=== PATIENT | female | born 1935 | race Caucasian/White ===

== ENCOUNTER 2020-12-16 19:40 | Inpatient (IN) | payer MEDICARE ==
--- NOTE | 2020-12-16 21:06 | ED ---
SOB HPI - General Chief Complaint: Shortness of Breath Stated Complaint: Swollen feet, chest congestion Time Seen by Provider: 12/16/20 20:49 Source: police Mode of arrival: wheelchair Limitations: no limitations - History of Present Illness Initial Comments: This patient is an 85-year-old woman who presents with complaints of increasing bilateral foot swelling and exertional dyspnea/fatigue. She states that the symptoms have been going on for quite some time. She states that she noticed worsening since Wednesday morning. She consider not going to [facility] but then went to [facility] and found she was really having exertional dyspnea. Patient states luann fisher has not seen her physician in about 2 years now so she felt she should have reevaluation here. The patient denies chest pain currently but states she does get some discomfort in the chest that is intermittent and usually if she is lying flat. MD Complaint: shortness of breath -: month(s) Severity scale (1-10): 0 Consistency: intermittent Improves With: upright position Worsens With: lying flat, exertion Associated Symptoms: chest pain Treatments Prior to Arrival: none - Related Data Home Medications Medication Instructions Recorded Confirmed Thyroid,Pork [[place] Thyroid] 90 mg PO DAILY 12/21/12/16/20 Beet Root Pills (Unknown Strength) 1 tab PO DAILY 12/16/20 12/16/20 Magnesium (Unknown Strength) 1 tab PO DAILY 12/16/20 12/16/20 Tri-Salts (Unknown Strength) 1 tsp PO Q4H PRN 12/16/20 12/16/20 Allergies Allergy/AdvReac Type Severity Reaction Status Date / Time Sulfa (Sulfonamide Allergy Severe Rash/Hives Verified 12/16/20 21:56 Antibiotics) Review of Systems ROS Statement: Those systems with pertinent positive or pertinent negative responses have been documented in the HPI. ROS Other: All systems not noted in ROS Statement are negative. Constitutional: Denies: fever, chills Respiratory: Denies: cough, dyspnea Cardiovascular: Reports: chest pain, dyspnea on exertion, orthopnea, edema. Denies: palpitations, syncope Gastrointestinal: Denies: abdominal pain, vomiting, diarrhea Genitourinary: Denies: dysuria, hematuria Musculoskeletal: Denies: back pain Skin: Denies: rash Neurological: Denies: headache, weakness, numbness Past Medical History Past Medical History: CVA/TIA, GERD/Reflux, Hypertension, Mitral Valve Prolapse (MVP), Neurologic Disorder, Rheumatoid Arthritis (RA), Thyroid Disorder Additional Past Medical History / Comment(s): Glaucoma. TIA - 2009. pinched nerve in lower back History of Any Multi-Drug Resistant Organisms: None Reported Past Surgical History: Appendectomy, Heart Catheterization Additional Past Surgical History / Comment(s): fatty tumors Past Anesthesia/Blood Transfusion Reactions: No Reported Reaction Additional Past Anesthesia/Blood Transfusion Reaction / Comment(s): no transfusion Past Psychological History: No Psychological Hx Reported Smoking Status: Never smoker Past Alcohol Use History: None Reported Past Drug Use History: None Reported General Exam Limitations: no limitations General appearance: alert, in no apparent distress Head exam: Present: atraumatic, normocephalic Eye exam: Present: normal appearance. Absent: scleral icterus, conjunctival injection Neck exam: Present: normal inspection Respiratory exam: Present: rales (Bilateral lower lung chandler). Absent: respiratory distress, wheezes, rhonchi, stridor Cardiovascular Exam: Present: regular rate, normal rhythm, normal heart sounds. Absent: systolic murmur, diastolic murmur, rubs, gallop GI/Abdominal exam: Present: soft. Absent: distended, tenderness, guarding, rebound, rigid, mass Extremities exam: Present: normal inspection, normal capillary refill, pedal edema (Ricardo edema at the ankles bilaterally). Absent: calf tenderness Back exam: Present: normal inspection. Absent: CVA tenderness (R), CVA tenderness (L) Neurological exam: Present: alert Skin exam: Present: warm, dry, intact, normal color. Absent: rash Course Vital Signs 12/16/20 12/16/20 12/16/20 19:46 22:03 22:14 Temperature 98 F Pulse Rate 65 71 Respiratory 16 18 20 Rate Blood Pressure 186/71 155/75 O2 Sat by Pulse 89 L 89 L Oximetry 12/16/20 12/17/20 12/17/20 22:28 00:00 00:52 Temperature Pulse Rate 63 56 L Respiratory 18 26 H Rate Blood Pressure 137/60 110/50 O2 Sat by Pulse 96 99 98 Oximetry Medical Decision Making - Lab Data Result diagrams: 12/16/20 21:18 12/16/20 21:18 Lab Results 12/16/20 12/16/20 12/16/20 Range/Units 21:18 21:18 21:18 WBC 10.6 (3.8-10.6) k/uL RBC 4.53 (3.80-5.40) m/uL Hgb 14.4 (11.4-16.0) gm/dL Hct 42.1 (34.0-46.0) % MCV 92.9 (80.0-100.0) fL MCH 31.7 (25.0-35.0) pg MCHC 34.1 (31.0-37.0) g/dL RDW 12.4 (11.5-15.5) % Plt Count 302 (150-450) k/uL MPV 8.1 Neutrophils % 77 % Lymphocytes % 14 % Monocytes % 5 % Eosinophils % 3 % Basophils % 0 % Neutrophils # 8.1 H (1.3-7.7) k/uL Lymphocytes # 1.5 (1.0-4.8) k/uL Monocytes # 0.5 (0-1.0) k/uL Eosinophils # 0.4 (0-0.7) k/uL Basophils # 0.0 (0-0.2) k/uL PT 10.6 (9.0-12.0) sec INR 1.0 (<1.2) APTT 26.6 (22.0-30.0) sec Sodium 133 L (137-145) mmol/L Potassium 4.5 (3.5-5.1) mmol/L Chloride 100 (98-107) mmol/L Carbon Dioxide 27 (22-30) mmol/L Anion Gap 6 mmol/L BUN 16 (7-17) mg/dL Creatinine 0.71 (0.52-1.04) mg/dL Est GFR (CKD-EPI)AfAm >90 (>60 ml/min/1.73 sqM) Est GFR (CKD-EPI)NonAf 79 (>60 ml/min/1.73 sqM) Glucose 101 H (74-99) mg/dL Plasma Lactic Acid Miguel (0.7-2.0) mmol/L Calcium 9.7 (8.4-10.2) mg/dL Magnesium 1.9 (1.6-2.3) mg/dL Total Bilirubin 1.1 (0.2-1.3) mg/dL AST 43 H (14-36) U/L ALT 46 H (4-34) U/L Alkaline Phosphatase 80 (38-126) U/L Troponin I (0.000-0.034) ng/mL NT-Pro-B Natriuret Pep pg/mL Total Protein 7.4 (6.3-8.2) g/dL Albumin 4.2 (3.5-5.0) g/dL Urine Color Urine Appearance (Clear) Urine pH (5.0-8.0) Ur Specific [place] (1.001-1.035) Urine Protein (Negative) Urine Glucose (UA) (Negative) Urine Ketones (Negative) Urine Blood (Negative) Urine Nitrite (Negative) Urine Bilirubin (Negative) Urine Urobilinogen (<2.0) mg/dL Ur Leukocyte Esterase (Negative) Coronavirus (PCR) (Not Detectd) 12/16/20 12/16/20 12/16/20 Range/Units 21:18 21:18 21:18 WBC (3.8-10.6) k/uL RBC (3.80-5.40) m/uL Hgb (11.4-16.0) gm/dL Hct (34.0-46.0) % MCV (80.0-100.0) fL MCH (25.0-35.0) pg MCHC (31.0-37.0) g/dL RDW (11.5-15.5) % Plt Count (150-450) k/uL MPV Neutrophils % % Lymphocytes % % Monocytes % % Eosinophils % % Basophils % % Neutrophils # (1.3-7.7) k/uL Lymphocytes # (1.0-4.8) k/uL Monocytes # (0-1.0) k/uL Eosinophils # (0-0.7) k/uL Basophils # (0-0.2) k/uL PT (9.0-12.0) sec INR (<1.2) APTT (22.0-30.0) sec Sodium (137-145) mmol/L Potassium (3.5-5.1) mmol/L Chloride (98-107) mmol/L Carbon Dioxide (22-30) mmol/L Anion Gap mmol/L BUN (7-17) mg/dL Creatinine (0.52-1.04) mg/dL Est GFR (CKD-EPI)AfAm (>60 ml/min/1.73 sqM) Est GFR (CKD-EPI)NonAf (>60 ml/min/1.73 sqM) Glucose (74-99) mg/dL Plasma Lactic Acid Miguel 1.3 (0.7-2.0) mmol/L Calcium (8.4-10.2) mg/dL Magnesium (1.6-2.3) mg/dL Total Bilirubin (0.2-1.3) mg/dL AST (14-36) U/L ALT (4-34) U/L Alkaline Phosphatase (38-126) U/L Troponin I <0.012 (0.000-0.034) ng/mL NT-Pro-B Natriuret Pep 6230 pg/mL Total Protein (6.3-8.2) g/dL Albumin (3.5-5.0) g/dL Urine Color Urine Appearance (Clear) Urine pH (5.0-8.0) Ur Specific [place] (1.001-1.035) Urine Protein (Negative) Urine Glucose (UA) (Negative) Urine Ketones (Negative) Urine Blood (Negative) Urine Nitrite (Negative) Urine Bilirubin (Negative) Urine Urobilinogen (<2.0) mg/dL Ur Leukocyte Esterase (Negative) Coronavirus (PCR) (Not Detectd) 12/16/20 12/16/20 Range/Units 23:00 23:56 WBC (3.8-10.6) k/uL RBC (3.80-5.40) m/uL Hgb (11.4-16.0) gm/dL Hct (34.0-46.0) % MCV (80.0-100.0) fL MCH (25.0-35.0) pg MCHC (31.0-37.0) g/dL RDW (11.5-15.5) % Plt Count (150-450) k/uL MPV Neutrophils % % Lymphocytes % % Monocytes % % Eosinophils % % Basophils % % Neutrophils # (1.3-7.7) k/uL Lymphocytes # (1.0-4.8) k/uL Monocytes # (0-1.0) k/uL Eosinophils # (0-0.7) k/uL Basophils # (0-0.2) k/uL PT (9.0-12.0) sec INR (<1.2) APTT (22.0-30.0) sec Sodium (137-145) mmol/L Potassium (3.5-5.1) mmol/L Chloride (98-107) mmol/L Carbon Dioxide (22-30) mmol/L Anion Gap mmol/L BUN (7-17) mg/dL Creatinine (0.52-1.04) mg/dL Est GFR (CKD-EPI)AfAm (>60 ml/min/1.73 sqM) Est GFR (CKD-EPI)NonAf (>60 ml/min/1.73 sqM) Glucose (74-99) mg/dL Plasma Lactic Acid Miguel (0.7-2.0) mmol/L Calcium (8.4-10.2) mg/dL Magnesium (1.6-2.3) mg/dL Total Bilirubin (0.2-1.3) mg/dL AST (14-36) U/L ALT (4-34) U/L Alkaline Phosphatase (38-126) U/L Troponin I (0.000-0.034) ng/mL NT-Pro-B Natriuret Pep pg/mL Total Protein (6.3-8.2) g/dL Albumin (3.5-5.0) g/dL Urine Color Light Yellow Urine Appearance Clear (Clear) Urine pH 6.0 (5.0-8.0) Ur Specific [place] 1.006 (1.001-1.035) Urine Protein Negative (Negative) Urine Glucose (UA) Negative (Negative) Urine Ketones Negative (Negative) Urine Blood Negative (Negative) Urine Nitrite Negative (Negative) Urine Bilirubin Negative (Negative) Urine Urobilinogen <2.0 (<2.0) mg/dL Ur Leukocyte Esterase Negative (Negative) Coronavirus (PCR) Not Detected (Not Detectd) - EKG Data -: EKG Interpreted by Wy EKG shows normal: sinus rhythm, intervals (ME interval 178 ms, QTC 473 ms, both normal. QRS duration 124 ms, prolonged consistent with the right bundle branch block.), QRS complexes (Right bundle-branch block. Possible old septal infarct.) Rate: normal (Rate 75 bpm) Disposition Clinical Impression: Dyspnea, CHF (congestive heart failure) Disposition: ADMITTED IP TO THIS HOSP Condition: Fair Is patient prescribed a controlled substance at d/c from ED?: No
[2020-12-16 21:29] LABS: Basophils % (A) 0 %; Eosinophils # (A) 0.4 k/uL (0-0.7); Eosinophils % (A) 3 %; HCT 42.1 % (34.0-46.0); HGB 14.4 gm/dL (11.4-16.0); Lymphocytes # (A) 1.5 k/uL (1.0-4.8); Lymphocytes % (A) 14 %; MCH 31.7 pg (25.0-35.0); MCHC 34.1 g/dL (31.0-37.0); MCV 92.9 fL (80.0-100.0); Mean Platelet Volume 8.1; Monocytes # (A) 0.5 k/uL (0-1.0); Monocytes % (A) 5 %; Neutrophils # (A) 8.1 k/uL (1.3-7.7); Neutrophils % (A) 77 %; Platelet Count 302 k/uL (150-450); RBC 4.53 m/uL (3.80-5.40); RDW 12.4 % (11.5-15.5); WBC 10.6 k/uL (3.8-10.6)
--- NOTE | 2020-12-16 21:37 | XR ---
EXAMINATION TYPE: XR chest 2V DATE OF EXAM: 12/16/2020 COMPARISON: NONE HISTORY: Difficulty breathing. TECHNIQUE: Frontal and lateral views of the chest are obtained. FINDINGS: There is bilateral diffuse hazy and streaky opacities with component of interstitial edema . No significant pleural effusion, or pneumothorax seen. The cardiac silhouette size is mildly enlar ged. The osseous structures are intact. IMPRESSION: Interstitial edema with superimposed infiltrates not excluded.
[2020-12-16 21:41] LABS: ALT 46 U/L (4-34); AST 43 U/L (14-36); African American GFR (CKD) >90 (>60 ml/min/1.73 sqM); Albumin 4.2 g/dL (3.5-5.0); Alkaline Phosphatase 80 U/L (38-126); Anion Gap 6 mmol/L; Blood Urea Nitrogen 16 mg/dL (7-17); Calcium 9.7 mg/dL (8.4-10.2); Carbon Dioxide 27 mmol/L (22-30); Chloride 100 mmol/L (98-107); Glucose 101 mg/dL (74-99); Magnesium 1.9 mg/dL (1.6-2.3); Non-African American GFR(CKD) 79 (>60 ml/min/1.73 sqM); Potassium 4.5 mmol/L (3.5-5.1); Sodium 133 mmol/L (137-145); Total Bilirubin 1.1 mg/dL (0.2-1.3); Total Protein 7.4 g/dL (6.3-8.2)
[2020-12-16 21:42] LABS: Partial Thromboplastin Time 26.6 sec (22.0-30.0); Prothrombin Time 10.6 sec (9.0-12.0)
[2020-12-16] MEDS ORDERED: FUROSEMIDE 10 MG/ML 4 ML VIAL IV STA (21:47)
[2020-12-16] MEDS ORDERED: NITROGLYCERIN OINT 1 INCH/GM PACKET TOPICAL STA (21:47)
[2020-12-16] MEDS ORDERED: MORPHINE SULFATE 4 MG/ML SYRINGE IV STA (21:47)
[2020-12-16] MEDS ORDERED: NITROGLYCERIN SL TABS 0.4 MG TAB SUBLINGUAL STA (21:48)
[2020-12-16 23:16] LABS: Appearance,Urine Clear (Clear); Bilirubin,Urine Negative (Negative); Blood,Urine Negative (Negative); Color,Urine Light Yellow; Glucose,Urine (UA) Negative (Negative); Ketones,Urine Negative (Negative); Leukocyte Esterase,Urine Negative (Negative); Nitrite,Urine Negative (Negative); Protein,Urine Negative (Negative); Specific Gravity,Urine 1.006 (1.001-1.035); Urobilinogen,Urine <2.0 mg/dL (<2.0)
[2020-12-17] MEDS: NITROGLYCERIN OINT 1 INCH/GM PACKET TOPICAL SCH ×2 (00:49→08:30)
[2020-12-17] MEDS: THYROID, PORK 30 MG TAB PO SCH (06:14)
[2020-12-17] MEDS: FUROSEMIDE 10 MG/ML 4 ML VIAL IV SCH ×2 (08:29→19:33)
[2020-12-17 08:42] LABS: Calcium 9.4 mg/dL (8.4-10.2); Potassium 4.5 mmol/L (3.5-5.1)
--- NOTE | 2020-12-17 10:51 | ECHOF ---
Referral Reason:Heart Failure MEASUREMENTS -------- HEIGHT: 152.4 cm WEIGHT: 69.9 kg BP: IVSd: 1.4 cm (0.6 - 1.1) LVIDd: 4.5 cm (3.9 - 5.3) LVPWd: 1.4 cm (0.6 - 1.1) IVSs: 1.4 cm LVIDs: 3.2 cm LVPWs: 1.6 cm LAESV Index (A-L): 42.62 ml/m MV EXCURSION: 10.759 mm (> 18.000) MV EF SLOPE: 27 mm/s (70 - 150) EPSS: 0.3 cm MV E Jaya: 0.84 m/s MV DecT: 383 ms MV A Jaya: 0.60 m/s MV E/A Ratio: 1.40 AV maxP.01 mmHg AV meanP.86 mmHg AR PHT: 345 ms RAP: 5.00 mmHg RVSP: 31.10 mmHg FINDINGS -------- Sinus rhythm. This was a technically good study. The left ventricular size is normal. There is mild concentric left ventricular hypertrophy. Overa ll left ventricular systolic function is low-normal with, an EF between 50 - 55 %. The right ventricle is normal in size. LA is severely dilated >40 ml/m2 The right atrial size is normal. There is moderate aortic regurgitation. There is severe aortic stenosis present. Peak/mean gradie nt across the Aortic Valve is 141.01mmHg / 92.86mmHg. AOV is possible Bicuspid. Moderate mitral regurgitation is present. The peak and mean MV gradients are 26.25mmHg 5.76mmHg as measured by doppler. Wffdwgki-[id number] mitral stenosis , with a MVA of 1.4cm (by PHT) Mild tricuspid regurgitation present. Right ventricular systolic pressure is normal at < 35 mmHg. Trace/mild (physiologic) pulmonic regurgitation. The aortic root size is normal. There is no pericardial effusion. CONCLUSIONS -------- 1. The left ventricular size is normal. 2. There is mild concentric left ventricular hypertrophy. 3. Overall left ventricular systolic function is low-normal with, an EF between 50 - 55 %. 4. The right ventricle is normal in size. 5. LA is severely dilated >40 ml/m2 6. The right atrial size is normal. 7. There is moderate aortic regurgitation. 8. There is severe aortic stenosis present. 9. Peak/mean gradient across the Aortic Valve is 141.01mmHg / 92.86mmHg. 10. AOV is possible Bicuspid. 11. Moderate mitral regurgitation is present. 12. The peak and mean MV gradients are 26.25mmHg 5.76mmHg as measured by doppler. 13. Fybgbrwp-cr-rtnrky mitral stenosis. 14. , with a MVA of 1.4cm (by PHT) 15. Mild tricuspid regurgitation present. 16. Trace/mild (physiologic) pulmonic regurgitation. 17. The aortic root size is normal. 18. There is no pericardial effusion. HOB MACHINE OPERATOR: Tatyana Fam RDCS
--- NOTE | 2020-12-17 11:58 | P.CRDCN ---
History of Present Illness Consult date: 12/17/20 History of present illness: HISTORY OF PRESENT ILLNESS: This is a 85-year-old female with a past medical history significant for hypothyroidism and "a heart murmur". 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 We have been asked to see the patient in consultation for congestive heart failure. Patient examined at the bedside. Patient states over the past week she has felt very fatigued. At first she did not realize she was short of breath however she went to [employer] on Wednesday and states by the time she walked from the parking lot the [employer] she was extremely winded. She states she had to sit down to catch her breath. She also reports some lower extremity edema swelling. She denies chest pain or pressure. She denies a previous history of congestive heart failure. Patient was started on IV Lasix in the emergency room. Patient states her breathing has improved today. She states she is able to walk to the bathroom with minimal shortness of breath. Echocardiogram completed reveals ejection fraction 50-55%, moderate aortic regurgitation, severe aortic stenosis with a peak/mean gradient of 141/92.86 mmHg, possible bicuspid aortic valve, moderate mitral regurgitation, moderate to severe mitral stenosis and mild tricuspid regurgitation EKG reveals sinus mechanism with right bundle-branch block Chest xray interstitial edema with superimposed infiltrates not excluded Laboratory data: WBC 10.6. Hemoglobin 14.4. Platelet count 302. Sodium 133. Potassium 4.5. BUN 16. Creatinine 0.71. Lactic acid 1.3. Magnesium 1.9. Troponin negative 3. BNP 6230. Current home cardiac medications include none REVIEW OF SYSTEMS: At the time of my exam: CONSTITUTIONAL: Denies fever or chills. HEENT: Denies blurred vision, vision changes, or eye pain. Denies hemoptysis CARDIOVASCULAR: Denies chest pain. Denies orthopnea. Denies PND. Denies palpitations RESPIRATORY: + shortness of breath. GASTROINTESTINAL: Denies abdominal pain. Denies nausea or vomiting. HEMATOLOGIC: Denies bleeding disorders. GENITOURINARY: Denies any blood in urine. SKIN: Denies pruitis. Denies rash. PHYSICAL EXAM: VITAL SIGNS: Reviewed. GENERAL: Well-developed in no acute distress. HEENT: Head is normocephalic. Pupils are equal, round. Sclerae anicteric. Mucous membranes of the mouth are moist. Neck supple. No JVD or thyromegaly LUNGS: Respirations even and unlabored. Lungs diminished with fine bibasilar rales. HEART: Regular rate and rhythm. S1 and S2 heard. Systolic murmur noted. ABDOMEN: Soft. Nondistended. Nontender. EXTREMITIES: Normal range of motion. No clubbing or cyanosis. Peripheral pulses intact. No lower extremity edema NEUROLOGIC: Awake and alert. Oriented x 3. ASSESSMENT: Acute diastolic heart failure Valvular heart disease Hypothyroidism PLAN: Continue IV lasix Monitor kidney function Daily weights Accurate I&O Dr. Iniguez spoke with daughter and patient at bedside regarding possible valve replacement (aortic and mitral). Explained that patient would also need a coronary angiogram in [place] first to assess for coronary artery disease. Patient is unsure if she wants to have this done. Patient and her daughter will discuss this further and make a decision. Will re-evaluate tomorrow. Nurse practitioner note has been reviewed by physician. Signing provider agrees with the documented findings, assessment, and plan of care. Past Medical History Past Medical History: CVA/TIA, GERD/Reflux, Hypertension, Mitral Valve Prolapse (MVP), Rheumatoid Arthritis (RA), Thyroid Disorder Additional Past Medical History / Comment(s): Glaucoma. TIA - 2008 History of Any Multi-Drug Resistant Organisms: None Reported Past Surgical History: Appendectomy, Heart Catheterization Additional Past Surgical History / Comment(s): fatty tumors Past Anesthesia/Blood Transfusion Reactions: No Reported Reaction Additional Past Anesthesia/Blood Transfusion Reaction / Comment(s): no transfusion Past Psychological History: No Psychological Hx Reported Smoking Status: Never smoker Past Alcohol Use History: None Reported Past Drug Use History: None Reported Medications and Allergies Home Medications Medication Instructions Recorded Confirmed Type Thyroid,Pork [[place] Thyroid] 90 mg PO DAILY 12/21/13 12/16/20 History Beet Root Pills (Unknown Strength) 1 tab PO DAILY 12/16/20 12/16/20 History Magnesium (Unknown Strength) 1 tab PO DAILY 12/16/20 12/16/20 History Tri-Salts (Unknown Strength) 1 tsp PO Q4H PRN 12/16/20 12/16/20 History Allergies Allergy/AdvReac Type Severity Reaction Status Date / Time Sulfa (Sulfonamide Allergy Severe Rash/Hives Verified 12/16/20 21:56 Antibiotics) Physical Exam Vitals: Vital Signs Temp Pulse Pulse Resp BP BP Pulse Ox 12/17/20 03:56 98 F 54 L 18 103/58 96 12/17/20 02:00 61 18 12/17/20 01:33 98 F 61 18 156/71 99 12/17/20 00:52 98 12/17/20 00:00 56 L 26 H 110/50 99 12/16/20 22:28 63 18 137/60 96 12/16/20 22:14 20 12/16/20 22:03 71 18 155/75 89 L 12/16/20 19:46 98 F 65 16 186/71 89 L Intake and Output 12/16/20 12/17/20 12/17/20 22:59 06:59 14:59 Intake Total 600 Output Total 400 500 Balance -400 100 Intake: Oral 600 Output: Urine 400 500 Other: Voiding Method Toilet # Voids 1 Weight 65.771 kg 70.3 kg Results 12/16/20 21:18 12/17/20 04:10 Cardiac Enzymes 12/16/20 12/16/20 12/17/20 Range/Units 21:18 21:18 01:09 AST 43 H (14-36) U/L Troponin I <0.012 0.027 (0.000-0.034) ng/mL 12/17/20 Range/Units 04:08 AST (14-36) U/L Troponin I 0.025 (0.000-0.034) ng/mL Coagulation 12/16/20 Range/Units 21:18 PT 10.6 (9.0-12.0) sec APTT 26.6 (22.0-30.0) sec CBC 12/16/20 Range/Units 21:18 WBC 10.6 (3.8-10.6) k/uL RBC 4.53 (3.80-5.40) m/uL Hgb 14.4 (11.4-16.0) gm/dL Hct 42.1 (34.0-46.0) % Plt Count 302 (150-450) k/uL Comprehensive Metabolic Panel 12/16/20 Range/Units 21:18 Sodium 133 L (137-145) mmol/L Potassium 4.5 (3.5-5.1) mmol/L Chloride 100 (98-107) mmol/L Carbon Dioxide 27 (22-30) mmol/L BUN 16 (7-17) mg/dL Creatinine 0.71 (0.52-1.04) mg/dL Glucose 101 H (74-99) mg/dL Calcium 9.7 (8.4-10.2) mg/dL AST 43 H (14-36) U/L ALT 46 H (4-34) U/L Alkaline Phosphatase 80 (38-126) U/L Total Protein 7.4 (6.3-8.2) g/dL Albumin 4.2 (3.5-5.0) g/dL Current Medications Generic Name Dose Route Start Last Admin Trade Name Freq PRN Reason Stop Dose Admin Furosemide 40 mg 12/17/20 09:00 Furosemide 10 Mg/Ml 4 Ml Vial IV BID [facility] Nitroglycerin 0.5 inch 12/17/20 00:30 12/17/20 00:49 Nitroglycerin Oint 1 Inch/Gm Packet TOPICAL Not Given Q8H VINOD Sodium Chloride 10 ml 12/17/20 09:00 Sodium Chloride 0.9% Flush 10 Ml Syringe IV BID [facility] Thyroid 90 mg 12/17/20 06:30 12/17/20 06:14 Thyroid, Pork 30 Mg Tab PO 90 mg DAILY@0630 VINOD Administration Intake and Output 12/16/20 12/17/20 12/17/20 22:59 06:59 14:59 Intake Total 600 Output Total 400 500 Balance -400 100 Intake: Oral 600 Output: Urine 400 500 Other: Voiding Method Toilet # Voids 1 Weight 65.771 kg 70.3 kg 12/16/20 21:18 12/16/20 21:18
--- NOTE | 2020-12-17 15:29 | P.HPIM ---
History of Present Illness H&P Date: 12/17/20 Chief Complaint: Shortness of breath, pedal edema This is an 85-year-old female with past history of CVA/TIA, gastroesophageal reflux disease, hypertension,MVP, rheumatoid arthritis, hypothyroidism, glaucoma presented to the ER with complaints of worsening shortness of breath, pedal edema and fatigue since Wednesday morning, walking into [employer]. Reported sensation of chest tightness, "bra was too tight", especially with lying flat. Has not seen PCP in approximately 2 years. Chest x-ray reporting interstitial edema with superimposed infiltrates not excluded. EKG reported normal sinus rhythm possible left atrial enlargement, right bundle branch block, septal infarct, age undetermined. Afebrile, normal WBC. Hemoglobin 14.4, platelets 302, sodium 133 on admission -up to 135.potassium 4.5, magnesium 1.9. Renal function stable. Troponins negative 3, proBNP 6230, UA negative. Mildly elevated AST ALT. Received Lasix IV push in the ER, maintained on BiPAP throughout the night, feels better this morning Echo Pending. Review of Systems ROS Statement: Those systems with pertinent positive or pertinent negative responses have been documented in the HPI. ROS Other: All systems not noted in ROS Statement are negative. Past Medical History Past Medical History: CVA/TIA, GERD/Reflux, Hypertension, Mitral Valve Prolapse (MVP), Rheumatoid Arthritis (RA), Thyroid Disorder Additional Past Medical History / Comment(s): Glaucoma. - 2008 History of Any Multi-Drug Resistant Organisms: None Reported Past Surgical History: Appendectomy, Heart Catheterization Additional Past Surgical History / Comment(s): fatty tumors Past Anesthesia/Blood Transfusion Reactions: No Reported Reaction Additional Past Anesthesia/Blood Transfusion Reaction / Comment(s): no transfusion Past Psychological History: No Psychological Hx Reported Smoking Status: Never smoker Past Alcohol Use History: None Reported Past Drug Use History: None Reported Medications and Allergies Home Medications Medication Instructions Recorded Confirmed Type Thyroid,Pork [[place] Thyroid] 90 mg PO DAILY 12/21/13 12/16/20 History Beet Root Pills (Unknown Strength) 1 tab PO DAILY 12/16/20 12/16/20 History Magnesium (Unknown Strength) 1 tab PO DAILY 12/16/20 12/16/20 History Tri-Salts (Unknown Strength) 1 tsp PO Q4H PRN 12/16/20 12/16/20 History Allergies Allergy/AdvReac Type Severity Reaction Status Date / Time Sulfa (Sulfonamide Allergy Severe Rash/Hives Verified 12/16/20 21:56 Antibiotics) Physical Exam Vitals: Vital Signs Temp Pulse Pulse Resp BP BP Pulse Ox 12/17/20 03:56 98 F 54 L 18 103/58 96 12/17/20 02:00 61 18 12/17/20 01:33 98 F 61 18 156/71 99 12/17/20 00:52 98 12/17/20 00:00 56 L 26 H 110/50 99 12/16/20 22:28 63 18 137/60 96 12/16/20 22:14 20 12/16/20 22:03 71 18 155/75 89 L 12/16/20 19:46 98 F 65 16 186/71 89 L Intake and Output 12/16/20 12/17/20 12/17/20 22:59 06:59 14:59 Intake Total 600 Output Total 400 500 Balance -400 100 Intake: Oral 600 Output: Urine 400 500 Other: Voiding Method Toilet # Voids 1 Weight 65.771 kg 70.3 kg PHYSICAL EXAM: VITAL SIGNS: As above GENERAL: Sitting up in bed, no acute distress HEENT: Conjunctivae normal. eyes normal. NECK: No JVD. No thyroid enlargement. No LNs CARDIOVASCULAR: S1, S2 regular. Systolic murmur. RESPIRATION: Breath sounds diminished in the bases. No rhonchi, bibasilar crackles. No bronchial breathing. ABDOMEN: Soft, nontender . No guarding. no masses palpable. No ascites, No hepatosplenomegaly.Bowel sounds heard. LEGS: No edema. no swelling PSYCHIATRY: Alert and oriented X3, mood and affect normal. NERVOUS SYSTEM: Cranial N 2-12 grossly normal. Moves all 4 limbs. Diffuse weakness No focal deficits. Strength and sensation grossly intact.. Skin: Warm and dry, no rash Lymphatic system. No LN neck axilla. Results CBC & Chem 7: 12/16/20 21:18 12/17/20 04:10 Labs: Abnormal Lab Results - Last 24 Hours (Table) 12/16/20 12/16/20 Range/Units 21:18 21:18 Neutrophils # 8.1 H (1.3-7.7) k/uL Sodium 133 L (137-145) mmol/L Glucose 101 H (74-99) mg/dL AST 43 H (14-36) U/L ALT 46 H (4-34) U/L Thrombosis Risk Factor Assmnt - Choose All That Apply Any of the Below Risk Factors Present?: Yes Each Factor Represents 1 point: Swollen legs (current) Other Risk Factors: Yes Each Risk Factor Represents 3 Points: Age 75 years or older Other congenital or acquired thrombophilia - If yes, enter type in comment: No Thrombosis Risk Factor Assessment Total Risk Factor Score: 4 Thrombosis Risk Factor Assessment Level: Moderate Risk Assessment and Plan Assessment: Acute chest tightness sensation, troponins negative 3, abnormal EKG. Acute CHF exacerbation, echo pending Acute hypoxic respiratory failure secondary to the above. Hypothyroidism Gastroesophageal reflux disease Hypertension MVP Rheumatoid arthritis History of CVA, TIA Obesity, BMI 30.1 Plan: Continue on current medication regime ,monitoring and symptomatic treatment. Discussed with RN to make patient NPO, pending cardiology eval.as patient complains of not only shortness of breath and edema , but also chest tightness sensation, which may need further workup/potential stress test-d eferred to cardiology. Echo pending. Maintain diuretics. The impression and plan of care has been dictated as directed. : I performed a history and examination of this patient, discussed the same with the dictator. I agree with the dictator's note ,documented as a scribe. Any additional findings or plans will be noted.
[2020-12-18] MEDS: THYROID, PORK 30 MG TAB PO SCH (05:09)
[2020-12-18] MEDS: FUROSEMIDE 10 MG/ML 4 ML VIAL IV SCH ×2 (08:37→10:12)
[2020-12-18] MEDS ORDERED: ALPRAZolam 0.5 MG TAB PO PRN (08:58)
[2020-12-18] MEDS ORDERED: ALPRAZolam 0.25 MG TAB PO PRN (08:58)
[2020-12-18] MEDS ORDERED: NITROGLYCERIN SL TABS 0.4 MG TAB SUBLINGUAL PRN (08:58)
--- NOTE | 2020-12-18 11:45 | P.PN ---
Subjective Progress Note Date: 12/18/20 HISTORY OF PRESENT ILLNESS: This is a 85-year-old female with a past medical history significant for hypothyroidism and "a heart murmur". Patient does not follow regularly with a reinforcer. We have been asked to see the patient in consultation for congestive heart failure. Patient examined at the bedside. Patient states over the past week she has felt very fatigued. At first she did not realize she was short of breath however she went to [employer] on Wednesday and states by the time she walked from the parking lot the [employer] she was extremely winded. She states she had to sit down to catch her breath. She also reports some lower extremity edema swelling. She denies chest pain or pressure. She denies a previous history of congestive heart failure. Patient was started on IV Lasix in the emergency room. Patient states her breathing has improved today. She states she is able to walk to the bathroom with minimal shortness of breath. Echocardiogram completed reveals ejection fraction 50-55%, moderate aortic regurgitation, severe aortic stenosis with a peak/mean gradient of 141/92.86 mmHg, possible bicuspid aortic valve, moderate mitral regurgitation, moderate to severe mitral stenosis and mild tricuspid regurgitation EKG reveals sinus mechanism with right bundle-branch block Chest xray interstitial edema with superimposed infiltrates not excluded Laboratory data: WBC 10.6. Hemoglobin 14.4. Platelet count 302. Sodium 133. Potassium 4.5. BUN 16. Creatinine 0.71. Lactic acid 1.3. Magnesium 1.9. Troponin negative 3. BNP 6230. Current home cardiac medications include none 12/18/2020 Patient examined at bedside. Patient denies chest pain or pressure. Patient reports her shortness of breath has improved. She remains on IV Lasix. Patient has decided to proceed with KATERIN and cardiac catheterization. PHYSICAL EXAM: VITAL SIGNS: Reviewed. GENERAL: Well-developed in no acute distress. HEENT: Head is normocephalic. Pupils are equal, round. Sclerae anicteric. Mucous membranes of the mouth are moist. Neck supple. No JVD or thyromegaly LUNGS: Respirations even and unlabored. Lungs diminished. HEART: Regular rate and rhythm. S1 and S2 heard. Systolic murmur noted. ABDOMEN: Soft. Nondistended. Nontender. EXTREMITIES: Normal range of motion. No clubbing or cyanosis. Peripheral pulses intact. No lower extremity edema NEUROLOGIC: Awake and alert. Oriented x 3. ASSESSMENT: Acute diastolic heart failure Valvular heart disease Hypothyroidism PLAN: Decrease Lasix to 40 mg IV daily Monitor kidney function Daily weights Accurate I&O Patient to undergo KATERIN and cardiac catheterization tomorrow with Dr. Aguirre Will consult cardiothoracic surgery after patient has KATERIN and cardiac catheterization performed Nothing by mouth at midnight Further recommendations patient's course Nurse practitioner note has been reviewed by physician. Signing provider agrees with the documented findings, assessment, and plan of care. Objective - Vital Signs Vital signs: Vital Signs Temp 98.0 F 12/18/20 08:00 Pulse 55 L 12/18/20 08:00 Resp 16 12/18/20 08:00 BP 111/53 12/18/20 08:00 Pulse Ox 96 12/18/20 08:25 Intake & Output 12/17/20 12/18/20 12/18/20 18:59 06:59 18:59 Intake Total 478 Output Total 1851 800 Balance -1373 -800 Weight 69.8 kg Intake: Oral 478 Output: Urine 1851 800 Other: Voiding Method Toilet Toilet # Voids 500 - Labs CBC & Chem 7: 12/16/20 21:18 12/17/20 04:10
--- NOTE | 2020-12-18 21:29 | P.PN ---
Subjective Progress Note Date: 12/18/20 This is an 85-year-old female with past history of CVA/TIA, gastroesophageal reflux disease, hypertension,MVP, rheumatoid arthritis, hypothyroidism, glaucoma presented to the ER with complaints of worsening shortness of breath, pedal edema and fatigue since Wednesday morning, walking into [employer]. Reported sensation of chest tightness, "bra was too tight", especially with lying flat. Has not seen PCP in approximately 2 years. Chest x-ray reporting interstitial edema with superimposed infiltrates not exc luded. EKG reported normal sinus rhythm possible left atrial enlargement, right bundle branch block, septal infarct, age undetermined. Afebrile, normal WBC. Hemoglobin 14.4, platelets 302, sodium 133 on admission -up to 135.potassium 4.5, magnesium 1.9. Renal function stable. Troponins negative 3, proBNP 6230, UA negative. Mildly elevated AST ALT. Received Lasix IV push in the ER, maintained on BiPAP throughout the night, feels better this morning Echo Pending. 12/18/2020 diuresing well on Lasix IV push with 24-hour I&O reflecting a negative fluid balance. Renal function stable. Breathing significantly improved. Maintaining O2 sats in the 90s on room air. Echo reporting low normal left ventricular systolic function. EF 50-55%, severely dilated LA, moderate aortic regurgitation, severe aortic stenosis, AOV is possible bicuspid, moderate mitral regurgitation, moderate to severe mitral stenosis. Patient has decided to proceed with further cardiac workup and is scheduled for cardiac catheterization and KATERIN in the a.m. Objective - Vital Signs Vital signs: Vital Signs Temp 98.0 F 12/18/20 08:00 Pulse 55 L 12/18/20 08:00 Resp 16 12/18/20 08:00 BP 111/53 12/18/20 08:00 Pulse Ox 96 12/18/20 08:25 Intake & Output 12/17/20 12/18/20 12/18/20 18:59 06:59 18:59 Intake Total 478 480 Output Total 1851 800 Balance -1373 -800 480 Weight 69.8 kg Intake: Oral 478 480 Output: Urine 1851 800 Other: Voiding Method Toilet Toilet # Voids 500 - Exam PHYSICAL EXAM: VITAL SIGNS: As above GENERAL: Sitting up in bed, no acute distress HEENT: Conjunctivae normal. eyes normal. NECK: No JVD. No thyroid enlargement. No LNs CARDIOVASCULAR: S1, S2 regular. Systolic murmur. RESPIRATION: Breath sounds diminished in the bases. ABDOMEN: Soft, nontender . No guarding. no masses palpable. Positive Bowel sounds heard. LEGS: No edema. no swelling PSYCHIATRY: Alert and oriented X3, mood and affect normal. NERVOUS SYSTEM: Cranial N 2-12 grossly normal. Moves all 4 limbs. No focal deficits. Strength and sensation grossly intact.. Skin: Warm and dry, no rash - Labs CBC & Chem 7: 12/16/20 21:18 12/17/20 04:10 Assessment and Plan Assessment: Acute chest tightness sensation, troponins negative 3, abnormal EKG. valvular heart disease, EF 50-55%. Acute CHF exacerbation, echo pending Acute hypoxic respiratory failure secondary to the above. Hypothyroidism Gastroesophageal reflux disease Hypertension MVP Rheumatoid arthritis History of CVA, TIA Obesity, BMI 30.1 Plan: Continue on current medication regime ,monitoring and symptomatic treatment. Diuretics as per cardiology with close monitoring of renal function. Scheduled for cardiac catheterization and KATERIN tomorrow with pending cardiothoracic surgery consult. The impression and plan of care has been dictated as directed. : I performed a history and examination of this patient, discussed the same with the dictator. I agree with the dictator's note ,documented as a scribe. Any additional findings or plans will be noted.
[2020-12-18] MEDS ORDERED: SODIUM CHLORIDE 0.9% 1,000 ML in EMPTY BAG 1 BAG IV ONE (23:00)
[2020-12-18 23:58] VITALS: RESP 16
[2020-12-19] MEDS: FUROSEMIDE 10 MG/ML 4 ML VIAL IV SCH (04:25)
[2020-12-19] MEDS: THYROID, PORK 30 MG TAB PO SCH (05:15)
[2020-12-19 06:05] LABS: Glucose,Whole Blood 99 mg/dL (75-99)
[2020-12-19] MEDS ORDERED: HEPARIN SODIUM,PORCINE 2,500 UNIT in SODIUM CHLORIDE 0.9% 250 ML IRRIGATION PRN (07:00)
[2020-12-19] MEDS ORDERED: ATORVASTATIN 80 MG TAB PO ONE (07:00)
[2020-12-19] MEDS ORDERED: HEPARIN SODIUM,PORCINE 10,000 UNIT in SODIUM CHLORIDE 0.9% 1,000 ML IRRIGATION PRN (07:00)
[2020-12-19] MEDS ORDERED: ASPIRIN 325 MG TAB PO ONE (07:00)
[2020-12-19] MEDS ORDERED: LIDOCAINE 1% INJ 10MG/ML (20 ML MDV) ONE (07:21)
[2020-12-19] MEDS ORDERED: fentaNYL (PF) 50 MCG/ML 2 ML AMP ONE (07:33)
[2020-12-19] MEDS ORDERED: BENZOCAINE SPRAY 1 CAN TOPICAL ONE (07:35)
[2020-12-19] MEDS ORDERED: fentaNYL (PF) 50 MCG/ML 2 ML AMP IV ONE (07:36)
[2020-12-19] MEDS ORDERED: MIDAZOLAM 2 MG/2 ML VIAL IV ONE (07:39)
[2020-12-19] MEDS ORDERED: IV FLUID CONTINUATION 500 ML IV ONE (07:45)
[2020-12-19 07:49] LABS: Calcium 9.7 mg/dL (8.4-10.2); Potassium 3.9 mmol/L (3.5-5.1)
[2020-12-19] MEDS ORDERED: IV FLUID CONTINUATION 1,000 ML IV ONE (07:51)
[2020-12-19] MEDS ORDERED: LIDOCAINE 1% INJ 10MG/ML (20 ML MDV) SQ ONE (08:01)
[2020-12-19] MEDS ORDERED: IOPAMIDOL-370 125ML BTL INJ ONE ×2 (08:21→08:22)
--- NOTE | 2020-12-19 08:39 | ECHOT ---
TRANSESOPHAGEAL ECHOCARDIOGRAM PROCEDURE: Transesophageal echocardiogram. INDICATION: Multivalvular heart disease including aortic stenosis, mitral stenosis. PROCEDURE NOTE: After obtaining informed consent, transesophageal echocardiogram is performed in left lateral position using an Omni plane probe. Local and IV sedation were obtained using 2 mg of Versed and 25 mcg of fentanyl and xylocaine spray. The patient tolerated the procedure well without any obvious immediate complications. Patient received moderate conscious sedation. Total sedation time was 10 minutes. FINDINGS: 1. Aortic valve: Aortic valve is a 3-leaflet valve that is heavily calcified and shows severe restriction in leaflet mobility with a valve area less than 0.5 square cm by planimetry technique. There is moderate aortic regurgitation noted. 2. Mitral valve: Mitral valve shows mitral annular calcification and thickening of the mitral valve leaflets with moderate to severe restriction in leaflet mobility. There is mild to moderate central mitral regurgitation noted. The peak gradient across the valve is about 10 mm and the mean gradient is 5 mm. By pressure half time, the valve area is about 1.5 square cm. The patient has moderate to severe mitral stenosis. 3. Tricuspid valve appears normal. There is mild tricuspid regurgitation noted. 4. Left ventricle has normal size and shows concentric left ventricular hypertrophy with normal LV function with an ejection fraction of 60%. 5. Left atrium appears moderately enlarged. 6. Right atrium and right ventricle exam within normal limits. 7. Interatrial septum: There is no evidence of [id number] shunt by color-flow Doppler or [id number] shunt by agitated saline contrast study. 8. Aorta shows mild to moderate atherosclerotic changes. 9. Aortic root measures about 3.1 cm. CONCLUSIONS: 1. Severe aortic stenosis. 2. Moderate aortic regurgitation. 3. Moderate mitral stenosis. 4. Mild to moderate mitral regurgitation. PLAN: Patient will undergo cardiac catheterization and will be referred to her cardiothoracic surgeon for aortic and mitral valve replacement. MMODL / IJN: [id number] /
[2020-12-19] MEDS ORDERED: RX INFO: IV CONTRAST WAS GIVEN 1 EACH MISC MISCELLANE PRN (08:41)
--- NOTE | 2020-12-19 09:06 | P.PN ---
Progress Note - Text Progress Note Date: 12/19/20 Attempted to see patient, patient off the floor for cardiac catheterization /KATERIN. The impression and plan of care has been dictated as directed. : I performed a history and examination of this patient, discussed the same with the dictator. I agree with the dictator's note ,documented as a scribe. Any additional findings or plans will be noted.
--- NOTE | 2020-12-19 09:16 | CC ---
CARDIAC CATHETERIZATION REPORT INDICATION: Valvular heart disease, mitral stenosis and aortic stenosis along with aortic regurgitation to rule out coronary artery disease prior to surgery. PROCEDURE NOTE: After obtaining informed consent, left heart catheterization and coronary angiogram and aortogram were performed using standard Deanne catheters. The patient tolerated the procedure well without any obvious immediate complications. A femoral angiogram was performed and Angio-Seal was deployed for hemostasis. Patient received moderate conscious sedation. Total sedation time was 22 minutes. FINDINGS: HEMODYNAMICS: Left central aortic pressure is 110/70 mm. LEFT VENTRICULOGRAM: Left ventriculogram is not performed. AORTOGRAM: Shows that the ascending aorta is not aneurysmal and there is 3+ aortic regurgitation noted. . ANGIOGRAPHIC DATA: LEFT MAIN CORONARY ARTERY: Left main coronary artery appears calcified but is free of significant stenosis. Divides into left anterior descending coronary artery and circumflex coronary artery. LEFT ANTERIOR DESCENDING CORONARY ARTERY: LAD and its branches are free of significant stenosis. CIRCUMFLEX CORONARY ARTERY: Circumflex coronary artery gives off a large caliber OM branch that has an 80-90 percent ostial stenosis. RIGHT CORONARY ARTERY: Right coronary artery is a large dominant vessel and is free of significant disease. CONCLUSIONS: 1. Severe aortic regurgitation. 2. Eighty to 90% ostial stenosis involving the OM branch. PLAN: The patient has severe aortic stenosis, severe aortic regurgitation, moderate mitral stenosis and will need mitral and aortic valve replacement with bypass of the OM branch. MMODL / IJN: [id number] /
--- NOTE | 2020-12-19 11:26 | P.GSCN ---
History of Present Illness Consult date: 12/19/20 Reason for Consult: Valvular heart disease and single-vessel coronary artery disease, surgical recommendations Requesting physician: Gigi Russ History of present illness: This is an 85-year-old female patient who has not followed with a primary care physician for the last 2 years although prior to that she was following with Dr. Alejandre. She has a previous medical history of hypertension, hyperlipidemia, hypothyroidism, known heart murmur since she was in her 20s, TIA in 2008, GERD, arthritis and family history of premature coronary artery disease with brother diagnosed in his 40s with subsequent 2 vessel CABG, and family history of heart failure and possible valvular heart disease. The patient presented to the emergency room [facility] with complaints of significant shortness of breath and lower extremity edema. She states that when walking from the parking lot to [place] last Wednesday she had to stop and sit down early because she was so short of breath. She also had chest pain which she attributed to her GERD. She did not seek treatment immediately, however the next day a friend told her he was very concerned that it might be her heart so she presented to the emergency room. In the ER a chest x-ray was completed demonstrating interstitial edema with superimposed infiltrates. EKG demonstrated normal sinus rhythm with a right bundle branch block. Lab work indicated no significant abnormalities except sodium 133, AST 43, ALT 46. Troponin was negative 3. ProBNP was 6230. The patient was admitted for heart failure with consultation placed to cardiology. Transthoracic echocardiogram was completed demonstrating EF 50-55%, dilated left atrium, severe aortic stenosis with peak/mean gradient 141/92 mmHg, moderate mitral regurgitation, moderate to severe mitral stenosis with peak/mean gradient 26/5 mmHg and mitral valve area 1.4 cm as well as mild tricuspid regurgitation. For further management patient was recommended to undergo heart catheterization and transesophageal echocardiogram which patient was initially reluctant to consent to. She was finally convinced to have studies done which were completed today. Left heart catheterization revealed 80-90% ostial leola nosis to the obtuse marginal branch of circumflex coronary artery. Transesophageal echocardiogram demonstrated a calcified 3 leaflet aortic valve with valve area less than 0.5 cm, severe aortic stenosis, moderate aortic insufficiency, mild to moderate central mitral regurgitation, moderate to severe mitral stenosis with peak/mean gradient 10/5 mmHg with mitral valve area 1.5 cm and mild tricuspid regurgitation. Due to these findings consultation was placed to Dr. Yusuf from cardiothoracic surgery for recommendations for surgery. Of note the patient is on no medical therapy except for her thyroid. Review of Systems Review of systems was completed and was negative except as noted - Cardiovascular Reports as per HPI, Reports chest pain, Reports decreased exercise tolerance, Reports dyspnea on exertion, Reports leg edema, Reports shortness of breath Past Medical History Past Medical History: CVA/TIA, GERD/Reflux, Hyperlipidemia, Hypertension, Mitral Valve Prolapse (MVP), Rheumatoid Arthritis (RA), Thyroid Disorder Additional Past Medical History / Comment(s): Glaucoma. TIA - 2008 History of Any Multi-Drug Resistant Organisms: None Reported Past Surgical History: Appendectomy, Heart Catheterization Additional Past Surgical History / Comment(s): fatty tumors Past Anesthesia/Blood Transfusion Reactions: No Reported Reaction Additional Past Anesthesia/Blood Transfusion Reaction / Comm: no transfusion Past Psychological History: No Psychological Hx Reported Smoking Status: Never smoker Past Alcohol Use History: None Reported Past Drug Use History: None Reported - Past Family History Mother Family Medical History: Congestive Heart Failure (CHF) Additional Family Medical History / Comment(s): Possible valvular heart disease Father Family Medical History: Congestive Heart Failure (CHF) Brother(s) Family Medical History: Coronary Artery Disease (CAD) Additional Family Medical History / Comment(s): Brother diagnosed with coronary artery disease in his 40s with subsequent 2 vessel CABG Medications and Allergies Home Medications Medication Instructions Recorded Confirmed Type Thyroid,Pork [Fletcher Thyroid] 90 mg PO DAILY 12/21/13 12/16/20 History Beet Root Pills (Unknown Strength) 1 tab PO DAILY 12/16/20 12/16/20 History Magnesium (Unknown Strength) 1 tab PO DAILY 12/16/20 12/16/20 History Tri-Salts (Unknown Strength) 1 tsp PO Q4H PRN 12/16/20 12/16/20 History Allergies Allergy/AdvReac Type Severity Reaction Status Date / Time Sulfa (Sulfonamide Allergy Severe Rash/Hives Verified 12/16/20 21:56 Antibiotics) Surgical - Exam Vital Signs Temp Pulse Resp BP Pulse Ox 98 F 65 16 186/71 89 L 12/16/20 19:46 12/16/20 19:46 12/16/20 19:46 12/16/20 19:46 12/16/20 19:46 CONSTITUTIONAL: Awake and alert, appears comfortable, cooperative, well- developed, well-nourished, no pain, no acute distress EYES: Pupils equal, round, reactive to light, normal ocular movement ENT: Moist mucous membranes without oral lesions present NECK: No masses, no bruits, trachea midline RESPIRATORY: Lungs sounds clear to auscultation bilaterally. Respirations even, nonlabored. Currently on 2 L nasal cannula with oxygen saturation 99%. Strong cough. No chest wall deformities. No clubbing or cyanosis present CARDIOVASCULAR: S1, S2 present, positive systolic murmur. Slow but regular rate and rhythm, sinus bradycardia on telemetry with heart rate in the 50s. Palpable peripheral pulses bilaterally. No edema present. No calf pain or tenderness noted. No significant lower extremity varicosities noted. GASTROINTESTINAL: Abdomen soft, nontender, nondistended without masses or organomegaly noted. There is no rebound or guarding present. Active bowel sounds present 4 quadrants. GENITOURINARY: Deferred INTEGUMENTARY: Skin is warm and dry with evidence of good perfusion. NEUROLOGIC: Cranial nerves II through XII intact, normal coordination, no obvious motor or sensory deficits, speech is normal MUSKULOSKELETAL: Able to move all extremities, strength equal bilaterally, n ormal posture PSYCHIATRIC: Alert and oriented to person place and time, appropriate affect, intact judgment and insight Results - Labs 12/16/20 21:18 12/19/20 07:11 Abnormal Lab Results - Last 24 Hours (Table) 12/19/20 Range/Units 07:11 Sodium 136 L (137-145) mmol/L BUN 21 H (7-17) mg/dL Glucose 111 H (74-99) mg/dL Diabetes panel 12/19/20 Range/Units 07:11 Sodium 136 L (137-145) mmol/L Potassium 3.9 (3.5-5.1) mmol/L Chloride 100 (98-107) mmol/L Carbon Dioxide 28 (22-30) mmol/L BUN 21 H (7-17) mg/dL Creatinine 0.73 (0.52-1.04) mg/dL Glucose 111 H (74-99) mg/dL Calcium 9.7 (8.4-10.2) mg/dL Calcium panel 12/19/20 Range/Units 07:11 Calcium 9.7 (8.4-10.2) mg/dL Pituitary panel 12/19/20 Range/Units 07:11 Sodium 136 L (137-145) mmol/L Potassium 3.9 (3.5-5.1) mmol/L Chloride 100 (98-107) mmol/L Carbon Dioxide 28 (22-30) mmol/L BUN 21 H (7-17) mg/dL Creatinine 0.73 (0.52-1.04) mg/dL Glucose 111 H (74-99) mg/dL Calcium 9.7 (8.4-10.2) mg/dL Adrenal panel 12/19/20 Range/Units 07:11 Sodium 136 L (137-145) mmol/L Potassium 3.9 (3.5-5.1) mmol/L Chloride 100 (98-107) mmol/L Carbon Dioxide 28 (22-30) mmol/L BUN 21 H (7-17) mg/dL Creatinine 0.73 (0.52-1.04) mg/dL Glucose 111 H (74-99) mg/dL Calcium 9.7 (8.4-10.2) mg/dL - Imaging Chest x-ray: report reviewed, image reviewed EKG: image reviewed Additional studies: Heart catheterization and echocardiogram films reviewed Assessment and Plan Assessment: 1. Severe aortic stenosis, peak/mean gradient 141/92 mmHg on TTE, aortic valve area less than 0.5 cm on KATERIN, moderate aortic insufficiency on KATERIN, known heart murmur since she was in her 20s 2. Moderate to severe mitral stenosis with peak/mean gradient 10/5 mmHg and mitral valve area is 1.5 cm with mild to moderate central mitral regurgitation on KATERIN 3. Single-vessel coronary artery disease, 80-90% ostial obtuse marginal artery 4. History of hypertension 5. History of hyperlipidemia, refuses statins 6. Hypothyroidism 7. TIA in 2008 8. GERD 9. Arthritis 10. Family history of premature coronary artery disease 11. Family history of heart failure and possible valvular heart disease Plan: The patient was seen and examined on the cardiac stepdown unit with her 2 daughters at the bedside. Chart/diagnostics were reviewed. The case will be discussed in detail with Dr. Yusuf from cardiothoracic surgery. The usual ha operative course of open heart surgery was discussed in detail with the patient and her daughters, risks and benefits were reviewed, all questions were answered. The patient is willing to consider surgery at this time and preoperative testing has been initiated. The patient did indicate that she does not like taking medications, and she has refused recommended statin medication in the past. In addition the patient currently has orders for no CODE STATUS. Long discussion was had with the patient and her daughter that this would need to be rescinded for surgery and that the optimal goal would be to improve her quality of life. She is agreeable at this time. The patient would need dental clearance prior to valvular surgery. Once all preoperative testing has been completed an STS risk score will be calculated and discussed with the patient. A 5 m walk test will be completed when she is ambulatory. More recommendations to follow. Medical management medical comorbidities per primary care, cardiology. Thank you Dr. Russ for this consult. We look forward to working with you in t he care of your patient. Time with Patient: Greater than 30
[2020-12-19 11:54] LABS: Partial Thromboplastin Time 26.5 sec (22.0-30.0)
--- NOTE | 2020-12-19 11:56 | P.PN ---
Subjective Progress Note Date: 12/19/20 HISTORY OF PRESENT ILLNESS: This is a 85-year-old female with a past medical history significant for hypothyroidism and "a heart murmur". Patient does not follow regularly with a registered medical assistant. We have been asked to see the patient in consultation for congestive heart failure. Patient examined at the bedside. Patient states over the past week she has felt very fatigued. At first she did not realize she was short of breath however she went to [employer] on Wednesday and states by the time she walked from the parking lot the [employer] she was extremely winded. She states she had to sit down to catch her breath. She also reports some lower extremity edema swelling. She denies chest pain or pressure. She denies a previous history of congestive heart failure. Patient was started on IV Lasix in the emergency room. Patient states her breathing has improved today. She states she is able to walk to the bathroom with minimal shortness of breath. Echocardiogram completed reveals ejection fraction 50-55%, moderate aortic regurgitation, severe aortic stenosis with a peak/mean gradient of 141/92.86 mmHg, possible bicuspid aortic valve, moderate mitral regurgitation, moderate to severe mitral stenosis and mild tricuspid regurgitation EKG reveals sinus mechanism with right bundle-branch block Chest xray interstitial edema with superimposed infiltrates not excluded Laboratory data: WBC 10.6. Hemoglobin 14.4. Platelet count 302. Sodium 133. Potassium 4.5. BUN 16. Creatinine 0.71. Lactic acid 1.3. Magnesium 1.9. Troponin negative 3. BNP 6230. Current home cardiac medications include none 12/18/2020 Patient examined at bedside. Patient denies chest pain or pressure. Patient reports her shortness of breath has improved. She remains on IV Lasix. Patient has decided to proceed with KATERIN and cardiac catheterization. 12/19/2020 Patient underwent KATERIN and cardiac catheterization today. KATERIN revealed severe aortic stenosis, moderate aortic regurgitation, moderate mitral stenosis and [id number] mitral regurgitation. Cardiac cath revealed 80-90% ostial stenosis involving OM branch. Patient denies chest pain or pressure. She denies shortness of breath. Vital signs are stable. PHYSICAL EXAM: VITAL SIGNS: Reviewed. GENERAL: Well-developed in no acute distress. HEENT: Head is normocephalic. Pupils are equal, round. Sclerae anicteric. Mucous membranes of the mouth are moist. Neck supple. No JVD or thyromegaly LUNGS: Respirations even and unlabored. Lungs diminished. HEART: Regular rate and rhythm. S1 and S2 heard. Systolic murmur noted. ABDOMEN: Soft. Nondistended. Nontender. EXTREMITIES: Normal range of motion. No clubbing or cyanosis. Peripheral pulses intact. No lower extremity edema NEUROLOGIC: Awake and alert. Oriented x 3. ASSESSMENT: Acute diastolic heart failure, resolved Valvular heart disease: Severe aortic stenosis, moderate aortic regurgitation, moderate mitral stenosis, and mild to moderate mitral regurgitation Coronary artery disease revealing 80-90% ostial stenosis involving OM branch Hypothyroidism PLAN: Discontinue IV lasix. Begin oral lasix 20mg daily Add aspirin 81mg daily. Patient refusing statin therapy. Will consult CTS for surgical evaluation Further recommendations patient's course Nurse practitioner note has been reviewed by physician. Signing provider agrees with the documented findings, assessment, and plan of care. Objective - Vital Signs Vital signs: Vital Signs Temp 98.7 F 12/19/20 04:59 Pulse 58 L 12/19/20 10:33 Resp 16 12/19/20 10:33 BP 143/77 12/19/20 10:33 Pulse Ox 99 12/19/20 10:33 Intake & Output 12/18/20 12/19/20 12/19/20 18:59 06:59 18:59 Intake Total 960 300 Output Total 950 Balance 10 300 Weight 68.1 kg 68.8 kg Intake: IV 300 Oral 960 0 Output: Urine 950 Other: Voiding Method Toilet # Voids 3 - Labs CBC & Chem 7: 12/16/20 21:18 12/19/20 07:11 Labs: Abnormal Lab Results - Last 24 Hours (Table) 12/19/20 Range/Units 07:11 Sodium 136 L (137-145) mmol/L BUN 21 H (7-17) mg/dL Glucose 111 H (74-99) mg/dL
[2020-12-19 11:57] LABS: Magnesium 1.9 mg/dL (1.6-2.3)
--- NOTE | 2020-12-19 14:26 | US ---
EXAMINATION TYPE: US carotid duplex BILAT DATE OF EXAM: 12/19/2020 COMPARISON: NONE CLINICAL HISTORY: preop cardiac surgery. Prior TIA 2008 EXAM MEASUREMENTS: RIGHT: Peak Systolic Velocity (PSV) cm/sec ----- Right CCA: 66.7 ----- Right ICA: 116.2 ----- Right ECA: 149.0 ICA/CCA ratio: 1.7 RIGHT: End Diastole cm/sec ----- Right CCA: 10.0 ----- Right ICA: 12.9 ----- Right ECA: 0.0 LEFT: Peak Systolic Velocity (PSV) cm/sec ----- Left CCA: 39.8 ----- Left ICA: 89.7 ----- Left ECA: 112.3 ICA/CCA ratio: 2.3 LEFT: End Diastole cm/sec ----- Left CCA: 0.0 ----- Left ICA: 12.8 ----- Left ECA: 0.0 VERTEBRALS (direction of flow): Right Vertebral: Antegrade Left Vertebral: Antegrade Rhythm: Normal Moderate atherosclerotic plaque is seen at bilateral carotid bifurcations with abnormally elevated PS V right external carotid artery. The left ICA/CCA ratio is elevated. IMPRESSION: 1. Less than 50% stenosis of the right internal carotid artery. The right external carotid artery yair ocity is elevated. Moderate atherosclerotic plaque at the common carotid artery bifurcation on the ri ght. 2. The left ICA/CCA ratio is elevated to 2.3. There is approximately 50-69% stenosis of the left inte rnal carotid artery. There is moderate atherosclerotic plaque at the left common carotid artery bifur cation. Criteria for Assigning % of Stenosis / Diameter reduction (Estimation based on the indirect measurements of the internal carotid artery velocities (ICA PSV). 1. Normal (no stenosis)=ICA PSV < 125 cm/s: ratio < 2.0: ICA EDV<40 cm/s. 2. Less than 50% stenosis=ICA PSV < 125 cm/s: ratio < 2.0: ICA EDV<40 cm/s. 3. 50 to 69% stenosis=ICA PSV of 125 to 230 cm/s: ration 2.0 ? 4.0: ICA EDV 40-100 cm/s. 4. Greater than 70% stenosis to near occlusion= ICA PSV > 230 cm/s: ratio > 4.0: ICA EDV > 100 cm/s. 5. Near occlusion= ICA PSV velocities may be low or undetectable: variable ratio and ICA EDV. 6. Total occlusion=unable to detect flow.
[2020-12-19 20:59] LABS: Hepatitis A Antibody IgM Non-Reactive (Non-Reactive); Hepatitis B Core IgM Non-Reactive (Non-Reactive); Hepatitis B Surface Antigen Non-Reactive (Non-Reactive); Hepatitis C IgG Antibody Non-Reactive (Non-Reactive)
[2020-12-19 21:24] LABS: Chol/HDL Ratio 5.79
[2020-12-20] MEDS: THYROID, PORK 30 MG TAB PO SCH (06:31)
[2020-12-20 07:32] LABS: Basophils % (A) 1 %; Eosinophils # (A) 0.5 k/uL (0-0.7); Eosinophils % (A) 8 %; HCT 44.8 % (34.0-46.0); Lymphocytes # (A) 2.1 k/uL (1.0-4.8); Lymphocytes % (A) 31 %; MCH 31.7 pg (25.0-35.0); MCHC 33.4 g/dL (31.0-37.0); MCV 94.8 fL (80.0-100.0); Mean Platelet Volume 7.5; Monocytes # (A) 0.5 k/uL (0-1.0); Monocytes % (A) 8 %; Neutrophils # (A) 3.4 k/uL (1.3-7.7); Neutrophils % (A) 51 %; Platelet Count 285 k/uL (150-450); RBC 4.72 m/uL (3.80-5.40); RDW 12.4 % (11.5-15.5); WBC 6.6 k/uL (3.8-10.6)
[2020-12-20 07:57] LABS: ALT 27 U/L (4-34); AST 34 U/L (14-36); African American GFR (CKD) >90 (>60 ml/min/1.73 sqM); Albumin 4.1 g/dL (3.5-5.0); Alkaline Phosphatase 59 U/L (38-126); Anion Gap 6 mmol/L; Blood Urea Nitrogen 17 mg/dL (7-17); Calcium 9.6 mg/dL (8.4-10.2); Carbon Dioxide 31 mmol/L (22-30); Chloride 100 mmol/L (98-107); Glucose 101 mg/dL (74-99); Non-African American GFR(CKD) 80 (>60 ml/min/1.73 sqM); Potassium 4.5 mmol/L (3.5-5.1); Sodium 137 mmol/L (137-145); Total Bilirubin 0.9 mg/dL (0.2-1.3); Total Protein 7.3 g/dL (6.3-8.2)
[2020-12-20] MEDS ORDERED: ASPIRIN 81 MG PO SCH (09:00)
[2020-12-20] MEDS ORDERED: FUROSEMIDE 20 MG TAB PO SCH (09:00)
--- NOTE | 2020-12-20 10:40 | P.PN ---
Subjective Progress Note Date: 12/20/20 Principal diagnosis: Severe aortic stenosis, moderate aortic insufficiency, moderate to severe mitral stenosis, mild to moderate central mitral regurgitation, single-vessel coronary artery disease. Previous medical history of hypertension, hyperlipidemia with refusal of statins, hypothyroidism, TIA in 2008, GERD, arthritis, family history of premature coronary artery disease, family history of heart failure and possible valvular heart disease. Left carotid stenosis 50-69% on carotid dopplers The patient's currently sitting up in bed in no acute distress. Denies any ches t pain or shortness of breath. States she has been ambulatory without any difficulty. Family meeting to be had today with Dr. Schrader to review recommendations. No other new concerns. Objective - Vital Signs Vital signs: Vital Signs Temp 97.5 F L 12/20/20 08:00 Pulse 58 L 12/20/20 08:00 Resp 16 12/20/20 08:00 BP 136/62 12/20/20 08:00 Pulse Ox 96 12/20/20 08:00 Intake & Output 12/19/20 12/20/20 12/20/20 18:59 06:59 18:59 Intake Total 540 10 240 Output Total 200 Balance 340 10 240 Weight 68 kg Intake: IV 300 10 Invasive Line 1 10 Oral 240 240 Output: Urine 200 Other: Voiding Method Toilet - Exam CONSTITUTIONAL: Appears comfortable, cooperative, no acute distress RESPIRATORY: Lungs sounds diminished bilaterally. Respirations even, nonlabored. Currently on room air with oxygen saturation 98%. Able to achieve 1500 mL on incentive spirometry. Strong cough. CARDIOVASCULAR: S1, S2 present. Slow but regular rate and rhythm, sinus bradycardia on telemetry with heart rate in the mid 50s. Sternum stable. Palpable peripheral pulses bilaterally. Trace bilateral lower extremity edema present. No calf pain or tenderness noted. GASTROINTESTINAL: Abdomen soft, nontender, nondistended. Active bowel sounds present 4 quadrants. Tolerating diet. GENITOURINARY: Continues to void clear, yellow urine. INTEGUMENTARY: Skin is warm and dry with evidence of good perfusion. NEUROLOGIC: Cranial nerves II through XII intact MUSKULOSKELETAL: Able to move all extremities, strength equal bilaterally, gait normal PSYCHIATRIC: Alert and oriented to person place and time, appropriate affect, intact judgment and insight - Labs CBC & Chem 7: 12/20/20 06:44 12/20/20 06:44 Labs: Abnormal Lab Results - Last 24 Hours (Table) 12/19/20 12/20/20 Range/Units 11:05 06:44 Carbon Dioxide 31 H (22-30) mmol/L Glucose 101 H (74-99) mg/dL Cholesterol 226 H (0-200) mg/dL LDL Cholesterol, Calc 165.0 H (0.0-131.0) mg/dL HDL Cholesterol 39.0 L (40.0-60.0) mg/dL Microbiology - Last 24 Hours (Table) 12/19/20 16:49 Nasal Screen MRSA/MSSA - Preliminary Nasal Swab - Imaging and Cardiology Chest x-ray: report reviewed, image reviewed Carotid Dopplers, PFT reviewed Assessment and Plan Assessment: 1. Severe aortic stenosis, peak/mean gradient 141/92 mmHg on TTE, aortic valve area less than 0.5 cm on KATERIN, moderate aortic insufficiency on KATERIN, known heart murmur since she was in her 20s 2. Moderate to severe mitral stenosis with peak/mean gradient 10/5 mmHg and mitral valve area is 1.5 cm with mild to moderate central mitral regurgitation on KATERIN 3. Single-vessel coronary artery disease, 80-90% ostial obtuse marginal artery 4. History of hypertension 5. History of hyperlipidemia, cholesterol 226, LDL 165, refuses statins 6. Hypothyroidism, current TSH 2.69 7. TIA in 2008 8. GERD 9. Arthritis 10. Family history of premature coronary artery disease 11. Family history of heart failure and possible valvular heart disease 12. Left carotid stenosis, 50-69% Plan: 1. Dr. Schrader will meet with patient, family today to discuss our recommendations 2. Recommend continuing current medical therapy. Would add statin although patient continues to refuse 3. Increase activity, ambulate as tolerated 4. Preoperative testing reviewed including FEV1 of 83% of predicted, hemoglobin A1c 5%, carotid Dopplers, chest x-ray, lab work and 5 m walk test. 5. Medical management comorbidities per primary care service, cardiology 6. More recommendations to follow Time with Patient: Greater than 30
--- NOTE | 2020-12-20 11:01 | P.PN ---
Subjective Progress Note Date: 12/20/20 HISTORY OF PRESENT ILLNESS: This is a 85-year-old female with a past medical history significant for hypothyroidism and "a heart murmur". Patient does not follow regularly with a checkroom chief. We have been asked to see the patient in consultation for congestive heart failure. Patient examined at the bedside. Patient states over the past week she has felt very fatigued. At first she did not realize she was short of breath however she went to [employer] on Wednesday and states by the time she walked from the parking lot the [employer] she was extremely winded. She states she had to sit down to catch her breath. She also reports some lower extremity edema swelling. She denies chest pain or pressure. She denies a previous history of congestive heart failure. Patient was started on IV Lasix in the emergency room. Patient states her breathing has improved today. She states she is able to walk to the bathroom with minimal shortness of breath. Echocardiogram completed reveals ejection fraction 50-55%, moderate aortic regurgitation, severe aortic stenosis with a peak/mean gradient of 141/92.86 mmHg, possible bicuspid aortic valve, moderate mitral regurgitation, moderate to severe mitral stenosis and mild tricuspid regurgitation EKG reveals sinus mechanism with right bundle-branch block Chest xray interstitial edema with superimposed infiltrates not excluded Laboratory data: WBC 10.6. Hemoglobin 14.4. Platelet count 302. Sodium 133. Potassium 4.5. BUN 16. Creatinine 0.71. Lactic acid 1.3. Magnesium 1.9. Troponin negative 3. BNP 6230. Current home cardiac medications include none 12/18/2020 Patient examined at bedside. Patient denies chest pain or pressure. Patient reports her shortness of breath has improved. She remains on IV Lasix. Patient has decided to proceed with KATERIN and cardiac catheterization. 12/19/2020 Patient underwent KATERIN and cardiac catheterization today. KATERIN revealed severe aortic stenosis, moderate aortic regurgitation, moderate mitral stenosis and [id number] mitral regurgitation. Cardiac cath revealed 80-90% ostial stenosis involving OM branch. Patient denies chest pain or pressure. She denies shortness of breath. Vital signs are stable. 12/20/2020 Patient examined this morning at the bedside. Patient denies chest pain or pressure. She denies shortness of breath. She has been evaluated by cardiothoracic surgery. Vital signs are stable. PHYSICAL EXAM: VITAL SIGNS: Reviewed. GENERAL: Well-developed in no acute distress. HEENT: Head is normocephalic. Pupils are equal, round. Sclerae anicteric. Mucous membranes of the mouth are moist. Neck supple. No JVD or thyromegaly LUNGS: Respirations even and unlabored. Lungs diminished. HEART: Regular rate and rhythm. S1 and S2 heard. Systolic murmur noted. ABDOMEN: Soft. Nondistended. Nontender. EXTREMITIES: Normal range of motion. No clubbing or cyanosis. Peripheral pulses intact. No lower extremity edema NEUROLOGIC: Awake and alert. Oriented x 3. ASSESSMENT: Acute diastolic heart failure, resolved Valvular heart disease: Severe aortic stenosis, moderate aortic regurgitation, moderate mitral stenosis, and mild to moderate mitral regurgitation Coronary artery disease revealing 80-90% ostial stenosis involving OM branch Hypothyroidism PLAN: Continue current cardiac medications Dr. Iniguez spoke with patient regarding statin therapy. Patient now agreeable to take a statin. Will begin atorvastatin 20 mg at HS. Await further recommendations from CTS Further recommendations patient's course Nurse practitioner note has been reviewed by physician. Signing provider agrees with the documented findings, assessment, and plan of care. Objective - Vital Signs Vital signs: Vital Signs Temp 97.5 F L 12/20/20 08:00 Pulse 58 L 12/20/20 08:00 Resp 16 12/20/20 08:00 BP 136/62 12/20/20 08:00 Pulse Ox 96 12/20/20 08:00 Intake & Output 12/19/20 12/20/20 12/20/20 18:59 06:59 18:59 Intake Total 540 10 240 Output Total 200 Balance 340 10 240 Weight 68 kg Intake: IV 300 10 Invasive Line 1 10 Oral 240 240 Output: Urine 200 Other: Voiding Method Toilet - Labs CBC & Chem 7: 12/20/20 06:44 12/20/20 06:44 Labs: Abnormal Lab Results - Last 24 Hours (Table) 12/19/20 12/20/20 Range/Units 11:05 06:44 Carbon Dioxide 31 H (22-30) mmol/L Glucose 101 H (74-99) mg/dL Cholesterol 226 H (0-200) mg/dL LDL Cholesterol, Calc 165.0 H (0.0-131.0) mg/dL HDL Cholesterol 39.0 L (40.0-60.0) mg/dL Microbiology - Last 24 Hours (Table) 12/19/20 16:49 Nasal Screen MRSA/MSSA - Preliminary Nasal Swab
--- NOTE | 2020-12-20 13:28 | P.PN ---
Subjective Progress Note Date: 12/20/20 This is an 85-year-old female with past history of CVA/TIA, gastroesophageal reflux disease, hypertension,MVP, rheumatoid arthritis, hypothyroidism, glaucoma presented to the ER with complaints of worsening shortness of breath, pedal edema and fatigue since Wednesday morning, walking into [employer]. Reported sensation of chest tightness, "bra was too tight", especially with lying flat. Has not seen PCP in approximately 2 years. Chest x-ray reporting interstitial edema with superimposed infiltrates not exc luded. EKG reported normal sinus rhythm possible left atrial enlargement, right bundle branch block, septal infarct, age undetermined. Afebrile, normal WBC. Hemoglobin 14.4, platelets 302, sodium 133 on admission -up to 135.potassium 4.5, magnesium 1.9. Renal function stable. Troponins negative 3, proBNP 6230, UA negative. Mildly elevated AST ALT. Received Lasix IV push in the ER, maintained on BiPAP throughout the night, feels better this morning Echo Pending. 12/18/2020 diuresing well on Lasix IV push with 24-hour I&O reflecting a negative fluid balance. Renal function stable. Breathing significantly improved. Maintaining O2 sats in the 90s on room air. Echo reporting low normal left ventricular systolic function. EF 50-55%, severely dilated LA, moderate aortic regurgitation, severe aortic stenosis, AOV is possible bicuspid, moderate mitral regurgitation, moderate to severe mitral stenosis. Patient has decided to proceed with further cardiac workup and is scheduled for cardiac catheterization and KATERIN in the a.m. 12/20/20 KATERIN reported severe aortic stenosis, moderate aortic regurgitation, moderate mitral stenosis and mild to moderate mitral regurgitation, aortic root measures 3.1 cm. Cardiac catheterization reported severe aortic regurgitation, 80-90% ostial stenosis involving the OM branch. Carotid Doppler reported 50 - 69% stenosis of the left internal carotid artery. Currently denies chest pain, palpitations or shortness of breath. Family meeting scheduled later today with cardiothoracic surgery to discuss workup and recommendations. Objective - Vital Signs Vital signs: Vital Signs Temp 97.5 F L 12/20/20 08:00 Pulse 58 L 12/20/20 08:00 Resp 16 12/20/20 08:00 BP 136/62 12/20/20 08:00 Pulse Ox 96 12/20/20 08:00 Intake & Output 12/19/20 12/20/20 12/20/20 18:59 06:59 18:59 Intake Total 540 10 240 Output Total 200 Balance 340 10 240 Weight 68 kg Intake: IV 300 10 Invasive Line 1 10 Oral 240 240 Output: Urine 200 Other: Voiding Method Toilet - Exam PHYSICAL EXAM: VITAL SIGNS: As above GENERAL: Sitting up in bed, no acute distress HEENT: Conjunctivae normal. eyes normal. Oral mucosa moist. NECK: No JVD. No thyroid enlargement. CARDIOVASCULAR: S1, S2 regular. Systolic murmur. RESPIRATION: Breath sounds diminished in the bases. ABDOMEN: Soft, nontender . No guarding. no masses palpable. Positive Bowel sounds. LEGS: No edema. no swelling PSYCHIATRY: Alert and oriented X3, mood and affect normal. NERVOUS SYSTEM: Cranial N 2-12 grossly normal. Moves all 4 limbs. No focal deficits. Strength and sensation grossly intact.. Skin: Warm and dry, no rash - Labs CBC & Chem 7: 12/20/20 06:44 12/20/20 06:44 Labs: Abnormal Lab Results - Last 24 Hours (Table) 12/19/20 12/20/20 Range/Units 11:05 06:44 Carbon Dioxide 31 H (22-30) mmol/L Glucose 101 H (74-99) mg/dL Cholesterol 226 H (0-200) mg/dL LDL Cholesterol, Calc 165.0 H (0.0-131.0) mg/dL HDL Cholesterol 39.0 L (40.0-60.0) mg/dL Microbiology - Last 24 Hours (Table) 12/19/20 16:49 Nasal Screen MRSA/MSSA - Preliminary Nasal Swab Assessment and Plan Assessment: Acute chest tightness sensation, troponins negative 3, abnormal EKG. valvular heart disease, EF 50-55%;severe aortic stenosis, moderate aortic regurgitation, moderate mitral stenosis and mild to moderate mitral regurgitation, 80-90% o stial stenosis involving the OM branch. Acute CHF exacerbation, diastolic Acute hypoxic respiratory failure secondary to the above. Left Internal carotid stenosis, 50-69% Hypothyroidism Gastroesophageal reflux disease Hypertension Hyperlipidemia MVP Rheumatoid arthritis History of CVA, TIA Obesity, BMI 30.1 Plan: Continue on current medication regime ,monitoring and symptomatic treatment. Vascular surgery consulted regarding carotid stenosis. Family meeting with CTS this afternoon, regarding recommendations.Diuretics and transitioned to oral. Prognosis guarded given multiple complex medical issues. The impression and plan of care has been dictated as directed. : I performed a history and examination of this patient, discussed the same with the dictator. I agree with the dictator's note ,documented as a scribe. Any additional findings or plans will be noted.
--- NOTE | 2020-12-20 13:37 | P.PN ---
Progress Note - Text Progress Note Date: 12/20/20 An addendum to the progress note on patient Trista Crowell. Patient was seen and examined. Surface echo KATERIN and cardiac cath films were reviewed. Case was discussed with Dr. Dick Fischer and Dr. Gigi Russ. Echocardiogram findings are consistent with severe aortic valvular stenosis. Peak velocity across the aortic valve is 5.9. There is at worst only moderate mitral stenosis. Mitral valve does appear to open adequately on echo. There is a focal stenosis in the ostium of the obtuse marginal which is amenable to percutaneous intervention. The remaining coronary arteries are free of significant stenosis. My strong bias is the patient is at high risk for open double valve and CABG given her age and frailty. It is not clear to me that the mitral valve needs anything done at this time. On the other hand the aortic valve desperately needs to be addressed and my strong bias is the best treatment for patient this age with the severity of aortic stenosis would be transcatheter aortic valve replacement (TAVR). Plan is to discharge the patient home on medication. She is currently asymptomatic and feeling well. She is scheduled to see her dentist on Wednesday for dental clearance. We will get a Giovany CT done next week. She will be seen in the have her clinic on Wednesday, December 30 and plans will be made to proceed at that time. The patient and her daughter were both present when I discussed this at length with her. Both were very much in favor of the current plan and believes that she would not need major high risk open heart surgery.
[2020-12-20 14:36] VITALS: TEMP 97.8
[2020-12-20 14:43] VITALS: BP 162/74; PULSE 60
--- NOTE | 2020-12-20 15:04 | P.GSCN ---
History of Present Illness Consult date: 12/20/20 History of present illness: Trista is 85-year-old female who initially presented to the hospital earlier this week with shortness of breath, chest pain and tightness. She has a past medical history of hypertension, hyperlipidemia, hypothyroidism, history of a heart murmur, history of a brief TIA 2008, GERD. In her workup and evaluation she was found to have severe aortic stenosis. On the workup for heart intervention a carotid Doppler was performed in the radiology report states 50- 69% with a peak systolic velocity of 89 and a ratio of 2.3. The patient denies any strokelike symptoms or any further issues since her TIA back in 2008. Review of Systems 14 point review of systems performed, pertinent positives and negative is per the HPI Past Medical History Past Medical History: CVA/TIA, GERD/Reflux, Hyperlipidemia, Hypertension, Mitral Valve Prolapse (MVP), Rheumatoid Arthritis (RA), Thyroid Disorder Additional Past Medical History / Comment(s): Glaucoma. TIA - 2008 History of Any Multi-Drug Resistant Organisms: None Reported Past Surgical History: Appendectomy, Heart Catheterization Additional Past Surgical History / Comment(s): fatty tumors Past Anesthesia/Blood Transfusion Reactions: No Reported Reaction Additional Past Anesthesia/Blood Transfusion Reaction / Comm: no transfusion Past Psychological History: No Psychological Hx Reported Smoking Status: Never smoker Past Alcohol Use History: None Reported Past Drug Use History: None Reported - Past Family History Mother Family Medical History: Congestive Heart Failure (CHF) Additional Family Medical History / Comment(s): Possible valvular heart disease Father Family Medical History: Congestive Heart Failure (CHF) Brother(s) Family Medical History: Coronary Artery Disease (CAD) Additional Family Medical History / Comment(s): Brother diagnosed with coronary artery disease in his 40s with subsequent 2 vessel CABG Medications and Allergies Home Medications Medication Instructions Recorded Confirmed Type Thyroid,Pork [[place]coe Thyroid] 90 mg PO DAILY 12/21/13 12/16/20 History Beet Root Pills (Unknown Strength) 1 tab PO DAILY 12/16/20 12/16/20 History Magnesium (Unknown Strength) 1 tab PO DAILY 12/16/20 12/16/20 History Tri-Salts (Unknown Strength) 1 tsp PO Q4H PRN 12/16/20 12/16/20 History Aspirin 81 mg PO DAILY #90 chew 12/20/20 Rx Atorvastatin [Lipitor] 20 mg PO HS #90 tab 07/02/21 Rx Furosemide [Lasix] 20 mg PO DAILY #90 tab 12/20/20 Rx Nitroglycerin Sl Tabs [Nitrostat] 0.4 mg SUBLINGUAL Q5M PRN #1 bottle 12/20/20 Rx Allergies Allergy/AdvReac Type Severity Reaction Status Date / Time Sulfa (Sulfonamide Allergy Severe Rash/Hives Verified 12/16/20 21:56 Antibiotics) Surgical - Exam Vital Signs Temp Pulse Resp BP Pulse Ox 98 F 65 16 186/71 89 L 12/16/20 19:46 12/16/20 19:46 12/16/20 19:46 12/16/20 19:46 12/16/20 19:46 Gen. a pleasant cooperative female in no acute distress. HEENT is normal cephalic, atraumatic, extraocular motion intact. Heart appears regular with a murmur. Lungs are clear bilaterally although slightly diminished. Thyroid is not enlarged. Trachea is midline. Neck is supple and soft. Abdomen is soft, nontender nondistended. Extremities show no clubbing, cyanosis or edema. No rmal mood and affect. Cranial nerves II through XII grossly intact. Results Carotid Doppler reveals peak systolic velocity of 89 with a ratio of 2.3, read reports 50-69% stenosis - Labs 12/20/20 06:44 12/20/20 06:44 Abnormal Lab Results - Last 24 Hours (Table) 12/19/20 12/20/20 Range/Units 11:05 06:44 Carbon Dioxide 31 H (22-30) mmol/L Glucose 101 H (74-99) mg/dL Cholesterol 226 H (0-200) mg/dL LDL Cholesterol, Calc 165.0 H (0.0-131.0) mg/dL HDL Cholesterol 39.0 L (40.0-60.0) mg/dL Microbiology - Last 24 Hours (Table) 12/19/20 16:49 Nasal Screen MRSA/MSSA - Preliminary Nasal Swab Diabetes panel 12/19/20 12/19/20 12/20/20 Range/Units 11:05 11:05 06:44 Sodium 137 (137-145) mmol/L Potassium 4.5 (3.5-5.1) mmol/L Chloride 100 (98-107) mmol/L Carbon Dioxide 31 H (22-30) mmol/L BUN 17 (7-17) mg/dL Creatinine 0.69 (0.52-1.04) mg/dL Glucose 101 H (74-99) mg/dL Hemoglobin A1c 5.0 (4.0-6.0) % Calcium 9.6 (8.4-10.2) mg/dL AST 34 (14-36) U/L ALT 27 (4-34) U/L Alkaline Phosphatase 59 (38-126) U/L Total Protein 7.3 (6.3-8.2) g/dL Albumin 4.1 (3.5-5.0) g/dL Triglycerides 110.0 (0.0-149.0) mg/dL HDL Cholesterol 39.0 L (40.0-60.0) mg/dL Calcium panel 12/20/20 Range/Units 06:44 Calcium 9.6 (8.4-10.2) mg/dL Albumin 4.1 (3.5-5.0) g/dL Pituitary panel 12/20/20 Range/Units 06:44 Sodium 137 (137-145) mmol/L Potassium 4.5 (3.5-5.1) mmol/L Chloride 100 (98-107) mmol/L Carbon Dioxide 31 H (22-30) mmol/L BUN 17 (7-17) mg/dL Creatinine 0.69 (0.52-1.04) mg/dL Glucose 101 H (74-99) mg/dL Calcium 9.6 (8.4-10.2) mg/dL Adrenal panel 12/20/20 Range/Units 06:44 Sodium 137 (137-145) mmol/L Potassium 4.5 (3.5-5.1) mmol/L Chloride 100 (98-107) mmol/L Carbon Dioxide 31 H (22-30) mmol/L BUN 17 (7-17) mg/dL Creatinine 0.69 (0.52-1.04) mg/dL Glucose 101 H (74-99) mg/dL Calcium 9.6 (8.4-10.2) mg/dL Total Bilirubin 0.9 (0.2-1.3) mg/dL AST 34 (14-36) U/L ALT 27 (4-34) U/L Alkaline Phosphatase 59 (38-126) U/L Total Protein 7.3 (6.3-8.2) g/dL Albumin 4.1 (3.5-5.0) g/dL Assessment and Plan Assessment: Elevated carotid velocity ratio Hypertension Hyperlipidemia Aortic stenosis, severe Plan: I was able to review the ultrasound and tech reported sheets for the carotid Doppler. Given the systolic velocity, she would be qualified for under 50% stenosis. The ICA to CCA ratio is slightly elevated, but would definitely lean towards her being closer to the 50% stenosis given the low peak systolic veloc ity and end-diastolic velocity. From my standpoint no further evaluation or intervention is necessary. Continue medications per cardiology and cardiothoracic prior to Her TAVR
[2020-12-20] MEDS ORDERED: ATORVASTATIN 20 MG TAB PO SCH (21:00)
--- NOTE | 2020-12-25 09:37 | P.VSCSTY ---
Greater Saphenous Vein Mapping This is bilateral lower extremity greater saphenous vein mapping. Date of service: 12/19/2020 Vein quality and ultrasound appearance: Both sides have areas around the knee that are too small to use or inconsistent.. Vein size groin right : Cath site groin left: 3.3 x 3.3 High thigh right: 4.3 x 3.4 high thigh left: 3.4 x 2.4 Mid thigh right: 3.9 x 3.2 mid thigh left: 3.2 x 2.4 Above-knee right: 4.3 x 2.7 above-knee left: 2.6 x 2.5 Knee right: 1.8 x 1.2 the left 1.9 x 1.1 Below knee right: To small to see below-knee left: 1 x 0.9 Mid calf right: 1.8 x 1.6 mid calf left: 2.8 x 2.1 Ankle right: 3 x 2.2 ankle left: 3.8 x 2.4 Impression: Possibly usable vein in both eyes. At the knee and below look very questionable. Close clinical correlation recommended..
== END 2020-12-20 15:33 | disposition home or self-care (01) | DRG 286 ==
LOC: EC 19:40 → 3SCARD 12-17 00:26
PROVIDERS: ADMIT Family Medicine; ATTEND Family Medicine
PROC: B44HZZZ Ultrasonography of Bilateral Lower Extremity Arteries (ICD-10-PCS; 2020-12-19)
PROC: 4A023N7 Measurement of Cardiac Sampling and Pressure, Left Heart, Percutaneous Approach (ICD-10-PCS; principal; 2020-12-19 07:30)
PROC: B2111ZZ Fluoroscopy of Multiple Coronary Arteries using Low Osmolar Contrast (ICD-10-PCS; principal; 2020-12-19 07:30)
PROC: B24BZZ4 Ultrasonography of Heart with Aorta, Transesophageal (ICD-10-PCS; 2020-12-19 08:00)
DX: I11.0 Hypertensive heart disease with heart failure (principal); J96.01 Acute respiratory failure with hypoxia; I50.33 Acute on chronic diastolic (congestive) heart failure; M06.9 Rheumatoid arthritis, unspecified; Z20.822 Contact with and (suspected) exposure to COVID-19; I08.3 Combined rheumatic disorders of mitral, aortic and tricuspid valves; I25.10 Atherosclerotic heart disease of native coronary artery without angina pectoris; E78.5 Hyperlipidemia, unspecified; I45.10 Unspecified right bundle-branch block; I65.22 Occlusion and stenosis of left carotid artery; M19.90 Unspecified osteoarthritis, unspecified site; E03.9 Hypothyroidism, unspecified; K21.9 Gastro-esophageal reflux disease without esophagitis; H40.9 Unspecified glaucoma; E66.9 Obesity, unspecified; Z68.30 Body mass index [BMI] 30.0-30.9, adult; Z79.890 Hormone replacement therapy; Z79.899 Other long term (current) drug therapy; Z86.73 Personal history of transient ischemic attack (TIA), and cerebral infarction without residual deficits; Z90.49 Acquired absence of other specified parts of digestive tract; Z87.19 Personal history of other diseases of the digestive system; Z87.2 Personal history of diseases of the skin and subcutaneous tissue; Z98.890 Other specified postprocedural states; Z88.2 Allergy status to sulfonamides; Z82.49 Family history of ischemic heart disease and other diseases of the circulatory system
CPT/HCPCS: 36415; 71046; 80048; 80053; 80061; 80074; 81003; 83036; 83605; 83735; 83880; 84443; 84484; 85025; 85610; 85730; 87070; 87635; 93005; 93306; 93312; 93320; 93325; 93454; 93567; 93880; 93970; 94660; 96374; 96375; 99285

== ENCOUNTER → 2020-12-26 | Outpatient (CLI) | payer MEDICARE ==
--- NOTE | 2020-12-26 12:12 | CT ---
EXAMINATION TYPE: CT TAVR Planning DATE OF EXAM: 12/26/2020 HISTORY: 85-year-old female J35.1, Nonrheumatic aortic (valve) insufficiency CT DLP: 1326.7 mGycm Automated Exposure Control for Dose Reduction was Utilized. CONTRAST: CT scan of the chest, abdomen and pelvis is performed with IV Contrast, patient injected with 125 mL of Isovue 370. COMPARISON: Abdomen and pelvis 12/21/2013 TECHNIQUE: Helical imaging obtained through the chest, abdomen and pelvis during arterial phase suzette iram administration of radiographic contrast intravenously. FINDINGS: See report from [employer] regarding preprocedural planning CHEST: Lower Neck and Thyroid: No significant findings Lungs: A few scattered calcified granulomas. A couple pulmonary nodules periphery of the right midlung, axial image 30 and 33 measuring up to 5 mm . Some mild dependent atelectasis noted. Mild interstitial prominence, increased from prior exam. No consolidation or pleural effusion. Central Airway: No significant findings Pleura: No significant findings Pulmonary Arteries: Mildly enlarged caliber measuring 2.9 and 2.8 cm on the right and left sides, res pectively, suggesting underlying pulmonary hypertension. Heart and Pericardium: Prominent aortic and mitral valvular calcifications. No pericardial effusion. Scattered mild to moderate atherosclerotic plaque and calcifications descending thoracic aorta. Conve ntional arch was a branch anatomy. Lymph Nodes: Calcified lower right paratracheal, AP window, left hilar lymph nodes compatible prior g ranulomatous disease. No thoracic lymphadenopathy by size criteria. Mediastinum & Esophagus: Small hiatal hernia but otherwise without significant abnormality. ABDOMEN/PELVIS: Please note arterial phase of the imaging limits detailed evaluation of the solid abdominal organs. Liver: No significant findings Spleen: Numerous calcified granulomas. Mottled enhancement likely due to arterial phase imaging. Kidneys: Tiny 5 mm cortical hypodensity anterior mid right kidney is new from 2013 but likely represe nts a small cyst. Adrenal Glands: Low-density nodule left adrenal gland larger from 2014. Currently measuring 1.8 cm ve rsus 1.3 cm, previously. A benign adrenal adenoma remains the most likely etiology. Pancreas: No significant findings Gallbladder: No significant findings Bowel and Mesentery: Left-sided colonic diverticulosis, greatest in the sigmoid colon. No pericolonic inflammatory change. Lymph Nodes: No significant findings Urinary Bladder: No significant findings Pelvic Organs: Uterus anteverted. Both ovaries are visualized. No abnormal fluid collection the pelvi s. Other: Moderate atherosclerotic calcifications abdominal aorta. In the infrarenal portion, luminal na rrowing down to 6 mm. Moderate spondylotic change lumbar spine and lower thoracic spine. Other Lines/Tubes/Devices/Hardware: None IMPRESSION: 1. Prominent mitral and aortic valvular calcifications noted. Moderate atherosclerotic change within the abdominal aorta. Along the infrarenal portion, there is some atherosclerotic narrowing down to a caliber of 6 mm. 2. Correlate for underlying pulmonary arterial hypertension. Evidence of prior granulomatous disease. Small hiatal hernia. Left-sided colonic diverticulosis. 3. A couple right mid lung pulmonary nodules measuring up to 5 mm. Six-month follow-up CT to ensure s tability. 4. Low-density nodule of the left adrenal gland measuring 1.8 cm versus 1.3 cm in 2014. This is relat ively indolent behavior, most likely adrenal adenoma. The follow-up at 6 months can utilize adrenal m ass protocol.
== END | disposition home or self-care (01) ==
LOC: RADCTMAIN 08:51
PROVIDERS: ATTEND Thoracic Surgery (Cardiothoracic Vascular Surgery)
DX: R91.8 Other nonspecific abnormal finding of lung field (principal); I34.8 Other nonrheumatic mitral valve disorders; I35.8 Other nonrheumatic aortic valve disorders; K44.9 Diaphragmatic hernia without obstruction or gangrene; K57.30 Diverticulosis of large intestine without perforation or abscess without bleeding
CPT/HCPCS: 82565; 84520; 71275; 36415; 74174; Q9967

== ENCOUNTER → 2021-01-02 | Outpatient (CLI) | payer MEDICARE | END | disposition home or self-care (01) | LOC: LABPAT 11:55 | PROVIDERS: ATTEND Thoracic Surgery (Cardiothoracic Vascular Surgery) | DX: Z20.822 Contact with and (suspected) exposure to COVID-19 (principal) | CPT/HCPCS: U0003; C9803 ==

== ENCOUNTER 2021-01-06 08:00 | Inpatient (IN) | payer MEDICARE ==
[2021-01-07] MEDS ORDERED: TRANEXAMIC ACID 2,000 MG in SODIUM CHLORIDE 0.9% 80 ML IV ONE (05:00)
[2021-01-07] MEDS ORDERED: INSULIN REGULAR 100 UNIT in SODIUM CHLORIDE 0.9% 100 ML IV ONE (05:00)
[2021-01-07] MEDS ORDERED: ATORVASTATIN 10 MG TAB PO ONE (05:00)
[2021-01-07] MEDS ORDERED: CALCIUM CHLORIDE 100 MG/ML 10 ML SYRINGE IV ONE (05:00)
[2021-01-07] MEDS ORDERED: propofoL 1,000 MG/100 ML VIAL IV ONE (05:00)
[2021-01-07] MEDS ORDERED: MANNITOL 25% 12.5 GM/50 ML VIAL IV ONE (05:00)
[2021-01-07] MEDS ORDERED: PROTAMINE SULFATE 250 MG in EMPTY BAG 1 BAG IV ONE (05:00)
[2021-01-07] MEDS ORDERED: ASPIRIN 325 MG TAB PO ONE (05:00)
[2021-01-07] MEDS ORDERED: LACTATED RINGERS 1,000 ML IV ONE (05:00)
[2021-01-07] MEDS ORDERED: NOREPINEPHRINE 4 MG in SODIUM CHLORIDE 0.9% 250 ML IV ONE (05:00)
[2021-01-07] MEDS ORDERED: SODIUM BICARB 8.4% 50 ML SYR (1 MEQ/ML) IV ONE (05:00)
[2021-01-07] MEDS ORDERED: HEPARIN SODIUM 1,000 UN/ML (10ML VL) IV ONE (05:00)
[2021-01-07] MEDS ORDERED: ALBUMIN HUMAN 25% 50 ML IV ONE (05:00)
[2021-01-07] MEDS ORDERED: CARDIOPLEGIC SOLN (K+ 16 MEQ/L 1,000 ML with SODIUM BICARB (1 MEQ/ML) 20 ML, LIDOCAINE ... PERFUSION ONE ×3 (05:00)
[2021-01-07] MEDS ORDERED: HEPARIN SODIUM,PORCINE 5,000 UNIT in SODIUM CHLORIDE 0.9% 500 ML 500 ML IV ONE (05:00)
[2021-01-07] MEDS ORDERED: PHENYLEPHRINE 10 MG/ML VIAL IV ONE (05:00)
[2021-01-07] MEDS ORDERED: NITROGLYCERIN-D5W PMX 50 MG in DEXTROSE/WATER 1 250ML.BAG IV ONE (05:00)
[2021-01-07] MEDS ORDERED: NITROGLYCERIN SL TABS 0.4 MG TAB SUBLINGUAL ONE (05:00)
[2021-01-07] MEDS ORDERED: METOPROLOL TARTRATE 12.5 MG TAB PO ONE (05:00)
[2021-01-07] MEDS ORDERED: CLEVIDIPINE BUTYRATE 25 MG in EMPTY BAG 1 BAG IV ONE (05:00)
[2021-01-07] MEDS ORDERED: MAGNESIUM SULFATE MG 500 MG/ML IV ONE (05:00)
[2021-01-07] MEDS ORDERED: CHLORHEXIDINE GLUCONATE 15 ML CUP MUCOUS MEM ONE (05:00)
[2021-01-07] MEDS ORDERED: NITROGLYCERIN-D5W PMX 25 MG/250 ML BTL IV ONE (05:00)
[2021-01-07] MEDS ORDERED: ceFAZolin 1,000 MG in SODIUM CHLORIDE 0.9% IRRIGATIO 1,000 ML IRRIGATION ONE (05:00)
[2021-01-07] MEDS ORDERED: ALBUMIN HUMAN 5% 500 ML IVPB ONE (05:00)
[2021-01-07] MEDS ORDERED: SODIUM CHLORIDE 0.9% 1,000 ML IV ONE (05:00)
[2021-01-07] MEDS ORDERED: PHENYLEPHRINE 40 MG in SODIUM CHLORIDE 0.9% 250 ML IV ONE (05:00)
[2021-01-07] MEDS ORDERED: PROTAMINE SULFATE 10 MG/ML 25 ML VIAL IV ONE ×2 (05:00→07:44)
[2021-01-07] MEDS ORDERED: PAPAVERINE 360 MG in SODIUM CHLORIDE 0.9% 90 ML IV ONE (05:00)
[2021-01-07] MEDS ORDERED: SODIUM BICARB 8.4% 50 ML SYR (1 MEQ/ML) ONE (07:44)
[2021-01-07] MEDS ORDERED: ePHEDrine SULFATE/0.9% NACL/PF 50 MG/5 ML SYRINGE IV ONE (07:44)
[2021-01-07] MEDS ORDERED: CALCIUM CHLORIDE 100 MG/ML 10 ML SYRINGE ONE (07:44)
[2021-01-07] MEDS ORDERED: TRANEXAMIC ACID 1,000 MG/10 ML VIAL ONE (07:44)
[2021-01-07] MEDS ORDERED: ALBUMIN HUMAN 5% (25gm) 500 ML VIAL IVPB ONE (07:44)
[2021-01-07] MEDS ORDERED: MIDAZOLAM 2 MG/2 ML VIAL ONE (07:44)
[2021-01-07] MEDS ORDERED: ceFAZolin 1,000 MG VIAL ONE (07:44)
[2021-01-07] MEDS ORDERED: SODIUM CHLORIDE 0.9% 100 ML BAG ONE (07:44)
[2021-01-07] MEDS ORDERED: HEPARIN SODIUM,PORCINE 10,000 UNIT/ML 1 ML VIAL ONE (07:44)
[2021-01-07] MEDS ORDERED: NITROGLYCERIN-D5W PMX 50 MG/250 ML BOTTLE IV ONE (07:44)
[2021-01-07] MEDS ORDERED: PROPOFOL 10 MG/ML 20 ML VIAL IV ONE (07:44)
[2021-01-07] MEDS ORDERED: LIDOCAINE 2% SYG (PF) 100 MG/5 ML ONE (07:44)
[2021-01-07] MEDS ORDERED: SODIUM CHLORIDE 0.9% IRRIG 1,000 ML BTL IRRIGATION ONE (07:44)
[2021-01-07] MEDS ORDERED: ELECTROLYTE-R (PH 7.4) 1,000 ML IV.SOLN IV ONE (07:44)
[2021-01-07] MEDS ORDERED: VECURONIUM 10 MG VIAL IV ONE (07:44)
[2021-01-07] MEDS ORDERED: PHENYLEPHRINE-0.9% NACL SYG 1,000 MCG/10 ML SYRINGE ONE (07:44)
[2021-01-07] MEDS ORDERED: fentaNYL (PF) 50 MCG/ML 50 ML VIAL ONE (07:44)
[2021-01-07] MEDS ORDERED: SODIUM CHLORIDE 0.9% 250 ML BAG ONE (07:44)
[2021-01-07 08:26] LABS: ABG Base Excess 1.4 mmol/L; ABG Glucose Whole Blood 94 mg/dL (75-99); ABG HCO3 26 mmol/L (21-25); ABG Hematocrit 37 % (34.0-46.0); ABG Ionized Calcium 4.8 mg/dL (4.5-5.3); ABG PCO2 38 mmHg (35-45); ABG PH 7.44 (7.35-7.45); ABG PO2 256 mmHg (83-108); ABG Sodium Whole Blood 136 mmol/L (135-146); ABG TCO2 27 mmol/L (19-24)
[2021-01-07 09:04] LABS: ABG Base Excess 0.7 mmol/L; ABG Glucose Whole Blood 107 mg/dL (75-99); ABG HCO3 25 mmol/L (21-25); ABG Hematocrit 37 % (34.0-46.0); ABG Ionized Calcium 4.7 mg/dL (4.5-5.3); ABG Lactic Acid Whole Blood 1.2 mmol/L (0.5-1.6); ABG PCO2 40 mmHg (35-45); ABG PH 7.42 (7.35-7.45); ABG PO2 310 mmHg (83-108); ABG Potassium Whole Blood 3.9 mmol/L (3.4-4.5); ABG Sodium Whole Blood 136 mmol/L (135-146); ABG TCO2 27 mmol/L (19-24)
[2021-01-07 09:48] LABS: ABG Base Excess -2.5 mmol/L; ABG Glucose Whole Blood 111 mg/dL (75-99); ABG HCO3 23 mmol/L (21-25); ABG Hematocrit 25 % (34.0-46.0); ABG Ionized Calcium 4.1 mg/dL (4.5-5.3); ABG Lactic Acid Whole Blood 1.2 mmol/L (0.5-1.6); ABG PCO2 42 mmHg (35-45); ABG PH 7.35 (7.35-7.45); ABG PO2 415 mmHg (83-108); ABG Potassium Whole Blood 3.6 mmol/L (3.4-4.5); ABG Sodium Whole Blood 132 mmol/L (135-146); ABG TCO2 24 mmol/L (19-24)
--- NOTE | 2021-01-07 10:02 | P.ANPRN ---
Procedure Note - Anesthesia - Invasive Line Right Arterial Line Time Out Performed: Yes Date of Procedure: 01/07/21 Time of Procedure: 07:20 Location of Patient: Phase I Preparation: Sterile Prep, Sterile Dressing Arterial Line Location: Radial Ultrasound Used: No Needle Guage: 20 Image Stored and Saved: Yes Narrative: Performed by [employer] Right Central Line Time Out Performed: Yes Date of Procedure: 01/07/21 Time of Procedure: 07:30 Location of Patient: Phase I Preparation: Sterile Prep, Sterile Dressing Ultrasound Used: Yes Purpose - Visualization and Identification of Vasculature: Yes Needle Guage: 18 Image Stored and Saved: Yes Narrative: Central line placement per sterile protocol utilized. Right [place] Time Out Performed: Yes Date of Procedure: 01/07/21 Time of Procedure: 07:35 Location of Patient: Phase I Preparation: Sterile Prep, Sterile Dressing Narrative: [place] @ 53 cm
[2021-01-07 10:20] LABS: ABG Base Excess -1.6 mmol/L; ABG Glucose Whole Blood 113 mg/dL (75-99); ABG HCO3 23 mmol/L (21-25); ABG Ionized Calcium 4.5 mg/dL (4.5-5.3); ABG Lactic Acid Whole Blood 1.1 mmol/L (0.5-1.6); ABG PCO2 37 mmHg (35-45); ABG PO2 331 mmHg (83-108); ABG Potassium Whole Blood 4.2 mmol/L (3.4-4.5); ABG Sodium Whole Blood 134 mmol/L (135-146); ABG TCO2 24 mmol/L (19-24)
[2021-01-07 10:50] LABS: ABG Base Excess -1.3 mmol/L; ABG Glucose Whole Blood 130 mg/dL (75-99); ABG HCO3 24 mmol/L (21-25); ABG Ionized Calcium 4.4 mg/dL (4.5-5.3); ABG Lactic Acid Whole Blood 1.2 mmol/L (0.5-1.6); ABG PCO2 41 mmHg (35-45); ABG PH 7.37 (7.35-7.45); ABG PO2 324 mmHg (83-108); ABG Potassium Whole Blood 4.3 mmol/L (3.4-4.5); ABG Sodium Whole Blood 133 mmol/L (135-146); ABG TCO2 25 mmol/L (19-24)
[2021-01-07 11:42] LABS: ABG Glucose Whole Blood 215 mg/dL (75-99); ABG HCO3 18 mmol/L (21-25); ABG Hematocrit 25 % (34.0-46.0); ABG Ionized Calcium 3.9 mg/dL (4.5-5.3); ABG PCO2 35 mmHg (35-45); ABG PH 7.33 (7.35-7.45); ABG PO2 404 mmHg (83-108); ABG Potassium Whole Blood 5.5 mmol/L (3.4-4.5); ABG Sodium Whole Blood 131 mmol/L (135-146); ABG TCO2 19 mmol/L (19-24)
[2021-01-07 11:51] LABS: ABG Base Excess 3.1 mmol/L; ABG Glucose Whole Blood 197 mg/dL (75-99); ABG HCO3 27 mmol/L (21-25); ABG Ionized Calcium 3.8 mg/dL (4.5-5.3); ABG PCO2 37 mmHg (35-45); ABG PH 7.47 (7.35-7.45); ABG PO2 398 mmHg (83-108); ABG Sodium Whole Blood 136 mmol/L (135-146); ABG TCO2 28 mmol/L (19-24)
[2021-01-07 12:40] LABS: ABG Base Excess -2.6 mmol/L; ABG Glucose Whole Blood 125 mg/dL (75-99); ABG HCO3 22 mmol/L (21-25); ABG Hematocrit 29 % (34.0-46.0); ABG Ionized Calcium 4.1 mg/dL (4.5-5.3); ABG PCO2 37 mmHg (35-45); ABG PH 7.39 (7.35-7.45); ABG PO2 392 mmHg (83-108); ABG Potassium Whole Blood 4.2 mmol/L (3.4-4.5); ABG Sodium Whole Blood 137 mmol/L (135-146); ABG TCO2 23 mmol/L (19-24)
[2021-01-07 12:53] LABS: ABG Hematocrit 24 % (34.0-46.0)
[2021-01-07 12:54] LABS: ABG Hematocrit 22 % (34.0-46.0)
[2021-01-07 12:55] LABS: ABG Lactic Acid Whole Blood 4.2 mmol/L (0.5-1.6)
[2021-01-07 12:56] LABS: ABG Hematocrit 24 % (34.0-46.0); ABG Lactic Acid Whole Blood 3.8 mmol/L (0.5-1.6)
[2021-01-07] MEDS ORDERED: HUMAN PROTHROMBIN COMPLX 500 UNIT/16 ML VIAL IV ONE (13:00)
[2021-01-07 13:10] LABS: ABG Base Excess 0.5 mmol/L; ABG Glucose Whole Blood 105 mg/dL (75-99); ABG HCO3 25 mmol/L (21-25); ABG PCO2 38 mmHg (35-45); ABG PH 7.43 (7.35-7.45); ABG PO2 244 mmHg (83-108); ABG Potassium Whole Blood 3.9 mmol/L (3.4-4.5); ABG Sodium Whole Blood 141 mmol/L (135-146); ABG TCO2 26 mmol/L (19-24)
--- NOTE | 2021-01-07 13:39 | P.ANPRN ---
Procedure Note - Anesthesia - KATERIN Intraop Pre Bypass KATERIN Intraop - Anesthesia Indication: Aortic stenosis and CAD Date of Procedure: 01/07/21 Pre-operative Diagnosis: , AI, MS, MR, TR Post-operative Diagnosis: S/p CABG and AVR w/ root enlargement Surgeon: Hill Schrader Left Ventricle: EF 60% Ejection Fraction: Normal Regional Wall Motion Abnormalities: None Left Ventricle Hypertrophy: Yes R. Ventricle Function: Normal Aortic Valve: Peak 95 mmHg, mean 48 mmHg Anatomy: Trileaflet Aortic Stenosis: Severe Aortic Regurgitation: Moderate Mitral Valve: Gradient peak 15 mmHg, Mean 10 mmHg. Severe MAC Mitral Stenosis: Severe Mitral Regurgitation: Moderate Tricuspid Stenosis: None Tricuspid Regurgitation: Mild Pulmonic Stenosis: None Pulmonic Regurgitation: None R. Atrial Dilation: No R. Atrial PFO: No L. Atrial Dilation: Yes Aortic Dissection: No Aortic Calcification: Moderate Plural Effusion: None - KATERIN Intraop Post Bypass KATERIN Intraop Post Bypass Procedure Performed: AVR, Root enlargement, CABG Left Ventricle: 50 Regional Wall Motion Abnormalities: None R. Ventricle Function: Normal Aortic Valve: Bioprosthetic AV Peak 21, mean 8. Trace perivalvular leak Mitral Valve: Peak 15 mmHg, Mean 7 mmHg. Moderate MR Tricuspid: Unchanged Pulmonic: Unchanged Aortic Dissection: No
[2021-01-07] MEDS ORDERED: HUMAN PROTHROMBIN COMPLX IV ONE (13:45)
[2021-01-07 14:02] LABS: ABG Base Excess 0.9 mmol/L; ABG Glucose Whole Blood 107 mg/dL (75-99); ABG HCO3 25 mmol/L (21-25); ABG Ionized Calcium 3.9 mg/dL (4.5-5.3); ABG PCO2 36 mmHg (35-45); ABG PH 7.45 (7.35-7.45); ABG PO2 254 mmHg (83-108); ABG Sodium Whole Blood 142 mmol/L (135-146); ABG TCO2 26 mmol/L (19-24)
[2021-01-07 14:42] LABS: ABG Hematocrit 20 % (34.0-46.0); ABG Lactic Acid Whole Blood 4.1 mmol/L (0.5-1.6)
[2021-01-07 14:43] LABS: ABG Ionized Calcium 3.3 mg/dL (4.5-5.3)
[2021-01-07 14:44] LABS: ABG Hematocrit 23 % (34.0-46.0); ABG Lactic Acid Whole Blood 3.2 mmol/L (0.5-1.6)
[2021-01-07] MEDS ORDERED: NOREPINEPHRINE 4 MG in SODIUM CHLORIDE 0.9% 250 ML IV SCH (15:00)
[2021-01-07] MEDS ORDERED: MUPIROCIN 2% OINT 22 GM TUBE NASAL ONE (15:00)
[2021-01-07 15:06] LABS: Partial Thromboplastin Time 22.6 sec (22.0-30.0)
--- NOTE | 2021-01-07 15:08 | P.OP ---
Date of Procedure: 01/07/21 Preoperative Diagnosis: Severe aortic stenosis with insufficiency, mitral stenosis with insufficiency, coronary artery disease Postoperative Diagnosis: Same Procedure(s) Performed: Aortic valve replacement with 21 mm Inspiriis bovine pericardial valve with root enlargement with bovine pericardial patch, CABG 1 with SVG to OM, epi-aortic ultrasound, endovascular vein harvest, ligation left atrial appendage with 35 mm AtriCure clip Implants: 21 mm inspiriis bovine pericardial valve Anesthesia: GETA Surgeon: Hill Schrader Medical Chief Technician #1: Ji Garcia Medical Chief Technician #2: Gulshan Nayak Estimated Blood Loss (ml): 1,000 Pathology: other (Aortic valve) Condition: critical Disposition: ICU Indications for Procedure: 85-year-old female presented with severe heart failure. Found to have critical aortic valvular stenosis, single-vessel coronary artery disease with ostial lesion in the obtuse marginal, mild to moderate mitral insufficiency and mitral stenosis. Was referred for [place] however was not a candidate for Redo effacement of the coronary sinuses. We therefore considered for high-risk aortic valve surgery was discussed at length with the patient and informed consent was obtained Operative Findings: Saphenous vein was small but adequate. Aortic valve was trileaflet and heavily calcified with partial fusion of the left and noncoronary cusps. Heavy calcification of the annulus. The root was fairly calcific. The ascending aorta was relatively clean by epi-aortic ultrasonography. Despite careful debridement we were only able to barely squeeze and a 19 mm valve and for this reason it was felt appropriate to do a root enlargement. This allows us to easily place a 21 mm valve which is appropriate in size for this patient. After removal of the clamp there was diffuse oozing from the suture lines. Protracted time was spent obtaining hemostasis and ultimately we were able to dry up over the ICU. Description of Procedure: Patient was brought to the operating room placed supine on the operating table anesthetized and intubated. The anterior torso and lower extremities were sterilely prepped and draped in standard fashion. Greater saphenous vein was harvested from the left thigh and was adequate. Simultaneous sternotomy was performed standard sternal retractor was placed. Pleural spaces were opened bilaterally and the pericardium was opened in the midline. Epi-aortic ultrasonography was performed with findings as noted above. Patient was heparinized and cannulated for cardiopulmonary bypass with a 6 mm soft flow cannula in the distal ascending aorta and 2-stage venous cannula through the right atrium into the inferior vena cava. Antegrade cardioplegia line was placed in standard fashion. Attempts to place a retrograde cardioplegia line were unsuccessful developed perforation at the junction of the right atrium and right ventricle near the orifice region of the coronary sinus. Retrograde catheter was removed and this site was closed with a 4 pledgeted Prolene suture. Patient was placed on cortical me bypass and stabilized. Pursestring suture was placed in the right superior pulmonary vein. Left atrial appendage was ligated with a 35 mm AtriCure clip. Aorta was crossclamped and the heart was arrested with 1200 mL of antegrade, crystalloid cardioplegia. The obtuse marginal was exposed and opened and dissected 1.5 mm probe easily. Saphenous vein was anastomosed in end-to-side fashion with running 7-0 Prolene suture. Heart was lowered into anatomic position and vein was cut to appropriately to reach the ascending aorta. The ascending aorta was now opened just above the sinotubular junction. On the left side there was heavy calcification in the incision was extended to the right and down toward the noncoronary sinus of Valsalva. Valve was visualized and excised. Careful decalcification of the aortic root was performed. 3 pledgeted 2-0 Tycron sutures were placed in each of the 3 commissures and the annulus was sized. It was difficult to even place a 19 mm sizer it was decided to enlarge the annulus. The aortotomy was extended down to the level of the annulus and then teed off to the left and right. These bovine pericardial patch was washed on the back field and brought up on the field and sewed into the annulus and then brought up along the aorta on either side. Circumferential valve sutures of 2-0 Tycron were now placed. Was now easy to lyse a 21 sizer and this valve was opened and brought up on the field. 21 mm bovine pericardial Inspiris valve was chosen. Valve sutures were placed in the sewing ring of the valve and it was seated without difficulty. Sutures were tied and cut. Another dose of cardioplegia was given down the [place] coronary arteries. We now closed the aorta using the Bovie pericardial patch with running 4-0 Prolene suture. Proximal anastomosis was performed to the center of the patch with running 6-0 Prolene suture. Patient was placed in Trendelenburg. The aortic vent was exudative the left atrial vent was removed and the pursestring tied. The cross-clamp was removed. It was immediately noted that there was a small tear in the medial aspect of the right atrium low the appendage adjacent to the aorta. This was sutured with several Prolene sutures. Good hemostasis was thus obtained. The atrial and ventricular pacemaker wires were paced and the patient was paced. Heart was de-aired under KATERIN guidance with a 16-gauge Angiocath in the apex the left ventricle. It was then weaned from cardioplegic bypass with some Primacor and Levophed. Heparin was reversed with protamine and the patient was decannulated in standard fashion. The aortic cannulation site was reinforced 4 pledgeted suture. Patient remained relatively hemodynamically stable however there was continued oozing. Platelets and fresh frozen were given further suturing was performed along the pericardial patch however the needle holes were all oozing.'s was treated with topical procoagulants without effect. Products were given and eventually we gave a dose of factor IX. This appeared to cause better hemostasis. At this point the chest was irrigated with antibiotic solution and good hemostasis was noted. Bilateral pleural spaces were drained with 32-[place] chest tubes in the mediastinum was drained with 236-[place] chest tubes. Sternum was closed with seven sternal wires. Ashes closed with 0 Ethibond. Subcutaneous and subcuticular layers closed with layers of Vicryl suture. Dry sterile dressings were applied the patient was transferred to ICU in stable condition.
[2021-01-07 15:20] LABS: Glucose,Whole Blood 155 mg/dL (75-99)
[2021-01-07] MEDS ORDERED: hydrALAZINE HCL 20 MG/ML 1 ML VIAL IVP PRN (15:20)
[2021-01-07] MEDS ORDERED: CLEVIDIPINE BUTYRATE 25 MG in EMPTY BAG 1 BAG IV SCH (15:20)
[2021-01-07] MEDS ORDERED: AMIODARONE 360 MG in DEXTROSE 5% IN WATER 200 ML IV PRN ×2 (15:20)
[2021-01-07] MEDS ORDERED: BENZOCAINE/MENTHOL LOZENG 1 EACH LOZENGE MUCOUS MEM PRN (15:20)
[2021-01-07] MEDS ORDERED: DEXMEDETOMIDINE/0.9% NACL(PMX) 400 MCG in EMPTY BAG 1 BAG IV SCH (15:20)
[2021-01-07] MEDS ORDERED: IPRATROPIUM-ALBUTEROL 3 ML NEB INHALATION PRN (15:20)
[2021-01-07] MEDS ORDERED: Phosphorus Replacement Protoco 1 EACH MISC MISCELLANE PRN (15:20)
[2021-01-07] MEDS ORDERED: CALCIUM GLUCONATE 2 GM in SODIUM CHLORIDE 0.9% 100 ML IVPB PRN (15:20)
[2021-01-07] MEDS ORDERED: Magnesium Replacement Protocol 1 EACH MISC MISCELLANE PRN (15:20)
[2021-01-07] MEDS ORDERED: DEXTROSE 5% IN WATER 100 ML with AMIODARONE 150 MG IV PRN (15:20)
[2021-01-07] MEDS ORDERED: METOCLOPRAMIDE 5 MG/ML 2 ML VIAL IVP PRN (15:20)
[2021-01-07] MEDS ORDERED: Potassium Replacement Protocol 1 EACH MISC MISCELLANE PRN (15:20)
[2021-01-07 15:41] LABS: ALT 13 U/L (4-34); AST 36 U/L (14-36); African American GFR (CKD) >90 (>60 ml/min/1.73 sqM); Albumin 2.8 g/dL (3.5-5.0); Alkaline Phosphatase 25 U/L (38-126); Anion Gap 9 mmol/L; Blood Urea Nitrogen 16 mg/dL (7-17); Calcium 9.8 mg/dL (8.4-10.2); Carbon Dioxide 24 mmol/L (22-30); Chloride 106 mmol/L (98-107); Glucose 147 mg/dL (74-99); Magnesium 3.1 mg/dL (1.6-2.3); Non-African American GFR(CKD) 80 (>60 ml/min/1.73 sqM); Potassium 4.2 mmol/L (3.5-5.1); Sodium 139 mmol/L (137-145); Total Bilirubin 2.4 mg/dL (0.2-1.3); Total Protein 4.5 g/dL (6.3-8.2)
[2021-01-07 15:44] LABS: Partial Thromboplastin Time 24.9 sec (22.0-30.0); Prothrombin Time 10.8 sec (9.0-12.0)
[2021-01-07 15:46] LABS: Basophils % (A) 0 %; Eosinophils # (A) 0.1 k/uL (0-0.7); Eosinophils % (A) 1 %; HCT 25.7 % (34.0-46.0); Lymphocytes # (A) 1.4 k/uL (1.0-4.8); Lymphocytes % (A) 13 %; MCHC 35.2 g/dL (31.0-37.0); MCV 90.9 fL (80.0-100.0); Mean Platelet Volume 8.2; Monocytes # (A) 0.7 k/uL (0-1.0); Monocytes % (A) 6 %; Neutrophils # (A) 7.9 k/uL (1.3-7.7); Neutrophils % (A) 78 %; RBC 2.82 m/uL (3.80-5.40); WBC 10.2 k/uL (3.8-10.6)
[2021-01-07 15:52] LABS: Platelet Count 81 k/uL (150-450)
[2021-01-07] MEDS: ALBUMIN HUMAN 5% 250 ML in EMPTY BAG 1 BAG IVPB PRN (15:56)
[2021-01-07] MEDS: LACTATED RINGERS 1,000 ML IV SCH (15:58)
[2021-01-07] MEDS ORDERED: IPRATROPIUM-ALBUTEROL 3 ML NEB INHALATION SCH (16:00)
[2021-01-07] MEDS: MILRINONE-D5W PMX 20 MG in DEXTROSE/WATER 1 100ML.BAG IV SCH (16:00)
[2021-01-07 16:03] LABS: ABG Base Excess 0.2 mmol/L; ABG HCO3 25 mmol/L (21-25); ABG Oxygen Saturation 99.3 % (94-97); ABG PCO2 40 mmHg (35-45); ABG PH 7.41 (7.35-7.45); ABG PO2 157 mmHg (83-108); ABG TCO2 26 mmol/L (19-24); Allen Test Performed? Yes
--- NOTE | 2021-01-07 16:03 | XR ---
EXAMINATION TYPE: XR chest 1V portable DATE OF EXAM: 01/07/2021 COMPARISON: 12/16/2018 HISTORY: Postoperative cardiac surgery TECHNIQUE: Single frontal view of the chest is obtained. FINDINGS: There is an endotracheal tube, enteric tube, mediastinal drain and Gypsum-Belkis catheter. Bilateral ches t tubes are present. There is patchy airspace disease bilaterally. New postoperative changes overlie the cardiac silhouette. IMPRESSION: There is an endotracheal tube, enteric tube, mediastinal drain and Gypsum-Belkis catheter. Bilateral ches t tubes are present. There is patchy airspace disease bilaterally. New postoperative changes overlie the cardiac silhouette.
[2021-01-07 16:28] LABS: Glucose,Whole Blood 120 mg/dL (75-99)
[2021-01-07 17:04] LABS: Glucose,Whole Blood 172 mg/dL (75-99)
[2021-01-07] MEDS: INSULIN REGULAR 100 UNIT in SODIUM CHLORIDE 0.9% 100 ML IV SCH (17:44)
[2021-01-07] MEDS: ACETAMINOPHEN IV (For NPO) 1,000 MG in EMPTY BAG 1 BAG IVPB SCH ×2 (17:44→23:50)
[2021-01-07] MEDS: HEPARIN SODIUM,PORCINE/PF 5,000 UNIT/0.5 ML SYRINGE SQ SCH ×2 (17:50→23:50)
[2021-01-07 18:05] LABS: Glucose,Whole Blood 164 mg/dL (75-99)
[2021-01-07] MEDS ORDERED: NITROGLYCERIN-D5W PMX 50 MG in DEXTROSE/WATER 1 250ML.BAG IV SCH (18:45)
[2021-01-07 18:56] LABS: Glucose,Whole Blood 153 mg/dL (75-99)
[2021-01-07 19:11] LABS: Basophils % (A) 0 %; Eosinophils % (A) 0 %; HCT 22.7 % (34.0-46.0); HGB 7.8 gm/dL (11.4-16.0); Lymphocytes # (A) 0.5 k/uL (1.0-4.8); Lymphocytes % (A) 6 %; MCHC 34.1 g/dL (31.0-37.0); MCV 90.8 fL (80.0-100.0); Mean Platelet Volume 9.2; Monocytes # (A) 0.6 k/uL (0-1.0); Monocytes % (A) 7 %; Neutrophils # (A) 6.8 k/uL (1.3-7.7); Neutrophils % (A) 86 %; RDW 15.5 % (11.5-15.5); WBC 7.9 k/uL (3.8-10.6)
[2021-01-07 19:12] LABS: Platelet Count 80 k/uL (150-450)
[2021-01-07 19:53] LABS: Glucose,Whole Blood 144 mg/dL (75-99)
[2021-01-07] MEDS: IPRATROPIUM-ALBUTEROL 3 ML NEB INHALATION SCH (20:29)
[2021-01-07] MEDS ORDERED: fentaNYL (PF) 50 MCG/ML 2 ML AMP ONE (20:33)
[2021-01-07] MEDS: ATORVASTATIN 20 MG TAB PO SCH (20:33)
[2021-01-07] MEDS ORDERED: fentaNYL (PF) 50 MCG/ML 2 ML AMP IVP ONE (20:34)
[2021-01-07 20:55] LABS: Glucose,Whole Blood 145 mg/dL (75-99)
[2021-01-07 20:56] LABS: ABG Base Excess 1.2 mmol/L; ABG HCO3 26 mmol/L (21-25); ABG Oxygen Saturation 98.7 % (94-97); ABG PCO2 42 mmHg (35-45); ABG PO2 111 mmHg (83-108); ABG TCO2 27 mmol/L (19-24); Allen Test Performed? Yes
[2021-01-07 21:48] LABS: Glucose,Whole Blood 146 mg/dL (75-99)
[2021-01-08 00:02] LABS: Glucose,Whole Blood 148 mg/dL (75-99)
[2021-01-08 01:07] LABS: Glucose,Whole Blood 151 mg/dL (75-99)
[2021-01-08 02:14] LABS: Glucose,Whole Blood 146 mg/dL (75-99)
[2021-01-08 03:10] LABS: Glucose,Whole Blood 141 mg/dL (75-99)
[2021-01-08 03:25] LABS: Basophils % (A) 0 %; Eosinophils % (A) 0 %; HCT 23.2 % (34.0-46.0); HGB 7.7 gm/dL (11.4-16.0); Lymphocytes # (A) 0.6 k/uL (1.0-4.8); Lymphocytes % (A) 5 %; MCH 30.8 pg (25.0-35.0); MCHC 33.2 g/dL (31.0-37.0); MCV 92.7 fL (80.0-100.0); Monocytes # (A) 0.6 k/uL (0-1.0); Monocytes % (A) 6 %; Neutrophils # (A) 9.2 k/uL (1.3-7.7); Neutrophils % (A) 88 %; Platelet Count 100 k/uL (150-450); Poikilocytosis Slight; WBC 10.5 k/uL (3.8-10.6)
[2021-01-08 03:33] LABS: Ionized Calcium 5.2 mg/dL (4.5-5.3)
[2021-01-08 03:41] LABS: Albumin 2.9 g/dL (3.5-5.0); Magnesium 2.7 mg/dL (1.6-2.3); Potassium 3.7 mmol/L (3.5-5.1); Total Bilirubin 0.7 mg/dL (0.2-1.3); Total Protein 4.8 g/dL (6.3-8.2)
[2021-01-08] MEDS: ALBUMIN HUMAN 5% 250 ML in EMPTY BAG 1 BAG IVPB PRN (04:02)
[2021-01-08] MEDS: ONDANSETRON 4 MG/2 ML VIAL IVP PRN ×2 (04:04→16:42)
[2021-01-08] MEDS: HYDROcodone/APAP 5-325MG 1 EACH TAB PO PRN ×5 (04:38→22:13)
[2021-01-08] MEDS ORDERED: POTASSIUM CHLORIDE ER 20 MEQ TAB.ER PO SCH (05:00)
[2021-01-08 05:02] LABS: Glucose,Whole Blood 121 mg/dL (75-99)
[2021-01-08 05:57] LABS: Glucose,Whole Blood 115 mg/dL (75-99)
[2021-01-08 06:51] LABS: Glucose,Whole Blood 129 mg/dL (75-99)
[2021-01-08] MEDS ORDERED: ACETAMINOPHEN TAB 325 MG TAB PO PRN (07:34)
--- NOTE | 2021-01-08 07:35 | XR ---
EXAMINATION TYPE: XR chest 1V portable DATE OF EXAM: 01/08/2021 COMPARISON: 01/07/2021 HISTORY: Postoperative cardiac surgery TECHNIQUE: Single frontal view of the chest is obtained. FINDINGS: Bilateral chest tubes, mediastinal drain and a new Burt-Belkis catheter are in unchanged positions. Int erval removal of endotracheal and enteric tubes. Bilateral patchy airspace disease is again seen, slightly worsened. Postoperative changes overlie the cardiac silhouette. IMPRESSION: Bilateral patchy airspace disease is again seen, slightly worsened. Interval removal of endotracheal and enteric tubes.
[2021-01-08] MEDS: CHOLECALCIFEROL 25 MCG (1000 IU) TABLET PO SCH (08:07)
[2021-01-08] MEDS: ASCORBIC ACID 500 MG TAB PO SCH (08:07)
[2021-01-08] MEDS: CLOPIDOGREL 75 MG TAB PO SCH (08:08)
[2021-01-08] MEDS: HEPARIN SODIUM,PORCINE/PF 5,000 UNIT/0.5 ML SYRINGE SQ SCH ×2 (08:08→16:26)
[2021-01-08 08:22] LABS: Glucose,Whole Blood 141 mg/dL (75-99)
[2021-01-08] MEDS: IPRATROPIUM-ALBUTEROL 3 ML NEB INHALATION SCH ×4 (08:33→20:45)
--- NOTE | 2021-01-08 08:45 | P.PN ---
Subjective Progress Note Date: 01/08/21 Principal diagnosis: Severe aortic stenosis with insufficiency, mitral stenosis with insufficiency and heavy mitral annular calcification, coronary artery disease. Previous medical history of hypertension, hyperlipidemia with refusal of statin medication in the past, hypothyroidism, left internal carotid stenosis 50-79%, TIA in 2008, GERD, arthritis, never smoker, family history of premature coronary artery disease, as well as family history of heart failure and possible valvular heart disease POD #1 aortic valve replacement with a 21 mm Inspiris bovine pericardial valve with root enlargement with bovine pericardial patch, coronary artery bypass grafting 1 with reverse saphenous vein graft to the obtuse marginal artery, epi-aortic ultrasound, endovascular vein harvest of the left greater saphenous vein from the thigh, ligation of the left atrial appendage with a 35 mm AtriCure clip Intraoperative and postoperative acute blood loss anemia and thrombocytopenia, expected given hemodilution and cardiopulmonary bypass pump requiring multiple blood products intraoperatively The patient is currently sitting up in a recliner in the intensive care unit in no acute distress. She was successfully extubated last night at 21:10. She does complain of post surgical pain which is controlled on current medication regimen, denies rest of breath, does appear a bit sleepy. Remains AV paced at 80 bpm, underlying rhythm junctional in the high 50s. Remains on IV Primacor, currently off pressors. She is oxygenating well on 2 L nasal cannula and able to achieve 1000 mL on her incentive spirometry. Right internal jugular Cordis, right radial arterial line, mediastinal/left pleural/right pleural chest tubes all remain. No further blood products given since surgery. No new concerns. Objective - Vital Signs Vital signs: Vital Signs Temp 96.8 F L 01/08/21 04:00 Pulse 80 01/08/21 07:00 Resp 11 L 01/08/21 07:00 BP 122/49 01/08/21 07:00 Pulse Ox 99 01/08/21 07:00 Intake & Output 01/07/21 01/08/21 01/08/21 18:59 06:59 18:59 Intake Total 4265.264 989.836 79 Output Total 4640 1163 50 Balance -374.736 -173.164 29 Weight 66.3 kg Intake: IV 90 849 79 Lactated Ringers 1,000 ml 550 50 @ 50 mls/hr IV .Q20H [facility] Rx#:[id number] cardiac output 20 200 20 pressure bags 18 99 9 Intake, IV Titration 577.264 140.836 Amount ACETAMINOPHEN IV (For NPO 100 ) 1,000 mg In Empty Bag 1 bag @ 400 mls/hr IVPB Q6HR [facility] Rx#:[id number] Albumin Human 5% 250 ml 250 In Empty Bag 1 bag @ 250 mls/hr IVPB Q1HR PRN Rx#: [id number] Clevidipine Butyrate 25 4.133 8.000 mg In Empty Bag 1 bag @ 1 MG/HR 2 mls/hr IV .Q24H [facility] Rx#:[id number] Insulin Regular 100 unit 1.094 34.038 In Sodium Chloride 0.9% 100 ml @ Per Protocol IV .Q0M [facility] Rx#:[id number] Lactated Ringers 1,000 ml 150 @ 50 mls/hr IV .Q20H [facility] Rx#:[id number] Milrinone-D5w Pmx 20 mg 91.159 In Dextrose/Water 1 100ml .bag @ 0.3 MCG/KG/MIN 6. 084 mls/hr IV .[id number] [facility] Rx#:[id number] ceFAZolin 2 gm In Sodium 50 Chloride 0.9% 50 ml @ 100 mls/hr IVPB Q8HR [facility] Rx# :[id number] propofoL 1,000 mg In 22.037 7.639 Empty Bag 1 bag @ Titrate IV .Q0M [facility] Rx#: [id number] Blood Product 3598 Ffp 24 Cpd Unit 307 [id number] Ffp 24 Cpd Unit 330 [id number] Ffp 24 Cpd Unit 337 [id number] Ffp 24 Cpd Unit 334 [id number] Platelet Pheresis Pas 280 Psoralen Unit [id number] Platelet Pheresis Pas 284 Psoralen Unit [id number] Pooled Cryoprecipitate 89 Unit [id number] Pooled Cryoprecipitate 87 Unit [id number] Rc As-1 Unit 310 [id number] Rc As-1 Unit 310 [id number] Rc As-1 Unit 310 [id number] Rc Irr As1 Unit 310 [id number] Rc Irr As1 Unit 310 [id number] Output: Chest Tube Drainage 525 791 30 left pleural 170 306 0 mediastinal x2 295 290 10 right pleural 60 195 20 Drainage 40 20 Left Calf 40 20 Urine 1075 352 20 Estimated Blood Loss 3000 Other: Voiding Method Indwelling Catheter Indwelling Catheter ABP, PAP, CO, CI - Last Documented Arterial Blood Pressure 134/34 Pulmonary Artery Pressure 29/15 Cardiac Output 4.8 Cardiac Index 2.9 - Exam CONSTITUTIONAL: Appears comfortable, cooperative, no acute distress RESPIRATORY: Lungs sounds diminished bilaterally. Respirations even, nonlabored. Currently on 2 L nasal cannula with oxygen saturation 100%. Able to achieve 1000 mL on incentive spirometry. Strong cough. CARDIOVASCULAR: S1, S2 present, positive murmur. Regular rate and rhythm, AV paced on telemetry with rate 80 bpm, underlying rhythm junctional in the 50s. Sternum stable. Palpable peripheral pulses bilaterally. Trace generalized edema present. No calf pain or tenderness noted. Heart hugger in place with patient demonstrating appropriate use. Antiembolism stockings, SCDs present. GASTROINTESTINAL: Abdomen soft, nontender, nondistended. Hypoactive bowel sounds present 4 quadrants. Tolerating clear liquids. Negative flatus GENITOURINARY: Owens present draining clear, yellow urine. Output overnight 20-60 mL per hour INTEGUMENTARY: Skin is warm and dry with evidence of good perfusion. Anterior chest incision well approximated and covered with dry intact dressing. EVH site well approximated without redness or drainage, JUANITA drain present with minimal drainage. NEUROLOGIC: Cranial nerves II through XII intact MUSKULOSKELETAL: Able to move all extremities, strength equal bilaterally PSYCHIATRIC: Alert and oriented to person place and time, appropriate affect, intact judgment and insight INVASIVE LINES AND TUBES: Mediastinal/left/right pleural chest tubes present and connected to wall suction, no air leaks present. Mediastinal tube with 100 mL serosanguineous drainage overnight, 500 mL since surgery. Left pleural chest tube with 250 mL serosanguineous drainage overnight, 500 mL since surgery. Right pleural chest tube with 135 mL serosanguineous drainage overnight, 270 mL since surgery. A/V epicardial pacemaker wires present, connected to generator, DDD mode with rate 80 bpm. Right internal jugular Zullinger/Cordis, right radial arterial line present. Last CO/CI 4.8/2.9, PA 29/15, CVP 9. - Allied health notes Allied health notes reviewed: nursing - Labs CBC & Chem 7: 01/08/21 03:10 01/08/21 03:10 Labs: Abnormal Lab Results - Last 24 Hours (Table) 01/02/21 01/07/21 01/07/21 Range/Units 12:18 08:29 09:07 RBC (3.80-5.40) m/uL Hgb (11.4-16.0) gm/dL Hct (34.0-46.0) % RDW (11.5-15.5) % Plt Count (150-450) k/uL Neutrophils # (1.3-7.7) k/uL Lymphocytes # (1.0-4.8) k/uL ABG pH (7.35-7.45) ABG pO2 256 H 310 H (83-108) mmHg ABG HCO3 26 H (21-25) mmol/L ABG Total CO2 27 H 27 H (19-24) mmol/L ABG O2 Saturation 100.0 H 100.0 H (94-97) % ABG Hematocrit (34.0-46.0) % ABG Sodium (135-146) mmol/L ABG Potassium (3.4-4.5) mmol/L ABG Ionized Calcium (4.5-5.3) mg/dL ABG Glucose 107 H (75-99) mg/dL ABG Lactic Acid (0.5-1.6) mmol/L Hemoglobin (11.4-16.0) gm/dL BUN (7-17) mg/dL Glucose (74-99) mg/dL POC Glucose (mg/dL) (75-99) mg/dL Magnesium (1.6-2.3) mg/dL Total Bilirubin (0.2-1.3) mg/dL AST (14-36) U/L Alkaline Phosphatase (38-126) U/L Total Protein (6.3-8.2) g/dL Albumin (3.5-5.0) g/dL Arterial Blood Potassium (3.4-4.5) mmol/L Arterial Blood Glucose 107 H (75-99) mg/dL Crossmatch See Detail 01/07/21 01/07/21 01/07/21 Range/Units 09:50 10:22 10:53 RBC (3.80-5.40) m/uL Hgb (11.4-16.0) gm/dL Hct (34.0-46.0) % RDW (11.5-15.5) % Plt Count (150-450) k/uL Neutrophils # (1.3-7.7) k/uL Lymphocytes # (1.0-4.8) k/uL ABG pH (7.35-7.45) ABG pO2 415 H 331 H 324 H (83-108) mmHg ABG HCO3 (21-25) mmol/L ABG Total CO2 25 H (19-24) mmol/L ABG O2 Saturation 100.0 H 100.0 H 100.0 H (94-97) % ABG Hematocrit 25 L 24 L 22 L (34.0-46.0) % ABG Sodium 132 L 134 L 133 L (135-146) mmol/L ABG Potassium (3.4-4.5) mmol/L ABG Ionized Calcium 4.1 L 4.4 L (4.5-5.3) mg/dL ABG Glucose 111 H 113 H 130 H (75-99) mg/dL ABG Lactic Acid (0.5-1.6) mmol/L Hemoglobin 8.1 L 7.7 L 7.2 L (11.4-16.0) gm/dL BUN (7-17) mg/dL Glucose (74-99) mg/dL POC Glucose (mg/dL) (75-99) mg/dL Magnesium (1.6-2.3) mg/dL Total Bilirubin (0.2-1.3) mg/dL AST (14-36) U/L Alkaline Phosphatase (38-126) U/L Total Protein (6.3-8.2) g/dL Albumin (3.5-5.0) g/dL Arterial Blood Potassium (3.4-4.5) mmol/L Arterial Blood Glucose 111 H 113 H 130 H (75-99) mg/dL Crossmatch 01/07/21 01/07/21 01/07/21 Range/Units 11:45 11:53 12:43 RBC (3.80-5.40) m/uL Hgb (11.4-16.0) gm/dL Hct (34.0-46.0) % RDW (11.5-15.5) % Plt Count (150-450) k/uL Neutrophils # (1.3-7.7) k/uL Lymphocytes # (1.0-4.8) k/uL ABG pH 7.33 L 7.47 H (7.35-7.45) ABG pO2 404 H 398 H 392 H (83-108) mmHg ABG HCO3 18 L 27 H (21-25) mmol/L ABG Total CO2 28 H (19-24) mmol/L ABG O2 Saturation 100.0 H 100.0 H 100.0 H (94-97) % ABG Hematocrit 25 L 24 L 29 L (34.0-46.0) % ABG Sodium 131 L (135-146) mmol/L ABG Potassium 5.5 H 5.0 H (3.4-4.5) mmol/L ABG Ionized Calcium 3.9 L 3.8 L 4.1 L (4.5-5.3) mg/dL ABG Glucose 215 H 197 H 125 H (75-99) mg/dL ABG Lactic Acid 4.2 H* 3.8 H* 4.0 H* (0.5-1.6) mmol/L Hemoglobin 8.0 L 7.7 L 9.3 L (11.4-16.0) gm/dL BUN (7-17) mg/dL Glucose (74-99) mg/dL POC Glucose (mg/dL) (75-99) mg/dL Magnesium (1.6-2.3) mg/dL Total Bilirubin (0.2-1.3) mg/dL AST (14-36) U/L Alkaline Phosphatase (38-126) U/L Total Protein (6.3-8.2) g/dL Albumin (3.5-5.0) g/dL Arterial Blood Potassium 5.5 H 5.0 H (3.4-4.5) mmol/L Arterial Blood Glucose 215 H 197 H 125 H (75-99) mg/dL Crossmatch 01/07/21 01/07/21 01/07/21 Range/Units 13:13 14:05 15:15 RBC 2.82 L (3.80-5.40) m/uL Hgb 9.0 L D (11.4-16.0) gm/dL Hct 25.7 L (34.0-46.0) % RDW (11.5-15.5) % Plt Count 81 L D (150-450) k/uL Neutrophils # 7.9 H (1.3-7.7) k/uL Lymphocytes # (1.0-4.8) k/uL ABG pH (7.35-7.45) ABG pO2 244 H 254 H (83-108) mmHg ABG HCO3 (21-25) mmol/L ABG Total CO2 26 H 26 H (19-24) mmol/L ABG O2 Saturation 100.0 H 100.0 H (94-97) % ABG Hematocrit 20 L* 23 L (34.0-46.0) % ABG Sodium (135-146) mmol/L ABG Potassium (3.4-4.5) mmol/L ABG Ionized Calcium 3.3 L* 3.9 L (4.5-5.3) mg/dL ABG Glucose 105 H 107 H (75-99) mg/dL ABG Lactic Acid 4.1 H* 3.2 H* (0.5-1.6) mmol/L Hemoglobin 6.6 L* 7.6 L (11.4-16.0) gm/dL BUN (7-17) mg/dL Glucose (74-99) mg/dL POC Glucose (mg/dL) (75-99) mg/dL Magnesium (1.6-2.3) mg/dL Total Bilirubin (0.2-1.3) mg/dL AST (14-36) U/L Alkaline Phosphatase (38-126) U/L Total Protein (6.3-8.2) g/dL Albumin (3.5-5.0) g/dL Arterial Blood Potassium (3.4-4.5) mmol/L Arterial Blood Glucose 105 H 107 H (75-99) mg/dL Crossmatch 01/07/21 01/07/21 01/07/21 Range/Units 15:15 15:18 15:55 RBC (3.80-5.40) m/uL Hgb (11.4-16.0) gm/dL Hct (34.0-46.0) % RDW (11.5-15.5) % Plt Count (150-450) k/uL Neutrophils # (1.3-7.7) k/uL Lymphocytes # (1.0-4.8) k/uL ABG pH (7.35-7.45) ABG pO2 157 H (83-108) mmHg ABG HCO3 (21-25) mmol/L ABG Total CO2 26 H (19-24) mmol/L ABG O2 Saturation 99.3 H (94-97) % ABG Hematocrit (34.0-46.0) % ABG Sodium (135-146) mmol/L ABG Potassium (3.4-4.5) mmol/L ABG Ionized Calcium (4.5-5.3) mg/dL ABG Glucose (75-99) mg/dL ABG Lactic Acid (0.5-1.6) mmol/L Hemoglobin (11.4-16.0) gm/dL BUN (7-17) mg/dL Glucose 147 H (74-99) mg/dL POC Glucose (mg/dL) 155 H (75-99) mg/dL Magnesium 3.1 H (1.6-2.3) mg/dL Total Bilirubin 2.4 H (0.2-1.3) mg/dL AST (14-36) U/L Alkaline Phosphatase 25 L (38-126) U/L Total Protein 4.5 L (6.3-8.2) g/dL Albumin 2.8 L (3.5-5.0) g/dL Arterial Blood Potassium (3.4-4.5) mmol/L Arterial Blood Glucose (75-99) mg/dL Crossmatch 01/07/21 01/07/21 01/07/21 Range/Units 16:26 17:02 18:04 RBC (3.80-5.40) m/uL Hgb (11.4-16.0) gm/dL Hct (34.0-46.0) % RDW (11.5-15.5) % Plt Count (150-450) k/uL Neutrophils # (1.3-7.7) k/uL Lymphocytes # (1.0-4.8) k/uL ABG pH (7.35-7.45) ABG pO2 (83-108) mmHg ABG HCO3 (21-25) mmol/L ABG Total CO2 (19-24) mmol/L ABG O2 Saturation (94-97) % ABG Hematocrit (34.0-46.0) % ABG Sodium (135-146) mmol/L ABG Potassium (3.4-4.5) mmol/L ABG Ionized Calcium (4.5-5.3) mg/dL ABG Glucose (75-99) mg/dL ABG Lactic Acid (0.5-1.6) mmol/L Hemoglobin (11.4-16.0) gm/dL BUN (7-17) mg/dL Glucose (74-99) mg/dL POC Glucose (mg/dL) 120 H 172 H 164 H (75-99) mg/dL Magnesium (1.6-2.3) mg/dL Total Bilirubin (0.2-1.3) mg/dL AST (14-36) U/L Alkaline Phosphatase (38-126) U/L Total Protein (6.3-8.2) g/dL Albumin (3.5-5.0) g/dL Arterial Blood Potassium (3.4-4.5) mmol/L Arterial Blood Glucose (75-99) mg/dL Crossmatch 01/07/21 01/07/21 01/07/21 Range/Units 18:56 18:56 19:52 RBC 2.50 L (3.80-5.40) m/uL Hgb 7.8 L (11.4-16.0) gm/dL Hct 22.7 L (34.0-46.0) % RDW (11.5-15.5) % Plt Count 80 L (150-450) k/uL Neutrophils # (1.3-7.7) k/uL Lymphocytes # 0.5 L (1.0-4.8) k/uL ABG pH (7.35-7.45) ABG pO2 (83-108) mmHg ABG HCO3 (21-25) mmol/L ABG Total CO2 (19-24) mmol/L ABG O2 Saturation (94-97) % ABG Hematocrit (34.0-46.0) % ABG Sodium (135-146) mmol/L ABG Potassium (3.4-4.5) mmol/L ABG Ionized Calcium (4.5-5.3) mg/dL ABG Glucose (75-99) mg/dL ABG Lactic Acid (0.5-1.6) mmol/L Hemoglobin (11.4-16.0) gm/dL BUN (7-17) mg/dL Glucose (74-99) mg/dL POC Glucose (mg/dL) 153 H 144 H (75-99) mg/dL Magnesium (1.6-2.3) mg/dL Total Bilirubin (0.2-1.3) mg/dL AST (14-36) U/L Alkaline Phosphatase (38-126) U/L Total Protein (6.3-8.2) g/dL Albumin (3.5-5.0) g/dL Arterial Blood Potassium (3.4-4.5) mmol/L Arterial Blood Glucose (75-99) mg/dL Crossmatch 01/07/21 01/07/21 01/07/21 Range/Units 20:51 20:54 21:46 RBC (3.80-5.40) m/uL Hgb (11.4-16.0) gm/dL Hct (34.0-46.0) % RDW (11.5-15.5) % Plt Count (150-450) k/uL Neutrophils # (1.3-7.7) k/uL Lymphocytes # (1.0-4.8) k/uL ABG pH (7.35-7.45) ABG pO2 111 H (83-108) mmHg ABG HCO3 26 H (21-25) mmol/L ABG Total CO2 27 H (19-24) mmol/L ABG O2 Saturation 98.7 H (94-97) % ABG Hematocrit (34.0-46.0) % ABG Sodium (135-146) mmol/L ABG Potassium (3.4-4.5) mmol/L ABG Ionized Calcium (4.5-5.3) mg/dL ABG Glucose (75-99) mg/dL ABG Lactic Acid (0.5-1.6) mmol/L Hemoglobin (11.4-16.0) gm/dL BUN (7-17) mg/dL Glucose (74-99) mg/dL POC Glucose (mg/dL) 145 H 146 H (75-99) mg/dL Magnesium (1.6-2.3) mg/dL Total Bilirubin (0.2-1.3) mg/dL AST (14-36) U/L Alkaline Phosphatase (38-126) U/L Total Protein (6.3-8.2) g/dL Albumin (3.5-5.0) g/dL Arterial Blood Potassium (3.4-4.5) mmol/L Arterial Blood Glucose (75-99) mg/dL Crossmatch 01/08/21 01/08/21 01/08/21 Range/Units 00:00 01:06 02:12 RBC (3.80-5.40) m/uL Hgb (11.4-16.0) gm/dL Hct (34.0-46.0) % RDW (11.5-15.5) % Plt Count (150-450) k/uL Neutrophils # (1.3-7.7) k/uL Lymphocytes # (1.0-4.8) k/uL ABG pH (7.35-7.45) ABG pO2 (83-108) mmHg ABG HCO3 (21-25) mmol/L ABG Total CO2 (19-24) mmol/L ABG O2 Saturation (94-97) % ABG Hematocrit (34.0-46.0) % ABG Sodium (135-146) mmol/L ABG Potassium (3.4-4.5) mmol/L ABG Ionized Calcium (4.5-5.3) mg/dL ABG Glucose (75-99) mg/dL ABG Lactic Acid (0.5-1.6) mmol/L Hemoglobin (11.4-16.0) gm/dL BUN (7-17) mg/dL Glucose (74-99) mg/dL POC Glucose (mg/dL) 148 H 151 H 146 H (75-99) mg/dL Magnesium (1.6-2.3) mg/dL Total Bilirubin (0.2-1.3) mg/dL AST (14-36) U/L Alkaline Phosphatase (38-126) U/L Total Protein (6.3-8.2) g/dL Albumin (3.5-5.0) g/dL Arterial Blood Potassium (3.4-4.5) mmol/L Arterial Blood Glucose (75-99) mg/dL Crossmatch 01/08/21 01/08/21 01/08/21 Range/Units 03:08 03:10 03:10 RBC 2.50 L (3.80-5.40) m/uL Hgb 7.7 L (11.4-16.0) gm/dL Hct 23.2 L (34.0-46.0) % RDW 16.0 H (11.5-15.5) % Plt Count 100 L (150-450) k/uL Neutrophils # 9.2 H (1.3-7.7) k/uL Lymphocytes # 0.6 L (1.0-4.8) k/uL ABG pH (7.35-7.45) ABG pO2 (83-108) mmHg ABG HCO3 (21-25) mmol/L ABG Total CO2 (19-24) mmol/L ABG O2 Saturation (94-97) % ABG Hematocrit (34.0-46.0) % ABG Sodium (135-146) mmol/L ABG Potassium (3.4-4.5) mmol/L ABG Ionized Calcium (4.5-5.3) mg/dL ABG Glucose (75-99) mg/dL ABG Lactic Acid (0.5-1.6) mmol/L Hemoglobin (11.4-16.0) gm/dL BUN 21 H (7-17) mg/dL Glucose 130 H (74-99) mg/dL POC Glucose (mg/dL) 141 H (75-99) mg/dL Magnesium 2.7 H (1.6-2.3) mg/dL Total Bilirubin (0.2-1.3) mg/dL AST 93 H (14-36) U/L Alkaline Phosphatase 27 L (38-126) U/L Total Protein 4.8 L (6.3-8.2) g/dL Albumin 2.9 L (3.5-5.0) g/dL Arterial Blood Potassium (3.4-4.5) mmol/L Arterial Blood Glucose (75-99) mg/dL Crossmatch 01/08/21 01/08/21 01/08/21 Range/Units 05:01 05:55 06:50 RBC (3.80-5.40) m/uL Hgb (11.4-16.0) gm/dL Hct (34.0-46.0) % RDW (11.5-15.5) % Plt Count (150-450) k/uL Neutrophils # (1.3-7.7) k/uL Lymphocytes # (1.0-4.8) k/uL ABG pH (7.35-7.45) ABG pO2 (83-108) mmHg ABG HCO3 (21-25) mmol/L ABG Total CO2 (19-24) mmol/L ABG O2 Saturation (94-97) % ABG Hematocrit (34.0-46.0) % ABG Sodium (135-146) mmol/L ABG Potassium (3.4-4.5) mmol/L ABG Ionized Calcium (4.5-5.3) mg/dL ABG Glucose (75-99) mg/dL ABG Lactic Acid (0.5-1.6) mmol/L Hemoglobin (11.4-16.0) gm/dL BUN (7-17) mg/dL Glucose (74-99) mg/dL POC Glucose (mg/dL) 121 H 115 H 129 H (75-99) mg/dL Magnesium (1.6-2.3) mg/dL Total Bilirubin (0.2-1.3) mg/dL AST (14-36) U/L Alkaline Phosphatase (38-126) U/L Total Protein (6.3-8.2) g/dL Albumin (3.5-5.0) g/dL Arterial Blood Potassium (3.4-4.5) mmol/L Arterial Blood Glucose (75-99) mg/dL Crossmatch - Imaging and Cardiology Chest x-ray: report reviewed, image reviewed Assessment and Plan Assessment: 1. Severe aortic stenosis with insufficiency, status post operative site aortic valve replacement with root enlargement 2. Mitral stenosis with insufficiency and heavy mitral annular calcification 3. Coronary artery disease, status post single vessel CABG 4. History of hypertension 5. Hyperlipidemia with refusal of statin medication in the past, cholesterol 226, LDL 165 6. Hypothyroidism, recent TSH 2.69, free T4 0.8 7. Left internal carotid stenosis 50-79% 8. TIA in 2009 9. GERD 10. Arthritis 11. Never smoker, preoperative FEV1 83% of predicted 12. Family history of premature coronary artery disease, brother diagnosed with CAD in his 40s with subsequent 2 vessel CABG 13. Family history of heart failure and possible valvular heart disease 14. Intraoperative and postoperative acute blood loss anemia and thrombocytopenia, expected, requiring multiple blood products intraoperatively Plan: 1. Continue aspirin, statin, Plavix. Will hold beta benton for now due to ju nctional rhythm, we will add when able. 2. Will continue Primacor. Discontinue nitro 3. Wean O2 as tolerated. Encourage incentive spirometry use 10 times every hour while awake. Bronchodilators per pulmonology 4. Increase activity, ambulate as tolerated. PT/OT/cardiac rehab consulted 5. Will monitor daily labs and x-rays. Electrolyte replacement per protocol. No further blood transfusion at this time 6. GI/DVT prophylaxis 7. Pain control per current medication regimen 8. Insulin management per primary care service. Patient is not diabetic, preoperative hemoglobin A1c 5%, but patient does need tight blood sugar control to prevent infection and promote sternal union 9. Will discontinue Zullinger tomorrow 10. Continue mediastinal, left pleural, right pleural chest tubes for another 24 hours 11. Continue Owens catheter for another 24 hours for strict accurate intake and output. Daily weights 12. More recommendations to follow Time with Patient: Greater than 30
[2021-01-08] MEDS ORDERED: bisacodyL 10 MG SUPP RECTAL PRN (09:00)
[2021-01-08] MEDS ORDERED: METOPROLOL TARTRATE 12.5 MG TAB PO SCH (09:00)
[2021-01-08] MEDS ORDERED: PANTOPRAZOLE 40 MG/10 ML VIAL IVP SCH (09:00)
[2021-01-08] MEDS ORDERED: MAGNESIUM HYDROXIDE 2,400 MG/10 ML CUP PO PRN (09:00)
[2021-01-08] MEDS ORDERED: ASPIRIN 325 MG TAB PO SCH (09:00)
[2021-01-08 09:01] LABS: Glucose,Whole Blood 151 mg/dL (75-99)
--- NOTE | 2021-01-08 09:07 | P.CNPUL ---
History of Present Illness Consult date: 01/08/21 Requesting physician: Hill Schrader Reason for consult: other (Critical care management) Chief complaint: Coronary artery disease, aortic stenosis History of present illness: This is a pleasant 85-year-old female patient with a known history of TIA, gastroesophageal reflux disease, hyperlipidemia, hypertension, rheumatoid arthritis, hypothyroidism. She is a lifelong nonsmoker. She was found to have severe aortic stenosis and single-vessel coronary artery disease and presented here yesterday for an elective surgery. She did undergo saphenous vein graft to the obtuse marginal artery. Aortic valve replacement with a bovine bioprosthetic valve. Postoperative day #1. She remains on a nitroglycerin drip at 5 g per hour, insulin drip at 2.5 units per hour, Primacor at 0.2 mcg/kg/m. Lactated Ringer's at 50 MLS per hour. She currently has a paced rhythm at 80 bpm. Right internal jugular Cordis in place, right radial arterial line in place. Mediastinal, left and right chest tubes remain in place. She is status post 5 units of packed red blood cells, 4 units of fresh frozen plasma, 2 platelets, 2 pooled cryoprecipitate. Creatinine blood pressure 67. PA pressure 29/15 with a mean of 19. Cardiac output 4.8. Cardiac index 2.9. White count 10.5. Hemoglobin 7.7. Platelets 100,000. Sodium 140. Potassium 3.7. Creatinine 0.96. Glucose 141. AST 93. ALT 16. She is currently sitting up in a chair at the bedside. Awake and alert in no acute distress. So having issues from surgical site pain. She is on 2 L nasal cannula maintaining good O2 saturations in the 90s. Needs increased encouragement regarding the incentive spirometer. [place] on bronchodilators. Heparin for DVT prophylaxis. Review of Systems REVIEW OF SYSTEMS: CONSTITUTIONAL: Denies any recent significant weight loss or weight gain. EYES: Denies change in vision. EARS, NOSE, MOUTH, THROAT: Denies headaches, denies sore throat. CARDIOVASCULAR: Positive for chest wall pain, no chest pain, palpitations or syncopal episodes. RESPIRATORY: Denies shortness of breath, cough, congestion or hemoptysis. GASTROINTESTINAL: Denies change in appetite, denies abdominal pain GENITOURINARY: Denies hematuria, denies infections. MUSKULOSKELETAL: Denies pain, denies swelling. INTEGUMENTARY: Denies rash, denies eczema. NEUROLOGICAL: Denies recent memory loss, no recent seizure activity. PSYCHIATRIC: Denies anxiety, denies depression. HEMATOLOGIC/LYMPHATIC: Denies anemia, denies enlarged lymph nodes. Past Medical History Past Medical History: CVA/TIA, GERD/Reflux, Hyperlipidemia, Hypertension, Mitral Valve Prolapse (MVP), Rheumatoid Arthritis (RA), Thyroid Disorder Additional Past Medical History / Comment(s): Glaucoma. TIA - 2008-no residual History of Any Multi-Drug Resistant Organisms: None Reported Past Surgical History: Appendectomy, Heart Catheterization Additional Past Surgical History / Comment(s): fatty tumors,KATERIN Past Anesthesia/Blood Transfusion Reactions: No Reported Reaction Additional Past Anesthesia/Blood Transfusion Reaction / Comment(s): no transfusion Smoking Status: Never smoker - Past Family History Mother Family Medical History: Congestive Heart Failure (CHF) Additional Family Medical History / Comment(s): Possible valvular heart disease,Valve replaced at approx age 82 Father Family Medical History: Congestive Heart Failure (CHF) Brother(s) Family Medical History: Coronary Artery Disease (CAD) Additional Family Medical History / Comment(s): Brother diagnosed with coronary artery disease in his 40s with subsequent 2 vessel CABG Medications and Allergies Home Medications Medication Instructions Recorded Confirmed Type Thyroid,Pork [Davis Thyroid] 90 mg PO QAM 12/21/13 01/07/21 History Beet Root Pills (Unknown Strength) 1 tab PO DAILY 12/16/20 01/02/21 History Tri-Salts (Unknown Strength) 1 tsp PO Q4H PRN 12/16/20 01/02/21 History Aspirin 81 mg PO DAILY #90 chew 12/20/20 01/07/21 Rx Furosemide [Lasix] 20 mg PO DAILY #90 tab 12/20/20 01/07/21 Rx Nitroglycerin Sl Tabs [Nitrostat] 0.4 mg SUBLINGUAL Q5M PRN #1 bottle 12/20/20 01/07/21 Rx Ascorbic Acid [Vitamin C] 1,000 mg PO DAILY 01/02/21 01/07/21 History Atorvastatin [Lipitor] 20 mg PO HS 01/02/21 01/07/21 History Cholecalciferol [Vitamin D3 (25 250 mcg PO DAILY 01/02/21 01/07/21 History Mcg = 1000 Iu)] Magnesium 800 mg PO DAILY 01/02/21 01/07/21 History [place]-3/Dha/Epa/Fish Oil [Fish Oil 300 each PO DAILY 01/02/21 01/07/21 History 500 mg Softgel] Ubidecarenone [Co Q-10] 200 mg PO DAILY 01/02/21 01/02/21 History Zinc 50 mg PO HS 01/02/21 01/02/21 History Allergies Allergy/AdvReac Type Severity Reaction Status Date / Time Sulfa (Sulfonamide Allergy Severe Rash/Hives Verified 01/07/21 06:10 Antibiotics) Physical Exam Vitals: Vital Signs Temp Pulse Resp BP Pulse Ox 01/08/21 08:42 80 16 01/08/21 08:33 80 16 98 01/08/21 07:00 80 11 L 122/49 99 01/08/21 06:30 80 10 L 119/46 98 01/08/21 06:00 80 9 L 120/50 99 01/08/21 05:30 80 10 L 134/47 99 01/08/21 05:00 80 10 L 125/49 100 01/08/21 04:30 80 12 125/49 99 01/08/21 04:00 96.8 F L 80 6 L 127/54 96 01/08/21 03:30 80 29 H 100 01/08/21 03:00 80 12 99 01/08/21 02:45 80 9 L 100 01/08/21 02:30 80 11 L 124/47 98 01/08/21 02:15 80 11 L 124/47 100 01/08/21 02:00 80 9 L 98 01/08/21 01:45 80 10 L 98 01/08/21 01:30 80 12 99 01/08/21 01:15 80 10 L 128/52 99 01/08/21 01:00 80 15 98 01/08/21 00:45 80 17 100 01/08/21 00:30 80 16 100 01/08/21 00:15 80 15 100 01/08/21 00:13 80 17 100 01/08/21 00:00 97.0 F L 80 12 111/52 100 01/07/21 23:45 80 13 100 01/07/21 23:30 80 16 100 01/07/21 23:15 80 15 110/51 100 01/07/21 23:00 80 15 99/42 01/07/21 22:45 80 18 98 01/07/21 22:30 80 16 96 01/07/21 22:15 80 11 L 99/42 97 01/07/21 22:00 80 7 L 97 01/07/21 21:45 80 18 127/51 95 01/07/21 21:30 80 19 110/46 96 01/07/21 21:15 80 19 97 01/07/21 21:01 100 01/07/21 21:00 80 18 122/52 98 01/07/21 20:45 80 19 99 01/07/21 20:44 80 01/07/21 20:32 80 01/07/21 20:30 80 20 98 01/07/21 20:15 80 12 93/43 93 L 01/07/21 20:00 97.5 F L 80 15 101/55 100 01/07/21 19:45 80 12 101/55 100 01/07/21 19:30 80 12 100/47 99 01/07/21 19:15 80 15 100/47 99 01/07/21 19:00 80 13 105/47 99 01/07/21 18:45 80 13 105/46 99 01/07/21 18:30 80 14 97/44 99 01/07/21 18:15 80 13 93/39 99 01/07/21 18:00 80 13 99/41 01/07/21 17:45 80 13 99/45 01/07/21 17:30 80 12 100/45 01/07/21 17:15 80 12 104/51 01/07/21 17:00 80 12 105/46 01/07/21 16:45 80 12 94/42 01/07/21 16:35 96.3 F L 80 12 110/38 98 20/21 16:30 80 12 99/44 2021 16:18 80 21 16:15 80 12 110/43 2021 16:11 80 0721 16:00 80 12 132/68 01/07/21 15:45 80 24 90/40 0720/21 15:30 80 18 01/07/21 15:15 95.8 F L 80 18 70 L 01/07/21 15:07 80 36 H Intake and Output 01/07/21 01/08/21 01/08/21 22:59 06:59 14:59 Intake Total 1206.308 708.792 82.788 Output Total 1249 754 50 Balance -42.692 -45.208 32.788 Intake: IV 305 582 79 Lactated Ringers 1,000 ml 150 400 50 @ 50 mls/hr IV .Q20H VINOD Rx#:[id number] cardiac output 110 110 20 pressure bags 45 72 9 Intake, IV Titration 591.308 126.792 3.788 Amount ACETAMINOPHEN IV (For NPO 100 ) 1,000 mg In Empty Bag 1 bag @ 400 mls/hr IVPB Q6HR [facility]INOD Rx#:[id number] Albumin Human 5% 250 ml 250 In Empty Bag 1 bag @ 250 mls/hr IVPB Q1HR PRN Rx#: [id number] Clevidipine Butyrate 25 7.533 4.600 mg In Empty Bag 1 bag @ 1 MG/HR 2 mls/hr IV .Q24H VINOD Rx#:[id number] Insulin Regular 100 unit 4.099 31.033 3.788 In Sodium Chloride 0.9% 100 ml @ Per Protocol IV .Q0M [facility]NIOD Rx#:[id number] Lactated Ringers 1,000 ml 150 @ 50 mls/hr IV .Q20H [facility]OD Rx#:[id number] Milrinone-D5w Pmx 20 mg 91.159 In Dextrose/Water 1 100ml .bag @ 0.3 MCG/KG/MIN 6. 084 mls/hr IV .[id number] [facility]OD Rx#:[id number] ceFAZolin 2 gm In Sodium 50 Chloride 0.9% 50 ml @ 100 mls/hr IVPB Q8HR [facility]INOD Rx# :[id number] propofoL 1,000 mg In 29.676 Empty Bag 1 bag @ Titrate IV .Q0M VINOD Rx#: [id number] Blood Product 310 Rc As-1 Unit 310 [id number] Output: Chest Tube Drainage 834 482 30 left pleural 226 250 0 mediastinal x2 485 100 10 right pleural 123 132 20 Drainage 40 20 Left Calf 40 20 Urine 375 252 20 Other: Voiding Method Indwelling Catheter Indwelling Catheter Weight 66.3 kg ABP, PAP, CO, CI - Last 8 Hours Arterial Blood Pressure 134/34 Arterial Blood Pressure 153/39 Arterial Blood Pressure 152/39 Arterial Blood Pressure 159/39 Arterial Blood Pressure 156/144 Arterial Blood Pressure 173/54 Arterial Blood Pressure 153/46 Arterial Blood Pressure 154/46 Arterial Blood Pressure 143/43 Arterial Blood Pressure 143/41 Arterial Blood Pressure 131/42 Arterial Blood Pressure 147/47 Arterial Blood Pressure 130/40 Arterial Blood Pressure 160/45 Arterial Blood Pressure 149/43 Pulmonary Artery Pressure 29/15 Pulmonary Artery Pressure 27/13 Pulmonary Artery Pressure 26/12 Pulmonary Artery Pressure 27/13 Pulmonary Artery Pressure 27/13 Pulmonary Artery Pressure 26/12 Pulmonary Artery Pressure 35/19 Pulmonary Artery Pressure 30/16 Pulmonary Artery Pressure 29/14 Pulmonary Artery Pressure 27/13 Pulmonary Artery Pressure 31/14 Pulmonary Artery Pressure 31/16 Pulmonary Artery Pressure 31/15 Pulmonary Artery Pressure 34/12 Pulmonary Artery Pressure 33/17 Pulmonary Artery Pressure 37/17 Cardiac Output 4.8 Cardiac Output 4.1 Cardiac Output 4.1 Cardiac Index 2.9 Cardiac Index 2.5 Cardiac Index 2.5 GENERAL EXAM: Alert, pleasant 85-year-old female patient, on 2 L nasal cannula, comfortable in no apparent distress. HEAD: Normocephalic. EYES: Normal reaction of pupils, equal size. NOSE: Clear with pink turbinates. THROAT: No erythema or exudates. NECK: Right cordis in place. No masses, no JVD. CHEST: Dressing dry and intact. Sternum stable. Heart hugger in place. Medias tinal and left/right chest tubes in place. LUNGS: Equal air entry with crackles in the posterior bases, diminished. CVS: S1 and S2 normal with no audible murmur, regular rhythm. These are wires in place. ABDOMEN: No hepatosplenomegaly, normal bowel sounds, no guarding or rigidity. SPINE: No scoliosis or deformity SKIN: No rashes CENTRAL NERVOUS SYSTEM: No focal deficits, tone is normal in all 4 extremities. EXTREMITIES: Right radial arterial line in place. There is trace peripheral edema. No clubbing, no cyanosis. Peripheral pulses are intact. Results - Laboratory Findings CBC and BMP: 01/08/21 03:10 01/08/21 03:10 ABG ABG pH 7.40 (7.35-7.45) 01/07/21 20:54 ABG pCO2 42 mmHg (35-45) 01/07/21 20:54 ABG pO2 111 mmHg (83-108) H 01/07/21 20:54 ABG O2 Saturation 98.7 % (94-97) H 01/07/21 20:54 PT/INR, D-dimer PT 10.8 sec (9.0-12.0) 01/07/21 15:15 INR 1.0 (<1.2) 01/07/21 15:15 Abnormal lab findings: Abnormal Labs 01/02/21 01/07/21 01/07/21 12:18 08:29 09:07 RBC Hgb Hct RDW Plt Count Neutrophils # Lymphocytes # ABG pH ABG pO2 256 H 310 H ABG HCO3 26 H ABG Total CO2 27 H 27 H ABG O2 Saturation 100.0 H 100.0 H ABG Hematocrit ABG Sodium ABG Potassium ABG Ionized Calcium ABG Glucose 107 H ABG Lactic Acid Hemoglobin BUN Glucose POC Glucose (mg/dL) Magnesium Total Bilirubin AST Alkaline Phosphatase Total Protein Albumin Arterial Blood Potassium Arterial Blood Glucose 107 H Crossmatch See Detail 01/07/21 01/07/21 01/07/21 09:50 10:22 10:53 RBC Hgb Hct RDW Plt Count Neutrophils # Lymphocytes # ABG pH ABG pO2 415 H 331 H 324 H ABG HCO3 ABG Total CO2 25 H ABG O2 Saturation 100.0 H 100.0 H 100.0 H ABG Hematocrit 25 L 24 L 22 L ABG Sodium 132 L 134 L 133 L ABG Potassium ABG Ionized Calcium 4.1 L 4.4 L ABG Glucose 111 H 113 H 130 H ABG Lactic Acid Hemoglobin 8.1 L 7.7 L 7.2 L BUN Glucose POC Glucose (mg/dL) Magnesium Total Bilirubin AST Alkaline Phosphatase Total Protein Albumin Arterial Blood Potassium Arterial Blood Glucose 111 H 113 H 130 H Crossmatch 01/07/21 01/07/21 01/07/21 11:45 11:53 12:43 RBC Hgb Hct RDW Plt Count Neutrophils # Lymphocytes # ABG pH 7.33 L 7.47 H ABG pO2 404 H 398 H 392 H ABG HCO3 18 L 27 H ABG Total CO2 28 H ABG O2 Saturation 100.0 H 100.0 H 100.0 H ABG Hematocrit 25 L 24 L 29 L ABG Sodium 131 L ABG Potassium 5.5 H 5.0 H ABG Ionized Calcium 3.9 L 3.8 L 4.1 L ABG Glucose 215 H 197 H 125 H ABG Lactic Acid 4.2 H* 3.8 H* 4.0 H* Hemoglobin 8.0 L 7.7 L 9.3 L BUN Glucose POC Glucose (mg/dL) Magnesium Total Bilirubin AST Alkaline Phosphatase Total Protein Albumin Arterial Blood Potassium 5.5 H 5.0 H Arterial Blood Glucose 215 H 197 H 125 H Crossmatch 01/07/21 01/07/21 01/07/21 13:13 14:05 15:15 RBC 2.82 L Hgb 9.0 L D Hct 25.7 L RDW Plt Count 81 L D Neutrophils # 7.9 H Lymphocytes # ABG pH ABG pO2 244 H 254 H ABG HCO3 ABG Total CO2 26 H 26 H ABG O2 Saturation 100.0 H 100.0 H ABG Hematocrit 20 L* 23 L ABG Sodium ABG Potassium ABG Ionized Calcium 3.3 L* 3.9 L ABG Glucose 105 H 107 H ABG Lactic Acid 4.1 H* 3.2 H* Hemoglobin 6.6 L* 7.6 L BUN Glucose POC Glucose (mg/dL) Magnesium Total Bilirubin AST Alkaline Phosphatase Total Protein Albumin Arterial Blood Potassium Arterial Blood Glucose 105 H 107 H Crossmatch 01/07/21 01/07/21 01/07/21 15:15 15:18 15:55 RBC Hgb Hct RDW Plt Count Neutrophils # Lymphocytes # ABG pH ABG pO2 157 H ABG HCO3 ABG Total CO2 26 H ABG O2 Saturation 99.3 H ABG Hematocrit ABG Sodium ABG Potassium ABG Ionized Calcium ABG Glucose ABG Lactic Acid Hemoglobin BUN Glucose 147 H POC Glucose (mg/dL) 155 H Magnesium 3.1 H Total Bilirubin 2.4 H AST Alkaline Phosphatase 25 L Total Protein 4.5 L Albumin 2.8 L Arterial Blood Potassium Arterial Blood Glucose Crossmatch 01/07/21 01/07/21 01/07/21 16:26 17:02 18:04 RBC Hgb Hct RDW Plt Count Neutrophils # Lymphocytes # ABG pH ABG pO2 ABG HCO3 ABG Total CO2 ABG O2 Saturation ABG Hematocrit ABG Sodium ABG Potassium ABG Ionized Calcium ABG Glucose ABG Lactic Acid Hemoglobin BUN Glucose POC Glucose (mg/dL) 120 H 172 H 164 H Magnesium Total Bilirubin AST Alkaline Phosphatase Total Protein Albumin Arterial Blood Potassium Arterial Blood Glucose Crossmatch 01/07/21 01/07/21 01/07/21 18:56 18:56 19:52 RBC 2.50 L Hgb 7.8 L Hct 22.7 L RDW Plt Count 80 L Neutrophils # Lymphocytes # 0.5 L ABG pH ABG pO2 ABG HCO3 ABG Total CO2 ABG O2 Saturation ABG Hematocrit ABG Sodium ABG Potassium ABG Ionized Calcium ABG Glucose ABG Lactic Acid Hemoglobin BUN Glucose POC Glucose (mg/dL) 153 H 144 H Magnesium Total Bilirubin AST Alkaline Phosphatase Total Protein Albumin Arterial Blood Potassium Arterial Blood Glucose Crossmatch 01/07/21 01/07/21 01/07/21 20:51 20:54 21:46 RBC Hgb Hct RDW Plt Count Neutrophils # Lymphocytes # ABG pH ABG pO2 111 H ABG HCO3 26 H ABG Total CO2 27 H ABG O2 Saturation 98.7 H ABG Hematocrit ABG Sodium ABG Potassium ABG Ionized Calcium ABG Glucose ABG Lactic Acid Hemoglobin BUN Glucose POC Glucose (mg/dL) 145 H 146 H Magnesium Total Bilirubin AST Alkaline Phosphatase Total Protein Albumin Arterial Blood Potassium Arterial Blood Glucose Crossmatch 01/08/21 01/08/21 01/08/21 00:00 01:06 02:12 RBC Hgb Hct RDW Plt Count Neutrophils # Lymphocytes # ABG pH ABG pO2 ABG HCO3 ABG Total CO2 ABG O2 Saturation ABG Hematocrit ABG Sodium ABG Potassium ABG Ionized Calcium ABG Glucose ABG Lactic Acid Hemoglobin BUN Glucose POC Glucose (mg/dL) 148 H 151 H 146 H Magnesium Total Bilirubin AST Alkaline Phosphatase Total Protein Albumin Arterial Blood Potassium Arterial Blood Glucose Crossmatch 01/08/21 01/08/21 01/08/21 03:08 03:10 03:10 RBC 2.50 L Hgb 7.7 L Hct 23.2 L RDW 16.0 H Plt Count 100 L Neutrophils # 9.2 H Lymphocytes # 0.6 L ABG pH ABG pO2 ABG HCO3 ABG Total CO2 ABG O2 Saturation ABG Hematocrit ABG Sodium ABG Potassium ABG Ionized Calcium ABG Glucose ABG Lactic Acid Hemoglobin BUN 21 H Glucose 130 H POC Glucose (mg/dL) 141 H Magnesium 2.7 H Total Bilirubin AST 93 H Alkaline Phosphatase 27 L Total Protein 4.8 L Albumin 2.9 L Arterial Blood Potassium Arterial Blood Glucose Crossmatch 01/08/21 01/08/2101/08/21 05:01 05:55 06:50 RBC Hgb Hct RDW Plt Count Neutrophils # Lymphocytes # ABG pH ABG pO2 ABG HCO3 ABG Total CO2 ABG O2 Saturation ABG Hematocrit ABG Sodium ABG Potassium ABG Ionized Calcium ABG Glucose ABG Lactic Acid Hemoglobin BUN Glucose POC Glucose (mg/dL) 121 H 115 H 129 H Magnesium Total Bilirubin AST Alkaline Phosphatase Total Protein Albumin Arterial Blood Potassium Arterial Blood Glucose Crossmatch 01/08/21 08:20 RBC Hgb Hct RDW Plt Count Neutrophils # Lymphocytes # ABG pH ABG pO2 ABG HCO3 ABG Total CO2 ABG O2 Saturation ABG Hematocrit ABG Sodium ABG Potassium ABG Ionized Calcium ABG Glucose ABG Lactic Acid Hemoglobin BUN Glucose POC Glucose (mg/dL) 141 H Magnesium Total Bilirubin AST Alkaline Phosphatase Total Protein Albumin Arterial Blood Potassium Arterial Blood Glucose Crossmatch - Diagnostic Findings Chest x-ray: image reviewed Assessment and Plan Assessment: 1 Coronary artery disease status post coronary artery bypass grafting with a saphenous vein graft to the OM. Postoperative day #1. 2 Severe aortic stenosis status post aortic valve replacement with a bovine prosthetic valve. Postoperative day #1. 3 Hypertension, history of 4 Hyperlipidemia 5 Hypothyroidism 6 Left carotid stenosis 7 History of TIA 8 Lifelong nonsmoker Plan: The patient was seen and evaluated by Dr. Hand Chest x-ray and labs reviewed Needs increased encouragement regarding the use of the incentive spirometer and cough and deep breathing exercises Continue bronchodilators Titrate FiO2 as tolerated Increase activity as tolerated We will continue to follow and make further recommendations based on her clinical status I, the cosigning physician, performed a history & physical examination of the p atient. Lungs sounds with crackles in the bilateral bases. Maintaining good O2 saturations in the 90s on 2 L/m per nasal cannula. I discussed the assessment and plan of care with my nurse practitioner, Sue Wolff. I attest to the above consultation as dictated by her. Time with Patient: Greater than 30
[2021-01-08] MEDS: THYROID, PORK 30 MG TAB PO SCH (09:56)
[2021-01-08 09:58] LABS: Glucose,Whole Blood 129 mg/dL (75-99)
--- NOTE | 2021-01-08 10:39 | CONS ---
CONSULTATION Mrs. Crowell is an 85-year-old female who underwent yesterday aortic valve replacement and coronary artery bypass grafting with a single saphenous vein graft to the obtuse marginal branch. She received a 20 mm Inspiris bovine pericardial valve with root enlargement. The patient has been followed on a regular basis with Dr. Russ and has underwent cardiac catheterization earlier this month and was found to have critical stenosis involving the obtuse marginal branch with severe aortic stenosis and aortic regurgitation. She had a transesophageal echocardiogram performed at the same time that revealed a moderate mitral stenosis, mild to moderate mitral regurgitation with a preserved systolic function. She was evaluated by Dr. Schrader for TAVR versus surgical intervention because of her status and her findings. The decision was made to proceed with surgical replacement. She is extubated, sitting up in the chair, having some soreness in the chest, but has no significant dyspnea. She denies any dizziness or palpitation. She is paced with underlying junctional rhythm. She is on no vasopressor except Primacor and her urine output has been stable. Her initial presentation was with progressive symptoms of dyspnea on exertion and discomfort in the chest that she thought initially was related to gastroesophageal reflux disease and heartburn. She has no prior history of myocardial infarction and no prior documented history of obstructive disease. She has been told she had a heart murmur in the past, but no recent workup until this time. Her coronary risk factors are remarkable for hyperlipidemia. She is a nonsmoker, nondiabetic. Her medications include Lasix and Lipitor 20 mg daily, coenzyme Q10. REVIEW OF SYSTEMS: RESPIRATORY SYSTEM: He has no recent wheezing or cough. She had some dyspnea on exertion. GI SYSTEM: No recent GI bleeding. No peptic ulcer disease. SYSTEM: No dysuria or hematuria. NERVOUS SYSTEM: No history of stroke or seizure. PHYSICAL EXAMINATION: GENERAL: She is an 85-year-old female, alert, oriented, sitting up in the chair, being paced. VITAL SIGNS: Blood pressure 122/49 with a heart rate in the 80s. HEAD: Normocephalic. Eyes sclerae anicteric. NECK: [place]-Belkis noted on the right IJ. LUNGS: No wheezes or rales. HEART: Regular rate and rhythm S1, S2. No S3 with systolic murmur. No rub appreciated. No gallop. ABDOMEN: Soft and nontender, positive bowel sounds, no organomegaly. EXTREMITIES: No edema. LAB DATA: Lab data revealed a BUN and creatinine of 21 and 0.96, potassium 3.7. Her hemoglobin is 7.7. IMPRESSION: 1. Status post aortic valve replacement for mixed severe aortic stenosis and regurgitation. 2. Status post coronary artery bypass grafting with single saphenous vein graft to the obtuse marginal branch. 3. History of hyperlipidemia. RECOMMENDATION: From the cardiac standpoint, will continue present therapy, increase incentive spirometry, wean Primacor as tolerated and depending on her progress, further recommendation will be made. Thank you for this consult. Will follow with you. [email or web address] / IJN: [id number] /
[2021-01-08 11:10] LABS: Glucose,Whole Blood 118 mg/dL (75-99)
[2021-01-08 11:54] LABS: Glucose,Whole Blood 112 mg/dL (75-99)
[2021-01-08] MEDS: LACTATED RINGERS 1,000 ML IV SCH (12:47)
[2021-01-08 13:13] LABS: Glucose,Whole Blood 122 mg/dL (75-99)
[2021-01-08 14:02] LABS: Glucose,Whole Blood 127 mg/dL (75-99)
[2021-01-08 15:04] LABS: Glucose,Whole Blood 139 mg/dL (75-99)
[2021-01-08 16:19] LABS: Glucose,Whole Blood 127 mg/dL (75-99)
[2021-01-08] MEDS: PANTOPRAZOLE 40 MG TABLET PO SCH (16:31)
[2021-01-08 17:19] LABS: Glucose,Whole Blood 133 mg/dL (75-99)
[2021-01-08 18:10] LABS: Glucose,Whole Blood 124 mg/dL (75-99)
[2021-01-08] MEDS: MILRINONE-D5W PMX 20 MG in DEXTROSE/WATER 1 100ML.BAG IV SCH ×2 (18:17)
[2021-01-08] MEDS: INSULIN REGULAR 100 UNIT in SODIUM CHLORIDE 0.9% 100 ML IV SCH (18:18)
[2021-01-08 20:04] LABS: Glucose,Whole Blood 139 mg/dL (75-99)
[2021-01-08 21:07] LABS: Glucose,Whole Blood 132 mg/dL (75-99)
[2021-01-08] MEDS: ATORVASTATIN 20 MG TAB PO SCH (21:18)
[2021-01-08] MEDS: SENNOSIDES-DOCUSATE SODIUM 1 EACH TAB PO SCH (21:18)
[2021-01-08 22:08] LABS: Glucose,Whole Blood 129 mg/dL (75-99)
[2021-01-08 23:02] LABS: Glucose,Whole Blood 98 mg/dL (75-99)
[2021-01-08 23:56] LABS: Glucose,Whole Blood 145 mg/dL (75-99)
[2021-01-09 01:03] LABS: Glucose,Whole Blood 133 mg/dL (75-99)
[2021-01-09 02:01] LABS: Glucose,Whole Blood 131 mg/dL (75-99)
[2021-01-09 03:14] LABS: Glucose,Whole Blood 128 mg/dL (75-99)
[2021-01-09 03:45] LABS: Anisocytosis Slight; Basophils % (A) 0 %; Eosinophils # (A) 0.2 k/uL (0-0.7); Eosinophils % (A) 1 %; Lymphocytes # (A) 1.4 k/uL (1.0-4.8); Lymphocytes % (A) 8 %; MCH 31.1 pg (25.0-35.0); MCHC 33.2 g/dL (31.0-37.0); MCV 93.8 fL (80.0-100.0); Mean Platelet Volume 9.5; Monocytes % (A) 6 %; Neutrophils # (A) 14.4 k/uL (1.3-7.7); Neutrophils % (A) 83 %; Platelet Count 112 k/uL (150-450); RBC 2.09 m/uL (3.80-5.40); RDW 16.3 % (11.5-15.5); WBC 17.3 k/uL (3.8-10.6)
[2021-01-09 03:46] LABS: HGB 6.5 gm/dL (11.4-16.0)
[2021-01-09 03:47] LABS: HCT 19.6 % (34.0-46.0)
[2021-01-09] MEDS: HEPARIN SODIUM,PORCINE/PF 5,000 UNIT/0.5 ML SYRINGE SQ SCH ×3 (03:49→15:12)
[2021-01-09 04:01] LABS: Glucose,Whole Blood 125 mg/dL (75-99)
[2021-01-09 04:04] LABS: Albumin 2.8 g/dL (3.5-5.0); Calcium 8.6 mg/dL (8.4-10.2); Potassium 4.4 mmol/L (3.5-5.1); Total Bilirubin 0.4 mg/dL (0.2-1.3); Total Protein 4.8 g/dL (6.3-8.2)
[2021-01-09] MEDS: HYDROcodone/APAP 5-325MG 1 EACH TAB PO PRN (04:27)
[2021-01-09 05:16] LABS: Glucose,Whole Blood 123 mg/dL (75-99)
[2021-01-09 06:24] LABS: Glucose,Whole Blood 125 mg/dL (75-99)
[2021-01-09] MEDS: PANTOPRAZOLE 40 MG TABLET PO SCH ×3 (06:51→17:44)
[2021-01-09 07:07] LABS: Glucose,Whole Blood 111 mg/dL (75-99)
--- NOTE | 2021-01-09 07:29 | XR ---
EXAMINATION TYPE: XR chest 1V portable DATE OF EXAM: 01/09/2021 COMPARISON: 01/08/2021 HISTORY: Postoperative cardiac surgery TECHNIQUE: Single frontal view of the chest is obtained. FINDINGS: Right IJ [place]-Belkis catheter and bilateral chest tubes are present. Interval removal of mediastinal dr ain. Patchy airspace disease bilaterally appears similar to the prior exam. Cardiac silhouette is unchanged in size with postoperative changes. IMPRESSION: Interval removal of mediastinal drain. Otherwise, no change since the prior exam.
[2021-01-09 08:12] LABS: Glucose,Whole Blood 108 mg/dL (75-99)
[2021-01-09] MEDS: IPRATROPIUM-ALBUTEROL 3 ML NEB INHALATION SCH ×4 (08:49→21:35)
[2021-01-09] MEDS ORDERED: FUROSEMIDE 10 MG/ML 2 ML VIAL IV STA (08:56)
[2021-01-09 09:36] LABS: Glucose,Whole Blood 125 mg/dL (75-99)
--- NOTE | 2021-01-09 09:40 | P.PN ---
Subjective Progress Note Date: 01/09/21 Principal diagnosis: Coronary artery disease, aortic stenosis This is a pleasant 85-year-old female patient with a known history of TIA, gastroesophageal reflux disease, hyperlipidemia, hypertension, rheumatoid arthritis, hypothyroidism. She is a lifelong nonsmoker. She was found to have severe aortic stenosis and single-vessel coronary artery disease and presented here yesterday for an elective surgery. She did undergo saphenous vein graft to the obtuse marginal artery. Aortic valve replacement with a bovine bioprosthetic valve. Postoperative day #1. She remains on a nitroglycerin drip at 5 g per hour, insulin drip at 2.5 units per hour, Primacor at 0.2 mcg/kg/m. Lactated Ringer's at 50 MLS per hour. She currently has a paced rhythm at 80 bpm. Right internal jugular Cordis in place, right radial arterial line in place. Mediastinal, left and right chest tubes remain in place. She is status post 5 units of packed red blood cells, 4 units of fresh frozen plasma, 2 platelets, 2 pooled cryoprecipitate. Creatinine blood pressure 67. PA pressure 29/15 with a mean of 19. Cardiac output 4.8. Cardiac index 2.9. White count 10.5. Hemoglobin 7.7. Platelets 100,000. Sodium 140. Potassium 3.7. Creatinine 0.96. Glucose 141. AST 93. ALT 16. She is currently sitting up in a chair at the bedside. Awake and alert in no acute distress. So having issues from surgical site pain. She is on 2 L nasal cannula maintaining good O2 saturations in the 90s. Needs increased encouragement regarding the incentive spirometer. Wesly on bronchodilators. Heparin for DVT prophylaxis. The patient is seen today 01/09/2021 in follow-up in the intensive care unit. Postoperative day #2. Sitting up in a chair at the bedside. She is currently on oxygen at 2 L/m per nasal cannula. Chest x-ray reveals patchy airspace disease bilaterally. Mediastinal chest tube is been removed. Right and left chest tubes remain in place. White count 17.3. Hemoglobin 6.5. Platelets 112,000. Sodium 135. Potassium 4.4. Creatinine 1.62. AST 104. ALT 10. Glucose 108. She is continued on bronchodilators. Working with the incentive spirometer. She remains on Lactated Ringer's at 30 mL per hour. Primacor at 0.1 mcg/kg/m. Insulin is currently on hold. One unit of packed red blood cells has been ordered. Cardiac output 5.1. Cardiac index 3.1. PA pressures 34/13 with a mean of 20. Objective - Vital Signs Vital signs: Vital Signs Temp 99.5 F 01/09/21 08:39 Pulse 82 01/09/21 09:00 Resp 13 01/09/21 09:00 BP 132/47 01/09/21 09:00 Pulse Ox 99 01/09/21 09:00 Intake & Output 01/08/21 01/09/21 01/09/21 18:59 06:59 18:59 Intake Total 997.612 576.762 391.08 Output Total 570 300 115 Balance 427.612 276.762 276.08 Weight 66.3 kg Intake: IV 458 558 78 Lactated Ringers 1,000 ml 270 350 60 @ 20 mls/hr IV .Q24H [facility] Rx#:[id number] cardiac output 80 100 pressure bags 108 108 18 Intake, IV Titration 119.612 18.762 3.08 Amount Insulin Regular 100 unit 22.279 18.762 3.08 In Sodium Chloride 0.9% 100 ml @ Per Protocol IV .Q0M [facility] Rx#:[id number] Milrinone-D5w Pmx 20 mg 45.833 In Dextrose/Water 1 100ml .bag @ 0.2 MCG/KG/MIN 4. 056 mls/hr IV .Q24H [facility] Rx#:[id number] Nitroglycerin-D5w Pmx 50 1.5 mg In Dextrose/Water 1 250ml.bag @ 5 MCG/MIN 1.5 mls/hr IV .Q24H [facility] Rx#: [id number] ceFAZolin 2 gm In Sodium 50 Chloride 0.9% 50 ml @ 100 mls/hr IVPB Q8HR [facility] Rx# :[id number] Oral 300 Tube Feeding 120 Blood Product 0 310 Rc As-1 Unit 0 310 [id number] Output: Chest Tube Drainage 350 130 70 left pleural 190 100 30 mediastinal x2 50 right pleural 110 30 40 Drainage 0 Left Calf 0 Urine 220 170 45 Other: Voiding Method Indwelling Catheter Indwelling Catheter Indwelling Catheter ABP, PAP, CO, CI - Last Documented Arterial Blood Pressure 198/193 Pulmonary Artery Pressure 34/13 Cardiac Output 5.1 Cardiac Index 3.1 - Exam GENERAL EXAM: Alert, pleasant 85-year-old female patient, on 2 L nasal cannula, comfortable in no apparent distress. HEAD: Normocephalic. EYES: Normal reaction of pupils, equal size. NOSE: Clear with pink turbinates. THROAT: No erythema or exudates. NECK: Right cordis in place. No masses, no JVD. CHEST: Dressing dry and intact. Sternum stable. Heart hugger in place. Left/right chest tubes in place. LUNGS: Equal air entry with crackles in the posterior bases, diminished. CVS: S1 and S2 normal with no audible murmur, regular rhythm. These are wires in place. ABDOMEN: No hepatosplenomegaly, normal bowel sounds, no guarding or rigidity. SPINE: No scoliosis or deformity SKIN: No rashes CENTRAL NERVOUS SYSTEM: No focal deficits, tone is normal in all 4 extremities. EXTREMITIES: Right radial arterial line in place. There is trace peripheral edema. No clubbing, no cyanosis. Peripheral pulses are intact. - Labs CBC & Chem 7: 01/09/21 03:19 01/09/21 03:19 Labs: Abnormal Lab Results - Last 24 Hours (Table) 01/02/21 01/08/21 01/08/21 Range/Units 12:18 09:57 11:09 WBC (3.8-10.6) k/uL RBC (3.80-5.40) m/uL Hgb (11.4-16.0) gm/dL Hct (34.0-46.0) % RDW (11.5-15.5) % Plt Count (150-450) k/uL Neutrophils # (1.3-7.7) k/uL Sodium (137-145) mmol/L BUN (7-17) mg/dL Creatinine (0.52-1.04) mg/dL Glucose (74-99) mg/dL POC Glucose (mg/dL) 129 H 118 H (75-99) mg/dL AST (14-36) U/L Alkaline Phosphatase (38-126) U/L Total Protein (6.3-8.2) g/dL Albumin (3.5-5.0) g/dL Crossmatch See Detail 01/08/21 01/08/21 01/08/21 Range/Units 11:52 13:12 14:01 WBC (3.8-10.6) k/uL RBC (3.80-5.40) m/uL Hgb (11.4-16.0) gm/dL Hct (34.0-46.0) % RDW (11.5-15.5) % Plt Count (150-450) k/uL Neutrophils # (1.3-7.7) k/uL Sodium (137-145) mmol/L BUN (7-17) mg/dL Creatinine (0.52-1.04) mg/dL Glucose (74-99) mg/dL POC Glucose (mg/dL) 112 H 122 H 127 H (75-99) mg/dL AST (14-36) U/L Alkaline Phosphatase (38-126) U/L Total Protein (6.3-8.2) g/dL Albumin (3.5-5.0) g/dL Crossmatch 01/08/21 01/08/21 01/08/21 Range/Units 15:02 16:16 17:17 WBC (3.8-10.6) k/uL RBC (3.80-5.40) m/uL Hgb (11.4-16.0) gm/dL Hct (34.0-46.0) % RDW (11.5-15.5) % Plt Count (150-450) k/uL Neutrophils # (1.3-7.7) k/uL Sodium (137-145) mmol/L BUN (7-17) mg/dL Creatinine (0.52-1.04) mg/dL Glucose (74-99) mg/dL POC Glucose (mg/dL) 139 H 127 H 133 H (75-99) mg/dL AST (14-36) U/L Alkaline Phosphatase (38-126) U/L Total Protein (6.3-8.2) g/dL Albumin (3.5-5.0) g/dL Crossmatch 01/08/21 01/08/21 01/08/21 Range/Units 18:09 20:02 21:05 WBC (3.8-10.6) k/uL RBC (3.80-5.40) m/uL Hgb (11.4-16.0) gm/dL Hct (34.0-46.0) % RDW (11.5-15.5) % Plt Count (150-450) k/uL Neutrophils # (1.3-7.7) k/uL Sodium (137-145) mmol/L BUN (7-17) mg/dL Creatinine (0.52-1.04) mg/dL Glucose (74-99) mg/dL POC Glucose (mg/dL) 124 H 139 H 132 H (75-99) mg/dL AST (14-36) U/L Alkaline Phosphatase (38-126) U/L Total Protein (6.3-8.2) g/dL Albumin (3.5-5.0) g/dL Crossmatch 01/08/21 01/08/21 01/09/21 Range/Units 22:07 23:54 01:02 WBC (3.8-10.6) k/uL RBC (3.80-5.40) m/uL Hgb (11.4-16.0) gm/dL Hct (34.0-46.0) % RDW (11.5-15.5) % Plt Count (150-450) k/uL Neutrophils # (1.3-7.7) k/uL Sodium (137-145) mmol/L BUN (7-17) mg/dL Creatinine (0.52-1.04) mg/dL Glucose (74-99) mg/dL POC Glucose (mg/dL) 129 H 145 H 133 H (75-99) mg/dL AST (14-36) U/L Alkaline Phosphatase (38-126) U/L Total Protein (6.3-8.2) g/dL Albumin (3.5-5.0) g/dL Crossmatch 01/09/21 01/09/21 01/09/21 Range/Units 01:59 03:13 03:19 WBC 17.3 H (3.8-10.6) k/uL RBC 2.09 L (3.80-5.40) m/uL Hgb 6.5 L* (11.4-16.0) gm/dL Hct 19.6 L* (34.0-46.0) % RDW 16.3 H (11.5-15.5) % Plt Count 112 L (150-450) k/uL Neutrophils # 14.4 H (1.3-7.7) k/uL Sodium (137-145) mmol/L BUN (7-17) mg/dL Creatinine (0.52-1.04) mg/dL Glucose (74-99) mg/dL POC Glucose (mg/dL) 131 H 128 H (75-99) mg/dL AST (14-36) U/L Alkaline Phosphatase (38-126) U/L Total Protein (6.3-8.2) g/dL Albumin (3.5-5.0) g/dL Crossmatch 01/09/21 01/09/21 01/09/21 Range/Units 03:19 03:59 05:15 WBC (3.8-10.6) k/uL RBC (3.80-5.40) m/uL Hgb (11.4-16.0) gm/dL Hct (34.0-46.0) % RDW (11.5-15.5) % Plt Count (150-450) k/uL Neutrophils # (1.3-7.7) k/uL Sodium 135 L (137-145) mmol/L BUN 29 H (7-17) mg/dL Creatinine 1.62 H (0.52-1.04) mg/dL Glucose 117 H (74-99) mg/dL POC Glucose (mg/dL) 125 H 123 H (75-99) mg/dL AST 104 H (14-36) U/L Alkaline Phosphatase 36 L (38-126) U/L Total Protein 4.8 L (6.3-8.2) g/dL Albumin 2.8 L (3.5-5.0) g/dL Crossmatch 01/09/21 01/09/21 01/09/21 Range/Units 06:23 07:05 08:10 WBC (3.8-10.6) k/uL RBC (3.80-5.40) m/uL Hgb (11.4-16.0) gm/dL Hct (34.0-46.0) % RDW (11.5-15.5) % Plt Count (150-450) k/uL Neutrophils # (1.3-7.7) k/uL Sodium (137-145) mmol/L BUN (7-17) mg/dL Creatinine (0.52-1.04) mg/dL Glucose (74-99) mg/dL POC Glucose (mg/dL) 125 H 111 H 108 H (75-99) mg/dL AST (14-36) U/L Alkaline Phosphatase (38-126) U/L Total Protein (6.3-8.2) g/dL Albumin (3.5-5.0) g/dL Crossmatch Assessment and Plan Assessment: 1 Coronary artery disease status post coronary artery bypass grafting with a saphenous vein graft to the OM. Postoperative day #2. 2 Severe aortic stenosis status post aortic valve replacement with a bovine prosthetic valve. Postoperative day #2. 3 Hypertension, history of 4 Hyperlipidemia 5 Hypothyroidism 6 Left carotid stenosis 7 History of TIA 8 Lifelong nonsmoker 9 Anemia, suspected outcome of surgery Plan: The patient was seen and evaluated by Dr. Hand Chest x-ray and labs reviewed To receive a unit of packed red blood cells today Continue bronchodilators Titrate FiO2 as tolerated Increase activity as tolerated We will continue to follow I, the cosigning physician, performed a history & physical examination of the patient. Lungs sounds with crackles in the bilateral bases. Maintaining good O2 saturations in the 90s on 2 L/m per nasal cannula. I discussed the assessment and plan of care with my nurse practitioner, Sue Wolff. I attest to the above note as dictated by her.
[2021-01-09] MEDS ORDERED: fentaNYL (PF) 50 MCG/ML 2 ML AMP IVP ONE (10:04)
[2021-01-09] MEDS ORDERED: ACETAMINOPHEN IV (For NPO) 1,000 MG in EMPTY BAG 1 BAG IVPB STA (10:04)
[2021-01-09] MEDS: THYROID, PORK 30 MG TAB PO SCH (10:27)
[2021-01-09] MEDS: CHOLECALCIFEROL 25 MCG (1000 IU) TABLET PO SCH (10:27)
[2021-01-09] MEDS: ASCORBIC ACID 500 MG TAB PO SCH (10:27)
[2021-01-09] MEDS: DEXTROSE 5% IN WATER 100 ML with AMIODARONE 150 MG IV ONE ×2 (10:33→11:25)
[2021-01-09] MEDS: METOPROLOL TARTRATE 12.5 MG TAB PO SCH (10:34)
[2021-01-09] MEDS: CLOPIDOGREL 75 MG TAB PO SCH ×3 (10:34→15:12)
[2021-01-09] MEDS: ASPIRIN 81 MG PO SCH ×2 (10:34→10:50)
--- NOTE | 2021-01-09 10:52 | P.PN ---
Subjective Progress Note Date: 01/09/21 Principal diagnosis: Severe aortic stenosis with insufficiency, mitral stenosis with insufficiency and heavy mitral annular calcification, coronary artery disease. Previous medical history of hypertension, hyperlipidemia with refusal of statin medication in the past, hypothyroidism, left internal carotid stenosis 50-79%, TIA in 2008, GERD, arthritis, never smoker, family history of premature coronary artery disease, as well as family history of heart failure and possible valvular heart disease POD #2 aortic valve replacement with a 21 mm Inspiris bovine pericardial valve with root enlargement with bovine pericardial patch, coronary artery bypass grafting 1 with reverse saphenous vein graft to the obtuse marginal artery, epi-aortic ultrasound, endovascular vein harvest of the left greater saphenous vein from the thigh, ligation of the left atrial appendage with a 35 mm AtriCure clip Intraoperative and postoperative acute blood loss anemia and thrombocytopenia, expected given hemodilution and cardiopulmonary bypass pump requiring multiple blood products Postoperative atrial fibrillation, known common occurrence after open heart surgery, especially valve surgery The patient is currently sitting up in bed in the intensive care unit in no acute distress. She does complain of post surgical pain, denies shortness of breath. He was in sinus rhythm with first-degree AV block this morning with heart rate in the 80s, currently in atrial fibrillation with rapid ventricular response, amiodarone started. Remains on IV Primacor, weaned down to 0.1 mcg/kg/m. She is oxygenating well on 2 L nasal cannula and able to achieve 1000 mL on her incentive spirometry. Right internal jugular Viola/Cordis, right radial arterial line, left pleural/right pleural chest tubes all remain. Hemoglobin 6.5 this morning received 1 unit packed red blood cells. No other new concerns. Objective - Vital Signs Vital signs: Vital Signs Temp 99.5 F 01/09/21 08:39 Pulse 197 H 01/09/21 10:00 Resp 19 01/09/21 10:00 BP 112/50 01/09/21 10:00 Pulse Ox 98 01/09/21 10:00 Intake & Output 01/08/21 01/09/21 01/09/21 18:59 06:59 18:59 Intake Total 997.612 576.762 463.08 Output Total 570 300 285 Balance 427.612 276.762 178.08 Weight 66.3 kg Intake: IV 458 558 150 Lactated Ringers 1,000 ml 270 350 120 @ 20 mls/hr IV .Q24H [facility] Rx#:[id number] cardiac output 80 100 pressure bags 108 108 30 Intake, IV Titration 119.612 18.762 3.08 Amount Insulin Regular 100 unit 22.279 18.762 3.08 In Sodium Chloride 0.9% 100 ml @ Per Protocol IV .Q0M [facility] Rx#:[id number] Milrinone-D5w Pmx 20 mg 45.833 In Dextrose/Water 1 100ml .bag @ 0.2 MCG/KG/MIN 4. 056 mls/hr IV .Q24H [facility] Rx#:[id number] Nitroglycerin-D5w Pmx 50 1.5 mg In Dextrose/Water 1 250ml.bag @ 5 MCG/MIN 1.5 mls/hr IV .Q24H [facility] Rx#: [id number] ceFAZolin 2 gm In Sodium 50 Chloride 0.9% 50 ml @ 100 mls/hr IVPB Q8HR [facility] Rx# :[id number] Oral 300 Tube Feeding 120 Blood Product 0 310 Rc As-1 Unit 0 310 [id number] Output: Chest Tube Drainage 350 130 110 left pleural 190 100 30 mediastinal x2 50 right pleural 110 30 80 Drainage 0 Left Calf 0 Urine 220 170 175 Other: Voiding Method Indwelling Catheter Indwelling Catheter Indwelling Catheter ABP, PAP, CO, CI - Last Documented Arterial Blood Pressure 198/193 Pulmonary Artery Pressure 39/19 Cardiac Output 5.1 Cardiac Index 3.1 - Exam CONSTITUTIONAL: Appears uncomfortable, appears to have pain RESPIRATORY: Lungs sounds diminished bilaterally. Respirations even, nonlabored. Currently on 2 L nasal cannula with oxygen saturation 99%. Able to achieve 1000 mL on incentive spirometry. Weak cough. CARDIOVASCULAR: S1, S2 present, positive murmur. Tachy and irregular rate and rhythm, uncontrolled atrial fibrillation on telemetry. Sternum stable. Palpable peripheral pulses bilaterally. Trace generalized edema present. No calf pain or tenderness noted. Heart hugger in place with patient demonstrating appropriate use. Antiembolism stockings, SCDs present. GASTROINTESTINAL: Abdomen soft, nontender, nondistended. Hypoactive bowel sounds present 4 quadrants. Tolerating clear liquids. Negative flatus GENITOURINARY: Owens present draining clear, yellow urine. Output overnight 10-20 mL per hour INTEGUMENTARY: Skin is warm and dry. Anterior chest incision well approximated and covered with dry intact dressing. EVH site well approximated without redness or drainage NEUROLOGIC: Cranial nerves II through XII intact MUSKULOSKELETAL: Able to move all extremities, strength equal but weak bilaterally PSYCHIATRIC: Alert and oriented to person place and time, appropriate affect, intact judgment and insight INVASIVE LINES AND TUBES: Left/right pleural chest tubes present and connected to wall suction, no air leaks present. Left pleural chest tube with 110 mL serosanguineous drainage overnight, 300 mL the last 24 hours. Right pleural chest tube with 20 mL serosanguineous drainage overnight, 100 mL in the last 24 hours. A/V epicardial pacemaker wires present, connected to generator, backup rate 50 bpm. Right internal jugular Viola/Cordis, right radial arterial line present. Last CO/CI 5.1/3.1, PA 39/18, CVP 17. - Labs CBC & Chem 7: 01/09/21 03:19 01/09/21 03:19 Labs: Abnormal Lab Results - Last 24 Hours (Table) 01/02/21 01/08/21 01/08/21 Range/Units 12:18 11:09 11:52 WBC (3.8-10.6) k/uL RBC (3.80-5.40) m/uL Hgb (11.4-16.0) gm/dL Hct (34.0-46.0) % RDW (11.5-15.5) % Plt Count (150-450) k/uL Neutrophils # (1.3-7.7) k/uL Sodium (137-145) mmol/L BUN (7-17) mg/dL Creatinine (0.52-1.04) mg/dL Glucose (74-99) mg/dL POC Glucose (mg/dL) 118 H 112 H (75-99) mg/dL AST (14-36) U/L Alkaline Phosphatase (38-126) U/L Total Protein (6.3-8.2) g/dL Albumin (3.5-5.0) g/dL Crossmatch See Detail 01/08/21 01/08/21 01/08/21 Range/Units 13:12 14:01 15:02 WBC (3.8-10.6) k/uL RBC (3.80-5.40) m/uL Hgb (11.4-16.0) gm/dL Hct (34.0-46.0) % RDW (11.5-15.5) % Plt Count (150-450) k/uL Neutrophils # (1.3-7.7) k/uL Sodium (137-145) mmol/L BUN (7-17) mg/dL Creatinine (0.52-1.04) mg/dL Glucose (74-99) mg/dL POC Glucose (mg/dL) 122 H 127 H 139 H (75-99) mg/dL AST (14-36) U/L Alkaline Phosphatase (38-126) U/L Total Protein (6.3-8.2) g/dL Albumin (3.5-5.0) g/dL Crossmatch 01/08/21 01/08/21 01/08/21 Range/Units 16:16 17:17 18:09 WBC (3.8-10.6) k/uL RBC (3.80-5.40) m/uL Hgb (11.4-16.0) gm/dL Hct (34.0-46.0) % RDW (11.5-15.5) % Plt Count (150-450) k/uL Neutrophils # (1.3-7.7) k/uL Sodium (137-145) mmol/L BUN (7-17) mg/dL Creatinine (0.52-1.04) mg/dL Glucose (74-99) mg/dL POC Glucose (mg/dL) 127 H 133 H 124 H (75-99) mg/dL AST (14-36) U/L Alkaline Phosphatase (38-126) U/L Total Protein (6.3-8.2) g/dL Albumin (3.5-5.0) g/dL Crossmatch 01/08/21 01/08/21 01/08/21 Range/Units 20:02 21:05 22:07 WBC (3.8-10.6) k/uL RBC (3.80-5.40) m/uL Hgb (11.4-16.0) gm/dL Hct (34.0-46.0) % RDW (11.5-15.5) % Plt Count (150-450) k/uL Neutrophils # (1.3-7.7) k/uL Sodium (137-145) mmol/L BUN (7-17) mg/dL Creatinine (0.52-1.04) mg/dL Glucose (74-99) mg/dL POC Glucose (mg/dL) 139 H 132 H 129 H (75-99) mg/dL AST (14-36) U/L Alkaline Phosphatase (38-126) U/L Total Protein (6.3-8.2) g/dL Albumin (3.5-5.0) g/dL Crossmatch 01/08/21 01/09/21 01/09/21 Range/Units 23:54 01:02 01:59 WBC (3.8-10.6) k/uL RBC (3.80-5.40) m/uL Hgb (11.4-16.0) gm/dL Hct (34.0-46.0) % RDW (11.5-15.5) % Plt Count (150-450) k/uL Neutrophils # (1.3-7.7) k/uL Sodium (137-145) mmol/L BUN (7-17) mg/dL Creatinine (0.52-1.04) mg/dL Glucose (74-99) mg/dL POC Glucose (mg/dL) 145 H 133 H 131 H (75-99) mg/dL AST (14-36) U/L Alkaline Phosphatase (38-126) U/L Total Protein (6.3-8.2) g/dL Albumin (3.5-5.0) g/dL Crossmatch 01/09/21 01/09/21 01/09/21 Range/Units 03:13 03:19 03:19 WBC 17.3 H (3.8-10.6) k/uL RBC 2.09 L (3.80-5.40) m/uL Hgb 6.5 L* (11.4-16.0) gm/dL Hct 19.6 L* (34.0-46.0) % RDW 16.3 H (11.5-15.5) % Plt Count 112 L (150-450) k/uL Neutrophils # 14.4 H (1.3-7.7) k/uL Sodium 135 L (137-145) mmol/L BUN 29 H (7-17) mg/dL Creatinine 1.62 H (0.52-1.04) mg/dL Glucose 117 H (74-99) mg/dL POC Glucose (mg/dL) 128 H (75-99) mg/dL AST 104 H (14-36) U/L Alkaline Phosphatase 36 L (38-126) U/L Total Protein 4.8 L (6.3-8.2) g/dL Albumin 2.8 L (3.5-5.0) g/dL Crossmatch 01/09/21 01/09/21 01/09/21 Range/Units 03:59 05:15 06:23 WBC (3.8-10.6) k/uL RBC (3.80-5.40) m/uL Hgb (11.4-16.0) gm/dL Hct (34.0-46.0) % RDW (11.5-15.5) % Plt Count (150-450) k/uL Neutrophils # (1.3-7.7) k/uL Sodium (137-145) mmol/L BUN (7-17) mg/dL Creatinine (0.52-1.04) mg/dL Glucose (74-99) mg/dL POC Glucose (mg/dL) 125 H 123 H 125 H (75-99) mg/dL AST (14-36) U/L Alkaline Phosphatase (38-126) U/L Total Protein (6.3-8.2) g/dL Albumin (3.5-5.0) g/dL Crossmatch 01/09/21 01/09/21 01/09/21 Range/Units 07:05 08:10 09:34 WBC (3.8-10.6) k/uL RBC (3.80-5.40) m/uL Hgb (11.4-16.0) gm/dL Hct (34.0-46.0) % RDW (11.5-15.5) % Plt Count (150-450) k/uL Neutrophils # (1.3-7.7) k/uL Sodium (137-145) mmol/L BUN (7-17) mg/dL Creatinine (0.52-1.04) mg/dL Glucose (74-99) mg/dL POC Glucose (mg/dL) 111 H 108 H 125 H (75-99) mg/dL AST (14-36) U/L Alkaline Phosphatase (38-126) U/L Total Protein (6.3-8.2) g/dL Albumin (3.5-5.0) g/dL Crossmatch - Imaging and Cardiology Chest x-ray: report reviewed, image reviewed Assessment and Plan Assessment: 1. Severe aortic stenosis with insufficiency, status post operative site aortic valve replacement with root enlargement 2. Mitral stenosis with insufficiency and heavy mitral annular calcification 3. Coronary artery disease, status post single vessel CABG 4. History of hypertension 5. Hyperlipidemia with refusal of statin medication in the past, cholesterol 226, LDL 165 6. Hypothyroidism, recent TSH 2.69, free T4 0.8 7. Left internal carotid stenosis 50-79% 8. TIA in 2008 9. GERD 10. Arthritis 11. Never smoker, preoperative FEV1 83% of predicted 12. Family history of premature coronary artery disease, brother diagnosed with CAD in his 40s with subsequent 2 vessel CABG 13. Family history of heart failure and possible valvular heart disease 14. Intraoperative and postoperative acute blood loss anemia and thrombocytopenia, expected, requiring multiple blood products 15. Postoperative atrial fibrillation, status post exclusion of the left atrial appendage Plan: 1. Continue low-dose aspirin, statin, Plavix. Will start low-dose beta benton and increase as tolerated 2. IV amiodarone initiated, will transition to oral, no anticoagulation at this point 3. Will continue Primacor. 4. Wean O2 as tolerated. Encourage incentive spirometry use 10 times every hour while awake. Bronchodilators per pulmonology 5. Increase activity, ambulate as tolerated. PT/OT/cardiac rehab consulted 6. Will monitor daily labs and x-rays. Electrolyte replacement per protocol. One unit packed red blood cells given this morning, 20 mg IV push Lasix ordered 7. GI/DVT prophylaxis 8. Pain control per current medication regimen 9. Insulin management per primary care service. Patient is not diabetic, pre operative hemoglobin A1c 5%, but patient does need tight blood sugar control to prevent infection and promote sternal union 10. Likely will discontinue Viola later this afternoon 11. Continue left pleural chest tube for another 24 hours, will discontinue right pleural chest tube today 12. Continue Owens catheter for another 24 hours for strict accurate intake and output. Daily weights 13. More recommendations to follow Time with Patient: Greater than 30
[2021-01-09 11:15] LABS: Glucose,Whole Blood 148 mg/dL (75-99)
[2021-01-09] MEDS: LACTATED RINGERS 1,000 ML IV SCH (11:25)
--- NOTE | 2021-01-09 11:44 | PN ---
PROGRESS NOTE Ms. Crowell is an 85-year-old female who has underwent aortic valve replacement and coronary artery bypass grafting. She has been confused during the night. She is hemodynamically stable. She is not following command. There is no evidence of malignant arrhythmia. Apparently, her symptoms gradually got worse during the night. She is continued to be on aspirin once a day, Plavix 75 mg daily. PHYSICAL EXAMINATION: Blood pressure 132/47 with a heart rate in the 80s. She is moaning but not following command. LUNGS: Clear. HEART: Regular rate, rhythm. S1, S2. No S3 with systolic murmur at the base. No end diastolic murmur, no rub. ABDOMEN: Soft, nontender. EXTREMITIES: No edema. LAB DATA: Lab data revealed hemoglobin down to 6.5. Patient is receiving transfusion. Her BUN creatinine 29 and 1.62, which had worsened compared to yesterday. Her potassium 4.4. IMPRESSION: 1. Transient ischemic attack. Confusion, encephalopathy post surgical intervention. Could be related to the pain medication she was getting. 2. Status post aortic valve replacement. 3. Severe aortic stenosis and regurgitation. 4. Status post coronary artery bypass grafting. 5. Prior history of hyperlipidemia. 6. Anemia. RECOMMENDATION: Will continue with the transfusion as noted. Continue close observation of her mental status and depending on her progress, further recommendation will be made. MMODL / IJN: [id number] /
[2021-01-09 12:00] LABS: Glucose,Whole Blood 159 mg/dL (75-99)
--- NOTE | 2021-01-09 13:05 | CDI ---
Documentation Clarification Form Date: 01/09/2021 11:17:00 AM From: Cayla Bliss RN, CCDS Phone: [phone] Admit Date: 01/07/2021 05:31:00 AM Patient Name: Trista Crowell I Visit Number: [id number] Discharge Date: ATTENTION: The Clinical Documentation Specialists (CDI) and [facility] Coding Staff appreciate your assistance in clarifying documentation. Please respond to the clarification below the line at the bottom and electronically sign. The CDI & [facility] Coding staff will review the response and follow-up if needed. Please note: Queries are made part of the Legal Health Record. If you have any questions, please contact the author of this message via ITS. Dr. Hill Schrader The Operate report has attempts to place a retrograde cardioplegia line developed perforation at the junction of the right atrium and right ventricle near the region of the coronary sinus and patient had Aortic valve replacement and CABG x1 on 01/07/21. Additional clarification is requested regarding the relationship, if any, that exists between the finding and the procedure. Patients Admitting Diagnosis: Severe aortic stenosis with insufficiency, mitral stenosis with insufficiency, coronary artery disease Post-Operative Diagnosis: Same 01/07 Procedure performed: Aortic valve replacement with 21 mm Inspiriis bovine pericardial valve with root enlargement with bovine pericardial patch CABG X1 with SVG to OM, epi-aortic ultrasound endovascular vein harvest ligation left atrial appendage with 35 mm AtriCure clip History/Risk Factors: Aortic valve stenosis, Coronary artery disease Clinical Indicators: 85-year-old female with prior severe heart failure. Found to have critical aortic valvular stenosis, single-vessel coronary artery disease with ostial lesion in the obtuse marginal, mild to moderate mitral insufficiency and mitral stenosis. The operative report has indicated attempt to place a retrograde cardioplegia line was unsuccessful developed perforation at the junction of the right atrium and right ventricle near the orifice region of the coronary sinus. Treatment: Monitor CBC Daily Retrograde catheter removed site closed with a 4 pledgeted Prolene suture placed on cardiopulmonary bypass and stabilized Tranexamic Acid 200 IV per protocol Albumin 25 % 50 ml IV once, Albumin 5 % 500 ml IV once per protocol Packed red blood cells T=6 units Fresh Frozen Plasma T=4 units Pooled Cryoprecipitate T=2 What relationship, if any, exists between the retrograde cardioplegia line perforation at the junction of the right atrium and right ventricle and the procedure? [ x ] Retrograde cardioplegia line perforation is a complication of surgical procedure [ ] Retrograde cardioplegia line perforation is an expected outcome of the surgical procedure [ ] Retrograde cardioplegia line perforation is related to patients co-morbid condition(s) of [insert co-morbid dxs] & not a complication of the procedure [ x ] Other please specify __not a significant event__ [ ] Unable to determine (Template Last Revised: August 2020) MTDD
[2021-01-09 13:11] LABS: Glucose,Whole Blood 143 mg/dL (75-99)
--- NOTE | 2021-01-09 13:15 | CDI ---
Documentation Clarification Form Date: 01/09/2021 12:44:00 PM From: Cayla Bliss RN, CCDS Admit Date: 01/07/2021 05:31:00 AM Patient Name: Trista Crowell I Visit Number: [id number] Discharge Date: ATTENTION: The Clinical Documentation Specialists (CDI) and [facility] Coding Staff appreciate your assistance in clarifying documentation. Please respond to the clarification below the line at the bottom and electronically sign. The CDI & [facility] Coding staff will review the response and follow-up if needed. Please note: Queries are made part of the Legal Health Record. If you have any questions, please contact the author of this message via ITS. Dr. Hill Schrader Small tear in the medial aspect of the right atrium low to the appendage adjacent to the aorta is documented in the operative report on 01/07/21.The patient had Aortic valve replacement and CABG x1. Additional clarification is requested regarding the relationship, if any, that exists between the finding and the procedure. Patients Admitting Diagnosis: Severe aortic stenosis with insufficiency, mitral stenosis with insufficiency, coronary artery disease Post-Operative Diagnosis: Same 01/07 Procedure performed: Aortic valve replacement with 21 mm Inspiriis bovine pericardial valve with root enlargement with bovine pericardial patch CABG X1 with SVG to OM, epi-aortic ultrasound endovascular vein harvest ligation left atrial appendage with 35 mm AtriCure clip History/Risk Factors: Aortic valve stenosis, Coronary artery disease Clinical Indicators: 85-year-old female with prior severe heart failure. Found to have critical aortic valvular stenosis, single-vessel coronary artery disease with ostial lesion in the obtuse marginal, mild to moderate mitral insufficiency and mitral stenosis. Operative report note: the cross-clamp was removed. It was immediately noted that there was a small tear in the medial aspect of the right atrium low to the appendage adjacent to the aorta Treatment: Monitor CBC Daily Small tear medial aspect of the right atrium adjacent to the aorta. Sutured with several Prolene sutures Tranexamic Acid 200 IV per protocol Albumin 25 % 50 ml IV once, Albumin 5 % 500 ml IV once per protocol Packed red blood cells T=6 units Fresh Frozen Plasma T=4 units Pooled Cryoprecipitate T=2 What relationship, if any, exists between the finding of small tear medial aspect of the right atrium and the procedure? [ x ] Small tear medial aspect of the right atrium is a complication of surgical procedure [ ] Small tear medial aspect of the right atrium] is an expected outcome of the surgical procedure [ ] Small tear medial aspect of the right atrium is related to patients co- morbid condition(s) of [insert co-morbid dxs] & not a complication of the procedure [ x] Other please specify: not a significant event____ [ ] Unable to determine (Template Last Revised: August 2020) MTDD
[2021-01-09 13:45] LABS: HCT 26.6 % (34.0-46.0); MCH 31.7 pg (25.0-35.0); MCHC 32.6 g/dL (31.0-37.0); MCV 97.2 fL (80.0-100.0); Mean Platelet Volume 10.7; Platelet Count 123 k/uL (150-450); RBC 2.74 m/uL (3.80-5.40); RDW 15.7 % (11.5-15.5); WBC 19.6 k/uL (3.8-10.6)
[2021-01-09 13:48] LABS: HGB 8.7 gm/dL (11.4-16.0)
--- NOTE | 2021-01-09 14:33 | P.CONS ---
History of Present Illness - Reason for Consult Consult date: 01/08/21 Medical management Requesting physician: Hill Schrader - Chief Complaint Severe aortic stenosis, mitral stenosis with insufficiency, - History of Present Illness This is an 85-year-old female with past medical history of CVA/TIA, gastroesophageal reflux disease, hypertension,MVP, rheumatoid arthritis, hypothyroidism, glaucoma, recently admitted with chest tightness, shortness of breath ,diagnosed with severe aortic stenosis moderate aortic regurgitation, moderate mitral stenosis and mild to moderate mitral regurgitation, aortic root measuring 3.1 cm per KATERIN. Cardiac catheterization reported severe aortic regurgitation, 80-90% ostial stenosis involving the OM branch. Left internal carotid stenosis 50-69%, reviewed further by Vascular surgery reporting she was closer to 50% stenosis with no further intervention necessary. Patient returned for elective surgery- saphenous vein graft to the obtuse marginal artery. Aortic valve replacement with a bovine bioprosthetic valve. Tolerated procedure well. Extubated last night. Maintaining O2 sats in the 90s on 2 L nasal cannula. Sitting up in chair. Telemetry paced rhythm. Maintained on nitroglycerin, milrinone, insulin drips. CO 4.8, CI 2.9. Received 250 MLS an albumin, 5 units RBCs, 4 FFP to platelets,two cryoprecipitate. Hemoglobin 7.7, platelets 100, sodium 140, potassium 3.7, BUN 21 ,creatinine 0.96, T bili 0.7, AST 93, ALT 16, alk phos 27. Blood sugars controlled, A1c 5.Afebrile, normal WBC. Review of Systems ROS Statement: Those systems with pertinent positive or pertinent negative responses have been documented in the HPI. ROS Other: All systems not noted in ROS Statement are negative. Past Medical History Past Medical History: CVA/TIA, GERD/Reflux, Hyperlipidemia, Hypertension, Mitral Valve Prolapse (MVP), Rheumatoid Arthritis (RA), Thyroid Disorder Additional Past Medical History / Comment(s): Glaucoma. TIA - 2008-no residual History of Any Multi-Drug Resistant Organisms: None Reported Past Surgical History: Appendectomy, Heart Catheterization Additional Past Surgical History / Comment(s): fatty tumors,KATERIN Past Anesthesia/Blood Transfusion Reactions: No Reported Reaction Additional Past Anesthesia/Blood Transfusion Reaction / Comm: no transfusion Smoking Status: Never smoker - Past Family History Mother Family Medical History: Congestive Heart Failure (CHF) Additional Family Medical History / Comment(s): Possible valvular heart disease,Valve replaced at approx age 82 Father Family Medical History: Congestive Heart Failure (CHF) Brother(s) Family Medical History: Coronary Artery Disease (CAD) Additional Family Medical History / Comment(s): Brother diagnosed with coronary artery disease in his 40s with subsequent 2 vessel CABG Medications and Allergies Home Medications Medication Instructions Recorded Confirmed Type Thyroid,Pork [Herriman Thyroid] 90 mg PO QAM 12/21/13 01/07/21 History Beet Root Pills (Unknown Strength) 1 tab PO DAILY 12/16/20 01/02/21 History Tri-Salts (Unknown Strength) 1 tsp PO Q4H PRN 12/16/20 01/02/21 History Aspirin 81 mg PO DAILY #90 chew 12/20/20 01/07/21 Rx Furosemide [Lasix] 20 mg PO DAILY #90 tab 12/20/20 01/07/21 Rx Nitroglycerin Sl Tabs [Nitrostat] 0.4 mg SUBLINGUAL Q5M PRN #1 bottle 12/20/20 01/07/21 Rx Ascorbic Acid [Vitamin C] 1,000 mg PO DAILY 01/02/21 01/07/21 History Atorvastatin [Lipitor] 20 mg PO HS 01/02/21 01/07/21 History Cholecalciferol [Vitamin D3 (25 250 mcg PO DAILY 01/02/21 01/07/21 History Mcg = 1000 Iu)] Magnesium 800 mg PO DAILY 01/02/21 01/07/21 History [place]-3/Dha/Epa/Fish Oil [Fish Oil 300 each PO DAILY 01/02/21 01/07/21 History 500 mg Softgel] Ubidecarenone [Co Q-10] 200 mg PO DAILY 01/02/21 01/02/21 History Zinc 50 mg PO HS 01/02/21 01/02/21 History Allergies Allergy/AdvReac Type Severity Reaction Status Date / Time Sulfa (Sulfonamide Allergy Severe Rash/Hives Verified 01/07/21 06:10 Antibiotics) Physical Exam Vitals: Vital Signs Temp Pulse Resp BP Pulse Ox 01/09/21 13:00 73 15 97/46 98 01/09/21 12:25 76 01/09/21 12:18 71 01/09/21 12:00 99.0 F 68 12 102/58 98 01/09/21 11:00 174 H 13 101/48 98 01/09/21 10:00 197 H 19 112/50 98 01/09/21 09:00 82 13 132/47 99 01/09/21 08:59 81 01/09/21 08:49 83 01/09/21 08:39 99.5 F 84 22 132/47 99 01/09/21 08:00 99.5 F 84 12 120/48 99 01/09/21 07:00 84 16 118/44 98 01/09/21 06:02 99.0 F 85 12 143/39 99 01/09/21 06:00 85 16 125/60 99 01/09/21 05:32 99.0 F 86 12 128/40 99 01/09/21 05:22 99.0 F 86 15 140/40 97 01/09/21 05:19 99.0 F 86 14 155/39 98 01/09/21 05:00 87 21 120/43 99 01/09/21 04:00 99.0 F 84 13 98 01/09/21 03:00 83 13 111/41 98 01/09/21 02:00 84 11 L 98 01/09/21 01:00 83 12 112/41 98 01/09/21 00:06 80 14 103/37 98 01/09/21 00:00 100.0 F H 80 11 L 100/39 98 01/08/21 23:00 83 12 108/43 01/08/21 22:00 98 11 L 100 01/08/21 21:00 84 17 107/44 89 L 01/08/21 20:45 82 01/08/21 20:00 98.4 F 90 8 L 114/46 98 01/08/21 19:00 82 16 135/47 96 01/08/21 18:00 85 14 122/45 99 01/08/21 17:00 97.9 F 84 16 98 01/08/21 16:36 80 01/08/21 16:23 82 01/08/21 16:00 97.9 F 82 16 109/44 99 01/08/21 15:00 80 14 127/42 96 01/08/21 14:00 80 16 116/45 98 Intake and Output 01/08/21 01/09/21 01/09/21 22:59 06:59 14:59 Intake Total 579.246 387.782 702.258 Output Total 305 235 530 Balance 274.246 152.782 172.258 Intake: IV 322 372 388 ACETAMINOPHEN IV (For NPO 100 ) 1,000 mg In Empty Bag 1 bag @ 400 mls/hr IVPB ONCE STA Rx#:[id number] Lactated Ringers 1,000 ml 190 240 210 @ 20 mls/hr IV .Q24H VINOD Rx#:[id number] cardiac output 60 60 30 pressure bags 72 72 48 Intake, IV Titration 57.246 15.782 4.258 Amount Insulin Regular 100 unit 11.413 15.782 4.258 In Sodium Chloride 0.9% 100 ml @ Per Protocol IV .Q0M VINOD Rx#:[id number] Milrinone-D5w Pmx 20 mg 45.833 In Dextrose/Water 1 100ml .bag @ 0.2 MCG/KG/MIN 4. 056 mls/hr IV .Q24H VINOD Rx#:[id number] Oral 200 Blood Product 0 310 Rc As-1 Unit 0 310 [id number] Output: Chest Tube Drainage 170 120 140 left pleural 120 100 100 right pleural 50 20 40 Urine 135 115 390 Other: Voiding Method Indwelling Catheter Indwelling Catheter Indwelling Catheter ABP, PAP, CO, CI - Last 8 Hours Arterial Blood Pressure 198/193 Arterial Blood Pressure 93/62 Arterial Blood Pressure 140/41 Arterial Blood Pressure 150/43 Pulmonary Artery Pressure 29/12 Pulmonary Artery Pressure 30/12 Pulmonary Artery Pressure 36/18 Pulmonary Artery Pressure 39/19 Pulmonary Artery Pressure 34/13 Pulmonary Artery Pressure 38/18 Pulmonary Artery Pressure 36/16 Pulmonary Artery Pressure 36/16 Cardiac Output 3.7 Cardiac Output 5.1 Cardiac Output 5.1 Cardiac Output 5.1 Cardiac Output 5.1 Cardiac Output 5.1 Cardiac Output 5.1 Cardiac Index 2.2 Cardiac Index 3.1 Cardiac Index 3.1 Cardiac Index 3.1 Cardiac Index 3.1 Cardiac Index 3.1 Cardiac Index 3.1 - Exam PHYSICAL EXAM: VITAL SIGNS: As above GENERAL: Sitting up in chair, no acute distress. HEENT: Conjunctivae normal. eyes normal. Oral mucosa moist. NECK: Supple, No JVD. Right Cordis present CARDIOVASCULAR: S1, S2 regular. Systolic murmur.wearing heart hugger. RESPIRATION: Breath sounds diminished with fine bibasilar crackles. Left, right, mediastinal chest tubes present. ABDOMEN: Soft, nontender . No guarding. no masses palpable. Positive Bowel sounds. LEGS: Trace edema, no clubbing, no cyanosis, peripheral pulses intact PSYCHIATRY: Alert and oriented X3, mood and affect normal. NERVOUS SYSTEM: Cranial N 2-12 grossly normal. Moves all 4 limbs. No focal deficits. Strength and sensation grossly intact. Skin: Warm and dry, no rash Results CBC & Chem 7: 01/09/21 11:19 01/09/21 03:19 Labs: Abnormal Lab Results - Last 24 Hours (Table) 01/02/21 01/08/21 01/08/21 Range/Units 12:18 14:01 15:02 WBC (3.8-10.6) k/uL RBC (3.80-5.40) m/uL Hgb (11.4-16.0) gm/dL Hct (34.0-46.0) % RDW (11.5-15.5) % Plt Count (150-450) k/uL Neutrophils # (1.3-7.7) k/uL Sodium (137-145) mmol/L BUN (7-17) mg/dL Creatinine (0.52-1.04) mg/dL Glucose (74-99) mg/dL POC Glucose (mg/dL) 127 H 139 H (75-99) mg/dL AST (14-36) U/L Alkaline Phosphatase (38-126) U/L Total Protein (6.3-8.2) g/dL Albumin (3.5-5.0) g/dL Crossmatch See Detail 01/08/21 01/08/21 01/08/21 Range/Units 16:16 17:17 18:09 WBC (3.8-10.6) k/uL RBC (3.80-5.40) m/uL Hgb (11.4-16.0) gm/dL Hct (34.0-46.0) % RDW (11.5-15.5) % Plt Count (150-450) k/uL Neutrophils # (1.3-7.7) k/uL Sodium (137-145) mmol/L BUN (7-17) mg/dL Creatinine (0.52-1.04) mg/dL Glucose (74-99) mg/dL POC Glucose (mg/dL) 127 H 133 H 124 H (75-99) mg/dL AST (14-36) U/L Alkaline Phosphatase (38-126) U/L Total Protein (6.3-8.2) g/dL Albumin (3.5-5.0) g/dL Crossmatch 01/08/21 01/08/21 01/08/21 Range/Units 20:02 21:05 22:07 WBC (3.8-10.6) k/uL RBC (3.80-5.40) m/uL Hgb (11.4-16.0) gm/dL Hct (34.0-46.0) % RDW (11.5-15.5) % Plt Count (150-450) k/uL Neutrophils # (1.3-7.7) k/uL Sodium (137-145) mmol/L BUN (7-17) mg/dL Creatinine (0.52-1.04) mg/dL Glucose (74-99) mg/dL POC Glucose (mg/dL) 139 H 132 H 129 H (75-99) mg/dL AST (14-36) U/L Alkaline Phosphatase (38-126) U/L Total Protein (6.3-8.2) g/dL Albumin (3.5-5.0) g/dL Crossmatch 01/08/21 01/09/21 01/09/21 Range/Units 23:54 01:02 01:59 WBC (3.8-10.6) k/uL RBC (3.80-5.40) m/uL Hgb (11.4-16.0) gm/dL Hct (34.0-46.0) % RDW (11.5-15.5) % Plt Count (150-450) k/uL Neutrophils # (1.3-7.7) k/uL Sodium (137-145) mmol/L BUN (7-17) mg/dL Creatinine (0.52-1.04) mg/dL Glucose (74-99) mg/dL POC Glucose (mg/dL) 145 H 133 H 131 H (75-99) mg/dL AST (14-36) U/L Alkaline Phosphatase (38-126) U/L Total Protein (6.3-8.2) g/dL Albumin (3.5-5.0) g/dL Crossmatch 01/09/21 01/09/21 01/09/21 Range/Units 03:13 03:19 03:19 WBC 17.3 H (3.8-10.6) k/uL RBC 2.09 L (3.80-5.40) m/uL Hgb 6.5 L* (11.4-16.0) gm/dL Hct 19.6 L* (34.0-46.0) % RDW 16.3 H (11.5-15.5) % Plt Count 112 L (150-450) k/uL Neutrophils # 14.4 H (1.3-7.7) k/uL Sodium 135 L (137-145) mmol/L BUN 29 H (7-17) mg/dL Creatinine 1.62 H (0.52-1.04) mg/dL Glucose 117 H (74-99) mg/dL POC Glucose (mg/dL) 128 H (75-99) mg/dL AST 104 H (14-36) U/L Alkaline Phosphatase 36 L (38-126) U/L Total Protein 4.8 L (6.3-8.2) g/dL Albumin 2.8 L (3.5-5.0) g/dL Crossmatch 01/09/21 01/09/21 01/09/21 Range/Units 03:59 05:15 06:23 WBC (3.8-10.6) k/uL RBC (3.80-5.40) m/uL Hgb (11.4-16.0) gm/dL Hct (34.0-46.0) % RDW (11.5-15.5) % Plt Count (150-450) k/uL Neutrophils # (1.3-7.7) k/uL Sodium (137-145) mmol/L BUN (7-17) mg/dL Creatinine (0.52-1.04) mg/dL Glucose (74-99) mg/dL POC Glucose (mg/dL) 125 H 123 H 125 H (75-99) mg/dL AST (14-36) U/L Alkaline Phosphatase (38-126) U/L Total Protein (6.3-8.2) g/dL Albumin (3.5-5.0) g/dL Crossmatch 01/09/21 01/09/21 01/09/21 Range/Units 07:05 08:10 09:34 WBC (3.8-10.6) k/uL RBC (3.80-5.40) m/uL Hgb (11.4-16.0) gm/dL Hct (34.0-46.0) % RDW (11.5-15.5) % Plt Count (150-450) k/uL Neutrophils # (1.3-7.7) k/uL Sodium (137-145) mmol/L BUN (7-17) mg/dL Creatinine (0.52-1.04) mg/dL Glucose (74-99) mg/dL POC Glucose (mg/dL) 111 H 108 H 125 H (75-99) mg/dL AST (14-36) U/L Alkaline Phosphatase (38-126) U/L Total Protein (6.3-8.2) g/dL Albumin (3.5-5.0) g/dL Crossmatch 01/09/21 01/09/21 01/09/21 Range/Units 11:14 11:58 13:10 WBC (3.8-10.6) k/uL RBC (3.80-5.40) m/uL Hgb (11.4-16.0) gm/dL Hct (34.0-46.0) % RDW (11.5-15.5) % Plt Count (150-450) k/uL Neutrophils # (1.3-7.7) k/uL Sodium (137-145) mmol/L BUN (7-17) mg/dL Creatinine (0.52-1.04) mg/dL Glucose (74-99) mg/dL POC Glucose (mg/dL) 148 H 159 H 143 H (75-99) mg/dL AST (14-36) U/L Alkaline Phosphatase (38-126) U/L Total Protein (6.3-8.2) g/dL Albumin (3.5-5.0) g/dL Crossmatch Assessment and Plan Assessment: Severe aortic stenosis status post aortic valve replacement with a bovine pros thetic valve with root enlargement. Coronary artery disease status post CABG X 1 with SVG to OM. Acute blood loss anemia with thrombocytopenia, status post multiple blood products, intra & postoperative, expected outcome Postoperative atrial fibrillation Left internal carotid stenosis Chronic CHF, Diastolic Hypothyroidism Gastroesophageal reflux disease Hypertension Hyperlipidemia MVP Rheumatoid arthritis History of CVA, TIA Obesity, BMI 27.6 Plan: Continue on current medication regime ,monitoring and symptomatic treatment. Pain management. Aggressive pulmonary toileting with nebulized bron chodilators, incentive spirometer reinforced. Increase activity as tolerated. Maintain tight control blood sugars with close monitoring. Thank you for the consult. The impression and plan of care has been dictated as directed. : I performed a history and examination of this patient, discussed the same with the dictator. I agree with the dictator's note ,documented as a scribe. Any additional findings or plans will be noted.
--- NOTE | 2021-01-09 14:54 | P.PN ---
Subjective Progress Note Date: 01/09/21 This is an 85-year-old female with past medical history of CVA/TIA, gastroesophageal reflux disease, hypertension,MVP, rheumatoid arthritis, hypothyroidism, glaucoma, recently admitted with chest tightness, shortness of breath ,diagnosed with severe aortic stenosis moderate aortic regurgitation, moderate mitral stenosis and mild to moderate mitral regurgitation, aortic root measuring 3.1 cm per KATERIN. Cardiac catheterization reported severe aortic regurgitation, 80-90% ostial stenosis involving the OM branch. Left internal carotid stenosis 50-69%, reviewed further by Vascular surgery reporting she was closer to 50% stenosis with no further intervention necessary. Patient returned for elective surgery- saphenous vein graft to the obtuse marginal artery. Aortic valve replacement with a bovine bioprosthetic valve. Tolerated procedure well. Extubated last night. Maintaining O2 sats in the 90s on 2 L nasal cannula. Sitting up in chair. Telemetry paced rhythm. Maintained on nitroglycerin, milrinone, insulin drips. CO 4.8, CI 2.9. Received 250 MLS an albumin, 5 units RBCs, 4 FFP to platelets,two cryoprecipitate. Hemoglobin 7.7, platelets 100, sodium 140, potassium 3.7, BUN 21 ,creatinine 0.96, T bili 0.7, AST 93, ALT 16, alk phos 27. Blood sugars controlled, A1c 5.Afebrile, normal WB C. 01/09/2021 Sitting up in bed, tired, minimally conversing, following simple commands. T-max 100, WBC increased to 19.6. Mediastinal chest tube recently discontinued, chest x-ray reporting bilateral patchy airspace disease, unchanged. Maintaining O2 sats in the high 90s on 2 L nasal cannula. Hemoglobin 6.5, receiving 1 unit of packed RBCs. platelets 112. Sodium 135, renal function worsening, BUN 29, creatinine 1.62. Blood sugars controlled. AST and alk phos mildly increased. Maintained on insulin and milrinone drips. CO 5.1,CI 3.1. Objective - Vital Signs Vital signs: Vital Signs Temp 99.0 F 01/09/21 12:00 Pulse 73 01/09/21 13:00 Resp 15 01/09/21 13:00 BP 97/46 01/09/21 13:00 Pulse Ox 98 01/09/21 13:00 Intake & Output 0701/09/21 01/09/21 18:59 06:59 18:59 Intake Total 997.612 576.762 702.258 Output Total 570 300 530 Balance 427.612 276.762 172.258 Weight 66.3 kg Intake: IV 458 558 388 ACETAMINOPHEN IV (For NPO 100 ) 1,000 mg In Empty Bag 1 bag @ 400 mls/hr IVPB ONCE [facility] Rx#:[id number] Lactated Ringers 1,000 ml 270 350 210 @ 20 mls/hr IV .Q24H [facility] Rx#:[id number] cardiac output 80 100 30 pressure bags 108 108 48 Intake, IV Titration 119.612 18.762 4.258 Amount Insulin Regular 100 unit 22.279 18.762 4.258 In Sodium Chloride 0.9% 100 ml @ Per Protocol IV .Q0M [facility] Rx#:[id number] Milrinone-D5w Pmx 20 mg 45.833 In Dextrose/Water 1 100ml .bag @ 0.2 MCG/KG/MIN 4. 056 mls/hr IV .Q24H [facility] Rx#:[id number] Nitroglycerin-D5w Pmx 50 1.5 mg In Dextrose/Water 1 250ml.bag @ 5 MCG/MIN 1.5 mls/hr IV .Q24H [facility] Rx#: [id number] ceFAZolin 2 gm In Sodium 50 Chloride 0.9% 50 ml @ 100 mls/hr IVPB Q8HR [facility] Rx# :[id number] Oral 300 Tube Feeding 120 Blood Product 0 310 Rc As-1 Unit 0 310 [id number] Output: Chest Tube Drainage 350 130 140 left pleural 190 100 100 mediastinal x2 50 right pleural 110 30 40 Drainage 0 Left Calf 0 Urine 220 170 390 Other: Voiding Method Indwelling Catheter Indwelling Catheter Indwelling Catheter ABP, PAP, CO, CI - Last Documented Arterial Blood Pressure 198/193 Pulmonary Artery Pressure 29/12 Cardiac Output 3.7 Cardiac Index 2.2 - Exam - Exam PHYSICAL EXAM: VITAL SIGNS: As above GENERAL: Sitting up in bed, no acute distress. Tired appearing. HEENT: Conjunctivae normal. eyes normal. Oral mucosa moist. NECK: Supple, No JVD. Right Cordis present CARDIOVASCULAR: S1, S2 regular. Systolic murmur.wearing heart hugger. RESPIRATION: Breath sounds diminished with fine bibasilar crackles. Left, right chest tubes present. ABDOMEN: Soft, nontender . No guarding. no masses palpable. Positive Bowel sounds. LEGS: Trace edema, no clubbing, no cyanosis, peripheral pulses intact. SCDs present. PSYCHIATRY: Alert and oriented X2, mood and affect normal. NERVOUS SYSTEM: Cranial N 2-12 grossly normal. Moves all 4 limbs. No focal deficits. Strength and sensation grossly intact. Skin: Warm and dry, no rash - Labs CBC & Chem 7: 01/09/21 11:19 01/09/21 03:19 Labs: Abnormal Lab Results - Last 24 Hours (Table) 01/02/21 01/08/21 01/08/21 Range/Units 12:18 15:02 16:16 WBC (3.8-10.6) k/uL RBC (3.80-5.40) m/uL Hgb (11.4-16.0) gm/dL Hct (34.0-46.0) % RDW (11.5-15.5) % Plt Count (150-450) k/uL Neutrophils # (1.3-7.7) k/uL Sodium (137-145) mmol/L BUN (7-17) mg/dL Creatinine (0.52-1.04) mg/dL Glucose (74-99) mg/dL POC Glucose (mg/dL) 139 H 127 H (75-99) mg/dL AST (14-36) U/L Alkaline Phosphatase (38-126) U/L Total Protein (6.3-8.2) g/dL Albumin (3.5-5.0) g/dL Crossmatch See Detail 01/08/21 01/08/21 01/08/21 Range/Units 17:17 18:09 20:02 WBC (3.8-10.6) k/uL RBC (3.80-5.40) m/uL Hgb (11.4-16.0) gm/dL Hct (34.0-46.0) % RDW (11.5-15.5) % Plt Count (150-450) k/uL Neutrophils # (1.3-7.7) k/uL Sodium (137-145) mmol/L BUN (7-17) mg/dL Creatinine (0.52-1.04) mg/dL Glucose (74-99) mg/dL POC Glucose (mg/dL) 133 H 124 H 139 H (75-99) mg/dL AST (14-36) U/L Alkaline Phosphatase (38-126) U/L Total Protein (6.3-8.2) g/dL Albumin (3.5-5.0) g/dL Crossmatch 01/08/21 01/08/21 01/08/21 Range/Units 21:05 22:07 23:54 WBC (3.8-10.6) k/uL RBC (3.80-5.40) m/uL Hgb (11.4-16.0) gm/dL Hct (34.0-46.0) % RDW (11.5-15.5) % Plt Count (150-450) k/uL Neutrophils # (1.3-7.7) k/uL Sodium (137-145) mmol/L BUN (7-17) mg/dL Creatinine (0.52-1.04) mg/dL Glucose (74-99) mg/dL POC Glucose (mg/dL) 132 H 129 H 145 H (75-99) mg/dL AST (14-36) U/L Alkaline Phosphatase (38-126) U/L Total Protein (6.3-8.2) g/dL Albumin (3.5-5.0) g/dL Crossmatch 01/09/21 01/09/21 01/09/21 Range/Units 01:02 01:59 03:13 WBC (3.8-10.6) k/uL RBC (3.80-5.40) m/uL Hgb (11.4-16.0) gm/dL Hct (34.0-46.0) % RDW (11.5-15.5) % Plt Count (150-450) k/uL Neutrophils # (1.3-7.7) k/uL Sodium (137-145) mmol/L BUN (7-17) mg/dL Creatinine (0.52-1.04) mg/dL Glucose (74-99) mg/dL POC Glucose (mg/dL) 133 H 131 H 128 H (75-99) mg/dL AST (14-36) U/L Alkaline Phosphatase (38-126) U/L Total Protein (6.3-8.2) g/dL Albumin (3.5-5.0) g/dL Crossmatch 01/09/21 01/09/21 01/09/21 Range/Units 03:19 03:19 03:59 WBC 17.3 H (3.8-10.6) k/uL RBC 2.09 L (3.80-5.40) m/uL Hgb 6.5 L* (11.4-16.0) gm/dL Hct 19.6 L* (34.0-46.0) % RDW 16.3 H (11.5-15.5) % Plt Count 112 L (150-450) k/uL Neutrophils # 14.4 H (1.3-7.7) k/uL Sodium 135 L (137-145) mmol/L BUN 29 H (7-17) mg/dL Creatinine 1.62 H (0.52-1.04) mg/dL Glucose 117 H (74-99) mg/dL POC Glucose (mg/dL) 125 H (75-99) mg/dL AST 104 H (14-36) U/L Alkaline Phosphatase 36 L (38-126) U/L Total Protein 4.8 L (6.3-8.2) g/dL Albumin 2.8 L (3.5-5.0) g/dL Crossmatch 01/09/21 01/09/21 01/09/21 Range/Units 05:15 06:23 07:05 WBC (3.8-10.6) k/uL RBC (3.80-5.40) m/uL Hgb (11.4-16.0) gm/dL Hct (34.0-46.0) % RDW (11.5-15.5) % Plt Count (150-450) k/uL Neutrophils # (1.3-7.7) k/uL Sodium (137-145) mmol/L BUN (7-17) mg/dL Creatinine (0.52-1.04) mg/dL Glucose (74-99) mg/dL POC Glucose (mg/dL) 123 H 125 H 111 H (75-99) mg/dL AST (14-36) U/L Alkaline Phosphatase (38-126) U/L Total Protein (6.3-8.2) g/dL Albumin (3.5-5.0) g/dL Crossmatch 01/09/21 01/09/21 01/09/21 Range/Units 08:10 09:34 11:14 WBC (3.8-10.6) k/uL RBC (3.80-5.40) m/uL Hgb (11.4-16.0) gm/dL Hct (34.0-46.0) % RDW (11.5-15.5) % Plt Count (150-450) k/uL Neutrophils # (1.3-7.7) k/uL Sodium (137-145) mmol/L BUN (7-17) mg/dL Creatinine (0.52-1.04) mg/dL Glucose (74-99) mg/dL POC Glucose (mg/dL) 108 H 125 H 148 H (75-99) mg/dL AST (14-36) U/L Alkaline Phosphatase (38-126) U/L Total Protein (6.3-8.2) g/dL Albumin (3.5-5.0) g/dL Crossmatch 01/09/21 01/09/21 01/09/21 Range/Units 11:19 11:58 13:10 WBC 19.6 H (3.8-10.6) k/uL RBC 2.74 L (3.80-5.40) m/uL Hgb 8.7 L D (11.4-16.0) gm/dL Hct 26.6 L (34.0-46.0) % RDW 15.7 H (11.5-15.5) % Plt Count 123 L (150-450) k/uL Neutrophils # (1.3-7.7) k/uL Sodium (137-145) mmol/L BUN (7-17) mg/dL Creatinine (0.52-1.04) mg/dL Glucose (74-99) mg/dL POC Glucose (mg/dL) 159 H 143 H (75-99) mg/dL AST (14-36) U/L Alkaline Phosphatase (38-126) U/L Total Protein (6.3-8.2) g/dL Albumin (3.5-5.0) g/dL Crossmatch Assessment and Plan Assessment: Severe aortic stenosis status post aortic valve replacement with a bovine prosthetic valve with root enlargement. Coronary artery disease status post CABG X 1 with SVG to OM. Acute blood loss anemia with thrombocytopenia, status post multiple blood products, intra & postoperative, expected outcome Postoperative atrial fibrillation Acute renal failure Left internal carotid stenosis Chronic CHF, Diastolic Hypothyroidism Gastroesophageal reflux disease Hypertension Hyperlipidemia MVP Rheumatoid arthritis History of CVA, TIA Obesity, BMI 27.6 Plan: Continue on current medication regime ,monitoring and symptomatic treatment. Maintain aggressive pulmonary toileting with incentive spirometer reinforced. Increase activity as tolerated. Tight control blood sugars with close monitoring(HGB A1c 5.),weaning off insulin drip. The impression and plan of care has been dictated as directed. : I performed a history and examination of this patient, discussed the same with the dictator. I agree with the dictator's note ,documented as a scribe. Any additional findings or plans will be noted.
[2021-01-09 15:03] LABS: Glucose,Whole Blood 141 mg/dL (75-99)
[2021-01-09 17:10] LABS: Glucose,Whole Blood 137 mg/dL (75-99)
[2021-01-09] MEDS: AMIODARONE 450 MG in DEXTROSE 5% IN WATER 250 ML IV PRN ×2 (17:49)
[2021-01-09] MEDS: MILRINONE-D5W PMX 20 MG in DEXTROSE/WATER 1 100ML.BAG IV SCH (17:49)
[2021-01-09 18:15] LABS: Glucose,Whole Blood 122 mg/dL (75-99)
[2021-01-09 22:22] LABS: Glucose,Whole Blood 120 mg/dL (75-99)
[2021-01-09 23:50] LABS: Glucose,Whole Blood 132 mg/dL (75-99)
[2021-01-10] MEDS: METOPROLOL TARTRATE 12.5 MG TAB PO SCH (00:19)
[2021-01-10] MEDS: ATORVASTATIN 20 MG TAB PO SCH ×2 (00:19→21:30)
[2021-01-10] MEDS: MELATONIN 3 MG TABLET PO SCH ×2 (00:19→21:30)
[2021-01-10] MEDS: SENNOSIDES-DOCUSATE SODIUM 1 EACH TAB PO SCH ×2 (00:20→21:30)
[2021-01-10 02:16] LABS: Glucose,Whole Blood 154 mg/dL (75-99)
[2021-01-10] MEDS: AMIODARONE 450 MG in DEXTROSE 5% IN WATER 250 ML IV PRN ×2 (03:48)
[2021-01-10 04:44] LABS: Glucose,Whole Blood 246 mg/dL (75-99)
[2021-01-10 05:12] LABS: Basophils # (A) 0.1 k/uL (0-0.2); Basophils % (A) 0 %; Eosinophils # (A) 0.3 k/uL (0-0.7); Eosinophils % (A) 1 %; HGB 7.6 gm/dL (11.4-16.0); Lymphocytes # (A) 2.3 k/uL (1.0-4.8); Lymphocytes % (A) 11 %; MCH 31.7 pg (25.0-35.0); Mean Platelet Volume 10.9; Monocytes # (A) 1.1 k/uL (0-1.0); Monocytes % (A) 6 %; Neutrophils # (A) 16.4 k/uL (1.3-7.7); Neutrophils % (A) 80 %; Platelet Count 114 k/uL (150-450); RDW 15.4 % (11.5-15.5); WBC 20.4 k/uL (3.8-10.6)
[2021-01-10 05:44] LABS: Albumin 2.2 g/dL (3.5-5.0); Potassium 4.4 mmol/L (3.5-5.1); Total Bilirubin 0.8 mg/dL (0.2-1.3); Total Protein 4.2 g/dL (6.3-8.2)
[2021-01-10 06:49] LABS: Glucose,Whole Blood 109 mg/dL (75-99)
[2021-01-10] MEDS ORDERED: DEXTROSE 5% IN WATER 100 ML with AMIODARONE 150 MG IV ONE (07:30)
[2021-01-10] MEDS ORDERED: CALCIUM GLUCONATE 2 GM in SODIUM CHLORIDE 0.9% 100 ML IVPB ONE (07:42)
[2021-01-10] MEDS ORDERED: METOCLOPRAMIDE 5 MG/ML 2 ML VIAL IVP STA (07:54)
--- NOTE | 2021-01-10 08:10 | XR ---
EXAMINATION TYPE: XR chest 1V portable DATE OF EXAM: 01/10/2021 COMPARISON: 01/09/2021 HISTORY: Postcardiac surgery TECHNIQUE: Single frontal view of the chest is obtained. FINDINGS: [place]-Belkis catheter is in unchanged position. Left chest tube is redemonstrated. Patchy airspace disease bilaterally appears similar to the prior examination. Cardiac silhouette is unchanged with postoperative changes. IMPRESSION: No significant change since the prior exam.
[2021-01-10] MEDS: HEPARIN SODIUM,PORCINE/PF 5,000 UNIT/0.5 ML SYRINGE SQ SCH ×3 (08:34→16:51)
[2021-01-10] MEDS: THYROID, PORK 30 MG TAB PO SCH (08:42)
[2021-01-10] MEDS: CLOPIDOGREL 75 MG TAB PO SCH (08:42)
[2021-01-10] MEDS: PANTOPRAZOLE 40 MG TABLET PO SCH ×2 (08:42→16:52)
[2021-01-10] MEDS: ASPIRIN 81 MG PO SCH (08:42)
[2021-01-10] MEDS: METOPROLOL TARTRATE 25 MG TAB PO SCH ×2 (08:44→21:30)
[2021-01-10] MEDS: IPRATROPIUM-ALBUTEROL 3 ML NEB INHALATION SCH ×4 (09:19→20:28)
[2021-01-10 09:21] LABS: Glucose,Whole Blood 108 mg/dL (75-99)
--- NOTE | 2021-01-10 09:37 | P.PN ---
Subjective Progress Note Date: 01/10/21 Principal diagnosis: Severe aortic stenosis with insufficiency, mitral stenosis with insufficiency and heavy mitral annular calcification, coronary artery disease. Previous medical history of hypertension, hyperlipidemia with refusal of statin medication in the past, hypothyroidism, left internal carotid stenosis 50-79%, TIA in 2008, GERD, arthritis, never smoker, family history of premature coronary artery disease, as well as family history of heart failure and possible valvular heart disease POD #3 aortic valve replacement with a 21 mm Inspiris bovine pericardial valve with root enlargement with bovine pericardial patch, coronary artery bypass grafting 1 with reverse saphenous vein graft to the obtuse marginal artery, epi-aortic ultrasound, endovascular vein harvest of the left greater saphenous vein from the thigh, ligation of the left atrial appendage with a 35 mm AtriCure clip Intraoperative and postoperative acute blood loss anemia and thrombocytopenia, expected given hemodilution and cardiopulmonary bypass pump requiring multiple blood products Postoperative atrial fibrillation, known common occurrence after open heart surgery, especially valve surgery The patient is currently sitting up in bed in the intensive care unit in no acute distress. She does complain of post surgical pain, denies shortness of breath. She did have atrial fibrillation yesterday, was initiated on amiodarone with conversion back to normal sinus rhythm. She was started on low-dose beta benton yesterday, however she refused her second dose of Lopressor as well as her thyroid medication yesterday, this morning she again went into atrial fibrillation with rapid ventricular response. She is oxygenating well on 2 L nasal cannula. Right internal jugular [place]/Cordis, left pleural chest tube remain present. Received 1 unit packed red blood cells yesterday followed by 20 mg IV push Lasix, hemoglobin 7.6 this morning. She was quite confused yesterday and agitated, this morning she is more calm, she does know she is in the hospital and that its 2020 although she is a bit fearful and distrustful of staff. Daughter is at the bedside. Objective - Vital Signs Vital signs: Vital Signs Temp 98.1 F 01/10/21 04:00 Pulse 137 H 01/10/21 07:00 Resp 10 L 01/10/21 07:00 BP 111/56 01/10/21 07:00 Pulse Ox 96 01/10/21 07:00 Intake & Output 01/09/21 01/10/21 01/10/21 18:59 06:59 18:59 Intake Total 1223.734 706.125 Output Total 630 210 Balance 593.734 496.125 Weight 80.6 kg Intake: IV 598 528 ACETAMINOPHEN IV (For NPO 100 ) 1,000 mg In Empty Bag 1 bag @ 400 mls/hr IVPB ONCE STA Rx#:[id number] Lactated Ringers 1,000 ml 360 390 @ 20 mls/hr IV .Q24H [facility] Rx#:[id number] cardiac output 60 60 pressure bags 78 78 Intake, IV Titration 315.734 178.125 Amount Amiodarone 360 mg In 207.2 Dextrose 5% in Water 200 ml @ 1 MG/MIN 34.533 mls/ hr IV .Q6H [facility] Rx#: [id number] Amiodarone 450 mg In 166.392 Dextrose 5% in Water 250 ml @ 0.5 MG/MIN 16.667 mls/hr IV .Q15H [facility] Rx#: [id number] Insulin Regular 100 unit 13.083 11.733 In Sodium Chloride 0.9% 100 ml @ Per Protocol IV .Q0M [facility] Rx#:[id number] Milrinone-D5w Pmx 20 mg 95.451 In Dextrose/Water 1 100ml .bag @ 0.2 MCG/KG/MIN 4. 056 mls/hr IV .Q24H [facility] Rx#:[id number] Blood Product 310 Rc As-1 Unit 310 [id number] Output: Chest Tube Drainage 180 20 left pleural 140 20 right pleural 40 Urine 450 190 Other: Voiding Method Indwelling Catheter Indwelling Catheter ABP, PAP, CO, CI - Last Documented Arterial Blood Pressure 198/193 Pulmonary Artery Pressure 40/20 Cardiac Output 3.7 Cardiac Index 2.2 - Exam CONSTITUTIONAL: Appears comfortable, calm, cooperative with daughter at the bedside RESPIRATORY: Lungs sounds diminished bilaterally. Respirations even, nonlabored. Currently on 2 L nasal cannula with oxygen saturation 98%. Weak cough. CARDIOVASCULAR: S1, S2 present, positive murmur. Tachy and irregular rate and rhythm, uncontrolled atrial fibrillation on telemetry. Sternum stable. Palpable peripheral pulses bilaterally. Trace generalized edema present. No calf pain or tenderness noted. Heart hugger in place with patient demonstrating appropriate use. Antiembolism stockings, SCDs present. GASTROINTESTINAL: Abdomen soft, nontender, nondistended. Hypoactive bowel sounds present 4 quadrants. Tolerating clear liquids. Negative flatus GENITOURINARY: Owens present draining clear, yellow urine. Output overnight 10-25 mL per hour, approximately 300 mL output after IV Lasix given yesterday INTEGUMENTARY: Skin is warm and dry. Anterior chest incision well approximated and covered with dry intact dressing. Left lower extremity EVH site well approximated without redness or drainage NEUROLOGIC: Cranial nerves II through XII intact MUSKULOSKELETAL: Able to move all extremities, strength equal but weak bila terally PSYCHIATRIC: Alert and oriented to person place and time, fearful and distrustful of staff INVASIVE LINES AND TUBES: Right pleural chest tube present and connected to wall suction, no air leaks present, 35 mL serosanguineous drainage overnight, 350 mL in the last 24 hours. A/V epicardial pacemaker wires present, connected to generator, backup rate 50 bpm. Right internal jugular [place]/Cordis present. Last CO/CI 3.7/2.2, PA 34/18, CVP 18. - Allied health notes Allied health notes reviewed: nursing - Labs CBC & Chem 7: 01/10/21 04:58 01/10/21 04:58 Labs: Abnormal Lab Results - Last 24 Hours (Table) 01/09/21 01/09/21 01/09/21 Range/Units 09:34 11:14 11:19 WBC 19.6 H (3.8-10.6) k/uL RBC 2.74 L (3.80-5.40) m/uL Hgb 8.7 L D (11.4-16.0) gm/dL Hct 26.6 L (34.0-46.0) % RDW 15.7 H (11.5-15.5) % Plt Count 123 L (150-450) k/uL Neutrophils # (1.3-7.7) k/uL Monocytes # (0-1.0) k/uL Sodium (137-145) mmol/L Carbon Dioxide (22-30) mmol/L BUN (7-17) mg/dL Creatinine (0.52-1.04) mg/dL Glucose (74-99) mg/dL POC Glucose (mg/dL) 125 H 148 H (75-99) mg/dL Calcium (8.4-10.2) mg/dL AST (14-36) U/L Total Protein (6.3-8.2) g/dL Albumin (3.5-5.0) g/dL 01/09/21 01/09/21 01/09/21 Range/Units 11:58 13:10 15:02 WBC (3.8-10.6) k/uL RBC (3.80-5.40) m/uL Hgb (11.4-16.0) gm/dL Hct (34.0-46.0) % RDW (11.5-15.5) % Plt Count (150-450) k/uL Neutrophils # (1.3-7.7) k/uL Monocytes # (0-1.0) k/uL Sodium (137-145) mmol/L Carbon Dioxide (22-30) mmol/L BUN (7-17) mg/dL Creatinine (0.52-1.04) mg/dL Glucose (74-99) mg/dL POC Glucose (mg/dL) 159 H 143 H 141 H (75-99) mg/dL Calcium (8.4-10.2) mg/dL AST (14-36) U/L Total Protein (6.3-8.2) g/dL Albumin (3.5-5.0) g/dL 01/09/21 01/09/21 01/09/21 Range/Units 17:08 18:14 22:20 WBC (3.8-10.6) k/uL RBC (3.80-5.40) m/uL Hgb (11.4-16.0) gm/dL Hct (34.0-46.0) % RDW (11.5-15.5) % Plt Count (150-450) k/uL Neutrophils # (1.3-7.7) k/uL Monocytes # (0-1.0) k/uL Sodium (137-145) mmol/L Carbon Dioxide (22-30) mmol/L BUN (7-17) mg/dL Creatinine (0.52-1.04) mg/dL Glucose (74-99) mg/dL POC Glucose (mg/dL) 137 H 122 H 120 H (75-99) mg/dL Calcium (8.4-10.2) mg/dL AST (14-36) U/L Total Protein (6.3-8.2) g/dL Albumin (3.5-5.0) g/dL 01/09/21 01/10/21 01/10/21 Range/Units 23:48 02:15 04:42 WBC (3.8-10.6) k/uL RBC (3.80-5.40) m/uL Hgb (11.4-16.0) gm/dL Hct (34.0-46.0) % RDW (11.5-15.5) % Plt Count (150-450) k/uL Neutrophils # (1.3-7.7) k/uL Monocytes # (0-1.0) k/uL Sodium (137-145) mmol/L Carbon Dioxide (22-30) mmol/L BUN (7-17) mg/dL Creatinine (0.52-1.04) mg/dL Glucose (74-99) mg/dL POC Glucose (mg/dL) 132 H 154 H 246 H (75-99) mg/dL Calcium (8.4-10.2) mg/dL AST (14-36) U/L Total Protein (6.3-8.2) g/dL Albumin (3.5-5.0) g/dL 01/10/21 01/10/21 01/10/21 Range/Units 04:58 04:58 06:47 WBC 20.4 H (3.8-10.6) k/uL RBC 2.40 L (3.80-5.40) m/uL Hgb 7.6 L (11.4-16.0) gm/dL Hct 23.0 L (34.0-46.0) % RDW (11.5-15.5) % Plt Count 114 L (150-450) k/uL Neutrophils # 16.4 H (1.3-7.7) k/uL Monocytes # 1.1 H (0-1.0) k/uL Sodium 126 L (137-145) mmol/L Carbon Dioxide 20 L (22-30) mmol/L BUN 37 H (7-17) mg/dL Creatinine 1.44 H (0.52-1.04) mg/dL Glucose 310 H (74-99) mg/dL POC Glucose (mg/dL) 109 H (75-99) mg/dL Calcium 7.0 L (8.4-10.2) mg/dL AST 74 H (14-36) U/L Total Protein 4.2 L (6.3-8.2) g/dL Albumin 2.2 L (3.5-5.0) g/dL 01/10/21 Range/Units 09:19 WBC (3.8-10.6) k/uL RBC (3.80-5.40) m/uL Hgb (11.4-16.0) gm/dL Hct (34.0-46.0) % RDW (11.5-15.5) % Plt Count (150-450) k/uL Neutrophils # (1.3-7.7) k/uL Monocytes # (0-1.0) k/uL Sodium (137-145) mmol/L Carbon Dioxide (22-30) mmol/L BUN (7-17) mg/dL Creatinine (0.52-1.04) mg/dL Glucose (74-99) mg/dL POC Glucose (mg/dL) 108 H (75-99) mg/dL Calcium (8.4-10.2) mg/dL AST (14-36) U/L Total Protein (6.3-8.2) g/dL Albumin (3.5-5.0) g/dL - Imaging and Cardiology Chest x-ray: report reviewed, image reviewed Assessment and Plan Assessment: 1. Severe aortic stenosis with insufficiency, status post operative site aortic valve replacement with root enlargement 2. Mitral stenosis with insufficiency and heavy mitral annular calcification 3. Coronary artery disease, status post single vessel CABG 4. History of hypertension 5. Hyperlipidemia with refusal of statin medication in the past, cholesterol 226, LDL 165 6. Hypothyroidism, recent TSH 2.69, free T4 0.8 7. Left internal carotid stenosis 50-79% 8. TIA in 2009 9. GERD 10. Arthritis 11. Never smoker, preoperative FEV1 83% of predicted 12. Family history of premature coronary artery disease, brother diagnosed with CAD in his 40s with subsequent 2 vessel CABG 13. Family history of heart failure and possible valvular heart disease 14. Intraoperative and postoperative acute blood loss anemia and thrombocytopenia, expected, requiring multiple blood products 15. Postoperative atrial fibrillation, status post exclusion of the left atrial appendage Plan: 1. Continue low-dose aspirin, statin, Plavix, beta benton. Will increase as tolerated, increase to 25 mg twice daily today 2. Continue amiodarone, will transition to oral, no anticoagulation at this point 3. Will recheck CO/CI off Primacor, if index remains greater than 2.2 will discontinue Primacor. If index 2.2 or less will continue Primacor at 0.1 mg/kg/m for another 24 hours 4. Wean O2 as tolerated. Encourage incentive spirometry use 10 times every hour while awake. Bronchodilators per pulmonology 5. Increase activity, ambulate as tolerated. PT/OT/cardiac rehab consulted. The patient should be out of bed for all meals and needs strict encouragement to get up and ambulate 6. Will monitor daily labs and x-rays. Electrolyte replacement per protocol. No Lasix today. Fluid restriction 1500 mL 7. GI/DVT prophylaxis 8. Pain control per current medication regimen 9. Insulin management per primary care service. Patient is not diabetic, preoperative hemoglobin A1c 5%, but patient does need tight blood sugar control to prevent infection and promote sternal union 10. Likely will discontinue [place] later this afternoon 11. Will discontinue left pleural chest tube 12. Continue Owens catheter for another 24 hours for strict accurate intake and output. Daily weights 13. More recommendations to follow Time with Patient: Greater than 30
[2021-01-10] MEDS ORDERED: bisacodyL 10 MG SUPP RECTAL SCH (10:00)
--- NOTE | 2021-01-10 10:31 | PN ---
PROGRESS NOTE Mrs. Crowell is an 85-year-old female who underwent aortic valve replacement and coronary artery bypass grafting. She was quite confused last night. She is better this morning. She still has some episodes of confusion. She went in atrial fibrillation with rapid ventricular response. She is receiving IV amiodarone. Otherwise, her blood pressure is stable. Her urine output is stable. There is no evidence of malignant arrhythmia. She was transfused yesterday because of significant anemia. She continues to be on IV Primacor. MEDICATION: Otherwise include: Aspirin 81 mg daily, Lipitor 20 mg daily, Plavix 75 mg daily, metoprolol tartrate 25 mg twice a day in addition to IV amiodarone. PHYSICAL EXAMINATION: Blood pressure 111/60 with a heart rate in the 130s. Lungs with decreased breath sounds at the bases. No wheezes. Heart irregularly irregular S1, S2. Tachycardic with a systolic murmur. No diastolic murmur. Abdomen: Soft and nontender. Positive bowel sounds. No megaly. Extremities: No edema. LAB DATA: Hemoglobin 7.6, white blood cell 20.4. BUN and creatinine 37 and 1.44, potassium 4.4, sodium 126. IMPRESSION: 1. 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 2. Status post coronary artery bypass grafting. 3. Atrial fibrillation. 4. Confusion, improving. 5. Anemia. 6. Renal failure acute, improving. 7. Hyperlipidemia. RECOMMENDATIONS: From the cardiac standpoint, we will continue present therapy. Continue amiodarone. Depending on the duration of her atrial fibrillation, decision will be made down the road regarding the need to receive anticoagulation. MMODL / IJN: [id number] /
[2021-01-10 10:33] LABS: Glucose,Whole Blood 113 mg/dL (75-99)
[2021-01-10] MEDS: CHOLECALCIFEROL 25 MCG (1000 IU) TABLET PO SCH (11:12)
[2021-01-10] MEDS: ASCORBIC ACID 500 MG TAB PO SCH (11:12)
[2021-01-10] MEDS: AMIODARONE 200 MG TAB PO SCH ×2 (11:17→21:29)
[2021-01-10] MEDS: LACTATED RINGERS 1,000 ML IV SCH (11:18)
--- NOTE | 2021-01-10 11:18 | P.PN ---
Subjective Progress Note Date: 01/10/21 Principal diagnosis: Severe aortic valve stenosis, CAD This is a pleasant 85-year-old female patient with a known history of TIA, gastroesophageal reflux disease, hyperlipidemia, hypertension, rheumatoid arthritis, hypothyroidism. She is a lifelong nonsmoker. She was found to have severe aortic stenosis and single-vessel coronary artery disease and presented here yesterday for an elective surgery. She did undergo saphenous vein graft to the obtuse marginal artery. Aortic valve replacement with a bovine bioprosthetic valve. Postoperative day #1. She remains on a nitroglycerin drip at 5 g per hour, insulin drip at 2.5 units per hour, Primacor at 0.2 mcg/kg/m. Lactated Ringer's at 50 MLS per hour. She currently has a paced rhythm at 80 bpm. Right internal jugular Cordis in place, right radial arterial line in place. Mediastinal, left and right chest tubes remain in place. She is status post 5 units of packed red blood cells, 4 units of fresh frozen plasma, 2 platelets, 2 pooled cryoprecipitate. Creatinine blood pressure 67. PA pressure 29/15 with a mean of 19. Cardiac output 4.8. Cardiac index 2.9. White count 10.5. Hemoglobin 7.7. Platelets 100,000. Sodium 140. Potassium 3.7. Creatinine 0.96. Glucose 141. AST 93. ALT 16. She is currently sitting up in a chair at the bedside. Awake and alert in no acute distress. So having issues from surgical site pain. She is on 2 L nasal cannula maintaining good O2 saturations in the 90s. Needs increased encouragement regarding the incentive spirometer. [place] on bronchodilators. Heparin for DVT prophylaxis. The patient is seen today 01/09/2021 in follow-up in the intensive care unit. Postoperative day #2. Sitting up in a chair at the bedside. She is currently on oxygen at 2 L/m per nasal cannula. Chest x-ray reveals patchy airspace disease bilaterally. Mediastinal chest tube is been removed. Right and left chest tubes remain in place. White count 17.3. Hemoglobin 6.5. Platelets 112,000. Sodium 135. Potassium 4.4. Creatinine 1.62. AST 104. ALT 10. Glucose 108. She is continued on bronchodilators. Working with the incentive spirometer. She remains on Lactated Ringer's at 30 mL per hour. Primacor at 0.1 mcg/kg/m. Insulin is currently on hold. One unit of packed red blood cells has been ordered. Cardiac output 5.1. Cardiac index 3.1. PA pressures 34/13 with a mean of 20. On 01/10/2021 patient seen in follow-up in the intensive care unit, today is po stoperative day #3, status post aortic valve replacement, and one-vessel coronary artery bypass grafting with SVG to the OM. Patient is doing well, he is awake and alert, oriented 3, she is mildly short of breath, but appears to be in no acute distress, she is currently on 2 L of oxygen pulse ox is 97%, she is in A. fib with RVR with a rate of 144, she is currently on amiodarone currently running at 0.5 mg/m, 0.9 normal saline at 30 ML per hour, and insulin is currently on hold. Blood pressure is 114/50, she still has her [place]-Belkis catheter in place, PA pressures 44/28, CVP is unknown, currently has IV fluids infusing through it, cardiac output is 3.7, and cardiac index is 2.2, patient wa s on milrinone which is currently discontinued. She is resting in bed, denies any acute distress, no complaints of chest discomfort, incisions are clean dry and intact. Today's chest x-ray shows patchy airspace disease bilaterally. Today's labs have been noted, white blood cell count is 20.4, hemoglobin is 7.6, sodium is 126, potassium is 4.4, chloride is 99, CO2 is 20, B1 is 37, creatinine is 1.44. Right and left pleural chest tubes in place, and there has been a total of 160 mL of serosanguineous output from the left pleural and right pleural put out only 40 mL of serosanguineous output in the last 24 hours. Urine output is in the order of 45-50 ML per hour, she received a dose of IV Lasix per CT surgery yesterday, she is significantly in positive fluid balance, +1089 mL over the last 24 hours. She had multiple blood products in the postoperative period, including 6 units of PRBCs, 4 units of FFP, 2 units of platelets, 2 units of pooled cryoprecipitate. Objective - Vital Signs Vital signs: Vital Signs Temp 98.1 F 01/10/21 04:00 Pulse 122 H 01/10/21 10:00 Resp 22 01/10/21 10:00 BP 114/50 01/10/21 10:00 Pulse Ox 97 01/10/21 10:00 Intake & Output 01/09/21 01/10/21 01/10/21 18:59 06:59 18:59 Intake Total 1223.734 706.125 608 Output Total 630 210 220 Balance 593.734 496.125 388 Weight 80.6 kg Intake: IV 598 528 108 ACETAMINOPHEN IV (For NPO 100 ) 1,000 mg In Empty Bag 1 bag @ 400 mls/hr IVPB ONCE STA Rx#:[id number] Lactated Ringers 1,000 ml 360 390 60 @ 20 mls/hr IV .Q24H [facility] Rx#:[id number] cardiac output 60 60 30 pressure bags 78 78 18 Intake, IV Titration 315.734 178.125 100 Amount Amiodarone 360 mg In 207.2 Dextrose 5% in Water 200 ml @ 1 MG/MIN 34.533 mls/ hr IV .Q6H PRN Rx#: [id number] Amiodarone 450 mg In 166.392 Dextrose 5% in Water 250 ml @ 0.5 MG/MIN 16.667 mls/hr IV .Q15H PRN Rx#: [id number] Calcium Gluconate 2 gm In 100 Sodium Chloride 0.9% 100 ml @ 60 mls/hr IVPB ONCE ONE Rx#:[id number] Insulin Regular 100 unit 13.083 11.733 In Sodium Chloride 0.9% 100 ml @ Per Protocol IV .Q0M [facility] Rx#:[id number] Milrinone-D5w Pmx 20 mg 95.451 In Dextrose/Water 1 100ml .bag @ 0.2 MCG/KG/MIN 4. 056 mls/hr IV .Q24H [facility] Rx#:[id number] Oral 400 Blood Product 310 Rc As-1 Unit 310 [id number] Output: Chest Tube Drainage 180 20 50 left pleural 140 20 50 right pleural 40 Urine 450 190 170 Other: Voiding Method Indwelling Catheter Indwelling Catheter ABP, PAP, CO, CI - Last Documented Arterial Blood Pressure 198/193 Pulmonary Artery Pressure 44/28 Cardiac Output 3.7 Cardiac Index 2.2 - Exam GENERAL EXAM: Alert, very pleasant, 85-year-old white female, on 2 L of oxygen, with pulse ox of 97-100%, mildly short of breath with conversation, but no apparent distress. HEAD: Normocephalic/atraumatic. EYES: Normal reaction of pupils, equal size. Conjunctiva pink, sclera white. NOSE: Clear with pink turbinates. THROAT: No erythema or exudates. NECK: No masses, no JVD, no thyroid enlargement, no adenopathy. CHEST: No chest wall deformity. Symmetrical expansion. Midsternal incisions clean dry and intact, chest tube sites are clean dry and intact, left pleural and right pleural chest tubes connected to Pleur-evac skin wall suction, with small amount of serosanguineous output, no evidence of air leak noted. The epicardial wires connected to external pacemaker box with backup rate of DDD at 50, intrinsic rhythm A. fib with RVR with a rate of 140 BPM LUNGS: Equal air entry with no crackles, wheeze, rhonchi or dullness. CVS: Irregular rate and rhythm, normal S1 and S2, no gallops, no murmurs, no rubs ABDOMEN: Soft, nontender. No hepatosplenomegaly, normal bowel sounds, no guarding or rigidity. EXTREMITIES: No clubbing, mild edema, no cyanosis, 2+ pulses and upper and lower extremities. MUSCULOSKELETAL: Muscle strength and tone normal. SPINE: No scoliosis or deformity SKIN: No rashes CENTRAL NERVOUS SYSTEM: Alert and oriented -3. No focal deficits, tone is normal in all 4 extremities. PSYCHIATRIC: Alert and oriented -3. Appropriate affect. Intact judgment and insight. - Labs CBC & Chem 7: 01/10/21 04:58 01/10/21 04:58 Labs: Abnormal Lab Results - Last 24 Hours (Table) 01/09/21 01/09/21 01/09/21 Range/Units 11:14 11:19 11:58 WBC 19.6 H (3.8-10.6) k/uL RBC 2.74 L (3.80-5.40) m/uL Hgb 8.7 L D (11.4-16.0) gm/dL Hct 26.6 L (34.0-46.0) % RDW 15.7 H (11.5-15.5) % Plt Count 123 L (150-450) k/uL Neutrophils # (1.3-7.7) k/uL Monocytes # (0-1.0) k/uL Sodium (137-145) mmol/L Carbon Dioxide (22-30) mmol/L BUN (7-17) mg/dL Creatinine (0.52-1.04) mg/dL Glucose (74-99) mg/dL POC Glucose (mg/dL) 148 H 159 H (75-99) mg/dL Calcium (8.4-10.2) mg/dL AST (14-36) U/L Total Protein (6.3-8.2) g/dL Albumin (3.5-5.0) g/dL 01/09/21 01/09/21 01/09/21 Range/Units 13:10 15:02 17:08 WBC (3.8-10.6) k/uL RBC (3.80-5.40) m/uL Hgb (11.4-16.0) gm/dL Hct (34.0-46.0) % RDW (11.5-15.5) % Plt Count (150-450) k/uL Neutrophils # (1.3-7.7) k/uL Monocytes # (0-1.0) k/uL Sodium (137-145) mmol/L Carbon Dioxide (22-30) mmol/L BUN (7-17) mg/dL Creatinine (0.52-1.04) mg/dL Glucose (74-99) mg/dL POC Glucose (mg/dL) 143 H 141 H 137 H (75-99) mg/dL Calcium (8.4-10.2) mg/dL AST (14-36) U/L Total Protein (6.3-8.2) g/dL Albumin (3.5-5.0) g/dL 01/09/21 01/09/21 01/09/21 Range/Units 18:14 22:20 23:48 WBC (3.8-10.6) k/uL RBC (3.80-5.40) m/uL Hgb (11.4-16.0) gm/dL Hct (34.0-46.0) % RDW (11.5-15.5) % Plt Count (150-450) k/uL Neutrophils # (1.3-7.7) k/uL Monocytes # (0-1.0) k/uL Sodium (137-145) mmol/L Carbon Dioxide (22-30) mmol/L BUN (7-17) mg/dL Creatinine (0.52-1.04) mg/dL Glucose (74-99) mg/dL POC Glucose (mg/dL) 122 H 120 H 132 H (75-99) mg/dL Calcium (8.4-10.2) mg/dL AST (14-36) U/L Total Protein (6.3-8.2) g/dL Albumin (3.5-5.0) g/dL 01/10/21 01/10/21 01/10/21 Range/Units 02:15 04:42 04:58 WBC 20.4 H (3.8-10.6) k/uL RBC 2.40 L (3.80-5.40) m/uL Hgb 7.6 L (11.4-16.0) gm/dL Hct 23.0 L (34.0-46.0) % RDW (11.5-15.5) % Plt Count 114 L (150-450) k/uL Neutrophils # 16.4 H (1.3-7.7) k/uL Monocytes # 1.1 H (0-1.0) k/uL Sodium (137-145) mmol/L Carbon Dioxide (22-30) mmol/L BUN (7-17) mg/dL Creatinine (0.52-1.04) mg/dL Glucose (74-99) mg/dL POC Glucose (mg/dL) 154 H 246 H (75-99) mg/dL Calcium (8.4-10.2) mg/dL AST (14-36) U/L Total Protein (6.3-8.2) g/dL Albumin (3.5-5.0) g/dL 01/10/21 01/10/21 01/10/21 Range/Units 04:58 06:47 09:19 WBC (3.8-10.6) k/uL RBC (3.80-5.40) m/uL Hgb (11.4-16.0) gm/dL Hct (34.0-46.0) % RDW (11.5-15.5) % Plt Count (150-450) k/uL Neutrophils # (1.3-7.7) k/uL Monocytes # (0-1.0) k/uL Sodium 126 L (137-145) mmol/L Carbon Dioxide 20 L (22-30) mmol/L BUN 37 H (7-17) mg/dL Creatinine 1.44 H (0.52-1.04) mg/dL Glucose 310 H (74-99) mg/dL POC Glucose (mg/dL) 109 H 108 H (75-99) mg/dL Calcium 7.0 L (8.4-10.2) mg/dL AST 74 H (14-36) U/L Total Protein 4.2 L (6.3-8.2) g/dL Albumin 2.2 L (3.5-5.0) g/dL 01/10/ Range/Units 10:32 WBC (3.8-10.6) k/uL RBC (3.80-5.40) m/uL Hgb (11.4-16.0) gm/dL Hct (34.0-46.0) % RDW (11.5-15.5) % Plt Count (150-450) k/uL Neutrophils # (1.3-7.7) k/uL Monocytes # (0-1.0) k/uL Sodium (137-145) mmol/L Carbon Dioxide (22-30) mmol/L BUN (7-17) mg/dL Creatinine (0.52-1.04) mg/dL Glucose (74-99) mg/dL POC Glucose (mg/dL) 113 H (75-99) mg/dL Calcium (8.4-10.2) mg/dL AST (14-36) U/L Total Protein (6.3-8.2) g/dL Albumin (3.5-5.0) g/dL Assessment and Plan Plan: Assessment: #1. Severe aortic stenosis, with insufficiency, status post aortic valve replacement with root enlargement, postoperative day #3 #2. Mitral stenosis with insufficiency and heavy mitral annular calcification #3. Coronary artery disease status post single-vessel coronary artery bypass grafting, postoperative day #3 #4. A. fib with RVR, currently on amiodarone infusion, patient is status post left atrial appendage exclusion #5. Shortness of breath, likely related to A. fib with RVR #6. Hypertension #7. Hyperlipidemia #8. Hypothyroidism #9. Left carotid artery stenosis #10. History of TIA #11. GERD #12. 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 Family history of premature coronary artery disease Plan: Today's chest x-ray has been reviewed Encourage deep breathing and coughing Diuretics per CT surgery Patient remains in A. fib with RVR, antiarrhythmics, rate control medications and anticoagulation per CT surgery and cardiology GI/DVT prophylasix We'll continue close monitoring in the intensive care unit I performed a history & physical examination of the patient and discussed their management with my nurse practitioner, Katie Lugo. I reviewed the nurse practitioner's note and agree with the documented findings and plan of care. Lung sounds are positive for dim. sounds with bibasilar crackles The findings and the impression was discussed with the patient. I attest to the documenta tion by the nurse practitioner. Time with Patient: Greater than 30
--- NOTE | 2021-01-10 11:20 | P.PN ---
Subjective 85-year-old female is admitted for coronary bypass grafting and I did call replacement with a valid by a prosthetic aortic valve patient is on the am iodarone drip. Patient is quite a bit confused, patient has leukocytosis which he has been worsening without any fever. Septic workup is being obtained at this time. Patient was on milrinone which was discontinued. Patient was on insulin drip which will be discontinued and patient is bit hypoglycemic at this time. Patient can use to have [place]-Belkis catheter. Review of systems: As documented in her clinical condition patient is quite a bit confused due to ICU delirium All inpatient medications were reviewed and appropriate changes in these medications as dictated in the interval history and assessment and plan. . PHYSICAL EXAMINATION: GENERAL: The patient is alert and confused not in any acute distress. Well developed, well nourished. HEENT: Pupils are round and equally reacting to light. EOMI. No scleral icterus. No conjunctival pallor. Normocephalic, atraumatic. No pharyngeal erythema. No thyromegaly. CARDIOVASCULAR: S1 and S2 present. No murmurs, rubs, or gallops. PULMONARY: Chest is clear to auscultation, no wheezing or crackles. ABDOMEN: Soft, nontender, nondistended, normoactive bowel sounds. No palpable organomegaly. MUSCULOSKELETAL: No joint swelling or deformity. EXTREMITIES: No cyanosis, clubbing, or pedal edema. NEUROLOGICAL: Gross neurological examination did not reveal any focal deficits. SKIN: No rashes. Assessment and plan -Coronary artery disease status post coronary artery bypass grafting with saphenous vein graft to obtuse marginal postoperative day 2 -[place] dextrose is status post right valve replacement with a bioprosthetic aortic valve -Postoperative atrial fibrillation for which patient is on amiodarone -Leukocytosis worsening since surgery: Septic workup as mentioned above -Hyperlipidemia Hypothyroidism -Confusion, delirium: Secondary to hospitalization are ICU delirium -Hypothyroidism -Elevated blood sugars for surgery presently hypoglycemic, IV insulin will risk and urine patient will be started on sliding scale insulin Objective - Vital Signs Vital signs: Vital Signs Temp 98.1 F 01/10/21 04:00 Pulse 122 H 01/10/21 10:00 Resp 22 01/10/21 10:00 BP 114/50 01/10/21 10:00 Pulse Ox 97 01/10/21 10:00 Intake & Output 01/09/21 01/10/21 01/10/21 18:59 06:59 18:59 Intake Total 1223.734 706.125 608 Output Total 630 210 220 Balance 593.734 496.125 388 Weight 80.6 kg Intake: IV 598 528 108 ACETAMINOPHEN IV (For NPO 100 ) 1,000 mg In Empty Bag 1 bag @ 400 mls/hr IVPB ONCE STA Rx#:[id number] Lactated Ringers 1,000 ml 360 390 60 @ 20 mls/hr IV .Q24H [facility] Rx#:[id number] cardiac output 60 60 30 pressure bags 78 78 18 Intake, IV Titration 315.734 178.125 100 Amount Amiodarone 360 mg In 207.2 Dextrose 5% in Water 200 ml @ 1 MG/MIN 34.533 mls/ hr IV .Q6H PRN Rx#: [id number] Amiodarone 450 mg In 166.392 Dextrose 5% in Water 250 ml @ 0.5 MG/MIN 16.667 mls/hr IV .Q15H PRN Rx#: [id number] Calcium Gluconate 2 gm In 100 Sodium Chloride 0.9% 100 ml @ 60 mls/hr IVPB ONCE ONE Rx#:[id number] Insulin Regular 100 unit 13.083 11.733 In Sodium Chloride 0.9% 100 ml @ Per Protocol IV .Q0M [facility] Rx#:[id number] Milrinone-D5w Pmx 20 mg 95.451 In Dextrose/Water 1 100ml .bag @ 0.2 MCG/KG/MIN 4. 056 mls/hr IV .Q24H [facility] Rx#:[id number] Oral 400 Blood Product 310 Rc As-1 Unit 310 [id number] Output: Chest Tube Drainage 180 20 50 left pleural 140 20 50 right pleural 40 Urine 450 190 170 Other: Voiding Method Indwelling Catheter Indwelling Catheter ABP, PAP, CO, CI - Last Documented Arterial Blood Pressure 198/193 Pulmonary Artery Pressure 44/28 Cardiac Output 3.7 Cardiac Index 2.2 - Labs CBC & Chem 7: 01/10/21 04:58 01/10/21 04:58 Labs: Abnormal Lab Results - Last 24 Hours (Table) 01/09/21 01/09/21 01/09/21 Range/Units 11:19 11:58 13:10 WBC 19.6 H (3.8-10.6) k/uL RBC 2.74 L (3.80-5.40) m/uL Hgb 8.7 L D (11.4-16.0) gm/dL Hct 26.6 L (34.0-46.0) % RDW 15.7 H (11.5-15.5) % Plt Count 123 L (150-450) k/uL Neutrophils # (1.3-7.7) k/uL Monocytes # (0-1.0) k/uL Sodium (137-145) mmol/L Carbon Dioxide (22-30) mmol/L BUN (7-17) mg/dL Creatinine (0.52-1.04) mg/dL Glucose (74-99) mg/dL POC Glucose (mg/dL) 159 H 143 H (75-99) mg/dL Calcium (8.4-10.2) mg/dL AST (14-36) U/L Total Protein (6.3-8.2) g/dL Albumin (3.5-5.0) g/dL 01/09/21 01/09/21 01/09/21 Range/Units 15:02 17:08 18:14 WBC (3.8-10.6) k/uL RBC (3.80-5.40) m/uL Hgb (11.4-16.0) gm/dL Hct (34.0-46.0) % RDW (11.5-15.5) % Plt Count (150-450) k/uL Neutrophils # (1.3-7.7) k/uL Monocytes # (0-1.0) k/uL Sodium (137-145) mmol/L Carbon Dioxide (22-30) mmol/L BUN (7-17) mg/dL Creatinine (0.52-1.04) mg/dL Glucose (74-99) mg/dL POC Glucose (mg/dL) 141 H 137 H 122 H (75-99) mg/dL Calcium (8.4-10.2) mg/dL AST (14-36) U/L Total Protein (6.3-8.2) g/dL Albumin (3.5-5.0) g/dL 01/09/21 01/09/21 01/10/21 Range/Units 22:20 23:48 02:15 WBC (3.8-10.6) k/uL RBC (3.80-5.40) m/uL Hgb (11.4-16.0) gm/dL Hct (34.0-46.0) % RDW (11.5-15.5) % Plt Count (150-450) k/uL Neutrophils # (1.3-7.7) k/uL Monocytes # (0-1.0) k/uL Sodium (137-145) mmol/L Carbon Dioxide (22-30) mmol/L BUN (7-17) mg/dL Creatinine (0.52-1.04) mg/dL Glucose (74-99) mg/dL POC Glucose (mg/dL) 120 H 132 H 154 H (75-99) mg/dL Calcium (8.4-10.2) mg/dL AST (14-36) U/L Total Protein (6.3-8.2) g/dL Albumin (3.5-5.0) g/dL 01/10/21 01/10/21 01/10/21 Range/Units 04:42 04:58 04:58 WBC 20.4 H (3.8-10.6) k/uL RBC 2.40 L (3.80-5.40) m/uL Hgb 7.6 L (11.4-16.0) gm/dL Hct 23.0 L (34.0-46.0) % RDW (11.5-15.5) % Plt Count 114 L (150-450) k/uL Neutrophils # 16.4 H (1.3-7.7) k/uL Monocytes # 1.1 H (0-1.0) k/uL Sodium 126 L (137-145) mmol/L Carbon Dioxide 20 L (22-30) mmol/L BUN 37 H (7-17) mg/dL Creatinine 1.44 H (0.52-1.04) mg/dL Glucose 310 H (74-99) mg/dL POC Glucose (mg/dL) 246 H (75-99) mg/dL Calcium 7.0 L (8.4-10.2) mg/dL AST 74 H (14-36) U/L Total Protein 4.2 L (6.3-8.2) g/dL Albumin 2.2 L (3.5-5.0) g/dL 01/10/21 01/10/21 01/10/21 Range/Units 06:47 09:19 10:32 WBC (3.8-10.6) k/uL RBC (3.80-5.40) m/uL Hgb (11.4-16.0) gm/dL Hct (34.0-46.0) % RDW (11.5-15.5) % Plt Count (150-450) k/uL Neutrophils # (1.3-7.7) k/uL Monocytes # (0-1.0) k/uL Sodium (137-145) mmol/L Carbon Dioxide (22-30) mmol/L BUN (7-17) mg/dL Creatinine (0.52-1.04) mg/dL Glucose (74-99) mg/dL POC Glucose (mg/dL) 109 H 108 H 113 H (75-99) mg/dL Calcium (8.4-10.2) mg/dL AST (14-36) U/L Total Protein (6.3-8.2) g/dL Albumin (3.5-5.0) g/dL
[2021-01-10 11:42] LABS: Glucose,Whole Blood 108 mg/dL (75-99)
[2021-01-10] MEDS ORDERED: bisacodyL 10 MG SUPP RECTAL PRN (12:08)
[2021-01-10] MEDS: INSULIN ASPART (NovoLOG) 100 UNIT/ML VIAL SQ SCH ×2 (12:29→19:15)
[2021-01-10] MEDS: MILRINONE-D5W PMX 20 MG in DEXTROSE/WATER 1 100ML.BAG IV SCH ×2 (13:23→14:36)
[2021-01-10 13:25] LABS: Amorphous Sediment,Urine Few /hpf; Appearance,Urine Cloudy (Clear); Bacteria,Urine Rare /hpf; Bilirubin,Urine Negative (Negative); Blood,Urine Moderate (Negative); Color,Urine Yellow; Glucose,Urine (UA) Negative (Negative); Hyaline Casts,Urine 5 /lpf (0-2); Ketones,Urine Negative (Negative); Leukocyte Esterase,Urine Small (Negative); Mucus,Urine Rare /hpf; Nitrite,Urine Negative (Negative); Protein,Urine 1+ (Negative); RBC,Urine 47 /hpf (0-5); Specific Gravity,Urine 1.025 (1.001-1.035); Squamous Epithelial Cell,Urine <1 /hpf (0-4); Urobilinogen,Urine <2.0 mg/dL (<2.0); WBC,Urine 18 /hpf (0-5)
[2021-01-10] MEDS: FERROUS SULFATE 325 MG TAB PO SCH (16:52)
[2021-01-10 18:11] LABS: Glucose,Whole Blood 124 mg/dL (75-99)
[2021-01-10 21:04] LABS: Glucose,Whole Blood 83 mg/dL (75-99)
[2021-01-11] MEDS: HEPARIN SODIUM,PORCINE/PF 5,000 UNIT/0.5 ML SYRINGE SQ SCH ×3 (01:32→16:41)
[2021-01-11 01:38] LABS: Glucose,Whole Blood 98 mg/dL (75-99)
[2021-01-11] MEDS: INSULIN ASPART (NovoLOG) 100 UNIT/ML VIAL SQ SCH ×5 (01:38→20:56)
[2021-01-11 05:13] LABS: Basophils % (A) 0 %; Eosinophils # (A) 0.9 k/uL (0-0.7); Eosinophils % (A) 6 %; HCT 23.7 % (34.0-46.0); Lymphocytes # (A) 1.8 k/uL (1.0-4.8); Lymphocytes % (A) 11 %; MCH 32.3 pg (25.0-35.0); MCHC 33.7 g/dL (31.0-37.0); Mean Platelet Volume 8.4; Monocytes # (A) 0.9 k/uL (0-1.0); Monocytes % (A) 6 %; Neutrophils # (A) 11.9 k/uL (1.3-7.7); Neutrophils % (A) 75 %; Platelet Count 159 k/uL (150-450); RBC 2.47 m/uL (3.80-5.40); RDW 15.9 % (11.5-15.5); WBC 15.8 k/uL (3.8-10.6)
[2021-01-11 05:27] LABS: Ionized Calcium 4.9 mg/dL (4.5-5.3)
[2021-01-11 05:35] LABS: Albumin 2.4 g/dL (3.5-5.0); Calcium 7.8 mg/dL (8.4-10.2); Magnesium 2.4 mg/dL (1.6-2.3); Potassium 4.3 mmol/L (3.5-5.1); Total Bilirubin 0.8 mg/dL (0.2-1.3); Total Protein 4.6 g/dL (6.3-8.2)
[2021-01-11 06:52] LABS: Glucose,Whole Blood 94 mg/dL (75-99)
[2021-01-11] MEDS: PANTOPRAZOLE 40 MG TABLET PO SCH ×2 (07:10→16:41)
[2021-01-11] MEDS: FERROUS SULFATE 325 MG TAB PO SCH ×2 (07:10→16:41)
--- NOTE | 2021-01-11 07:52 | XR ---
EXAMINATION TYPE: XR chest 1V portable DATE OF EXAM: 01/11/2021 COMPARISON: 01/10/2021 and prior HISTORY: 85 years Female. STUDY INDICATION GIVEN: Postcardiac surgery TECHNIQUE: Semierect upright AP portable chest radiograph FINDINGS AND IMPRESSION: [place]-Belkis catheter is again seen, tip in the main pulmonary artery or slightly projecting into the ri ght. Left thoracostomy tube has been removed in the interval. Surgical changes in the mediastinum again seen. Patchy and interstitial bilateral opacities again seen and appear to have worsened in the interval wh ich could be in part related to pneumonia/edema possible some element of contusion in the left lung s econdary to insertion/removal of chest tube and in part related to decreased lung volume/inadequate e xpiratory effort. Cardiac silhouette is enlarged similar to prior study. There is a tiny left apical pneumothorax. No pneumothorax on the right. Trace bilateral pleural effusion seen. Osteopenic bones with degenerative changes, no acute osseous abnormality seen.
[2021-01-11] MEDS: IPRATROPIUM-ALBUTEROL 3 ML NEB INHALATION SCH ×4 (08:09→19:51)
--- NOTE | 2021-01-11 08:31 | PN ---
PROGRESS NOTE Mrs. Crowell is an 85-year-old female who has underwent aortic valve replacement and coronary artery bypass grafting. She was confused yesterday. She is more awake and alert this morning, sitting up in the chair. She continues to be in atrial fibrillation with controlled ventricular response. Hemodynamically, she is stable. She has no evidence of ventricular ectopic activity. She continues to be on amiodarone 400 mg twice a day, aspirin once a day, Lipitor 20 mg daily, Plavix 75 mg daily, metoprolol tartrate 25 mg twice a day. PHYSICAL EXAMINATION: VITAL SIGNS: Blood pressure 103/50 with a heart rate in the 80s. LUNGS: With mild decrease in breath sounds at the bases, no wheezes. HEART: Irregularly irregular, S1, S2. No S3 with systolic murmur. No rub appreciated. ABDOMEN: Soft and nontender. EXTREMITIES: No significant edema. LAB DATA: Lab data revealed hemoglobin of 8, BUN creatinine 46 and 1.41, potassium 4.3. IMPRESSION: 1. Status post aortic valve replacement and coronary artery bypass grafting. 2. Atrial fibrillation postoperatively. 3. Confusion, improving. 4. Anemia. 5. Renal failure improving. 6. Hyperlipidemia. RECOMMENDATION: We will continue present therapy. If the patient continues to be on sedation, anticoagulation will be needed. We will continue to follow her renal function and her hemoglobin and depending on her progress further recommendation will be made. Continue incentive spirometry. LYRIC / JULIA: [id number] /
[2021-01-11] MEDS: METOPROLOL TARTRATE 25 MG TAB PO SCH ×2 (08:41→20:49)
[2021-01-11] MEDS: CHOLECALCIFEROL 25 MCG (1000 IU) TABLET PO SCH (08:41)
[2021-01-11] MEDS: ASPIRIN 81 MG PO SCH (08:42)
[2021-01-11] MEDS: THYROID, PORK 30 MG TAB PO SCH (08:42)
[2021-01-11] MEDS: CLOPIDOGREL 75 MG TAB PO SCH (08:42)
[2021-01-11] MEDS: AMIODARONE 200 MG TAB PO SCH ×3 (08:42→22:45)
[2021-01-11] MEDS: ASCORBIC ACID 500 MG TAB PO SCH (08:42)
--- NOTE | 2021-01-11 09:46 | P.PN ---
Subjective Progress Note Date: 01/11/21 Principal diagnosis: Severe aortic stenosis with insufficiency, mitral stenosis with insufficiency and heavy mitral annular calcification, coronary artery disease. Past medical history significant for hypertension, hyperlipidemia with refusal of statin medication in the past, hypothyroidism, left internal carotid stenosis 50-79%, TIA in 2008, GERD, arthritis, never smoker, family history of premature coronary artery disease, as well as family history of heart failure and possible valvular heart disease POD #4 aortic valve replacement with a 21 mm Inspiris bovine pericardial valve with root enlargement with bovine pericardial patch, coronary artery bypass grafting 1 with reverse saphenous vein graft to the obtuse marginal artery, epi-aortic ultrasound, endovascular vein harvest of the left greater saphenous vein from the thigh, ligation of the left atrial appendage with a 35 mm AtriCure clip Intraoperative and postoperative acute blood loss anemia and thrombocytopenia, expected given hemodilution and cardiopulmonary bypass pump requiring multiple blood products. Postoperative atrial fibrillation, known common occurrence after open heart surgery. The patient was seen in follow-up today 01/11/2021 at her bedside in the intensive care unit. Currently she is sitting up to bedside chair, is awake, alert and oriented 3 and is in no acute apparent distress. Current she denies any complaints of pain or shortness of breath. The patient reports that she fe els much improved today. Oxygen saturations are 96% on 2 L nasal cannula and she is achieving 500-750 mL on her incentive spirometry. Right IJ cordis and Lomira-Belkis catheter remains in place with current hemodynamics showing a cardiac output of 4.8, cardiac index 2.9, PA pressures 35/18 and a CVP 14 mmHg. Primacor drip remains infusing at 0.1 mcg/kg/m. Her left pleural chest tube was removed without incident yesterday 01/10/2021. Bedside telemetry showing atrial fibrillation with heart rate 96 BPM. Atrial and ventricular epicardial pacemaker wires remain in place and is currently on a VVI backup of 50. Urine culture results remain pending. Objective - Vital Signs Vital signs: Vital Signs Temp 97.6 F 01/11/21 04:00 Pulse 98 01/11/21 08:23 Resp 12 01/11/21 07:00 BP 103/50 01/11/21 07:00 Pulse Ox 99 01/11/21 06:30 Intake & Output 01/10/21 01/11/21 01/11/21 18:59 06:59 18:59 Intake Total 1628.942 316 20 Output Total 680 915 50 Balance 948.942 -599 -30 Weight 80.6 kg Intake: IV 346 316 20 Lactated Ringers 1,000 ml 220 240 20 @ 20 mls/hr IV .Q24H [facility] Rx#:[id number] cardiac output 60 70 pressure bags 66 6 Intake, IV Titration 102.942 Amount Calcium Gluconate 2 gm In 100 Sodium Chloride 0.9% 100 ml @ 60 mls/hr IVPB ONCE ONE Rx#:[id number] Milrinone-D5w Pmx 20 mg 2.942 In Dextrose/Water 1 100ml .bag @ 0.1 MCG/KG/MIN 2. 418 mls/hr IV .Q24H [facility] Rx#:[id number] Oral 1180 Output: Chest Tube Drainage 140 left pleural 140 Urine 540 915 50 Other: Voiding Method Indwelling Catheter Indwelling Catheter ABP, PAP, CO, CI - Last Documented Arterial Blood Pressure 198/193 Pulmonary Artery Pressure 33/18 Cardiac Output 5 Cardiac Index 3 - Exam CONSTITUTIONAL: Sitting up to the bedside chair in the intensive care unit, appears comfortable, cooperative, no apparent acute distress. HEENT: Neck is supple, no JVD, no lymphadenopathy. Right IJ Cordis and Lomira- Belkis catheter in place and functioning. RESPIRATORY: Lungs sounds essentially clear throughout, diminished to his bilateral bases. Respirations are symmetrical and nonlabored. Currently on 2 L nasal cannula with oxygen saturations 96%. Able to achieve 500-750 mL on her incentive spirometry. Strong cough. CARDIOVASCULAR: Irregular rhythm and controlled rate. S1 and S2 present, negative for S3, or gallop. Positive systolic murmur heard best to her left sternal border fifth intercostal space. Sternum is stable. Palpable peripheral pulses bilaterally, +1 edema to his bilateral lower extremities. No calf pain or tenderness noted. Heart hugger in place with patient demonstrating appropriate use. Knee-high SAI hose and sequential compression devices in place to his bilateral lower extremities. Bedside telemetry showing atrial fibrillation heart rate 96 BPM. GASTROINTESTINAL: Abdomen soft, nontender, nondistended. Hypoactive bowel sounds present 4 quadrants. Tolerating diet. Passing flatus. No guarding or rigidity. GENITOURINARY: Owens present draining clear, yellow urine. Output 700 mL in the last 8 hours INTEGUMENTARY: Skin is warm and dry with no evidence of clubbing or cyanosis. Midline sternal incision clean dry and well approximated, covered with dry intact dressing. Left lower extremity EVH site well approximated without redness or drainage. NEUROLOGIC: Cranial nerves II through XII intact. No focal deficits. MUSKULOSKELETAL: Able to move all extremities, strength equal bilaterally, generalized weakness. PSYCHIATRIC: Alert and oriented to person place and time, appropriate affect, intact judgment and insight. INVASIVE LINES AND TUBES: Atrial and ventricular epicardial pacemaker wires present, connected to generator, VVI backup rate 50 bpm. Right internal jugular Lomira/Cordis present. Last CO 4.8, CI 2.9, PA 35/18 and CVP 14 mmHg. - Labs CBC & Chem 7: 01/11/21 04:47 01/11/21 04:47 Labs: Abnormal Lab Results - Last 24 Hours (Table) 01/10/21 01/10/21 01/10/21 Range/Units 09:19 10:32 11:30 WBC (3.8-10.6) k/uL RBC (3.80-5.40) m/uL Hgb (11.4-16.0) gm/dL Hct (34.0-46.0) % RDW (11.5-15.5) % Neutrophils # (1.3-7.7) k/uL Eosinophils # (0-0.7) k/uL Sodium (137-145) mmol/L BUN (7-17) mg/dL Creatinine (0.52-1.04) mg/dL POC Glucose (mg/dL) 108 H 113 H 108 H (75-99) mg/dL Calcium (8.4-10.2) mg/dL Magnesium (1.6-2.3) mg/dL AST (14-36) U/L Total Protein (6.3-8.2) g/dL Albumin (3.5-5.0) g/dL Urine Appearance (Clear) Urine Protein (Negative) Urine Blood (Negative) Ur Leukocyte Esterase (Negative) Urine RBC (0-5) /hpf Urine WBC (0-5) /hpf Amorphous Sediment (None) /hpf Urine Bacteria (None) /hpf Hyaline Casts (0-2) /lpf Urine Mucus (None) /hpf 01/10/21 01/10/21 01/11/21 Range/Units 12:55 18:10 04:47 WBC 15.8 H (3.8-10.6) k/uL RBC 2.47 L (3.80-5.40) m/uL Hgb 8.0 L (11.4-16.0) gm/dL Hct 23.7 L (34.0-46.0) % RDW 15.9 H (11.5-15.5) % Neutrophils # 11.9 H (1.3-7.7) k/uL Eosinophils # 0.9 H (0-0.7) k/uL Sodium (137-145) mmol/L BUN (7-17) mg/dL Creatinine (0.52-1.04) mg/dL POC Glucose (mg/dL) 124 H (75-99) mg/dL Calcium (8.4-10.2) mg/dL Magnesium (1.6-2.3) mg/dL AST (14-36) U/L Total Protein (6.3-8.2) g/dL Albumin (3.5-5.0) g/dL Urine Appearance Cloudy H (Clear) Urine Protein 1+ H (Negative) Urine Blood Moderate H (Negative) Ur Leukocyte Esterase Small H (Negative) Urine RBC 47 H (0-5) /hpf Urine WBC 18 H (0-5) /hpf Amorphous Sediment Few H (None) /hpf Urine Bacteria Rare H (None) /hpf Hyaline Casts 5 H (0-2) /lpf Urine Mucus Rare H (None) /hpf 01/11/21 Range/Units 04:47 WBC (3.8-10.6) k/uL RBC (3.80-5.40) m/uL Hgb (11.4-16.0) gm/dL Hct (34.0-46.0) % RDW (11.5-15.5) % Neutrophils # (1.3-7.7) k/uL Eosinophils # (0-0.7) k/uL Sodium 130 L (137-145) mmol/L BUN 46 H (7-17) mg/dL Creatinine 1.41 H (0.52-1.04) mg/dL POC Glucose (mg/dL) (75-99) mg/dL Calcium 7.8 L (8.4-10.2) mg/dL Magnesium 2.4 H (1.6-2.3) mg/dL AST 57 H (14-36) U/L Total Protein 4.6 L (6.3-8.2) g/dL Albumin 2.4 L (3.5-5.0) g/dL Urine Appearance (Clear) Urine Protein (Negative) Urine Blood (Negative) Ur Leukocyte Esterase (Negative) Urine RBC (0-5) /hpf Urine WBC (0-5) /hpf Amorphous Sediment (None) /hpf Urine Bacteria (None) /hpf Hyaline Casts (0-2) /lpf Urine Mucus (None) /hpf Microbiology - Last 24 Hours (Table) 01/10/21 12:55 Urine Culture - Preliminary Urine,Voided Assessment and Plan Assessment: 1. Severe aortic stenosis with insufficiency, status post aortic valve replacement with root enlargement 2. Mitral stenosis with insufficiency and heavy mitral annular calcification 3. Coronary artery disease, status post single vessel CABG 4. History of hypertension 5. Hyperlipidemia with refusal of statin medication in the past, cholesterol 226, LDL 165 6. Hypothyroidism, recent TSH 2.69, free T4 0.8 7. Left internal carotid stenosis 50-79% 8. TIA in 2008 9. GERD 10. Arthritis 11. Lifetime nonsmoker, with a preoperative FEV1 83% of predicted 12. Family history of premature coronary artery disease, brother diagnosed with CAD in his 40s with subsequent 2 vessel CABG 13. Family history of heart failure and possible valvular heart disease 14. Intraoperative and postoperative acute blood loss anemia and thrombocytope alfred, expected, requiring multiple blood products 15. Postoperative atrial fibrillation, status post exclusion of the left atrial appendage Plan: 1. Continue low-dose aspirin, statin, Plavix, beta benton. Will increase beta benton as tolerated, her metoprolol tartrate was increased to 25 mg by mouth twice a day yesterday 01/10/2021. 2. Continue oral amiodarone, increase amiodarone to 400 mg by mouth every 8 hours. 3. Discontinue Primacor drip, current hemodynamic show a cardiac output of 4.8, cardiac index of 2.9. 4. Wean O2 as tolerated. Encourage incentive spirometry use 10 times every hour while awake. Bronchodilators per pulmonology management. 5. Increase activity, ambulate as tolerated. PT/OT/cardiac rehab following. The patient should be out of bed for all meals and needs strict encouragement to get up and ambulate. 6. Will monitor daily labs and chest x-rays. Electrolyte replacement per protocol. No diuretics today. Continue fluid restriction of 1500 mL, her sodium level is trending up and is 130 today. 7. GI/DVT prophylaxis. 8. Pain control per current medication regimen. 9. Insulin management per primary care service. Patient is not diabetic, preoperative hemoglobin A1c 5%, but patient does need tight blood sugar control to prevent infection and promote sternal union 10. Remove right IJ Lomira-Belkis catheter and Cordis. 11. Discontinue Owens catheter. Continue to record strict in accurate I's and O's. 12. Continue daily weights. 13. Continue to follow urine culture results, currently pending. 14. More recommendations to follow based on patient's clinical course. Time with Patient: Greater than 30
--- NOTE | 2021-01-11 10:37 | P.PN ---
Subjective Progress Note Date: 01/11/21 Principal diagnosis: Status post aortic valve replacement. This is a pleasant 85-year-old female patient with a known history of TIA, gastroesophageal reflux disease, hyperlipidemia, hypertension, rheumatoid arthritis, hypothyroidism. She is a lifelong nonsmoker. She was found to have severe aortic stenosis and single-vessel coronary artery disease and presented here yesterday for an elective surgery. She did undergo saphenous vein graft to the obtuse marginal artery. Aortic valve replacement with a bovine bioprosthetic valve. Postoperative day #1. She remains on a nitroglycerin drip at 5 g per hour, insulin drip at 2.5 units per hour, Primacor at 0.2 mcg/kg/m. Lactated Ringer's at 50 MLS per hour. She currently has a paced rhythm at 80 bpm. Right internal jugular Cordis in place, right radial arterial line in place. Mediastinal, left and right chest tubes remain in place. She is status post 5 units of packed red blood cells, 4 units of fresh frozen plasma, 2 platelets, 2 pooled cryoprecipitate. Creatinine blood pressure 67. PA pressure 29/15 with a mean of 19. Cardiac output 4.8. Cardiac index 2.9. White count 10.5. Hemoglobin 7.7. Platelets 100,000. Sodium 140. Potassium 3.7. Creatinine 0.96. Glucose 141. AST 93. ALT 16. She is currently sitting up in a chair at the bedside. Awake and alert in no acute distress. So having issues from surgical site pain. She is on 2 L nasal cannula maintaining good O2 saturations in the 90s. Needs increased encouragement regarding the incentive spirometer. Wesly on bronchodilators. Heparin for DVT prophylaxis. The patient is seen today 01/09/2021 in follow-up in the intensive care unit. Postoperative day #2. Sitting up in a chair at the bedside. She is currently on oxygen at 2 L/m per nasal cannula. Chest x-ray reveals patchy airspace disease bilaterally. Mediastinal chest tube is been removed. Right and left chest tubes remain in place. White count 17.3. Hemoglobin 6.5. Platelets 112,000. Sodium 135. Potassium 4.4. Creatinine 1.62. AST 104. ALT 10. Glucose 108. She is continued on bronchodilators. Working with the incentive spirometer. She remains on Lactated Ringer's at 30 mL per hour. Primacor at 0.1 mcg/kg/m. Insulin is currently on hold. One unit of packed red blood cells has been ordered. Cardiac output 5.1. Cardiac index 3.1. PA pressures 34/13 with a mean of 20. On 01/10/2021 patient seen in follow-up in the intensive care unit, today is postoperative day #3, status post aortic valve replacement, and one-vessel coronary artery bypass grafting with SVG to the OM. Patient is doing well, he is awake and alert, oriented 3, she is mildly short of breath, but appears to be in no acute distress, she is currently on 2 L of oxygen pulse ox is 97%, she is in A. fib with RVR with a rate of 144, she is currently on amiodarone currently running at 0.5 mg/m, 0.9 normal saline at 30 ML per hour, and insulin is currently on hold. Blood pressure is 114/50, she still has her [place]-Belkis catheter in place, PA pressures 44/28, CVP is unknown, currently has IV fluids infusing through it, cardiac output is 3.7, and cardiac index is 2.2, patient was on milrinone which is currently discontinued. She is resting in bed, denies any acute distress, no complaints of chest discomfort, incisions are clean dry and intact. Today's chest x-ray shows patchy airspace disease bilaterally. Today's labs have been noted, white blood cell count is 20.4, hemoglobin is 7.6, sodium is 126, potassium is 4.4, chloride is 99, CO2 is 20, B1 is 37, creatinine is 1.44. Right and left pleural chest tubes in place, and there has been a total of 160 mL of serosanguineous output from the left pleural and right pleural put out only 40 mL of serosanguineous output in the last 24 hours. Urine output is in the order of 45-50 ML per hour, she received a dose of IV Lasix per CT surgery yesterday, she is significantly in positive fluid balance, +1089 mL over the last 24 hours. She had multiple blood products in the postoperative period, including 6 units of PRBCs, 4 units of FFP, 2 units of platelets, 2 units of pooled cryoprecipitate. Progress note dated 01/11/2021. The patient is again seen today in the ICU, room 266. The patient is postop day #4, status post aortic valve replacement. She also had a one-vessel bypass, saphenous vein graft to the obtuse marginal. Currently, the patient's on 2 L nasal cannula. She's getting lactated Ringer's at 20 mL an hour, and Primacor at 0.1 mcg/kg/m. Clinically, the patient looks better. White count 15.8, hemoglobin 8, hematocrit 23.7, and platelet count 159,000. Sodium 1:30, potassium 4.3, chlorides 99, CO2 26, anion gap 5, BUN 46, with a creatinine of 1.41. Chest x-ray shows some bibasilar atelectasis. Objective - Vital Signs Vital signs: Vital Signs Temp 99.1 F 01/11/21 08:00 Pulse 81 01/11/21 10:00 Resp 23 01/11/21 10:00 BP 107/85 01/11/21 10:00 Pulse Ox 98 01/11/21 10:00 Intake & Output 01/10/21 01/11/21 01/11/21 18:59 06:59 18:59 Intake Total 1628.942 316 20 Output Total 680 915 50 Balance 948.942 -599 -30 Weight 80.6 kg 80.6 kg Intake: IV 346 316 20 Lactated Ringers 1,000 ml 220 240 20 @ 20 mls/hr IV .Q24H [facility] Rx#:[id number] cardiac output 60 70 pressure bags 66 6 Intake, IV Titration 102.942 Amount Calcium Gluconate 2 gm In 100 Sodium Chloride 0.9% 100 ml @ 60 mls/hr IVPB ONCE ONE Rx#:[id number] Milrinone-D5w Pmx 20 mg 2.942 In Dextrose/Water 1 100ml .bag @ 0.1 MCG/KG/MIN 2. 418 mls/hr IV .Q24H [facility] Rx#:[id number] Oral 1180 Output: Chest Tube Drainage 140 left pleural 140 Urine 540 915 50 Other: Voiding Method Indwelling Catheter Indwelling Catheter ABP, PAP, CO, CI - Last Documented Arterial Blood Pressure 198/193 Pulmonary Artery Pressure 31/14 Cardiac Output 4.8 Cardiac Index 2.9 - Exam No acute distress, oriented 3. No respiratory distress, or conversational dyspnea. HEENT examination is grossly unremarkable. Neck supple. Full range of motion. No adenopathy thyromegaly or neck vein distention. Cardiovascular examination reveals regular rhythm rate. S1-S2 normal. No S3 or S4. No discernible murmur noted. Heart sounds are distant. Heart rate 81 bpm. Lungs reveal bilateral rhonchi and some basilar crackles. She does not take deep breaths. Breath sounds are equal bilaterally. Abdomen soft bowel sounds are heard. No masses or tenderness. Extremities are intact. No cyanosis clubbing or edema. Skin is without rash or lesion. Neurologic examination is brief but nonfocal. - Labs CBC & Chem 7: 01/11/21 04:47 01/11/21 04:47 Labs: Abnormal Lab Results - Last 24 Hours (Table) 01/10/21 01/10/21 01/10/21 Range/Units 10:32 11:30 12:55 WBC (3.8-10.6) k/uL RBC (3.80-5.40) m/uL Hgb (11.4-16.0) gm/dL Hct (34.0-46.0) % RDW (11.5-15.5) % Neutrophils # (1.3-7.7) k/uL Eosinophils # (0-0.7) k/uL Sodium (137-145) mmol/L BUN (7-17) mg/dL Creatinine (0.52-1.04) mg/dL POC Glucose (mg/dL) 113 H 108 H (75-99) mg/dL Calcium (8.4-10.2) mg/dL Magnesium (1.6-2.3) mg/dL AST (14-36) U/L Total Protein (6.3-8.2) g/dL Albumin (3.5-5.0) g/dL Urine Appearance Cloudy H (Clear) Urine Protein 1+ H (Negative) Urine Blood Moderate H (Negative) Ur Leukocyte Esterase Small H (Negative) Urine RBC 47 H (0-5) /hpf Urine WBC 18 H (0-5) /hpf Amorphous Sediment Few H (None) /hpf Urine Bacteria Rare H (None) /hpf Hyaline Casts 5 H (0-2) /lpf Urine Mucus Rare H (None) /hpf 01/10/21 01/11/21 01/11/21 Range/Units 18:10 04:47 04:47 WBC 15.8 H (3.8-10.6) k/uL RBC 2.47 L (3.80-5.40) m/uL Hgb 8.0 L (11.4-16.0) gm/dL Hct 23.7 L (34.0-46.0) % RDW 15.9 H (11.5-15.5) % Neutrophils # 11.9 H (1.3-7.7) k/uL Eosinophils # 0.9 H (0-0.7) k/uL Sodium 130 L (137-145) mmol/L BUN 46 H (7-17) mg/dL Creatinine 1.41 H (0.52-1.04) mg/dL POC Glucose (mg/dL) 124 H (75-99) mg/dL Calcium 7.8 L (8.4-10.2) mg/dL Magnesium 2.4 H (1.6-2.3) mg/dL AST 57 H (14-36) U/L Total Protein 4.6 L (6.3-8.2) g/dL Albumin 2.4 L (3.5-5.0) g/dL Urine Appearance (Clear) Urine Protein (Negative) Urine Blood (Negative) Ur Leukocyte Esterase (Negative) Urine RBC (0-5) /hpf Urine WBC (0-5) /hpf Amorphous Sediment (None) /hpf Urine Bacteria (None) /hpf Hyaline Casts (0-2) /lpf Urine Mucus (None) /hpf Microbiology - Last 24 Hours (Table) 01/10/21 12:55 Urine Culture - Preliminary Urine,Voided Assessment and Plan Assessment: #1. Severe aortic stenosis, with insufficiency, status post aortic valve replacement with root enlargement, postoperative day #4. #2. Mitral stenosis with insufficiency and heavy mitral annular calcification. #3. Coronary artery disease status post single-vessel coronary artery bypass grafting, postoperative day #4. #4. A. fib with RVR, currently on amiodarone infusion, patient is status post left atrial appendage exclusion. #5. Shortness of breath, likely related to A. fib with RVR. #6. Hypertension. #7. Hyperlipidemia. #8. Hypothyroidism. #9. Left carotid artery stenosis. #10. History of TIA. #11. GERD. #12. Nonsmoker, preop FEV1 of 83% of predicted. #13. Family history of premature coronary artery disease. Plan: Plan dated 01/11/2021. The patient remains in the intensive care unit. She needs to do much better with deep breathing, coughing, clearing of secretions, and also needs to improve on her incentive spirometer. She is developing bibasilar atelectasis. She remains on Primacor for cardiovascular support. She was seen by the cardiothoracic surgeon today. We will continue to follow and make re commendations where appropriate. Prognosis is guarded. Time with Patient: Greater than 30
[2021-01-11 11:18] LABS: Glucose,Whole Blood 96 mg/dL (75-99)
--- NOTE | 2021-01-11 11:19 | P.PN ---
Subjective 85-year-old female is admitted for coronary bypass grafting and I did call replacement with a valid by a prosthetic aortic valve patient is on the am iodarone drip. Patient is quite a bit confused, patient has leukocytosis which he has been worsening without any fever. Septic workup is being obtained at this time. Patient was on milrinone which was discontinued. Patient was on insulin drip which will be discontinued and patient is bit hypoglycemic at this time. Patient can use to have [place]-Belkis catheter. 01/11/2021 Jerson doses improving there is no evidence of sepsis patient was not started on anti-antibiotics patient heart rate is controlled but still in A. fib patient the serum sodium is improving at this time. Creatinine remained stable at 1.4. Blood sugars are doing well will not require any medications on insulin for blood sugars. Patient is not confused today Constitutional: Denied any fatigue denied any fever. Cardio vascular: denied any chest pain, palpitations Gastrointestinal denied any nausea vomiting Pulmonary: Denied any shortness of breath cough Neurologic denied any new focal deficits All inpatient medications were reviewed and appropriate changes in these medications as dictated in the interval history and assessment and plan. PHYSICAL EXAMINATION: GENERAL: The patient is alert and confused not in any acute distress. Well developed, well nourished. HEENT: Pupils are round and equally reacting to light. EOMI. No scleral icterus. No conjunctival pallor. Normocephalic, atraumatic. No pharyngeal erythema. No thyromegaly. CARDIOVASCULAR: S1 and S2 present. No murmurs, rubs, or gallops. PULMONARY: Chest is clear to auscultation, no wheezing or crackles. ABDOMEN: Soft, nontender, nondistended, normoactive bowel sounds. No palpable organomegaly. MUSCULOSKELETAL: No joint swelling or deformity. EXTREMITIES: No cyanosis, clubbing, or pedal edema. NEUROLOGICAL: Gross neurological examination did not reveal any focal deficits. SKIN: No rashes. Assessment and plan -Coronary artery disease status post coronary artery bypass grafting with saphenous vein graft to obtuse marginal postoperative day 2 -Aortic stenosis status post right valve replacement with a bioprosthetic aortic valve -Postoperative atrial fibrillation for which patient is on amiodarone -Leukocytosis worsening since surgery: Septic workup is negative leukocytosis improving no need for antibiotics at this time -Hyperlipidemia Hypothyroidism -Confusion, delirium: Secondary to hospitalization are ICU delirium, improved significantly compared to yesterday -Hypothyroidism -Elevated blood sugars for surgery presently hypoglycemic, IV insulin will risk and urine patient will be started on sliding scale insulin Objective - Vital Signs Vital signs: Vital Signs Temp 99.1 F 01/11/21 08:00 Pulse 81 01/11/21 10:00 Resp 23 01/11/21 10:00 BP 107/85 01/11/21 10:00 Pulse Ox 98 01/11/21 10:00 Intake & Output 01/10/21 01/11/21 01/11/21 18:59 06:59 18:59 Intake Total 1628.942 316 20 Output Total 680 915 50 Balance 948.942 -599 -30 Weight 80.6 kg 80.6 kg Intake: IV 346 316 20 Lactated Ringers 1,000 ml 220 240 20 @ 20 mls/hr IV .Q24H [facility] Rx#:[id number] cardiac output 60 70 pressure bags 66 6 Intake, IV Titration 102.942 Amount Calcium Gluconate 2 gm In 100 Sodium Chloride 0.9% 100 ml @ 60 mls/hr IVPB ONCE ONE Rx#:[id number] Milrinone-D5w Pmx 20 mg 2.942 In Dextrose/Water 1 100ml .bag @ 0.1 MCG/KG/MIN 2. 418 mls/hr IV .Q24H [facility] Rx#:[id number] Oral 1180 Output: Chest Tube Drainage 140 left pleural 140 Urine 540 915 50 Other: Voiding Method Indwelling Catheter Indwelling Catheter ABP, PAP, CO, CI - Last Documented Arterial Blood Pressure 198/193 Pulmonary Artery Pressure 31/14 Cardiac Output 4.8 Cardiac Index 2.9 - Labs CBC & Chem 7: 01/11/21 04:47 01/11/21 04:47 Labs: Abnormal Lab Results - Last 24 Hours (Table) 01/10/21 01/10/21 01/10/21 Range/Units 11:30 12:55 18:10 WBC (3.8-10.6) k/uL RBC (3.80-5.40) m/uL Hgb (11.4-16.0) gm/dL Hct (34.0-46.0) % RDW (11.5-15.5) % Neutrophils # (1.3-7.7) k/uL Eosinophils # (0-0.7) k/uL Sodium (137-145) mmol/L BUN (7-17) mg/dL Creatinine (0.52-1.04) mg/dL POC Glucose (mg/dL) 108 H 124 H (75-99) mg/dL Calcium (8.4-10.2) mg/dL Magnesium (1.6-2.3) mg/dL AST (14-36) U/L Total Protein (6.3-8.2) g/dL Albumin (3.5-5.0) g/dL Urine Appearance Cloudy H (Clear) Urine Protein 1+ H (Negative) Urine Blood Moderate H (Negative) Ur Leukocyte Esterase Small H (Negative) Urine RBC 47 H (0-5) /hpf Urine WBC 18 H (0-5) /hpf Amorphous Sediment Few H (None) /hpf Urine Bacteria Rare H (None) /hpf Hyaline Casts 5 H (0-2) /lpf Urine Mucus Rare H (None) /hpf 01/11/21 01/11/21 Range/Units 04:47 04:47 WBC 15.8 H (3.8-10.6) k/uL RBC 2.47 L (3.80-5.40) m/uL Hgb 8.0 L (11.4-16.0) gm/dL Hct 23.7 L (34.0-46.0) % RDW 15.9 H (11.5-15.5) % Neutrophils # 11.9 H (1.3-7.7) k/uL Eosinophils # 0.9 H (0-0.7) k/uL Sodium 130 L (137-145) mmol/L BUN 46 H (7-17) mg/dL Creatinine 1.41 H (0.52-1.04) mg/dL POC Glucose (mg/dL) (75-99) mg/dL Calcium 7.8 L (8.4-10.2) mg/dL Magnesium 2.4 H (1.6-2.3) mg/dL AST 57 H (14-36) U/L Total Protein 4.6 L (6.3-8.2) g/dL Albumin 2.4 L (3.5-5.0) g/dL Urine Appearance (Clear) Urine Protein (Negative) Urine Blood (Negative) Ur Leukocyte Esterase (Negative) Urine RBC (0-5) /hpf Urine WBC (0-5) /hpf Amorphous Sediment (None) /hpf Urine Bacteria (None) /hpf Hyaline Casts (0-2) /lpf Urine Mucus (None) /hpf Microbiology - Last 24 Hours (Table) 01/10/21 12:55 Urine Culture - Preliminary Urine,Voided
[2021-01-11 16:45] LABS: Glucose,Whole Blood 115 mg/dL (75-99)
[2021-01-11] MEDS: SENNOSIDES-DOCUSATE SODIUM 1 EACH TAB PO SCH (20:48)
[2021-01-11] MEDS: MELATONIN 3 MG TABLET PO SCH (20:49)
[2021-01-11] MEDS: ATORVASTATIN 20 MG TAB PO SCH (20:50)
[2021-01-11 20:56] LABS: Glucose,Whole Blood 114 mg/dL (75-99)
[2021-01-12] MEDS: HEPARIN SODIUM,PORCINE/PF 5,000 UNIT/0.5 ML SYRINGE SQ SCH ×3 (00:36→17:02)
[2021-01-12 04:18] LABS: Basophils # (A) 0.1 k/uL (0-0.2); Basophils % (A) 0 %; Eosinophils # (A) 0.9 k/uL (0-0.7); Eosinophils % (A) 6 %; HCT 25.9 % (34.0-46.0); HGB 8.7 gm/dL (11.4-16.0); Lymphocytes # (A) 1.5 k/uL (1.0-4.8); Lymphocytes % (A) 10 %; MCH 32.6 pg (25.0-35.0); MCHC 33.6 g/dL (31.0-37.0); Mean Platelet Volume 8.8; Monocytes # (A) 1.2 k/uL (0-1.0); Monocytes % (A) 7 %; Neutrophils % (A) 75 %; Platelet Count 177 k/uL (150-450); RBC 2.67 m/uL (3.80-5.40); RDW 15.7 % (11.5-15.5)
[2021-01-12 04:37] LABS: Albumin 2.5 g/dL (3.5-5.0); Calcium 7.8 mg/dL (8.4-10.2); Potassium 4.2 mmol/L (3.5-5.1); Total Bilirubin 0.9 mg/dL (0.2-1.3); Total Protein 4.8 g/dL (6.3-8.2)
[2021-01-12] MEDS: PANTOPRAZOLE 40 MG TABLET PO SCH ×2 (06:53→17:03)
[2021-01-12] MEDS: FERROUS SULFATE 325 MG TAB PO SCH ×2 (06:53→17:03)
[2021-01-12] MEDS: INSULIN ASPART (NovoLOG) 100 UNIT/ML VIAL SQ SCH ×4 (06:55→22:19)
--- NOTE | 2021-01-12 07:42 | XR ---
EXAMINATION TYPE: XR chest 1V portable DATE OF EXAM: 01/12/2021 COMPARISON: 01/11/2021 HISTORY: 85 years Female. STUDY INDICATION GIVEN: Postoperative cardiac surgery TECHNIQUE: AP portable chest radiograph FINDINGS AND IMPRESSION: [place]-Belkis catheter no longer seen. Slight improvement demonstrated with bilateral lung opacities: Edema, atelectasis and/or pneumonia. Trace left pleural effusion. No pleural effusion on the right. Enlarged cardiac silhouette with postsurgical changes in the mediastinum again seen. No pneumothorax seen. Osseous structures stable since yesterday.
--- NOTE | 2021-01-12 08:14 | P.PN ---
Subjective Progress Note Date: 01/12/21 85-year-old female is admitted for coronary bypass grafting and I did call replacement with a valid by a prosthetic aortic valve patient is on the amiodarone drip. Patient is quite a bit confused, patient has leukocytosis which he has been worsening without any fever. Septic workup is being obtained at this time. Patient was on milrinone which was discontinued. Patient was on insulin drip which will be discontinued and patient is bit hypoglycemic at this time. Patient can use to have [place]-Belkis catheter. 01/11/2021 Jerson doses improving there is no evidence of sepsis patient was not started on anti-antibiotics patient heart rate is controlled but still in A. fib patient the serum sodium is improving at this time. Creatinine remained stable at 1.4. Blood sugars are doing well will not require any medications on insulin for blood sugars. Patient is not confused today 01/12/2021 Patient seen on follow-up in the ICU, sitting up in bed appears in acute distress. She is not on antimicrobials at this time, denies any urinary symptoms, there is no growth and urine culture. No fevers. Creatinine coming down as of yesterday 1.05. Heart rate is in the 70s, blood pressure stable. Blood sugars are controlled, not requiring any insulin at this point. Constitutional: Denied any fatigue denied any fever. Cardio vascular: denied any chest pain, palpitations Gastrointestinal denied any nausea vomiting Pulmonary: Denied any shortness of breath cough Neurologic denied any new focal deficits All inpatient medications were reviewed and appropriate changes in these medications as dictated in the interval history and assessment and plan. PHYSICAL EXAMINATION: GENERAL: The patient is alert not in any acute distress. Well developed, well nourished. HEENT: Pupils are round and equally reacting to light. EOMI. No scleral icterus. No conjunctival pallor. Normocephalic, atraumatic. No pharyngeal erythema. No thyromegaly. CARDIOVASCULAR: S1 and S2 present. No murmurs, rubs, or gallops. PULMONARY: Chest is clear to auscultation, no wheezing or crackles. ABDOMEN: Soft, nontender, nondistended, normoactive bowel sounds. No palpable organomegaly. MUSCULOSKELETAL: No joint swelling or deformity. EXTREMITIES: No cyanosis, clubbing, or pedal edema. NEUROLOGICAL: Gross neurological examination did not reveal any focal deficits. SKIN: No rashes. Assessment and plan -Coronary artery disease status post coronary artery bypass grafting with saphenous vein graft to obtuse marginal postoperative day 2 -Aortic stenosis status post right valve replacement with a bioprosthetic aortic valve -Postoperative atrial fibrillation for which patient is on amiodarone -Leukocytosis worsening since surgery: Septic workup is negative leukocytosis improving no need for antibiotics at this time -Hyperlipidemia Hypothyroidism -Confusion, delirium: Improved, most probably due to ICU delirium. -Hypothyroidism -Asymptomatic bacteriuria: No growth on urine culture, not on antimicrobials -Elevated blood sugars for surgery presently hypoglycemic, IV insulin will risk and urine patient will be started on sliding scale insulin Objective - Vital Signs Vital signs: Vital Signs Temp 98 F 01/12/21 04:00 Pulse 69 01/12/21 07:00 Resp 15 01/12/21 07:00 BP 110/68 01/12/21 07:00 Pulse Ox 100 01/12/21 05:00 Intake & Output 01/11/21 01/12/21 01/12/21 18:59 06:59 18:59 Intake Total 1092 120 Output Total 640 202 Balance 452 -82 Weight 80.6 kg 77.9 kg Intake: IV 92 Lactated Ringers 1,000 ml 60 @ 20 mls/hr IV .Q24H [facility] Rx#:[id number] cardiac output 20 pressure bags 12 Oral 1000 120 Output: Urine 640 200 Stool 1 Other 1 Other: Voiding Method Indwelling Catheter Bedside Commode Bedpan # Voids 1 # Bowel Movements 1 1 ABP, PAP, CO, CI - Last Documented Arterial Blood Pressure 198/193 Pulmonary Artery Pressure 31/14 Cardiac Output 4.8 Cardiac Index 2.9 - Labs CBC & Chem 7: 01/12/21 03:54 01/12/21 03:54 Labs: Abnormal Lab Results - Last 24 Hours (Table) 01/11/21 01/11/21 01/12/21 Range/Units 16:43 20:55 03:54 WBC 16.0 H (3.8-10.6) k/uL RBC 2.67 L (3.80-5.40) m/uL Hgb 8.7 L (11.4-16.0) gm/dL Hct 25.9 L (34.0-46.0) % RDW 15.7 H (11.5-15.5) % Neutrophils # 12.0 H (1.3-7.7) k/uL Monocytes # 1.2 H (0-1.0) k/uL Eosinophils # 0.9 H (0-0.7) k/uL Sodium (137-145) mmol/L BUN (7-17) mg/dL Creatinine (0.52-1.04) mg/dL Glucose (74-99) mg/dL POC Glucose (mg/dL) 115 H 114 H (75-99) mg/dL Calcium (8.4-10.2) mg/dL AST (14-36) U/L Total Protein (6.3-8.2) g/dL Albumin (3.5-5.0) g/dL 01/12/21 Range/Units 03:54 WBC (3.8-10.6) k/uL RBC (3.80-5.40) m/uL Hgb (11.4-16.0) gm/dL Hct (34.0-46.0) % RDW (11.5-15.5) % Neutrophils # (1.3-7.7) k/uL Monocytes # (0-1.0) k/uL Eosinophils # (0-0.7) k/uL Sodium 129 L (137-145) mmol/L BUN 39 H (7-17) mg/dL Creatinine 1.05 H (0.52-1.04) mg/dL Glucose 107 H (74-99) mg/dL POC Glucose (mg/dL) (75-99) mg/dL Calcium 7.8 L (8.4-10.2) mg/dL AST 54 H (14-36) U/L Total Protein 4.8 L (6.3-8.2) g/dL Albumin 2.5 L (3.5-5.0) g/dL Microbiology - Last 24 Hours (Table) 01/10/21 12:55 Urine Culture - Final Urine,Voided
[2021-01-12] MEDS: ASCORBIC ACID 500 MG TAB PO SCH (08:25)
[2021-01-12] MEDS: CLOPIDOGREL 75 MG TAB PO SCH (08:26)
[2021-01-12] MEDS: ASPIRIN 81 MG PO SCH (08:26)
[2021-01-12] MEDS: CHOLECALCIFEROL 25 MCG (1000 IU) TABLET PO SCH (08:26)
[2021-01-12] MEDS: THYROID, PORK 30 MG TAB PO SCH (08:27)
[2021-01-12] MEDS: IPRATROPIUM-ALBUTEROL 3 ML NEB INHALATION SCH ×4 (09:17→20:32)
--- NOTE | 2021-01-12 11:02 | PN ---
PROGRESS NOTE Mrs. Crowell is an 85-year-old female who underwent aortic valve replacement. She had atrial fibrillation yesterday. Subsequently went to complete heart block and she is paced at this time and depending on the pacemaker with no underlying significant escape rhythm. Hemodynamically otherwise, she is stable. She is not on any vasopressor. She is feeling well. She denies any chest pain. No dizziness. She is more awake and alert. She continues to be on aspirin once a day, Lipitor 20 mg daily, Plavix 75 mg daily. She is off the amiodarone as well as beta benton. PHYSICAL EXAMINATION: VITAL SIGNS: Blood pressure 110/60 with a heart rate 60. LUNGS: Mild decrease in breath sounds at the bases. HEART: Regular rate and rhythm S1, S2. No S3. No rub. ABDOMEN: Soft and nontender. EXTREMITIES: No edema. LAB DATA: Revealed hemoglobin 8.7, BUN and creatinine 39 and 1.05, potassium 4.2. IMPRESSION: 1. Status post aortic valve replacement and coronary artery bypass grafting. 2. Atrial fibrillation with subsequent complete heart block. The patient is 100% paced at this time and pacer dependent. 3. Confusion, improved. 4. Renal failure, improved. 5. Hyperlipidemia. RECOMMENDATION: The patient's beta benton and amiodarone are stopped. She most likely will require a permanent pacemaker implantation. She will be evaluated in the morning to undergo the procedure by the by Dr. Schrader. In the meantime, will continue present therapy and depending on her progress further recommendation will be made. MMODL / IJN: [id number] /
--- NOTE | 2021-01-12 11:14 | P.PN ---
Subjective Progress Note Date: 01/12/21 Principal diagnosis: Severe aortic valve stenosis, CAD This is a pleasant 85-year-old female patient with a known history of TIA, gastroesophageal reflux disease, hyperlipidemia, hypertension, rheumatoid arthritis, hypothyroidism. She is a lifelong nonsmoker. She was found to have severe aortic stenosis and single-vessel coronary artery disease and presented here yesterday for an elective surgery. She did undergo saphenous vein graft to the obtuse marginal artery. Aortic valve replacement with a bovine bioprosthetic valve. Postoperative day #1. She remains on a nitroglycerin drip at 5 g per hour, insulin drip at 2.5 units per hour, Primacor at 0.2 mcg/kg/m. Lactated Ringer's at 50 MLS per hour. She currently has a paced rhythm at 80 bpm. Right internal jugular Cordis in place, right radial arterial line in place. Mediastinal, left and right chest tubes remain in place. She is status post 5 units of packed red blood cells, 4 units of fresh frozen plasma, 2 platelets, 2 pooled cryoprecipitate. Creatinine blood pressure 67. PA pressure 29/15 with a mean of 19. Cardiac output 4.8. Cardiac index 2.9. White count 10.5. Hemoglobin 7.7. Platelets 100,000. Sodium 140. Potassium 3.7. Creatinine 0.96. Glucose 141. AST 93. ALT 16. She is currently sitting up in a chair at the bedside. Awake and alert in no acute distress. So having issues from surgical site pain. She is on 2 L nasal cannula maintaining good O2 saturations in the 90s. Needs increased encouragement regarding the incentive spirometer. Wesly on bronchodilators. Heparin for DVT prophylaxis. The patient is seen today 01/09/2021 in follow-up in the intensive care unit. Postoperative day #2. Sitting up in a chair at the bedside. She is currently on oxygen at 2 L/m per nasal cannula. Chest x-ray reveals patchy airspace disease bilaterally. Mediastinal chest tube is been removed. Right and left chest tubes remain in place. White count 17.3. Hemoglobin 6.5. Platelets 112,000. Sodium 135. Potassium 4.4. Creatinine 1.62. AST 104. ALT 10. Glucose 108. She is continued on bronchodilators. Working with the incentive spirometer. She remains on Lactated Ringer's at 30 mL per hour. Primacor at 0.1 mcg/kg/m. Insulin is currently on hold. One unit of packed red blood cells has been ordered. Cardiac output 5.1. Cardiac index 3.1. PA pressures 34/13 with a mean of 20. On 01/10/2021 patient seen in follow-up in the intensive care unit, today is po stoperative day #3, status post aortic valve replacement, and one-vessel coronary artery bypass grafting with SVG to the OM. Patient is doing well, he is awake and alert, oriented 3, she is mildly short of breath, but appears to be in no acute distress, she is currently on 2 L of oxygen pulse ox is 97%, she is in A. fib with RVR with a rate of 144, she is currently on amiodarone currently running at 0.5 mg/m, 0.9 normal saline at 30 ML per hour, and insulin is currently on hold. Blood pressure is 114/50, she still has her [place]-Belkis catheter in place, PA pressures 44/28, CVP is unknown, currently has IV fluids infusing through it, cardiac output is 3.7, and cardiac index is 2.2, patient wa s on milrinone which is currently discontinued. She is resting in bed, denies any acute distress, no complaints of chest discomfort, incisions are clean dry and intact. Today's chest x-ray shows patchy airspace disease bilaterally. Today's labs have been noted, white blood cell count is 20.4, hemoglobin is 7.6, sodium is 126, potassium is 4.4, chloride is 99, CO2 is 20, B1 is 37, creatinine is 1.44. Right and left pleural chest tubes in place, and there has been a total of 160 mL of serosanguineous output from the left pleural and right pleural put out only 40 mL of serosanguineous output in the last 24 hours. Urine output is in the order of 45-50 ML per hour, she received a dose of IV Lasix per CT surgery yesterday, she is significantly in positive fluid balance, +1089 mL over the last 24 hours. She had multiple blood products in the postoperative period, including 6 units of PRBCs, 4 units of FFP, 2 units of platelets, 2 units of pooled cryoprecipitate. On 01/12/2021 patient seen in follow-up in intensive care unit, today is postoperative day #5, status post aortic valve replacement, and one-vessel coronary artery bypass grafting. Patient is doing well, she is on room air with pulse ox of 97%. Afebrile. Yesterday she was still in A. fib with RVR, she did subsequently convert, and started having pauses at which point the demand pacemaker started pacing her. The check of underlying rhythm revealed asystole this morning. She is currently being V paced at a rate of 70 BPM. Blood pressure is 153/56, he is not on any IV fluids. She is not complaining of any shortness of breath, today's chest x-ray shows bilateral lung opacities with slight improvement, trace left pleural effusion, no pneumothorax. Today's labs have been reviewed showing white blood cell count is 16, hemoglobin is 8.7, sodium is 129, the rest of electrolytes were unremarkable, we'll profile is improving, BUN is 39 creatinine is 1.05. No other acute events overnight. Cardiology is following, she is off the amiodarone as well as the beta benton at this time. Objective - Vital Signs Vital signs: Vital Signs Temp 98 F 01/12/21 08:00 Pulse 69 01/12/21 10:00 Resp 18 01/12/21 10:00 BP 153/56 01/12/21 10:00 Pulse Ox 97 01/12/21 10:00 Intake & Output 01/11/21 01/12/21 01/12/21 18:59 06:59 18:59 Intake Total 1092 120 120 Output Total 640 202 601 Balance 452 -82 -481 Weight 80.6 kg 77.9 kg Intake: IV 92 Lactated Ringers 1,000 ml 60 @ 20 mls/hr IV .Q24H [facility] Rx#:[id number] cardiac output 20 pressure bags 12 Oral 1000 120 120 Output: Urine 640 200 600 Stool 1 1 Other 1 Other: Voiding Method Indwelling Catheter Bedside Commode Bedside Commode Bedpan # Voids 1 # Bowel Movements 1 1 1 ABP, PAP, CO, CI - Last Documented Arterial Blood Pressure 198/193 Pulmonary Artery Pressure 31/14 Cardiac Output 4.8 Cardiac Index 2.9 - Exam GENERAL EXAM: Alert, very pleasant, 85-year-old white female, on room air mildly short of breath with conversation, but no apparent distress. HEAD: Normocephalic/atraumatic. EYES: Normal reaction of pupils, equal size. Conjunctiva pink, sclera white. NOSE: Clear with pink turbinates. THROAT: No erythema or exudates. NECK: No masses, no JVD, no thyroid enlargement, no adenopathy. CHEST: No chest wall deformity. Symmetrical expansion. Midsternal incisions clean dry and intact, chest tube sites are clean dry and intact, left pleural and right pleural chest tubes connected to Pleur-evac skin wall suction, with small amount of serosanguineous output, no evidence of air leak noted. The epicardial wires connected to external pacemaker box and patient is been 100% V paced at a rate of 70 BPM, with underlying rhythm of complete heart block and asystole LUNGS: Equal air entry with no crackles, wheeze, rhonchi or dullness. CVS: rregular rate and rhythm, normal S1 and S2, no gallops, no murmurs, no rubs ABDOMEN: Soft, nontender. No hepatosplenomegaly, normal bowel sounds, no guarding or rigidity. EXTREMITIES: No clubbing, mild edema, no cyanosis, 2+ pulses and upper and lower extremities. MUSCULOSKELETAL: Muscle strength and tone normal. SPINE: No scoliosis or deformity SKIN: No rashes CENTRAL NERVOUS SYSTEM: Alert and oriented -3. No focal deficits, tone is normal in all 4 extremities. PSYCHIATRIC: Alert and oriented -3. Appropriate affect. Intact judgment and insight. - Labs CBC & Chem 7: 01/12/21 03:54 01/12/21 03:54 Labs: Abnormal Lab Results - Last 24 Hours (Table) 01/11/21 01/11/21 01/12/21 Range/Units 16:43 20:55 03:54 WBC 16.0 H (3.8-10.6) k/uL RBC 2.67 L (3.80-5.40) m/uL Hgb 8.7 L (11.4-16.0) gm/dL Hct 25.9 L (34.0-46.0) % RDW 15.7 H (11.5-15.5) % Neutrophils # 12.0 H (1.3-7.7) k/uL Monocytes # 1.2 H (0-1.0) k/uL Eosinophils # 0.9 H (0-0.7) k/uL Sodium (137-145) mmol/L BUN (7-17) mg/dL Creatinine (0.52-1.04) mg/dL Glucose (74-99) mg/dL POC Glucose (mg/dL) 115 H 114 H (75-99) mg/dL Calcium (8.4-10.2) mg/dL AST (14-36) U/L Total Protein (6.3-8.2) g/dL Albumin (3.5-5.0) g/dL 01/12/21 Range/Units 03:54 WBC (3.8-10.6) k/uL RBC (3.80-5.40) m/uL Hgb (11.4-16.0) gm/dL Hct (34.0-46.0) % RDW (11.5-15.5) % Neutrophils # (1.3-7.7) k/uL Monocytes # (0-1.0) k/uL Eosinophils # (0-0.7) k/uL Sodium 129 L (137-145) mmol/L BUN 39 H (7-17) mg/dL Creatinine 1.05 H (0.52-1.04) mg/dL Glucose 107 H (74-99) mg/dL POC Glucose (mg/dL) (75-99) mg/dL Calcium 7.8 L (8.4-10.2) mg/dL AST 54 H (14-36) U/L Total Protein 4.8 L (6.3-8.2) g/dL Albumin 2.5 L (3.5-5.0) g/dL Microbiology - Last 24 Hours (Table) 01/10/21 12:55 Urine Culture - Final Urine,Voided Assessment and Plan Plan: Assessment: #1. Severe aortic stenosis, and coronary artery disease, status post aortic valve replacement with root enlargement and single-vessel coronary artery bypass grafting postoperative day #5 #2. Mitral stenosis with insufficiency and heavy mitral annular calcification #3. Complete heart block, currently 100% paced and is pacemaker dependent #4. A. fib with RVR, currently in complete heart block #5. Shortness of breath, likely related to A. fib with RVR #6. Hypertension #7. Hyperlipidemia #8. Hypothyroidism #9. Left carotid artery stenosis #10. History of TIA #11. GERD #12. Nonsmoker, preop FEV1 of 83% of predicted #13. Family history of premature coronary artery disease #14. Acute kidney injury, improving Plan: Today's chest x-ray has been reviewed Encourage deep breathing and coughing Patient is currently in complete heart block, and is pacemaker dependent However she is breathing comfortably, Currently not on any vasopressor support Today's chest x-ray has been reviewed Patient is currently on room air, breathing comfortably GI and DVT prophylaxis We'll continue to closely follow in intensive care unit I performed a history & physical examination of the patient and discussed their management with my nurse practitioner, Katie Lugo. I reviewed the nurse practitioner's note and agree with the documented findings and plan of care. Lung sounds are positive for dim. sounds with bibasilar crackles The findings and the impression was discussed with the patient. I attest to the documentation by the nurse practitioner. Time with Patient: Greater than 30
--- NOTE | 2021-01-12 11:14 | P.PN ---
Subjective Progress Note Date: 01/12/21 Principal diagnosis: Severe aortic stenosis with insufficiency, mitral stenosis with insufficiency and heavy mitral annular calcification, coronary artery disease. Past medical history significant for hypertension, hyperlipidemia with refusal of statin medication in the past, hypothyroidism, left internal carotid stenosis 50-79%, TIA in 2008, GERD, arthritis, never smoker, family history of premature coronary artery disease, as well as family history of heart failure and possible valvular heart disease POD #5 aortic valve replacement with a 21 mm Inspiris bovine pericardial valve with root enlargement with bovine pericardial patch, coronary artery bypass grafting 1 with reverse saphenous vein graft to the obtuse marginal artery, epi-aortic ultrasound, endovascular vein harvest of the left greater saphenous vein from the thigh, ligation of the left atrial appendage with a 35 mm AtriCure clip Intraoperative and postoperative acute blood loss anemia and thrombocytopenia, expected given hemodilution and cardiopulmonary bypass pump requiring multiple blood products. Postoperative atrial fibrillation with subsequent complete heart block requiring 100% pacing, known common occurrence after open heart surgery. The patient was seen in follow-up today 01/12/2021 at her bedside in the intensive care unit. Currently she is sitting up to bedside chair, is awake, alert and oriented 3 and is in no acute apparent distress. The patient denies any complaints of pain or shortness of breath at this time. Bedside telemetry showing a paced rhythm heart rate 70 bpm, underlying rhythm showing complete heart block. Her night nurse reports that she is having some scant serosanguineous drainage from her left and right pleural chest tube sites. Dressings clean dry and intact at this time. The patient reports that she ambulated in her room to the door and back yesterday with assistance from nursing staff and physical therapy staff. Urine culture final result shows no growth after 18 hours. She remains afebrile the last 24 hours. Oxygen saturations are 99% on 2 L nasal cannula and she is achieving 500-750 mL on her incentive spirometry with encouragement. Objective - Vital Signs Vital signs: Vital Signs Temp 98 F 01/12/21 04:00 Pulse 69 01/12/21 07:00 Resp 15 01/12/21 07:00 BP 110/68 01/12/21 07:00 Pulse Ox 100 01/12/21 05:00 Intake & Output 01/11/21 01/12/21 01/12/21 18:59 06:59 18:59 Intake Total 1092 120 Output Total 640 202 Balance 452 -82 Weight 80.6 kg 77.9 kg Intake: IV 92 Lactated Ringers 1,000 ml 60 @ 20 mls/hr IV .[facility]H [facility] Rx#:[id number] cardiac output 20 pressure bags 12 Oral 1000 120 Output: Urine 640 200 Stool 1 Other 1 Other: Voiding Method Indwelling Catheter Bedside Commode Bedpan # Voids 1 # Bowel Movements 1 1 ABP, PAP, CO, CI - Last Documented Arterial Blood Pressure 198/193 Pulmonary Artery Pressure 31/14 Cardiac Output 4.8 Cardiac Index 2.9 - Exam CONSTITUTIONAL: Sitting up to the bedside chair in the intensive care unit, appears comfortable, cooperative, no apparent acute distress. HEENT: Neck is supple, no JVD, no lymphadenopathy. RESPIRATORY: Lungs sounds essentially clear throughout, diminished to his bilateral bases. Respirations are symmetrical and nonlabored. Currently on 2 L nasal cannula with oxygen saturations 99%. Able to achieve 500-750 mL on her incentive spirometry. Strong cough. CARDIOVASCULAR: Regular rhythm and rate. S1 and S2 present, negative for S3, or gallop. Positive systolic murmur heard best to her left sternal border fifth intercostal space. Sternum is stable. Palpable peripheral pulses bilaterally, +1 edema to her bilateral lower extremities. No calf pain or tenderness noted. Heart hugger in place with patient demonstrating appropriate use. Knee-high SAI hose and sequential compression devices in place to his bilateral lower extremities. Bedside telemetry showing paced rhythm with a heart rate of 70 bpm, underlying rhythm shows asystole. GASTROINTESTINAL: Abdomen soft, nontender, nondistended. Active bowel sounds present 4 quadrants. Tolerating diet. Passing flatus. No guarding or rigidity. Bowel movement yesterday 01/11/2021. GENITOURINARY: Continues to void. INTEGUMENTARY: Skin is warm and dry with no evidence of clubbing or cyanosis. Midline sternal incision clean dry and well approximated, covered with dry intact dressing. Left lower extremity EVH site well approximated without redness or drainage. NEUROLOGIC: Cranial nerves II through XII intact. No focal deficits. MUSKULOSKELETAL: Able to move all extremities, strength equal bilaterally, generalized weakness. PSYCHIATRIC: Alert and oriented to person place and time, appropriate affect, intact judgment and insight. INVASIVE LINES AND TUBES: Atrial and ventricular epicardial pacemaker wires present, connected to generator, DDD mode rate of 70 bpm. - Labs CBC & Chem 7: 01/12/21 03:54 01/12/21 03:54 Labs: Abnormal Lab Results - Last 24 Hours (Table) 01/11/21 01/11/21 01/12/21 Range/Units 16:43 20:55 03:54 WBC 16.0 H (3.8-10.6) k/uL RBC 2.67 L (3.80-5.40) m/uL Hgb 8.7 L (11.4-16.0) gm/dL Hct 25.9 L (34.0-46.0) % RDW 15.7 H (11.5-15.5) % Neutrophils # 12.0 H (1.3-7.7) k/uL Monocytes # 1.2 H (0-1.0) k/uL Eosinophils # 0.9 H (0-0.7) k/uL Sodium (137-145) mmol/L BUN (7-17) mg/dL Creatinine (0.52-1.04) mg/dL Glucose (74-99) mg/dL POC Glucose (mg/dL) 115 H 114 H (75-99) mg/dL Calcium (8.4-10.2) mg/dL AST (14-36) U/L Total Protein (6.3-8.2) g/dL Albumin (3.5-5.0) g/dL 01/12/21 Range/Units 03:54 WBC (3.8-10.6) k/uL RBC (3.80-5.40) m/uL Hgb (11.4-16.0) gm/dL Hct (34.0-46.0) % RDW (11.5-15.5) % Neutrophils # (1.3-7.7) k/uL Monocytes # (0-1.0) k/uL Eosinophils # (0-0.7) k/uL Sodium 129 L (137-145) mmol/L BUN 39 H (7-17) mg/dL Creatinine 1.05 H (0.52-1.04) mg/dL Glucose 107 H (74-99) mg/dL POC Glucose (mg/dL) (75-99) mg/dL Calcium 7.8 L (8.4-10.2) mg/dL AST 54 H (14-36) U/L Total Protein 4.8 L (6.3-8.2) g/dL Albumin 2.5 L (3.5-5.0) g/dL Microbiology - Last 24 Hours (Table) 01/10/21 12:55 Urine Culture - Final Urine,Voided Assessment and Plan Assessment: 1. Severe aortic stenosis with insufficiency, status post aortic valve replacement with root enlargement 2. Mitral stenosis with insufficiency and heavy mitral annular calcification 3. Coronary artery disease, status post single vessel CABG 4. History of hypertension 5. Hyperlipidemia with refusal of statin medication in the past, cholesterol 226, LDL 165 6. Hypothyroidism, recent TSH 2.69, free T4 0.8 7. Left internal carotid stenosis 50-79% 8. TIA in 2008 9. GERD 10. Arthritis 11. Lifetime nonsmoker, with a preoperative FEV1 83% of predicted 12. Family history of premature coronary artery disease, brother diagnosed with CAD in his 40s with subsequent 2 vessel CABG 13. Family history of heart failure and possible valvular heart disease 14. Intraoperative and postoperative acute blood loss anemia and thro mbocytopenia, expected, requiring multiple blood products 15. Postoperative atrial fibrillation and subsequent complete heart block requiring 100% pacing, status post exclusion of the left atrial appendage Plan: 1. Continue low-dose aspirin, statin, and Plavix. Beta benton has been discontinued at this time as the patient is pacemaker dependent. 2. Amiodarone has been discontinued as the patient is pacemaker dependent at this time. 3. Encourage incentive spirometry use 10 times every hour while awake. Bronchodilators per pulmonology management. 4. Increase activity, ambulate as tolerated. PT/OT/cardiac rehab following. The patient should be out of bed for all meals and needs strict encouragement to get up and ambulate. 5. Will monitor daily labs and chest x-rays. Electrolyte replacement per protocol. No diuretics today. Continue fluid restriction of 1500 mL, her sodium level is trending up and is 129 today. 6. Urine culture results show no growth after 18 hours, this is the final result. 7. GI/DVT prophylaxis. 8. Pain control per current medication regimen. 9. Insulin management per primary care service. Patient is not diabetic, preop erative hemoglobin A1c 5%, but patient does need tight blood sugar control to prevent infection and promote sternal union 10. The patient will be scheduled for a dual-chamber permanent pacemaker plac ement to be performed by Dr. Hill Schrader tomorrow 01/13/2021. The pacemaker rep Gabriel Uriostegui with [employer] [facility] has also been notified. 11. Continue to record strict in accurate I's and O's. Continue daily weights. 12. Nothing by mouth after midnight. 13. Cefazolin 2 g IV piggyback on-call to the operating room for the permanent pacemaker procedure. 14. More recommendations to follow based on patient's clinical course. Time with Patient: Greater than 30
[2021-01-12 11:36] LABS: Glucose,Whole Blood 128 mg/dL (75-99)
[2021-01-12] MEDS: SENNOSIDES-DOCUSATE SODIUM 1 EACH TAB PO SCH (14:17)
[2021-01-12 17:03] LABS: Glucose,Whole Blood 103 mg/dL (75-99)
--- NOTE | 2021-01-12 20:54 | P.EPCON ---
Electrophysiology Consult - EP Consult Electrophysiology Consult: Patient of Dr. Iniguez referred to the aortic valve clinic for Replacement of the aortic valve for severe aortic stenosis and single vessel CAD Patient underwent Aortic valve replacement with a bovine pericardial valve valve #21 Patch repair of the aortic root SVG to OM Left atrial appendage ligation with atrcure clip Postoperatively acute blood loss as well as thrombocytopenia Acute renal failure Postoperative atrial fibrillation Her underlying rhythm shows junctional rhythm in the mid 40s with AV node disease At VVI 40 she shows an underlying junctional rhythm @DDD 70/min her intrinsic narrow QRS comes at a paced AV delay of about 240-250 ms Labs reviewed White count 16,000, hemoglobin 8.7 Sodium 129 potassium 4.2 BUN 39 and creatinine 1.05 A detailed discussion with the patient and her daughter (Her daughter is a patient of Dr. Aguirre and has the same name as her mother) Indications for permanent pacing discussed Procedure discussed risks and complications discussed She will have breakfast tomorrow and be nothing by mouth thereafter I will reevaluate her white count tomorrow and then proceed with permanent pacing in the next 24 hours Left pectoral area was cleaned with ChloraPrep EKG patches removed Patient and her daughter are agreeable with the plan
[2021-01-12 21:29] LABS: Glucose,Whole Blood 111 mg/dL (75-99)
[2021-01-12 22:20] LABS: Glucose,Whole Blood 115 mg/dL (75-99)
[2021-01-12] MEDS: MELATONIN 3 MG TABLET PO SCH (22:21)
[2021-01-12] MEDS: ATORVASTATIN 20 MG TAB PO SCH (22:21)
[2021-01-12] MEDS: SODIUM CHLORIDE 0.9% 1,000 ML IV SCH (22:22)
[2021-01-13] MEDS: HEPARIN SODIUM,PORCINE/PF 5,000 UNIT/0.5 ML SYRINGE SQ SCH ×3 (01:37→16:28)
[2021-01-13 04:39] LABS: Anisocytosis Slight; HCT 23.7 % (34.0-46.0); HGB 7.8 gm/dL (11.4-16.0); MCH 32.2 pg (25.0-35.0); MCV 97.5 fL (80.0-100.0); Macrocytosis Slight; Mean Platelet Volume 8.6; Platelet Count 256 k/uL (150-450); RBC 2.43 m/uL (3.80-5.40); RDW 16.4 % (11.5-15.5)
[2021-01-13 05:06] LABS: Albumin 2.4 g/dL (3.5-5.0); Band Neutrophils % 7 %; Calcium 7.8 mg/dL (8.4-10.2); Eosinophils # (M) 0.91 k/uL (0-0.7); Lymphocytes # (M) 0.91 k/uL (1.0-4.8); Metamyelocytes % 4 %; Myelocytes % 2 %; Neutrophils % (M) 71 %; Nucleated Red Blood Cells 2 /100 WBC (0-0); Potassium 4.1 mmol/L (3.5-5.1); Total Bilirubin 0.7 mg/dL (0.2-1.3); Total Cells Counted 200; Total Protein 4.7 g/dL (6.3-8.2); WBC 15.1 k/uL (3.8-10.6)
[2021-01-13 05:07] LABS: Anisocytosis (M) Present; Polychromasia Present
[2021-01-13] MEDS: PANTOPRAZOLE 40 MG TABLET PO SCH ×2 (06:24→22:16)
[2021-01-13] MEDS: FERROUS SULFATE 325 MG TAB PO SCH ×2 (06:24→22:16)
[2021-01-13] MEDS: INSULIN ASPART (NovoLOG) 100 UNIT/ML VIAL SQ SCH ×4 (06:25→22:17)
[2021-01-13 07:07] LABS: Glucose,Whole Blood 77 mg/dL (75-99)
--- NOTE | 2021-01-13 07:21 | XR ---
EXAMINATION TYPE: XR chest 1V portable DATE OF EXAM: 01/13/2021 Comparison: 01/12/2021 Clinical History: 85-year-old female Postoperative cardiac surgery Findings: Median sternotomy wires are present. Retained epicardial pacer leads. Heart remains borderline enlarg ed. Prosthetic aortic valve. No appreciable pneumothorax. Patchy opacity remains at the medial right base, left base, and the periphery of the left lower lung. No pleural effusion. Impression: Similar patchy bibasilar opacities, probably areas of atelectasis rather than infiltrates.
[2021-01-13] MEDS: ASCORBIC ACID 500 MG TAB PO SCH (08:49)
[2021-01-13] MEDS: CHOLECALCIFEROL 25 MCG (1000 IU) TABLET PO SCH (08:49)
[2021-01-13] MEDS: THYROID, PORK 30 MG TAB PO SCH (08:49)
--- NOTE | 2021-01-13 09:38 | P.PN ---
Subjective Progress Note Date: 01/13/21 Principal diagnosis: Severe aortic stenosis with insufficiency, mitral stenosis with insufficiency and heavy mitral annular calcification, coronary artery disease. Previous medical history of hypertension, hyperlipidemia with refusal of statin medication in the past, hypothyroidism, left internal carotid stenosis 50-79%, TIA in 2008, GERD, arthritis, never smoker, family history of premature coronary artery disease, as well as family history of heart failure and possible valvular heart disease POD #6 aortic valve replacement with a 21 mm Inspiris bovine pericardial valve with root enlargement with bovine pericardial patch, coronary artery bypass grafting 1 with reverse saphenous vein graft to the obtuse marginal artery, epi-aortic ultrasound, endovascular vein harvest of the left greater saphenous vein from the thigh, ligation of the left atrial appendage with a 35 mm AtriCure clip Intraoperative and postoperative acute blood loss anemia and thrombocytopenia, expected given hemodilution and cardiopulmonary bypass pump requiring multiple blood products Postoperative atrial fibrillation with subsequent complete heart block, known common occurrence after open heart surgery, especially valve surgery The patient is currently sitting up in a recliner in the intensive care unit in no acute distress. She does complain of post surgical painbut states controlled on current medication regimen, denies shortness of breath. She has been in and out of atrial fibrillation and third degree heart block, permanent pacemaker to be placed today by Dr. Iniguez. She is oxygenating well on room air. Remains alert and oriented. No other new concerns. Objective - Vital Signs Vital signs: Vital Signs Temp 98 F 01/13/21 08:00 Pulse 125 H 01/13/21 08:00 Resp 20 01/13/21 08:00 BP 115/61 01/13/21 08:00 Pulse Ox 100 01/13/21 08:00 Intake & Output 01/12/21 01/13/21 01/13/21 18:59 06:59 18:59 Intake Total 340 610 220 Output Total 1002 800 Balance -662 -190 220 Weight 78.7 kg Intake: Intake, IV Titration 450 100 Amount Sodium Chloride 0.9% 1, 450 100 000 ml @ 50 mls/hr IV . Q20H [facility] Rx#:[id number] Oral 340 160 120 Output: Urine 1000 800 Stool 2 Other: Voiding Method Bedside Commode Bedside Commode # Voids 1 1 # Bowel Movements 1 1 ABP, PAP, CO, CI - Last Documented Arterial Blood Pressure 198/193 Pulmonary Artery Pressure 31/14 Cardiac Output 4.8 Cardiac Index 2.9 - Exam CONSTITUTIONAL: Appears comfortable, calm, cooperative RESPIRATORY: Lungs sounds diminished bilaterally. Respirations even, nonlab ored. Currently on room air with oxygen saturation 98%. Able to achieve 1000 mL on her incentive spirometer. Strong cough. CARDIOVASCULAR: S1, S2 present, positive murmur. Irregular rate and rhythm, atrial fibrillation on telemetry. Sternum stable. Palpable peripheral pulses bilaterally. Trace generalized edema present. No calf pain or tenderness noted. Heart hugger in place with patient demonstrating appropriate use. Antiembolism stockings, SCDs present. GASTROINTESTINAL: Abdomen soft, nontender, nondistended. Active bowel sounds present 4 quadrants. Tolerating diet. Positive bowel movement GENITOURINARY: Continues to void INTEGUMENTARY: Skin is warm and dry. Anterior chest incision well approximated and covered with dry intact dressing. Left lower extremity EVH site well approximated without redness or drainage NEUROLOGIC: Cranial nerves II through XII intact MUSKULOSKELETAL: Able to move all extremities, strength equal. Ambulatory without difficulty PSYCHIATRIC: Alert and oriented to person place and time INVASIVE LINES AND TUBES: A/V epicardial pacemaker wires present, connected to generator, DDD mode with rate 60 bpm. - Allied health notes Allied health notes reviewed: nursing - Labs CBC & Chem 7: 01/13/21 03:14 01/13/21 03:14 Labs: Abnormal Lab Results - Last 24 Hours (Table) 01/12/21 01/12/21 01/12/21 Range/Units 11:33 17:02 21:26 WBC (3.8-10.6) k/uL RBC (3.80-5.40) m/uL Hgb (11.4-16.0) gm/dL Hct (34.0-46.0) % RDW (11.5-15.5) % Neutrophils # (Manual) (1.3-7.7) k/uL Lymphocytes # (Manual) (1.0-4.8) k/uL Eosinophils # (Manual) (0-0.7) k/uL Metamyelocytes # (Man) (0) k/uL Myelocytes # (Manual) (0) k/uL Nucleated RBCs (0-0) /100 WBC Sodium (137-145) mmol/L BUN (7-17) mg/dL Glucose (74-99) mg/dL POC Glucose (mg/dL) 128 H 103 H 111 H (75-99) mg/dL Calcium (8.4-10.2) mg/dL AST (14-36) U/L Total Protein (6.3-8.2) g/dL Albumin (3.5-5.0) g/dL 01/12/21 01/13/21 01/13/21 Range/Units 22:18 03:14 03:14 WBC 15.1 H (3.8-10.6) k/uL RBC 2.43 L (3.80-5.40) m/uL Hgb 7.8 L (11.4-16.0) gm/dL Hct 23.7 L (34.0-46.0) % RDW 16.4 H (11.5-15.5) % Neutrophils # (Manual) 11.70 H (1.3-7.7) k/uL Lymphocytes # (Manual) 0.91 L (1.0-4.8) k/uL Eosinophils # (Manual) 0.91 H (0-0.7) k/uL Metamyelocytes # (Man) 0.60 H (0) k/uL Myelocytes # (Manual) 0.30 H (0) k/uL Nucleated RBCs 2 H (0-0) /100 WBC Sodium 131 L (137-145) mmol/L BUN 29 H (7-17) mg/dL Glucose 103 H (74-99) mg/dL POC Glucose (mg/dL) 115 H (75-99) mg/dL Calcium 7.8 L (8.4-10.2) mg/dL AST 49 H (14-36) U/L Total Protein 4.7 L (6.3-8.2) g/dL Albumin 2.4 L (3.5-5.0) g/dL - Imaging and Cardiology Chest x-ray: report reviewed, image reviewed Assessment and Plan Assessment: 1. Severe aortic stenosis with insufficiency, status post operative site aortic valve replacement with root enlargement 2. Mitral stenosis with insufficiency and heavy mitral annular calcification 3. Coronary artery disease, status post single vessel CABG 4. History of hypertension 5. Hyperlipidemia with refusal of statin medication in the past, cholesterol 226, LDL 165 6. Hypothyroidism, recent TSH 2.69, free T4 0.8 7. Left internal carotid stenosis 50-79% 8. TIA in 2009 9. GERD 10. Arthritis 11. Never smoker, preoperative FEV1 83% of predicted 12. Family history of premature coronary artery disease, brother diagnosed with CAD in his 40s with subsequent 2 vessel CABG 13. Family history of heart failure and possible valvular heart disease 14. Intraoperative and postoperative acute blood loss anemia and thrombocyt openia, expected, requiring multiple blood products 15. Postoperative atrial fibrillation, status post exclusion of the left atrial appendage 16. Third degree heartblock Plan: 1. Continue low-dose aspirin, statin, Plavix. Will restart beta benton after pacemaker insertion 2. NPO after breakfast for PPM insertion by Dr. Iniguez 3. Encourage incentive spirometry use 10 times every hour while awake. Bronchodilators per pulmonology 4. Increase activity, ambulate as tolerated. PT/OT/cardiac rehab consulted. The patient should be out of bed for all meals and needs strict encouragement to get up and ambulate 5. Will monitor daily labs and x-rays. Electrolyte replacement per protocol. No Lasix today. Fluid restriction 1500 mL 6. GI/DVT prophylaxis 7. Pain control per current medication regimen 8. Insulin management per primary care service. Patient is not diabetic, preoperative hemoglobin A1c 5%, but patient does need tight blood sugar control to prevent infection and promote sternal union 9. Strict accurate intake and output. Daily weights 10. Likely will place transfer orders for [facility] cardiac stepdown later today, after pacer placement 11. More recommendations to follow Time with Patient: Greater than 30
[2021-01-13] MEDS: IPRATROPIUM-ALBUTEROL 3 ML NEB INHALATION SCH ×4 (09:56→18:49)
--- NOTE | 2021-01-13 10:01 | P.PN ---
Subjective Progress Note Date: 01/13/21 This is a pleasant 85-year-old female patient with a known history of TIA, gastroesophageal reflux disease, hyperlipidemia, hypertension, rheumatoid arthritis, hypothyroidism. She is a lifelong nonsmoker. She was found to have severe aortic stenosis and single-vessel coronary artery disease and presented here yesterday for an elective surgery. She did undergo saphenous vein graft to the obtuse marginal artery. Aortic valve replacement with a bovine bioprosthetic valve. Postoperative day #1. She remains on a nitroglycerin drip at 5 g per hour, insulin drip at 2.5 units per hour, Primacor at 0.2 mcg/kg/m. Lactated Ringer's at 50 MLS per hour. She currently has a paced rhythm at 80 bpm. Right internal jugular Cordis in place, right radial arterial line in place. Mediastinal, left and right chest tubes remain in place. She is status post 5 units of packed red blood cells, 4 units of fresh frozen plasma, 2 platelets, 2 pooled cryoprecipitate. Creatinine blood pressure 67. PA pressure 29/15 with a mean of 19. Cardiac output 4.8. Cardiac index 2.9. White count 10.5. Hemoglobin 7.7. Platelets 100,000. Sodium 140. Potassium 3.7. Creatinine 0.96. Glucose 141. AST 93. ALT 16. She is currently sitting up in a chair at the bedside. Awake and alert in no acute distress. So having issues from surgical site pain. She is on 2 L nasal cannula maintaining good O2 saturations in the 90s. Needs increased encouragement regarding the incentive spirometer. Wesly on bronchodilators. Heparin for DVT prophylaxis. The patient is seen today 01/09/2021 in follow-up in the intensive care unit. Postoperative day #2. Sitting up in a chair at the bedside. She is currently on oxygen at 2 L/m per nasal cannula. Chest x-ray reveals patchy airspace disease bilaterally. Mediastinal chest tube is been removed. Right and left chest tubes remain in place. White count 17.3. Hemoglobin 6.5. Platelets 112,000. Sodium 135. Potassium 4.4. Creatinine 1.62. AST 104. ALT 10. Glucose 108. She is continued on bronchodilators. Working with the incentive spirometer. She remains on Lactated Ringer's at 30 mL per hour. Primacor at 0.1 mcg/kg/m. Insulin is currently on hold. One unit of packed red blood cells has been ordered. Cardiac output 5.1. Cardiac index 3.1. PA pressures 34/13 with a mean of 20. On 01/10/2021 patient seen in follow-up in the intensive care unit, today is postoperative day #3, status post aortic valve replacement, and one-vessel coronary artery bypass grafting with SVG to the OM. Patient is doing well, he is awake and alert, oriented 3, she is mildly short of breath, but appears to be in no acute distress, she is currently on 2 L of oxygen pulse ox is 97%, she is in A. fib with RVR with a rate of 144, she is currently on amiodarone currently running at 0.5 mg/m, 0.9 normal saline at 30 ML per hour, and insulin is currently on hold. Blood pressure is 114/50, she still has her Gran[place]-Belkis catheter in place, PA pressures 44/28, CVP is unknown, currently has IV fluids infusing through it, cardiac output is 3.7, and cardiac index is 2.2, patient was on milrinone which is currently discontinued. She is resting in bed, denies any acute distress, no complaints of chest discomfort, incisions are clean dry and intact. Today's chest x-ray shows patchy airspace disease bilaterally. Today's labs have been noted, white blood cell count is 20.4, hemoglobin is 7.6, sodium is 126, potassium is 4.4, chloride is 99, CO2 is 20, B1 is 37, creatinine is 1.44. Right and left pleural chest tubes in place, and there has been a total of 160 mL of serosanguineous output from the left pleural and right pleural put out only 40 mL of serosanguineous output in the last 24 hours. Urine output is in the order of 45-50 ML per hour, she received a dose of IV Lasix per CT surgery yesterday, she is significantly in positive fluid balance, +1089 mL over the last 24 hours. She had multiple blood products in the postoperative period, including 6 units of PRBCs, 4 units of FFP, 2 units of platelets, 2 units of pooled cryoprecipitate. On 01/12/2021 patient seen in follow-up in intensive care unit, today is postoperative day #5, status post aortic valve replacement, and one-vessel coronary artery bypass grafting. Patient is doing well, she is on room air with pulse ox of 97%. Afebrile. Yesterday she was still in A. fib with RVR, she did subsequently convert, and started having pauses at which point the demand pacemaker started pacing her. The check of underlying rhythm revealed asystole this morning. She is currently being V paced at a rate of 70 BPM. Blood pressure is 153/56, he is not on any IV fluids. She is not complaining of any shortness of breath, today's chest x-ray shows bilateral lung opacities with slight improvement, trace left pleural effusion, no pneumothorax. Today's labs have been reviewed showing white blood cell count is 16, hemoglobin is 8.7, sodium is 129, the rest of electrolytes were unremarkable, we'll profile is improving, BUN is 39 creatinine is 1.05. No other acute events overnight. C ardiology is following, she is off the amiodarone as well as the beta benton at this time. 01/13/2021, the patient is postop day #6 post aortic valve replacement and single-vessel bypass surgery. This morning, the patient is converted back into atrial fibrillation. Nevertheless, the ultimate plan is to proceed with insertion of a pacemaker as the patient is having episodes of A. fib along with high degree AV block requiring V pacing. Chest x-ray from today showing some mild four-vessel congestion. No other acute abnormality is are seen. Sternum is stable clean and intact on today's evaluation. Hemodynamically stable on no pressors. She is off beta blockers. She is also off amiodarone for now. She remains on aspirin. She is also on Plavix for now. Using incentive spirometer. She is pulling approximately 800 mL on her incentive spirometer. All of the chest tubes have been removed. The labs from today show a white cell count of 15 with a hemoglobin of 7.8. Renal function stable and acute kidney injury has recovered in the creatinine is down to 0.9 with a sodium level of 131. Objective - Vital Signs Vital signs: Vital Signs Temp 98 F 01/13/21 08:00 Pulse 109 H 01/13/21 09:00 Resp 16 01/13/21 09:00 BP 114/80 01/13/21 09:00 Pulse Ox 99 01/13/21 09:00 Intake & Output 01/12/21 01/13/21 01/13/21 18:59 06:59 18:59 Intake Total 340 610 270 Output Total 1002 800 300 Balance -662 -190 -30 Weight 78.7 kg Intake: Intake, IV Titration 450 150 Amount Sodium Chloride 0.9% 1, 450 150 000 ml @ 50 mls/hr IV . Q20H [facility] Rx#:[id number] Oral 340 160 120 Output: Urine 1000 800 300 Stool 2 Other: Voiding Method Bedside Commode Bedside Commode # Voids 1 1 # Bowel Movements 1 1 ABP, PAP, CO, CI - Last Documented Arterial Blood Pressure 198/193 Pulmonary Artery Pressure 31/14 Cardiac Output 4.8 Cardiac Index 2.9 - Exam GENERAL EXAM: Alert, very pleasant, 85-year-old white female, on room air mildly short of breath with conversation, but no apparent distress. HEAD: Normocephalic/atraumatic. EYES: Normal reaction of pupils, equal size. Conjunctiva pink, sclera white. NOSE: Clear with pink turbinates. THROAT: No erythema or exudates. NECK: No masses, no JVD, no thyroid enlargement, no adenopathy. CHEST: No chest wall deformity. Symmetrical expansion. Midsternal incisions clean dry and intact, chest tube sites are clean dry and intact, left pleural and right pleural chest tubes connected to Pleur-evac skin wall suction, with small amount of serosanguineous output, no evidence of air leak noted. The epicardial wires connected to external pacemaker box and patient is been 100% V paced at a rate of 70 BPM, with underlying rhythm of complete heart block and asystole LUNGS: Equal air entry with no crackles, wheeze, rhonchi or dullness. CVS: irregular rate and rhythm, normal S1 and S2, no gallops, no murmurs, no rubs ABDOMEN: Soft, nontender. No hepatosplenomegaly, normal bowel sounds, no gua rding or rigidity. EXTREMITIES: No clubbing, mild edema, no cyanosis, 2+ pulses and upper and lower extremities. MUSCULOSKELETAL: Muscle strength and tone normal. SPINE: No scoliosis or deformity SKIN: No rashes CENTRAL NERVOUS SYSTEM: Alert and oriented -3. No focal deficits, tone is normal in all 4 extremities. PSYCHIATRIC: Alert and oriented -3. Appropriate affect. Intact judgment and insight. - Labs CBC & Chem 7: 01/13/21 03:14 01/13/21 03:14 Labs: Abnormal Lab Results - Last 24 Hours (Table) 01/12/21 01/12/21 01/12/21 Range/Units 11:33 17:02 21:26 WBC (3.8-10.6) k/uL RBC (3.80-5.40) m/uL Hgb (11.4-16.0) gm/dL Hct (34.0-46.0) % RDW (11.5-15.5) % Neutrophils # (Manual) (1.3-7.7) k/uL Lymphocytes # (Manual) (1.0-4.8) k/uL Eosinophils # (Manual) (0-0.7) k/uL Metamyelocytes # (Man) (0) k/uL Myelocytes # (Manual) (0) k/uL Nucleated RBCs (0-0) /100 WBC Sodium (137-145) mmol/L BUN (7-17) mg/dL Glucose (74-99) mg/dL POC Glucose (mg/dL) 128 H 103 H 111 H (75-99) mg/dL Calcium (8.4-10.2) mg/dL AST (14-36) U/L Total Protein (6.3-8.2) g/dL Albumin (3.5-5.0) g/dL 01/12/21 01/13/21 01/13/21 Range/Units 22:18 03:14 03:14 WBC 15.1 H (3.8-10.6) k/uL RBC 2.43 L (3.80-5.40) m/uL Hgb 7.8 L (11.4-16.0) gm/dL Hct 23.7 L (34.0-46.0) % RDW 16.4 H (11.5-15.5) % Neutrophils # (Manual) 11.70 H (1.3-7.7) k/uL Lymphocytes # (Manual) 0.91 L (1.0-4.8) k/uL Eosinophils # (Manual) 0.91 H (0-0.7) k/uL Metamyelocytes # (Man) 0.60 H (0) k/uL Myelocytes # (Manual) 0.30 H (0) k/uL Nucleated RBCs 2 H (0-0) /100 WBC Sodium 131 L (137-145) mmol/L BUN 29 H (7-17) mg/dL Glucose 103 H (74-99) mg/dL POC Glucose (mg/dL) 115 H (75-99) mg/dL Calcium 7.8 L (8.4-10.2) mg/dL AST 49 H (14-36) U/L Total Protein 4.7 L (6.3-8.2) g/dL Albumin 2.4 L (3.5-5.0) g/dL Assessment and Plan Plan: #1. Severe aortic stenosis, and coronary artery disease, status post aortic valve replacement with root enlargement and single-vessel coronary artery bypass grafting postoperative day #6 #2. Mitral stenosis with insufficiency and heavy mitral annular calcification #3. Complete heart block, currently 100% paced and is pacemaker dependent post op and this am she is in AFIB #4. Afib , paroxysmal #5. Shortness of breath, likely related to A. fib with RVR #6. Hypertension #7. Hyperlipidemia #8. Hypothyroidism #9. Left carotid artery stenosis #10. History of TIA #11. GERD #12. Nonsmoker, preop FEV1 of 83% of predicted #13. Family history of premature coronary artery disease #14. Acute kidney injury, improving Plan: Proceed with pacemaker insertion today Keep the patient BETA blockers and off amiodarone No need for pressors Continue using incentive spirometer Chest x-ray was reviewed Acute kidney injury has recovered Hemoglobin stable at 7.8 We'll continue to follow. The patient was brought back to the intensive care unit following her pacemaker insertion. She is currently on no pressors. All of the chest tubes have been removed.
[2021-01-13 11:28] LABS: Glucose,Whole Blood 114 mg/dL (75-99)
--- NOTE | 2021-01-13 11:43 | P.PN ---
Subjective This is a pleasant 85-year-old female who underwent aortic valve replacement. She had an episode of atrial fibrillation and then subsequently went into a complete heart block and is currently pacemaker dependent. Overall she complains of feeling tired and weak. She has no symptoms of chest discomfort, dizziness or shortness of breath. Blood pressure 149/63 heart rate 92 afebrile maintaining oxygen saturation on room air. Laboratory data reviewed, WBC 15.1, hemoglobin 7.8, platelets 256, sodium 131, potassium 4.1, creatinine 0.9. Currently maintained on aspirin 81 mg daily, atorvastatin 20 mg daily and Plavix 75 mg daily. Chest x-ray revealed bibasilar opacity. GENERAL: Well-appearing, well-nourished and in no acute distress. NECK: Supple without JVD or thyromegaly. LUNGS: Breath sounds clear to auscultation bilaterally. Respiration equal and unlabored. No wheezes, rales or rhonchi. Heart hugger in place. HEART: Irregular rate and rhythm with systolic ejection murmur at the base, no rubs or gallops. S1 and S2 heard. EXTREMITIES: Normal range of motion, no edema. No clubbing or cyanosis. Peripheral pulses intact. ASSESSMENT Status post aortic valve replacement and coronary artery bypass grafting Paroxysmal atrial fibrillation with subsequent complete heart block, patient has 100% paced at this time Complete heart block, currently pacemaker dependenct Leukocytosis Confusion, improved Renal failure, improved Dyslipidemia PLAN Patient is scheduled to undergo permanent pacemaker implantation this afternoon with Dr. Iniguez. Hold beta blockers until after PPM placement. Further recommendations to follow based on clinical course. Nurse Practitioner note has been reviewed, I agree with a documented findings and plan of care. Patient was seen and examined. Objective - Vital Signs Vital signs: Vital Signs Temp 98 F 01/13/21 08:00 Pulse 92 01/13/21 11:22 Resp 18 01/13/21 10:00 BP 149/63 01/13/21 10:00 Pulse Ox 97 01/13/21 11:10 Intake & Output 01/12/21 01/13/21 01/13/21 18:59 06:59 18:59 Intake Total 340 610 320 Output Total 1002 800 300 Balance -662 -190 20 Weight 78.7 kg Intake: Intake, IV Titration 450 200 Amount Sodium Chloride 0.9% 1, 450 200 000 ml @ 50 mls/hr IV . Q20H [facility] Rx#:[id number] Oral 340 160 120 Output: Urine 1000 800 300 Stool 2 Other: Voiding Method Bedside Commode Bedside Commode Bedside Commode # Voids 1 1 # Bowel Movements 1 1 ABP, PAP, CO, CI - Last Documented Arterial Blood Pressure 198/193 Pulmonary Artery Pressure 31/14 Cardiac Output 4.8 Cardiac Index 2.9 - Labs CBC & Chem 7: 01/13/21 03:14 01/13/21 03:14 Labs: Abnormal Lab Results - Last 24 Hours (Table) 01/12/21 01/12/21 01/12/21 Range/Units 17:02 21:26 22:18 WBC (3.8-10.6) k/uL RBC (3.80-5.40) m/uL Hgb (11.4-16.0) gm/dL Hct (34.0-46.0) % RDW (11.5-15.5) % Neutrophils # (Manual) (1.3-7.7) k/uL Lymphocytes # (Manual) (1.0-4.8) k/uL Eosinophils # (Manual) (0-0.7) k/uL Metamyelocytes # (Man) (0) k/uL Myelocytes # (Manual) (0) k/uL Nucleated RBCs (0-0) /100 WBC Sodium (137-145) mmol/L BUN (7-17) mg/dL Glucose (74-99) mg/dL POC Glucose (mg/dL) 103 H 111 H 115 H (75-99) mg/dL Calcium (8.4-10.2) mg/dL AST (14-36) U/L Total Protein (6.3-8.2) g/dL Albumin (3.5-5.0) g/dL 01/13/21 01/13/21 01/13/21 Range/Units 03:14 03:14 11:27 WBC 15.1 H (3.8-10.6) k/uL RBC 2.43 L (3.80-5.40) m/uL Hgb 7.8 L (11.4-16.0) gm/dL Hct 23.7 L (34.0-46.0) % RDW 16.4 H (11.5-15.5) % Neutrophils # (Manual) 11.70 H (1.3-7.7) k/uL Lymphocytes # (Manual) 0.91 L (1.0-4.8) k/uL Eosinophils # (Manual) 0.91 H (0-0.7) k/uL Metamyelocytes # (Man) 0.60 H (0) k/uL Myelocytes # (Manual) 0.30 H (0) k/uL Nucleated RBCs 2 H (0-0) /100 WBC Sodium 131 L (137-145) mmol/L BUN 29 H (7-17) mg/dL Glucose 103 H (74-99) mg/dL POC Glucose (mg/dL) 114 H (75-99) mg/dL Calcium 7.8 L (8.4-10.2) mg/dL AST 49 H (14-36) U/L Total Protein 4.7 L (6.3-8.2) g/dL Albumin 2.4 L (3.5-5.0) g/dL
--- NOTE | 2021-01-13 12:12 | P.PN ---
Subjective Progress Note Date: 01/13/21 This is an 85-year-old female with past medical history of CVA/TIA, gastroesophageal reflux disease, hypertension,MVP, rheumatoid arthritis, hypothyroidism, glaucoma, recently admitted with chest tightness, shortness of breath ,diagnosed with severe aortic stenosis moderate aortic regurgitation, moderate mitral stenosis and mild to moderate mitral regurgitation, aortic root measuring 3.1 cm per KATERIN. Cardiac catheterization reported severe aortic regurgitation, 80-90% ostial stenosis involving the OM branch. Left internal carotid stenosis 50-69%, reviewed further by Vascular surgery reporting she was closer to 50% stenosis with no further intervention necessary. Patient returned for elective surgery- saphenous vein graft to the obtuse marginal artery. Aortic valve replacement with a bovine bioprosthetic valve. Tolerated procedure well. Extubated last night. Maintaining O2 sats in the 90s on 2 L nasal cannula. Sitting up in chair. Telemetry paced rhythm. Maintained on nitroglycerin, milrinone, insulin drips. CO 4.8, CI 2.9. Received 250 MLS an albumin, 5 units RBCs, 4 FFP to platelets,two cryoprecipitate. Hemoglobin 7.7, platelets 100, sodium 140, potassium 3.7, BUN 21 ,creatinine 0.96, T bili 0.7, AST 93, ALT 16, alk phos 27. Blood sugars controlled, A1c 5.Afebrile, normal WB C. 01/09/2021 Sitting up in bed, tired, minimally conversing, following simple commands. T-max 100, WBC increased to 19.6. Mediastinal chest tube recently discontinued, chest x-ray reporting bilateral patchy airspace disease, unchanged. Maintaining O2 sats in the high 90s on 2 L nasal cannula. Hemoglobin 6.5, receiving 1 unit of packed RBCs. platelets 112. Sodium 135, renal function worsening, BUN 29, creatinine 1.62. Blood sugars controlled. AST and alk phos mildly increased. Maintained on insulin and milrinone drips. CO 5.1,CI 3.1. 01/13/2021 telemetry atrial fibrillation .remains off of amiodarone, off beta blockers . Anticoagulated on Plavix and aspirin Scheduled for PPM today secondary to underlying complete heart block and asystole. Chest x-ray reporting similar patchy bibasilar opacities, probably atelectasis rather than an infiltrates. Incentive spirometer up to 800. Afebrile, WBC decreased to 15.1. Hemoglobin decreased from 7.8, platelets 256. Sodium 131, BUN 29 creatinine 0.9. Blood sugars controlled. Objective - Vital Signs Vital signs: Vital Signs Temp 98 F 01/13/21 08:00 Pulse 92 01/13/21 11:22 Resp 18 01/13/21 10:00 BP 149/63 01/13/21 10:00 Pulse Ox 97 01/13/21 11:10 Intake & Output 01/12/21 01/13/21 01/13/21 18:59 06:59 18:59 Intake Total 340 610 320 Output Total 1002 800 300 Balance -662 -190 20 Weight 78.7 kg Intake: Intake, IV Titration 450 200 Amount Sodium Chloride 0.9% 1, 450 200 000 ml @ 50 mls/hr IV . Q20H [facility] Rx#:[id number] Oral 340 160 120 Output: Urine 1000 800 300 Stool 2 Other: Voiding Method Bedside Commode Bedside Commode Bedside Commode # Voids 1 1 # Bowel Movements 1 1 ABP, PAP, CO, CI - Last Documented Arterial Blood Pressure 198/193 Pulmonary Artery Pressure 31/14 Cardiac Output 4.8 Cardiac Index 2.9 - Exam - Exam PHYSICAL EXAM: VITAL SIGNS: As above GENERAL: Alert and oriented 3, Sitting up in chair, no acute distress. HEENT: Conjunctivae normal. eyes normal. Oral mucosa moist. NECK: Supple, No JVD. CARDIOVASCULAR: S1, S2 regular. Systolic murmur.wearing heart hugger. RESPIRATION: Breath sounds diminished ABDOMEN: Soft, nontender . No guarding. no masses palpable. Positive Bowel sounds. LEGS: Trace edema, no clubbing, no cyanosis, peripheral pulses intact. SCDs present. NERVOUS SYSTEM: Cranial N 2-12 grossly normal. Moves all 4 limbs. No focal deficits. Strength and sensation grossly intact. Skin: Warm and dry, no rash - Labs CBC & Chem 7: 01/13/21 03:14 01/13/21 03:14 Labs: Abnormal Lab Results - Last 24 Hours (Table) 01/12/21 01/12/21 01/12/21 Range/Units 17:02 21:26 22:18 WBC (3.8-10.6) k/uL RBC (3.80-5.40) m/uL Hgb (11.4-16.0) gm/dL Hct (34.0-46.0) % RDW (11.5-15.5) % Neutrophils # (Manual) (1.3-7.7) k/uL Lymphocytes # (Manual) (1.0-4.8) k/uL Eosinophils # (Manual) (0-0.7) k/uL Metamyelocytes # (Man) (0) k/uL Myelocytes # (Manual) (0) k/uL Nucleated RBCs (0-0) /100 WBC Sodium (137-145) mmol/L BUN (7-17) mg/dL Glucose (74-99) mg/dL POC Glucose (mg/dL) 103 H 111 H 115 H (75-99) mg/dL Calcium (8.4-10.2) mg/dL AST (14-36) U/L Total Protein (6.3-8.2) g/dL Albumin (3.5-5.0) g/dL 01/13/21 01/13/21 01/13/21 Range/Units 03:14 03:14 11:27 WBC 15.1 H (3.8-10.6) k/uL RBC 2.43 L (3.80-5.40) m/uL Hgb 7.8 L (11.4-16.0) gm/dL Hct 23.7 L (34.0-46.0) % RDW 16.4 H (11.5-15.5) % Neutrophils # (Manual) 11.70 H (1.3-7.7) k/uL Lymphocytes # (Manual) 0.91 L (1.0-4.8) k/uL Eosinophils # (Manual) 0.91 H (0-0.7) k/uL Metamyelocytes # (Man) 0.60 H (0) k/uL Myelocytes # (Manual) 0.30 H (0) k/uL Nucleated RBCs 2 H (0-0) /100 WBC Sodium 131 L (137-145) mmol/L BUN 29 H (7-17) mg/dL Glucose 103 H (74-99) mg/dL POC Glucose (mg/dL) 114 H (75-99) mg/dL Calcium 7.8 L (8.4-10.2) mg/dL AST 49 H (14-36) U/L Total Protein 4.7 L (6.3-8.2) g/dL Albumin 2.4 L (3.5-5.0) g/dL Assessment and Plan Assessment: Severe aortic stenosis status post aortic valve replacement with a bovine prosthetic valve with root enlargement. Coronary artery disease status post CABG X 1 with SVG to OM. Complete heart block, permanent pacemaker implantation pending Acute blood loss anemia with thrombocytopenia, status post multiple blood products, intra & postoperative, expected outcome Postoperative paroxysmal atrial fibrillation Acute renal failure, Left internal carotid stenosis Chronic CHF, Diastolic Hypothyroidism Gastroesophageal reflux disease Hypertension Hyperlipidemia MVP Rheumatoid arthritis History of CVA, TIA Obesity, BMI 27.6 Plan: Continue on current medication regime ,monitoring and symptomatic treatment. Continue holding beta blockers, amiodarone with pacemaker insertion pending.maintained aggressive pulmonary toileting with incentive spirometer re inforced. The impression and plan of care has been dictated as directed. : I performed a history and examination of this patient, discussed the same with the dictator. I agree with the dictator's note ,documented as a scribe. Any additional findings or plans will be noted.
[2021-01-13 16:33] LABS: Glucose,Whole Blood 113 mg/dL (75-99)
[2021-01-13] MEDS: CLOPIDOGREL 75 MG TAB PO SCH (17:13)
[2021-01-13] MEDS: ASPIRIN 81 MG PO SCH (17:13)
[2021-01-13] MEDS: SODIUM CHLORIDE 0.9% 1,000 ML IV SCH (17:46)
[2021-01-13] MEDS ORDERED: IV FLUID CONTINUATION 1,000 ML IV ONE (18:30)
[2021-01-13] MEDS ORDERED: MIDAZOLAM 2 MG/2 ML VIAL ONE (18:31)
[2021-01-13] MEDS ORDERED: fentaNYL (PF) 50 MCG/ML 2 ML AMP ONE (18:31)
[2021-01-13] MEDS ORDERED: IOPAMIDOL-370 50ML BTL INJ ONE (18:45)
[2021-01-13] MEDS: ceFAZolin 1 GM in SODIUM CHLORIDE 0.9% 250 ML IRRIGATION PRN ×3 (18:51→19:12)
[2021-01-13] MEDS ORDERED: LIDOCAINE 1% INJ 10MG/ML (20 ML MDV) ONE ×2 (19:11)
[2021-01-13] MEDS: VANCOMYCIN 1,000 MG in SODIUM CHLORIDE 0.9% 250 ML IVPB STA ×2 (19:12→19:15)
[2021-01-13] MEDS ORDERED: LIDOCAINE 1% INJ 10MG/ML (20 ML MDV) SQ ONE (19:27)
[2021-01-13] MEDS ORDERED: METOPROLOL TARTRATE 5 MG/5 ML VIAL IVP ONE ×2 (19:51→19:53)
[2021-01-13] MEDS ORDERED: DEXTROSE 5% IN WATER 100 ML BAG IV ONE (20:01)
[2021-01-13] MEDS ORDERED: AMIODARONE 50 MG/ML 3 ML VIAL IV ONE (20:01)
[2021-01-13] MEDS ORDERED: DEXTROSE 5% IN WATER 100 ML with AMIODARONE 150 MG IV ONE (20:03)
[2021-01-13] MEDS ORDERED: ACETAMINOPHEN TAB 325 MG TAB PO PRN (20:34)
--- NOTE | 2021-01-13 20:42 | P.PCN ---
Preoperative Diagnosis: Left upper extremity venogram 10 mL every dye injected in the left arm Patent left axillary and subclavian venous systems Plan Proceed with Dual-chamber pacemaker implantation for sick sinus syndrome and AV node disease Patient has paroxysmal atrial fibrillation She is status post aVR left atrial appendage with and SVG to OM
[2021-01-13 21:01] LABS: Glucose,Whole Blood 66 mg/dL (75-99)
[2021-01-13] MEDS ORDERED: DEXTROSE 50% SYRINGE 50 ML IVP ONE (21:01)
[2021-01-13] MEDS ORDERED: DEXTROSE 50% SYRINGE 50 ML IVP STA (21:10)
--- NOTE | 2021-01-13 21:16 | XR ---
EXAMINATION TYPE: XR chest 1V portable DATE OF EXAM: 01/13/2021 COMPARISON: Today HISTORY: Check line placement TECHNIQUE: Single view FINDINGS: Heart is enlarged. There is mild pulmonary congestion. There is left axillary pacemaker wit h the lead tips over the right ventricle. There are sternal wires. Costophrenic angles are clear. The re are chest leads. I see no definite pleural effusion. IMPRESSION: Cardiomegaly and probably mild heart failure. No change compared to exam this morning.
[2021-01-13 21:19] LABS: Glucose,Whole Blood 51 mg/dL (75-99)
--- NOTE | 2021-01-13 21:31 | CE ---
CARDIAC ELECTROPHYSIOLOGY REPORT This is an 85-year-old patient of Dr. Iniguez who is status post aortic valve replacement, bioprosthetic, SVG to OM1 and the patient has sick sinus syndrome with junctional rhythm and underlying AV node disease status post AVR. A dual-chamber pacemaker was advised. Patient was brought to the EP lab in a fasting state. Written informed consent was obtained prior to the procedure. The left shoulder area was prepped and draped as per protocol. 1% lidocaine was used for local anesthesia. Axillary vein access was obtained at two separate points and via appropriately-sized introducer sheaths, two leads were positioned in the right heart. Atrial lead was [employer], model #2088TC, 46 cm in length and serial #[id number]. This was screwed in the right atrial appendage stump. Very diminutive atrial signals were noted. The patient was in atrial fibrillation during the study, however, we got atrial fibrillation signals of 1.9 mV with good current of injury, pacing impedance of 340 ohms and 10 V test negative. She was given IV amiodarone and IV metoprolol during the procedure. The RV lead was positioned in the RV apex. This was a [employer], model #2088TC, 58 cm in length and serial number [id number]. Pacing threshold 0.75 V at 0.4 milliseconds, pacing impedance of 600 ohms and R-waves greater than 12 mV. Both leads were secured to the underlying pectoralis fascia using 2 nonabsorbable sutures. The pocket was irrigated with sterile antibiotic solution. The leads were connected to the generator ([employer], model number MG0019, serial #[id number]. The leads and generator were then placed in the subfascial pocket. The wound was closed in three layers and dressed per protocol. RESULT: Successful dual-chamber pacemaker implantation for sick sinus syndrome, av node disease and junctional rhythm in the 40s following aortic valve replacement even after discontinuation of beta blockers. The device was programmed to DDD at 60-130 bpm, later rate responsiveness will be added. Mode switch turned on. The underlying paced AV delay has been programmed to 275 milliseconds and a sensed AV delay of 250 milliseconds. Once she goes back into sinus rhythm we will reprogram the AV delays to minimize RV pacing. Yesterday during atrial pacing, I measured the paced IN interval at about 240-250 milliseconds. MMKIRILLL / IJN: [id number] /
[2021-01-13 21:35] LABS: Glucose,Whole Blood 101 mg/dL (75-99)
[2021-01-13 22:12] LABS: Glucose,Whole Blood 124 mg/dL (75-99)
[2021-01-13] MEDS: SENNOSIDES-DOCUSATE SODIUM 1 EACH TAB PO SCH (22:16)
[2021-01-13] MEDS: METOPROLOL TARTRATE 25 MG TAB PO SCH (22:16)
[2021-01-13] MEDS: ATORVASTATIN 20 MG TAB PO SCH (22:16)
[2021-01-13] MEDS: MELATONIN 3 MG TABLET PO SCH (22:16)
[2021-01-14] MEDS: HEPARIN SODIUM,PORCINE/PF 5,000 UNIT/0.5 ML SYRINGE SQ SCH ×4 (00:52→22:37)
[2021-01-14 02:23] LABS: Glucose,Whole Blood 91 mg/dL (75-99)
[2021-01-14 04:11] LABS: Anisocytosis Slight; HCT 27.2 % (34.0-46.0); HGB 8.6 gm/dL (11.4-16.0); Hypochromasia Slight; MCH 31.9 pg (25.0-35.0); MCHC 31.7 g/dL (31.0-37.0); MCV 100.6 fL (80.0-100.0); Macrocytosis Slight; Mean Platelet Volume 9.9; Platelet Count 313 k/uL (150-450); RBC 2.71 m/uL (3.80-5.40); RDW 16.2 % (11.5-15.5); WBC 18.3 k/uL (3.8-10.6)
[2021-01-14 04:18] LABS: Albumin 2.6 g/dL (3.5-5.0); Calcium 7.6 mg/dL (8.4-10.2); Potassium 4.2 mmol/L (3.5-5.1); Total Bilirubin 0.5 mg/dL (0.2-1.3)
[2021-01-14 06:35] LABS: Glucose,Whole Blood 100 mg/dL (75-99)
[2021-01-14] MEDS: INSULIN ASPART (NovoLOG) 100 UNIT/ML VIAL SQ SCH ×4 (06:37→21:11)
[2021-01-14] MEDS: PANTOPRAZOLE 40 MG TABLET PO SCH ×2 (06:38→17:54)
[2021-01-14] MEDS: FERROUS SULFATE 325 MG TAB PO SCH ×2 (06:38→17:54)
[2021-01-14 06:52] LABS: Band Neutrophils % 8 %; Metamyelocytes # (M) 0.37 k/uL (0); Metamyelocytes % 2 %; Monocytes # (M) 1.46 k/uL (0-1.0); Neutrophils % (M) 64 %; Nucleated Red Blood Cells 0 /100 WBC (0-0); Polychromasia Present; Total Cells Counted 200
[2021-01-14 06:55] LABS: Poikilocytosis (M) Present
--- NOTE | 2021-01-14 07:12 | XR ---
EXAMINATION TYPE: XR chest 1V portable DATE OF EXAM: 01/14/2021 HISTORY: Shortness of breath. COMPARISON: 01/13/2021 TECHNIQUE: Single view of the chest is submitted. FINDINGS: Demonstrated are scattered senescent parenchymal change. There is no evidence for focal infiltrate. Perihilar and basilar linear atelectasis is unchanged. Pul monary venous congestion improving. The heart is stable. Hilar and mediastinal structures are within normal limits. Degenerative changes are seen of the dorsal spine. IMPRESSION: 1. Perihilar and basilar linear atelectasis is unchanged. Pulmonary venous congestion improving.
[2021-01-14] MEDS ORDERED: SENNOSIDES-DOCUSATE SODIUM 1 EACH TAB PO PRN (07:56)
[2021-01-14] MEDS: METOPROLOL TARTRATE 25 MG TAB PO SCH ×3 (08:27→21:11)
[2021-01-14] MEDS: CLOPIDOGREL 75 MG TAB PO SCH (08:27)
[2021-01-14] MEDS: ASCORBIC ACID 500 MG TAB PO SCH (08:27)
[2021-01-14] MEDS: CHOLECALCIFEROL 25 MCG (1000 IU) TABLET PO SCH (08:27)
[2021-01-14] MEDS: ASPIRIN 81 MG PO SCH (08:27)
[2021-01-14] MEDS: THYROID, PORK 30 MG TAB PO SCH (08:30)
[2021-01-14] MEDS: IPRATROPIUM-ALBUTEROL 3 ML NEB INHALATION SCH ×4 (09:05→19:51)
--- NOTE | 2021-01-14 09:49 | P.PN ---
Subjective Progress Note Date: 01/14/21 Principal diagnosis: Severe aortic stenosis with insufficiency, mitral stenosis with insufficiency and heavy mitral annular calcification, coronary artery disease. Previous medical history of hypertension, hyperlipidemia with refusal of statin medication in the past, hypothyroidism, left internal carotid stenosis 50-79%, TIA in 2009, GERD, arthritis, never smoker, family history of premature coronary artery disease, as well as family history of heart failure and possible valvular heart disease POD #7 aortic valve replacement with a 21 mm Inspiris bovine pericardial valve with root enlargement with bovine pericardial patch, coronary artery bypass grafting 1 with reverse saphenous vein graft to the obtuse marginal artery, epi-aortic ultrasound, endovascular vein harvest of the left greater saphenous vein from the thigh, ligation of the left atrial appendage with a 35 mm AtriCure clip Intraoperative and postoperative acute blood loss anemia and thrombocytopenia, expected given hemodilution and cardiopulmonary bypass pump requiring multiple blood products Postoperative atrial fibrillation with subsequent complete heart block, known common occurrence after open heart surgery, especially valve surgery POD #[address] [employer] dual-chamber permanent pacemaker placement by Dr. Iniguez The patient is currently sitting up in a recliner in the intensive care unit in no acute distress. She does complain of post surgical pain but states controlled on current medication regimen, denies shortness of breath. She has been in and out of atrial fibrillation and third degree heart block, permanent pacemaker placed yesterday by Dr. Iniguez, currently 100% atrially paced at 60 bpm. Patient has been ambulatory in the hallway with standby assist without difficulty. No other new concerns Objective - Vital Signs Vital signs: Vital Signs Temp 98.6 F 01/14/21 04:00 Pulse 60 01/14/21 09:18 Resp 16 01/14/21 09:18 BP 113/52 01/14/21 07:00 Pulse Ox 94 L 01/14/21 09:05 Intake & Output 01/13/21 01/14/21 01/14/21 18:59 06:59 18:59 Intake Total 770 950 50 Output Total 1000 200 250 Balance -230 750 -200 Weight 76.2 kg Intake: IV 50 900 50 Sodium Chloride 0.9% 1, 500 50 000 ml @ 50 mls/hr IV . Q20H [facility] Rx#:[id number] Intake, IV Titration 600 50 Amount Sodium Chloride 0.9% 1, 600 000 ml @ 50 mls/hr IV . Q20H [facility] Rx#:[id number] ceFAZolin 2 gm In Sodium 50 Chloride 0.9% 50 ml @ 100 mls/hr IVPB Q6H [facility] Rx#: [id number] Oral 120 Output: Urine 1000 200 250 Other: Voiding Method Bedside Commode Bedpan ABP, PAP, CO, CI - Last Documented Arterial Blood Pressure 198/193 Pulmonary Artery Pressure 31/14 Cardiac Output 4.8 Cardiac Index 2.9 - Exam CONSTITUTIONAL: Appears comfortable, calm, cooperative RESPIRATORY: Lungs sounds diminished bilaterally. Respirations even, nonlabored. Currently on room air with oxygen saturation 99%. Able to achieve 1000 mL on her incentive spirometer. Strong cough. CARDIOVASCULAR: S1, S2 present, positive murmur. Regular rate and rhythm, atrially paced on telemetry. Sternum stable. Palpable peripheral pulses bilaterally. Trace generalized edema present. No calf pain or tenderness noted. Heart hugger in place with patient demonstrating appropriate use. Antiembolism stockings, SCDs present. GASTROINTESTINAL: Abdomen soft, nontender, nondistended. Active bowel sounds present 4 quadrants. Tolerating diet. Positive bowel movement GENITOURINARY: Continues to void INTEGUMENTARY: Skin is warm and dry. Anterior chest incision well approximated and covered with dry intact dressing. Left lower extremity EVH site well approximated without redness or drainage. Left upper anterior chest wall pacemaker site with dry intact dressing. Bilateral chest tube sites continue to drain serous fluid being captured by ostomy bags to prevent skin breakdown NEUROLOGIC: Cranial nerves II through XII intact MUSKULOSKELETAL: Able to move all extremities, strength equal, left arm in precautionary sling. Ambulatory without difficulty PSYCHIATRIC: Alert and oriented to person place and time INVASIVE LINES AND TUBES: A/V epicardial pacemaker wires present, grounded - Labs CBC & Chem 7: 01/14/21 03:06 01/14/21 03:06 Labs: Abnormal Lab Results - Last 24 Hours (Table) 01/13/21 01/13/21 01/13/21 Range/Units 11:27 16:32 21:00 WBC (3.8-10.6) k/uL RBC (3.80-5.40) m/uL Hgb (11.4-16.0) gm/dL Hct (34.0-46.0) % MCV (80.0-100.0) fL RDW (11.5-15.5) % Neutrophils # (Manual) (1.3-7.7) k/uL Monocytes # (Manual) (0-1.0) k/uL Eosinophils # (Manual) (0-0.7) k/uL Metamyelocytes # (Man) (0) k/uL Sodium (137-145) mmol/L BUN (7-17) mg/dL POC Glucose (mg/dL) 114 H 113 H 66 L (75-99) mg/dL Calcium (8.4-10.2) mg/dL AST (14-36) U/L Total Protein (6.3-8.2) g/dL Albumin (3.5-5.0) g/dL 01/13/21 01/13/21 01/13/21 Range/Units 21:16 21:34 22:10 WBC (3.8-10.6) k/uL RBC (3.80-5.40) m/uL Hgb (11.4-16.0) gm/dL Hct (34.0-46.0) % MCV (80.0-100.0) fL RDW (11.5-15.5) % Neutrophils # (Manual) (1.3-7.7) k/uL Monocytes # (Manual) (0-1.0) k/uL Eosinophils # (Manual) (0-0.7) k/uL Metamyelocytes # (Man) (0) k/uL Sodium (137-145) mmol/L BUN (7-17) mg/dL POC Glucose (mg/dL) 51 L 101 H 124 H (75-99) mg/dL Calcium (8.4-10.2) mg/dL AST (14-36) U/L Total Protein (6.3-8.2) g/dL Albumin (3.5-5.0) g/dL 01/14/21 01/14/21 01/14/21 Range/Units 03:06 03:06 06:33 WBC 18.3 H (3.8-10.6) k/uL RBC 2.71 L (3.80-5.40) m/uL Hgb 8.6 L (11.4-16.0) gm/dL Hct 27.2 L (34.0-46.0) % MCV 100.6 H (80.0-100.0) fL RDW 16.2 H (11.5-15.5) % Neutrophils # (Manual) 13.10 H (1.3-7.7) k/uL Monocytes # (Manual) 1.46 H (0-1.0) k/uL Eosinophils # (Manual) 1.10 H (0-0.7) k/uL Metamyelocytes # (Man) 0.37 H (0) k/uL Sodium 133 L (137-145) mmol/L BUN 23 H (7-17) mg/dL POC Glucose (mg/dL) 100 H (75-99) mg/dL Calcium 7.6 L (8.4-10.2) mg/dL AST 55 H (14-36) U/L Total Protein 5.0 L (6.3-8.2) g/dL Albumin 2.6 L (3.5-5.0) g/dL Assessment and Plan Assessment: 1. Severe aortic stenosis with insufficiency, status post operative site aortic valve replacement with root enlargement 2. Mitral stenosis with insufficiency and heavy mitral annular calcification 3. Coronary artery disease, status post single vessel CABG 4. History of hypertension 5. Hyperlipidemia with refusal of statin medication in the past, cholesterol 226, LDL 165 6. Hypothyroidism, recent TSH 2.69, free T4 0.8 7. Left internal carotid stenosis 50-79% 8. TIA in 2008 9. GERD 10. Arthritis 11. Never smoker, preoperative FEV1 83% of predicted 12. Family history of premature coronary artery disease, brother diagnosed with CAD in his 40s with subsequent 2 vessel CABG 13. Family history of heart failure and possible valvular heart disease 14. Intraoperative and postoperative acute blood loss anemia and thrombocytopenia, expected, requiring multiple blood products 15. Postoperative atrial fibrillation, status post exclusion of the left atrial appendage 16. Third degree heartblock/sick sinus syndrome, status post dual-chamber [employer] pacemaker Plan: 1. Continue low-dose aspirin, statin, Plavix. Lopressor restarted at 25 mg [address] Iniguez 2. Will leave decision regarding reinitiation of amiodarone to Dr. Iniguez, pr efer to avoid anticoagulation 3. Encourage incentive spirometry use 10 times every hour while awake. Bronchodilators per pulmonology 4. Increase activity, ambulate as tolerated. PT/OT/cardiac rehab consulted. The patient should be out of bed for all meals and needs strict encouragement to get up and ambulate 5. Will monitor daily labs and x-rays. Electrolyte replacement per protocol. No Lasix today. 6. GI/DVT prophylaxis 7. Pain control per current medication regimen 8. Insulin management per primary care service. Patient is not diabetic, preoperative hemoglobin A1c 5%, but patient does need tight blood sugar control to prevent infection and promote sternal union 9. Strict accurate intake and output. Daily weights 10. Epicardial pacemaker wires discontinued, patient to remain on bedrest for 1 hour post-wire removal 11. Will place transfer orders for [facility] cardiac stepdown today, may transfer when bed available 12. Discharge planning in progress. Anticipate discharge to home with home care in the next 24-48 hours 13. More recommendations to follow Time with Patient: Greater than 30
--- NOTE | 2021-01-14 09:56 | P.PN ---
Subjective Progress Note Date: 01/14/21 Principal diagnosis: Severe aortic valve stenosis, CAD This is a pleasant 85-year-old female patient with a known history of TIA, gastroesophageal reflux disease, hyperlipidemia, hypertension, rheumatoid arthritis, hypothyroidism. She is a lifelong nonsmoker. She was found to have severe aortic stenosis and single-vessel coronary artery disease and presented here yesterday for an elective surgery. She did undergo saphenous vein graft to the obtuse marginal artery. Aortic valve replacement with a bovine bioprosthetic valve. Postoperative day #1. She remains on a nitroglycerin drip at 5 g per hour, insulin drip at 2.5 units per hour, Primacor at 0.2 mcg/kg/m. Lactated Ringer's at 50 MLS per hour. She currently has a paced rhythm at 80 bpm. Right internal jugular Cordis in place, right radial arterial line in place. Mediastinal, left and right chest tubes remain in place. She is status post 5 units of packed red blood cells, 4 units of fresh frozen plasma, 2 platelets, 2 pooled cryoprecipitate. Creatinine blood pressure 67. PA pressure 29/15 with a mean of 19. Cardiac output 4.8. Cardiac index 2.9. White count 10.5. Hemoglobin 7.7. Platelets 100,000. Sodium 140. Potassium 3.7. Creatinine 0.96. Glucose 141. AST 93. ALT 16. She is currently sitting up in a chair at the bedside. Awake and alert in no acute distress. So having issues from surgical site pain. She is on 2 L nasal cannula maintaining good O2 saturations in the 90s. Needs increased encouragement regarding the incentive spirometer. Wesly on bronchodilators. Heparin for DVT prophylaxis. The patient is seen today 01/09/2021 in follow-up in the intensive care unit. Postoperative day #2. Sitting up in a chair at the bedside. She is currently on oxygen at 2 L/m per nasal cannula. Chest x-ray reveals patchy airspace disease bilaterally. Mediastinal chest tube is been removed. Right and left chest tubes remain in place. White count 17.3. Hemoglobin 6.5. Platelets 112,000. Sodium 135. Potassium 4.4. Creatinine 1.62. AST 104. ALT 10. Glucose 108. She is continued on bronchodilators. Working with the incentive spirometer. She remains on Lactated Ringer's at 30 mL per hour. Primacor at 0.1 mcg/kg/m. Insulin is currently on hold. One unit of packed red blood cells has been ordered. Cardiac output 5.1. Cardiac index 3.1. PA pressures 34/13 with a mean of 20. On 01/10/2021 patient seen in follow-up in the intensive care unit, today is po stoperative day #3, status post aortic valve replacement, and one-vessel coronary artery bypass grafting with SVG to the OM. Patient is doing well, he is awake and alert, oriented 3, she is mildly short of breath, but appears to be in no acute distress, she is currently on 2 L of oxygen pulse ox is 97%, she is in A. fib with RVR with a rate of 144, she is currently on amiodarone currently running at 0.5 mg/m, 0.9 normal saline at 30 ML per hour, and insulin is currently on hold. Blood pressure is 114/50, she still has her Pigeon-Belkis catheter in place, PA pressures 44/28, CVP is unknown, currently has IV fluids infusing through it, cardiac output is 3.7, and cardiac index is 2.2, patient wa s on milrinone which is currently discontinued. She is resting in bed, denies any acute distress, no complaints of chest discomfort, incisions are clean dry and intact. Today's chest x-ray shows patchy airspace disease bilaterally. Today's labs have been noted, white blood cell count is 20.4, hemoglobin is 7.6, sodium is 126, potassium is 4.4, chloride is 99, CO2 is 20, B1 is 37, creatinine is 1.44. Right and left pleural chest tubes in place, and there has been a total of 160 mL of serosanguineous output from the left pleural and right pleural put out only 40 mL of serosanguineous output in the last 24 hours. Urine output is in the order of 45-50 ML per hour, she received a dose of IV Lasix per CT surgery yesterday, she is significantly in positive fluid balance, +1089 mL over the last 24 hours. She had multiple blood products in the postoperative period, including 6 units of PRBCs, 4 units of FFP, 2 units of platelets, 2 units of pooled cryoprecipitate. On 01/12/2021 patient seen in follow-up in intensive care unit, today is postoperative day #5, status post aortic valve replacement, and one-vessel coronary artery bypass grafting. Patient is doing well, she is on room air with pulse ox of 97%. Afebrile. Yesterday she was still in A. fib with RVR, she did subsequently convert, and started having pauses at which point the demand pacemaker started pacing her. The check of underlying rhythm revealed asystole this morning. She is currently being V paced at a rate of 70 BPM. Blood pressure is 153/56, he is not on any IV fluids. She is not complaining of any shortness of breath, today's chest x-ray shows bilateral lung opacities with slight improvement, trace left pleural effusion, no pneumothorax. Today's labs have been reviewed showing white blood cell count is 16, hemoglobin is 8.7, sodium is 129, the rest of electrolytes were unremarkable, we'll profile is improving, BUN is 39 creatinine is 1.05. No other acute events overnight. Cardiology is following, she is off the amiodarone as well as the beta benton at this time. 01/13/2021, the patient is postop day #6 post aortic valve replacement and single-vessel bypass surgery. This morning, the patient is converted back into atrial fibrillation. Nevertheless, the ultimate plan is to proceed with insertion of a pacemaker as the patient is having episodes of A. fib along with high degree AV block requiring V pacing. Chest x-ray from today showing some mild four-vessel congestion. No other acute abnormality is are seen. Sternum is stable clean and intact on today's evaluation. Hemodynamically stable on no pressors. She is off beta blockers. She is also off amiodarone for now. She remains on aspirin. She is also on Plavix for now. Using incentive spirometer. She is pulling approximately 800 mL on her incentive spirometer. All of the chest tubes have been removed. The labs from today show a white cell count of 15 with a hemoglobin of 7.8. Renal function stable and acute kidney injury has recovered in the creatinine is down to 0.9 with a sodium level of 131. 01/14/2021 patient seen in follow-up in the intensive care unit. Today is postoperative day #7, status post aortic valve replacement, and a single-vessel bypass surgery. Patient was having episodes of A. fib with RVR in the postoperative period, subsequently patient converted and went into third-degree AV block in that was pacemaker dependent. Yesterday she underwent placement of a permanent pacemaker Dr. Harris. Today he is seen resting comfortably in bed, she is on room air, she is breathing comfortably, her left upper chest pacemaker insertion site is clean dry and intact, incision is covered with a surgical dressing, the site is soft, no evidence of hematoma, patient is in the 100% paced mechanism at a rate of 60 BPM. Blood pressure is 148/52 with a mean of 94. Her pulse ox this morning is 94%, today's chest x-ray shows perihilar and basilar linear atelectasis. Pulmonary venous congestion is improving. No evidence of pneumothorax. Physical exam reveals crackles throughout particularl y at the right lower base. His had no fever or chills overnight, she is on cefazolin and she did receive a dose of vancomycin post insertion of her permanent pacemaker. Labs have been reviewed, white count of 18.3, hemoglobin of 8.6, platelet count is 133, sodium is 133, the rest of electrolytes were within normal limits, BUN of 23 and creatinine 0.80. Has been working with cardiac rehab, and she has been tolerating ambulation, she is currently not on any IV fluids. Objective - Vital Signs Vital signs: Vital Signs Temp 98.6 F 01/14/21 04:00 Pulse 60 01/14/21 09:18 Resp 16 01/14/21 09:18 BP 113/52 01/14/21 07:00 Pulse Ox 94 L 01/14/21 09:05 Intake & Output 01/13/21 01/14/21 01/14/21 18:59 06:59 18:59 Intake Total 770 950 50 Output Total 1000 200 250 Balance -230 750 -200 Weight 76.2 kg Intake: IV 50 900 50 Sodium Chloride 0.9% 1, 500 50 000 ml @ 50 mls/hr IV . Q20H VINOD Rx#:[id number] Intake, IV Titration 600 50 Amount Sodium Chloride 0.9% 1, 600 000 ml @ 50 mls/hr IV . Q20H VINOD Rx#:[id number] ceFAZolin 2 gm In Sodium 50 Chloride 0.9% 50 ml @ 100 mls/hr IVPB Q6H VINOD Rx#: [id number] Oral 120 Output: Urine 1000 200 250 Other: Voiding Method Bedside Commode Bedpan ABP, PAP, CO, CI - Last Documented Arterial Blood Pressure 198/193 Pulmonary Artery Pressure 31/14 Cardiac Output 4.8 Cardiac Index 2.9 - Exam GENERAL EXAM: Alert, very pleasant, 85-year-old white female, on room air pulse ox of 94%, breathing comfortably, but no apparent distress. HEAD: Normocephalic/atraumatic. EYES: Normal reaction of pupils, equal size. Conjunctiva pink, sclera white. NOSE: Clear with pink turbinates. THROAT: No erythema or exudates. NECK: No masses, no JVD, no thyroid enlargement, no adenopathy. CHEST: No chest wall deformity. Symmetrical expansion. Midsternal incisions clean dry and intact, chest tube sites are clean dry and intact, cardial wires have been removed, chest tubes have been removed, chest tube sites are clean dry and intact, left upper chest permanent pacemaker implantation site incision is clean dry and intact, covered with surgical dressing, there is no evidence of hematoma LUNGS: Equal air entry with bibasilar crackles, and mild crackles throughout CVS: Regular rate and rhythm, normal S1 and S2, no gallops, no murmurs, no rubs ABDOMEN: Soft, nontender. No hepatosplenomegaly, normal bowel sounds, no guarding or rigidity. EXTREMITIES: No clubbing, mild edema, no cyanosis, 2+ pulses and upper and lower extremities. MUSCULOSKELETAL: Muscle strength and tone normal. SPINE: No scoliosis or deformity SKIN: No rashes CENTRAL NERVOUS SYSTEM: Alert and oriented -3. No focal deficits, tone is normal in all 4 extremities. PSYCHIATRIC: Alert and oriented -3. Appropriate affect. Intact judgment and insight. - Labs CBC & Chem 7: 01/14/21 03:06 01/14/21 03:06 Labs: Abnormal Lab Results - Last 24 Hours (Table) 01/13/21 01/13/21 01/13/21 Range/Units 11:27 16:32 21:00 WBC (3.8-10.6) k/uL RBC (3.80-5.40) m/uL Hgb (11.4-16.0) gm/dL Hct (34.0-46.0) % MCV (80.0-100.0) fL RDW (11.5-15.5) % Neutrophils # (Manual) (1.3-7.7) k/uL Monocytes # (Manual) (0-1.0) k/uL Eosinophils # (Manual) (0-0.7) k/uL Metamyelocytes # (Man) (0) k/uL Sodium (137-145) mmol/L BUN (7-17) mg/dL POC Glucose (mg/dL) 114 H 113 H 66 L (75-99) mg/dL Calcium (8.4-10.2) mg/dL AST (14-36) U/L Total Protein (6.3-8.2) g/dL Albumin (3.5-5.0) g/dL 01/13/21 01/13/21 01/13/21 Range/Units 21:16 21:34 22:10 WBC (3.8-10.6) k/uL RBC (3.80-5.40) m/uL Hgb (11.4-16.0) gm/dL Hct (34.0-46.0) % MCV (80.0-100.0) fL RDW (11.5-15.5) % Neutrophils # (Manual) (1.3-7.7) k/uL Monocytes # (Manual) (0-1.0) k/uL Eosinophils # (Manual) (0-0.7) k/uL Metamyelocytes # (Man) (0) k/uL Sodium (137-145) mmol/L BUN (7-17) mg/dL POC Glucose (mg/dL) 51 L 101 H 124 H (75-99) mg/dL Calcium (8.4-10.2) mg/dL AST (14-36) U/L Total Protein (6.3-8.2) g/dL Albumin (3.5-5.0) g/dL 01/14/21 01/14/21 01/14/21 Range/Units 03:06 03:06 06:33 WBC 18.3 H (3.8-10.6) k/uL RBC 2.71 L (3.80-5.40) m/uL Hgb 8.6 L (11.4-16.0) gm/dL Hct 27.2 L (34.0-46.0) % MCV 100.6 H (80.0-100.0) fL RDW 16.2 H (11.5-15.5) % Neutrophils # (Manual) 13.10 H (1.3-7.7) k/uL Monocytes # (Manual) 1.46 H (0-1.0) k/uL Eosinophils # (Manual) 1.10 H (0-0.7) k/uL Metamyelocytes # (Man) 0.37 H (0) k/uL Sodium 133 L (137-145) mmol/L BUN 23 H (7-17) mg/dL POC Glucose (mg/dL) 100 H (75-99) mg/dL Calcium 7.6 L (8.4-10.2) mg/dL AST 55 H (14-36) U/L Total Protein 5.0 L (6.3-8.2) g/dL Albumin 2.6 L (3.5-5.0) g/dL Assessment and Plan Plan: Assessment: #1. Severe aortic stenosis, and coronary artery disease, status post aortic valve replacement with root enlargement and single-vessel coronary artery bypass grafting postoperative day #7 #2. Complete heart block, and was pacemaker dependent, she status post permanent pacemaker implantation on 01/13/2021 #3. Mitral stenosis with insufficiency and heavy mitral annular calcification #4. A. fib with RVR, in the post-operative period, subsequently converting to complete heart block, status post permanent pacemaker implantation on 01/13/2021 #5. Shortness of breath, likely related to A. fib with RVR, and interstitial edema, improved #6. Hypertension #7. Hyperlipidemia #8. Hypothyroidism #9. Left carotid artery stenosis #10. History of TIA #11. GERD #12. Nonsmoker, preop FEV1 of 83% of predicted #13. Family history of premature coronary artery disease #14. Acute kidney injury, improving Plan: Patient is doing well Today's chest x-ray has been reviewed No pneumothorax, but there is some interstitial edema She is on room air Continue encouraging deep breathing and coughing She status post permanent pacemaker implantation, today's postoperative day 1 Doing well She is working with cardiac rehab, Transfer out of intensive care unit to selective care unit today I performed a history & physical examination of the patient and discussed their management with my nurse practitioner, Katie Lugo. I reviewed the nurse practitioner's note and agree with the documented findings and plan of care. Lung sounds are positive for dim. sounds with bibasilar crackles The findings and the impression was discussed with the patient. I attest to the documentation by the nurse practitioner. Time with Patient: Less than 30
[2021-01-14 10:50] VITALS: BMI 31.7
--- NOTE | 2021-01-14 11:01 | CDI ---
Documentation Clarification Form Date: 01/14/2021 09:58:55 AM From: Cayla Bliss RN, CCDS Admit Date: 01/07/2021 05:31:00 AM Patient Name: Trista Crowell I Visit Number: [id number] Discharge Date: ATTENTION: The Clinical Documentation Specialists (CDI) and [facility] Coding Staff appreciate your assistance in clarifying documentation. Please respond to the clarification below the line at the bottom and electronically sign. The CDI & [facility] Coding staff will review the response and follow-up if needed. Please note: Queries are made part of the Legal Health Record. If you have any questions, please contact the author of this message via ITS. Dr. Dinesh Louise 01/09 The progress notes has confusion encephalopathy post-surgical intervention could be related to the pain medication she was getting. Additional clarification regarding the etiology/cause of this symptom is requested. History/Risk Factors: hypertension, TIA, Aortic stenosis, Heart failure Clinical Indicators: 85-year-old female who underwent aortic valve replacement and coronary artery bypass grafting on 01/07/21. On 01/09 per nursing notes patient remains extremely lethargic, but vital remain within normal limits. 01/09 Neurological assessment: verbal response confused; cognitive comprehension delayed, fatigued. 01/09 Labs: WBC 17.3, HGB 6.5, HCT 19.6, BUN 29, and CR 1.62 01/09 X Ray: Interval removal of mediastinal drain. No change since the prior exam. 01/09 EKG: Sinus rhythm with first-degree AV block heart rate 80's currently atrial fibrillation with rapid ventricular response. (Per attending assessment) 01/09 Vital signs: 102/58 68 12 99.0 98 % 2/L NC Treatment: ICU/Telemetry monitoring Amiodarone 150 mg drop (per orders) Monitor O2 Sat's Confusion Assessment/Neurological assessment per protocol (close observation) Monitor daily labs and x-rays. Electrolyte replacement per protocol 01/09 transfuse 1 unit packed red blood cells. Please clarify the etiology of the symptom of Transient ischemic attack. Confusion, encephalopathy was: [ ] Toxic encephalopathy relate to pain medications [ ] Metabolic Encephalopathy [ ] Other condition (please specify) [XXX ] Unable to determine refer to PCP (Template Last Revised: July 2020) MTDD
--- NOTE | 2021-01-14 11:29 | P.PN ---
Subjective This is a pleasant 85-year-old female who underwent aortic valve replacement. She had an episode of atrial fibrillation and then subsequently went into a complete heart block and is currently pacemaker dependent. Overall she complains of feeling tired and weak. She has no symptoms of chest discomfort, dizziness or shortness of breath. Blood pressure 149/63 heart rate 92 afebrile maintaining oxygen saturation on room air. Laboratory data reviewed, WBC 15.1, hemoglobin 7.8, platelets 256, sodium 131, potassium 4.1, creatinine 0.9. Currently maintained on aspirin 81 mg daily, atorvastatin 20 mg daily and Plavix 75 mg daily. Chest x-ray revealed bibasilar opacity. 01/14/2021 Patient underwent dual-chamber permanent pacemaker implantation yesterday with Dr. Iniguez. Chest x-ray this morning reveals perihilar and basilar linear atelectasis unchanged from previous with improving pulmonary venous congestion. The pressure 129/64 heart rate 60 afebrile maintaining oxygen saturation on room air. Telemetry tracings reviewed, pacemaker appears to be functioning appropriately. Laboratory data reviewed, WBC 18.3, hemoglobin 8.6, platelets 313, sodium 133, potassium 4.2, creatinine 0.8. GENERAL: Well-appearing, well-nourished and in no acute distress. NECK: Supple without JVD or thyromegaly. LUNGS: Breath sounds clear to auscultation bilaterally. Respiration equal and unlabored. No wheezes, rales or rhonchi. Heart hugger in place. HEART: Irregular rate and rhythm with systolic ejection murmur at the base, no rubs or gallops. S1 and S2 heard. EXTREMITIES: Normal range of motion, no edema. No clubbing or cyanosis. Peripheral pulses intact. ASSESSMENT Status post aortic valve replacement and coronary artery bypass grafting Paroxysmal atrial fibrillation with subsequent complete heart block, patient has 100% paced at this time Complete heart block, currently pacemaker dependenct Leukocytosis Confusion, improved Renal failure, improved Dyslipidemia PLAN Lopressor has been re-initiated per Dr. Iniguez. Continue to encourage incentive spirometer use. Nurse Practitioner note has been reviewed, I agree with a documented findings and plan of care. Patient was seen and examined. Objective - Vital Signs Vital signs: Vital Signs Temp 98.6 F 01/14/21 04:00 Pulse 60 01/14/21 10:00 Resp 21 01/14/21 10:00 BP 129/64 01/14/21 10:00 Pulse Ox 94 L 01/14/21 09:05 Intake & Output 01/13/21 01/14/21 01/14/21 18:59 06:59 18:59 Intake Total 770 950 418 Output Total 1000 200 250 Balance -230 750 168 Weight 76.2 kg 76.2 kg Intake: IV 50 900 100 Sodium Chloride 0.9% 1, 500 100 000 ml @ 50 mls/hr IV . Q20H VINOD Rx#:[id number] Intake, IV Titration 600 50 Amount Sodium Chloride 0.9% 1, 600 000 ml @ 50 mls/hr IV . Q20H VINOD Rx#:[id number] ceFAZolin 2 gm In Sodium 50 Chloride 0.9% 50 ml @ 100 mls/hr IVPB Q6H VINOD Rx#: [id number] Oral 120 318 Output: Urine 1000 200 250 Other: Voiding Method Bedside Commode Bedpan ABP, PAP, CO, CI - Last Documented Arterial Blood Pressure 198/193 Pulmonary Artery Pressure 31/14 Cardiac Output 4.8 Cardiac Index 2.9 - Labs CBC & Chem 7: 01/14/21 03:06 01/14/21 03:06 Labs: Abnormal Lab Results - Last 24 Hours (Table) 01/13/21 01/13/21 01/13/21 Range/Units 11:27 16:32 21:00 WBC (3.8-10.6) k/uL RBC (3.80-5.40) m/uL Hgb (11.4-16.0) gm/dL Hct (34.0-46.0) % MCV (80.0-100.0) fL RDW (11.5-15.5) % Neutrophils # (Manual) (1.3-7.7) k/uL Monocytes # (Manual) (0-1.0) k/uL Eosinophils # (Manual) (0-0.7) k/uL Metamyelocytes # (Man) (0) k/uL Sodium (137-145) mmol/L BUN (7-17) mg/dL POC Glucose (mg/dL) 114 H 113 H 66 L (75-99) mg/dL Calcium (8.4-10.2) mg/dL AST (14-36) U/L Total Protein (6.3-8.2) g/dL Albumin (3.5-5.0) g/dL 01/13/21 01/13/21 01/13/21 Range/Units 21:16 21:34 22:10 WBC (3.8-10.6) k/uL RBC (3.80-5.40) m/uL Hgb (11.4-16.0) gm/dL Hct (34.0-46.0) % MCV (80.0-100.0) fL RDW (11.5-15.5) % Neutrophils # (Manual) (1.3-7.7) k/uL Monocytes # (Manual) (0-1.0) k/uL Eosinophils # (Manual) (0-0.7) k/uL Metamyelocytes # (Man) (0) k/uL Sodium (137-145) mmol/L BUN (7-17) mg/dL POC Glucose (mg/dL) 51 L 101 H 124 H (75-99) mg/dL Calcium (8.4-10.2) mg/dL AST (14-36) U/L Total Protein (6.3-8.2) g/dL Albumin (3.5-5.0) g/dL 01/14/21 01/14/21 01/14/21 Range/Units 03:06 03:06 06:33 WBC 18.3 H (3.8-10.6) k/uL RBC 2.71 L (3.80-5.40) m/uL Hgb 8.6 L (11.4-16.0) gm/dL Hct 27.2 L (34.0-46.0) % MCV 100.6 H (80.0-100.0) fL RDW 16.2 H (11.5-15.5) % Neutrophils # (Manual) 13.10 H (1.3-7.7) k/uL Monocytes # (Manual) 1.46 H (0-1.0) k/uL Eosinophils # (Manual) 1.10 H (0-0.7) k/uL Metamyelocytes # (Man) 0.37 H (0) k/uL Sodium 133 L (137-145) mmol/L BUN 23 H (7-17) mg/dL POC Glucose (mg/dL) 100 H (75-99) mg/dL Calcium 7.6 L (8.4-10.2) mg/dL AST 55 H (14-36) U/L Total Protein 5.0 L (6.3-8.2) g/dL Albumin 2.6 L (3.5-5.0) g/dL
[2021-01-14 11:41] LABS: Glucose,Whole Blood 87 mg/dL (75-99)
[2021-01-14 16:50] LABS: Glucose,Whole Blood 52 mg/dL (75-99)
[2021-01-14 17:12] LABS: Glucose,Whole Blood 96 mg/dL (75-99)
--- NOTE | 2021-01-14 17:18 | P.PN ---
Subjective Progress Note Date: 01/14/21 This is an 85-year-old female with past medical history of CVA/TIA, gastroesophageal reflux disease, hypertension,MVP, rheumatoid arthritis, hypothyroidism, glaucoma, recently admitted with chest tightness, shortness of breath ,diagnosed with severe aortic stenosis moderate aortic regurgitation, moderate mitral stenosis and mild to moderate mitral regurgitation, aortic root measuring 3.1 cm per KATERIN. Cardiac catheterization reported severe aortic regurgitation, 80-90% ostial stenosis involving the OM branch. Left internal carotid stenosis 50-69%, reviewed further by Vascular surgery reporting she was closer to 50% stenosis with no further intervention necessary. Patient returned for elective surgery- saphenous vein graft to the obtuse marginal artery. Aortic valve replacement with a bovine bioprosthetic valve. Tolerated procedure well. Extubated last night. Maintaining O2 sats in the 90s on 2 L nasal cannula. Sitting up in chair. Telemetry paced rhythm. Maintained on nitroglycerin, milrinone, insulin drips. CO 4.8, CI 2.9. Received 250 MLS an albumin, 5 units RBCs, 4 FFP to platelets,two cryoprecipitate. Hemoglobin 7.7, platelets 100, sodium 140, potassium 3.7, BUN 21 ,creatinine 0.96, T bili 0.7, AST 93, ALT 16, alk phos 27. Blood sugars controlled, A1c 5.Afebrile, normal WB C. 01/09/2021 Sitting up in bed, tired, minimally conversing, following simple commands. T-max 100, WBC increased to 19.6. Mediastinal chest tube recently discontinued, chest x-ray reporting bilateral patchy airspace disease, unchanged. Maintaining O2 sats in the high 90s on 2 L nasal cannula. Hemoglobin 6.5, receiving 1 unit of packed RBCs. platelets 112. Sodium 135, renal function worsening, BUN 29, creatinine 1.62. Blood sugars controlled. AST and alk phos mildly increased. Maintained on insulin and milrinone drips. CO 5.1,CI 3.1. 01/13/2021 telemetry atrial fibrillation .remains off of amiodarone, off beta blockers . Anticoagulated on Plavix and aspirin Scheduled for PPM today secondary to underlying complete heart block and asystole. Chest x-ray reporting similar patchy bibasilar opacities, probably atelectasis rather than an infiltrates. Incentive spirometer up to 800. Afebrile, WBC decreased to 15.1. Hemoglobin decreased from 7.8, platelets 256. Sodium 131, BUN 29 creatinine 0.9. Blood sugars controlled. 01/14/2021 underwent successful dual-chamber permanent pacemaker implantation yesterday, tolerated procedure well. Pacemaker dressing clean dry and intact, wearing sling. Telemetry reporting 100% paced rhythm. Beta benton resumed. Maintaining O2 sats in the 90s on room air, incentive spirometer up to 750. Chest x-ray reporting unchanged perihilar and basilar linear atelectasis, pulmonary venous congestion improving. Afebrile, WBC 18.3. Hemoglobin increased ,8.6, platelets 313 Sodium trending up to 133. Renal function stable. Objective - Vital Signs Vital signs: Vital Signs Temp 98.0 F 01/14/21 13:48 Pulse 62 01/14/21 16:08 Resp 16 01/14/21 13:48 BP 110/70 01/14/21 13:48 Pulse Ox 100 01/14/21 16:02 Intake & Output 01/13/21 01/14/21 01/14/21 18:59 06:59 18:59 Intake Total 770 950 418 Output Total 1000 200 250 Balance -230 750 168 Weight 76.2 kg 76.2 kg Intake: IV 50 900 100 Sodium Chloride 0.9% 1, 500 100 000 ml @ 50 mls/hr IV . Q20H VINOD Rx#:[id number] Intake, IV Titration 600 50 Amount Sodium Chloride 0.9% 1, 600 000 ml @ 50 mls/hr IV . Q20H VINOD Rx#:[id number] ceFAZolin 2 gm In Sodium 50 Chloride 0.9% 50 ml @ 100 mls/hr IVPB Q6H VINOD Rx#: [id number] Oral 120 318 Output: Urine 1000 200 250 Other: Voiding Method Bedside Commode Bedpan Bedside Commode ABP, PAP, CO, CI - Last Documented Arterial Blood Pressure 198/193 Pulmonary Artery Pressure 31/14 Cardiac Output 4.8 Cardiac Index 2.9 - Exam - Exam PHYSICAL EXAM: VITAL SIGNS: As above GENERAL: Alert and oriented 3, Sitting up in chair, no acute distress. HEENT: Conjunctivae normal. eyes normal. Oral mucosa moist. NECK: Supple, No JVD. CARDIOVASCULAR: S1, S2 regular. Systolic murmur.wearing heart hugger, sling. RESPIRATION: Breath sounds diminished, fine bibasilar crackles ABDOMEN: Soft, nontender . No guarding. no masses palpable. Positive Bowel sounds. LEGS: Trace edema, no clubbing, no cyanosis, peripheral pulses intact. SCDs present. NERVOUS SYSTEM: Cranial N 2-12 grossly normal. Moves all 4 limbs. No focal deficits. Strength and sensation grossly intact. Skin: Warm and dry, no rash - Labs CBC & Chem 7: 01/14/21 03:06 01/14/21 03:06 Labs: Abnormal Lab Results - Last 24 Hours (Table) 01/13/21 01/13/21 01/13/21 Range/Units 21:00 21:16 21:34 WBC (3.8-10.6) k/uL RBC (3.80-5.40) m/uL Hgb (11.4-16.0) gm/dL Hct (34.0-46.0) % MCV (80.0-100.0) fL RDW (11.5-15.5) % Neutrophils # (Manual) (1.3-7.7) k/uL Monocytes # (Manual) (0-1.0) k/uL Eosinophils # (Manual) (0-0.7) k/uL Metamyelocytes # (Man) (0) k/uL Sodium (137-145) mmol/L BUN (7-17) mg/dL POC Glucose (mg/dL) 66 L 51 L 101 H (75-99) mg/dL Calcium (8.4-10.2) mg/dL AST (14-36) U/L Total Protein (6.3-8.2) g/dL Albumin (3.5-5.0) g/dL 01/13/21 01/14/21 01/14/21 Range/Units 22:10 03:06 03:06 WBC 18.3 H (3.8-10.6) k/uL RBC 2.71 L (3.80-5.40) m/uL Hgb 8.6 L (11.4-16.0) gm/dL Hct 27.2 L (34.0-46.0) % MCV 100.6 H (80.0-100.0) fL RDW 16.2 H (11.5-15.5) % Neutrophils # (Manual) 13.10 H (1.3-7.7) k/uL Monocytes # (Manual) 1.46 H (0-1.0) k/uL Eosinophils # (Manual) 1.10 H (0-0.7) k/uL Metamyelocytes # (Man) 0.37 H (0) k/uL Sodium 133 L (137-145) mmol/L BUN 23 H (7-17) mg/dL POC Glucose (mg/dL) 124 H (75-99) mg/dL Calcium 7.6 L (8.4-10.2) mg/dL AST 55 H (14-36) U/L Total Protein 5.0 L (6.3-8.2) g/dL Albumin 2.6 L (3.5-5.0) g/dL 01/14/21 01/14/21 Range/Units 06:33 16:48 WBC (3.8-10.6) k/uL RBC (3.80-5.40) m/uL Hgb (11.4-16.0) gm/dL Hct (34.0-46.0) % MCV (80.0-100.0) fL RDW (11.5-15.5) % Neutrophils # (Manual) (1.3-7.7) k/uL Monocytes # (Manual) (0-1.0) k/uL Eosinophils # (Manual) (0-0.7) k/uL Metamyelocytes # (Man) (0) k/uL Sodium (137-145) mmol/L BUN (7-17) mg/dL POC Glucose (mg/dL) 100 H 52 L (75-99) mg/dL Calcium (8.4-10.2) mg/dL AST (14-36) U/L Total Protein (6.3-8.2) g/dL Albumin (3.5-5.0) g/dL Assessment and Plan Assessment: Severe aortic stenosis status post aortic valve replacement with a bovine prosthetic valve with root enlargement. Coronary artery disease status post CABG X 1 with SVG to OM. Complete heart block, status post permanent pacemaker implantation Acute blood loss anemia with thrombocytopenia, status post multiple blood products, intra & postoperative, expected outcome Postoperative paroxysmal atrial fibrillation Acute renal failure, Left internal carotid stenosis Chronic CHF, Diastolic Hypothyroidism Gastroesophageal reflux disease Hypertension Hyperlipidemia MVP Rheumatoid arthritis History of CVA, TIA Obesity, BMI 27.6 Plan: Continue on current medication regime ,monitoring and symptomatic treatment. Beta benton resumed .Aggressive pulmonary toileting with incentive spirometer reinforced. Increase activity as tolerated. Scheduled to transfer out of ICU today to telemetry unit. Discharge planning in progress. The impression and plan of care has been dictated as directed. : I performed a history and examination of this patient, discussed the same with the dictator. I agree with the dictator's note ,documented as a scribe. Any additional findings or plans will be noted.
[2021-01-14 19:59] LABS: Glucose,Whole Blood 132 mg/dL (75-99)
[2021-01-14] MEDS: ATORVASTATIN 20 MG TAB PO SCH (21:11)
[2021-01-14] MEDS: MELATONIN 3 MG TABLET PO SCH (21:11)
[2021-01-15 06:15] LABS: Glucose,Whole Blood 110 mg/dL (75-99)
[2021-01-15] MEDS: PANTOPRAZOLE 40 MG TABLET PO SCH (06:24)
[2021-01-15] MEDS: INSULIN ASPART (NovoLOG) 100 UNIT/ML VIAL SQ SCH ×2 (06:25→13:35)
[2021-01-15] MEDS: FERROUS SULFATE 325 MG TAB PO SCH ×2 (06:25→17:09)
[2021-01-15 06:38] LABS: HCT 26.3 % (34.0-46.0); HGB 8.6 gm/dL (11.4-16.0); Hypochromasia Slight; MCH 32.6 pg (25.0-35.0); MCHC 32.9 g/dL (31.0-37.0); MCV 99.1 fL (80.0-100.0); Macrocytosis Slight; Platelet Count 315 k/uL (150-450); RBC 2.65 m/uL (3.80-5.40); RDW 15.9 % (11.5-15.5); WBC 16.5 k/uL (3.8-10.6)
[2021-01-15 06:57] LABS: Calcium 8.1 mg/dL (8.4-10.2); Potassium 4.2 mmol/L (3.5-5.1)
--- NOTE | 2021-01-15 08:26 | P.PN ---
Subjective Progress Note Date: 01/15/21 Principal diagnosis: Severe aortic stenosis with insufficiency, mitral stenosis with insufficiency and heavy mitral annular calcification, coronary artery disease. Previous medical history of hypertension, hyperlipidemia with refusal of statin medication in the past, hypothyroidism, left internal carotid stenosis 50-79%, TIA in 2009, GERD, arthritis, never smoker, family history of premature coronary artery disease, as well as family history of heart failure and possible valvular heart disease POD #8 aortic valve replacement with a 21 mm Inspiris bovine pericardial valve with root enlargement with bovine pericardial patch, coronary artery bypass grafting 1 with reverse saphenous vein graft to the obtuse marginal artery, epi-aortic ultrasound, endovascular vein harvest of the left greater saphenous vein from the thigh, ligation of the left atrial appendage with a 35 mm AtriCure clip Intraoperative and postoperative acute blood loss anemia and thrombocytopenia, expected given hemodilution and cardiopulmonary bypass pump requiring multiple blood products Postoperative atrial fibrillation with subsequent complete heart block, known common occurrence after open heart surgery, especially valve surgery POD #[address] [employer] dual-chamber permanent pacemaker placement by Dr. Iniguez The patient is currently sitting up in a recliner in the intensive care unit in no acute distress. She does complain of post surgical pain but states controlled on current medication regimen, states she had some shortness of breath yesterday evening but feels better this morning. She remains in atrial paced rhythm with a rate of 60, hemodynamically stable. Patient has been ambulatory in the hallway with standby assist without difficulty. No other new concerns Objective - Vital Signs Vital signs: Vital Signs Temp 97.8 F 01/15/21 04:00 Pulse 71 01/15/21 04:00 Resp 18 01/15/21 04:00 BP 125/71 01/15/21 04:00 Pulse Ox 99 01/15/21 04:00 Intake & Output 01/14/21 01/15/21 01/15/21 18:59 06:59 18:59 Intake Total 778 600 Output Total 250 800 Balance 528 -200 Weight 76.2 kg 86.5 kg Intake: IV 100 Sodium Chloride 0.9% 1, 100 000 ml @ 50 mls/hr IV . Q20H [facility]OD Rx#:[id number] Oral 678 600 Output: Drainage 100 Right Chest 100 Urine 250 700 Other: Voiding Method Bedside Commode # Voids 2 # Bowel Movements 2 ABP, PAP, CO, CI - Last Documented Arterial Blood Pressure 198/193 Pulmonary Artery Pressure 31/14 Cardiac Output 4.8 Cardiac Index 2.9 - Exam CONSTITUTIONAL: Appears comfortable, calm, cooperative RESPIRATORY: Lungs sounds diminished bilaterally. Respirations even, nonlabored. Currently on room air with oxygen saturation 99%. Able to achieve 1000 mL on her incentive spirometer. Strong cough. CARDIOVASCULAR: S1, S2 present, positive murmur. Regular rate and rhythm, atrially paced on telemetry. Sternum stable. Palpable peripheral pulses bilaterally. Trace generalized edema present. No calf pain or tenderness noted. Heart hugger in place with patient demonstrating appropriate use. Antiembolism stockings, SCDs present. GASTROINTESTINAL: Abdomen soft, nontender, nondistended. Active bowel sounds present 4 quadrants. Tolerating diet. Positive bowel movement GENITOURINARY: Continues to void INTEGUMENTARY: Skin is warm and dry. Anterior chest incision well appr oximated. Left lower extremity EVH site well approximated without redness or drainage. Left upper anterior chest wall pacemaker site with dry intact dressing. Bilateral chest tube sites continue to drain serous fluid being captured by ostomy bags to prevent skin breakdown NEUROLOGIC: Cranial nerves II through XII intact MUSKULOSKELETAL: Able to move all extremities, strength equal, left arm in precautionary sling. Ambulatory without difficulty PSYCHIATRIC: Alert and oriented to person place and time - Allied health notes Allied health notes reviewed: nursing - Labs CBC & Chem 7: 01/15/21 06:04 01/15/21 06:04 Labs: Abnormal Lab Results - Last 24 Hours (Table) 01/14/21 01/14/21 01/15/21 Range/Units 16:48 19:58 06:04 WBC 16.5 H (3.8-10.6) k/uL RBC 2.65 L (3.80-5.40) m/uL Hgb 8.6 L (11.4-16.0) gm/dL Hct 26.3 L (34.0-46.0) % RDW 15.9 H (11.5-15.5) % Sodium (137-145) mmol/L Carbon Dioxide (22-30) mmol/L BUN (7-17) mg/dL Glucose (74-99) mg/dL POC Glucose (mg/dL) 52 L 132 H (75-99) mg/dL Calcium (8.4-10.2) mg/dL 01/15/21 01/15/21 Range/Units 06:04 06:14 WBC (3.8-10.6) k/uL RBC (3.80-5.40) m/uL Hgb (11.4-16.0) gm/dL Hct (34.0-46.0) % RDW (11.5-15.5) % Sodium 130 L (137-145) mmol/L Carbon Dioxide 20 L (22-30) mmol/L BUN 19 H (7-17) mg/dL Glucose 110 H (74-99) mg/dL POC Glucose (mg/dL) 110 H (75-99) mg/dL Calcium 8.1 L (8.4-10.2) mg/dL - Imaging and Cardiology Chest x-ray: image reviewed Assessment and Plan Assessment: 1. Severe aortic stenosis with insufficiency, status post operative site aortic valve replacement with root enlargement 2. Mitral stenosis with insufficiency and heavy mitral annular calcification 3. Coronary artery disease, status post single vessel CABG 4. History of hypertension 5. Hyperlipidemia with refusal of statin medication in the past, cholesterol 226, LDL 165 6. Hypothyroidism, recent TSH 2.69, free T4 0.8 7. Left internal carotid stenosis 50-79% 8. TIA in 2008 9. GERD 10. Arthritis 11. Never smoker, preoperative FEV1 83% of predicted 12. Family history of premature coronary artery disease, brother diagnosed with CAD in his 40s with subsequent 2 vessel CABG 13. Family history of heart failure and possible valvular heart disease 14. Intraoperative and postoperative acute blood loss anemia and thrombocytopenia, expected, requiring multiple blood products 15. Postoperative atrial fibrillation, status post exclusion of the left atrial appendage 16. Third degree heartblock/sick sinus syndrome, status post dual-chamber [employer] permit pacemaker Plan: 1. Continue low-dose aspirin, statin, Plavix, beta benton therapy. 2. Will leave decision regarding reinitiation of amiodarone to Dr. Iniguez, prefer to avoid anticoagulation 3. Encourage incentive spirometry use 10 times every hour while awake. Bronchodilators per pulmonology 4. Increase activity, ambulate as tolerated. PT/OT/cardiac rehab consulted. The patient should be out of bed for all meals and needs strict encouragement to get up and ambulate 5. Will monitor daily labs and x-rays. Electrolyte replacement per protocol. No Lasix today. 6. GI/DVT prophylaxis 7. Pain control per current medication regimen 8. Insulin management per primary care service. Patient is not diabetic, preoperative hemoglobin A1c 5%, but patient does need tight blood sugar control to prevent infection and promote sternal union 9. Strict accurate intake and output. Daily weights 10. Discharge planning in progress. Anticipate discharge to home with home care this afternoon. Patient's daughter will be staying with her 11. More recommendations to follow Time with Patient: Greater than 30
--- NOTE | 2021-01-15 08:26 | XR ---
EXAMINATION TYPE: XR chest 2V DATE OF EXAM: 01/15/2021 COMPARISON: 01/14/2021 INDICATION: Post cardiac surgery TECHNIQUE: Frontal and lateral views of the chest are obtained. FINDINGS: The heart size is normal. The pulmonary vasculature is slightly prominent. Some mild linear opacities at the left base may be some atelectasis. Suspicious focal consolidations are not evident. Pacemaker overlies left chest. Sternotomy wires are in the midline from surgery. EKG leads overlie th e chest.. IMPRESSION: 1. Mild streak atelectasis. 2. Pulmonary vasculature is at the upper limits for normal. Correlate for volume overload.
[2021-01-15] MEDS: IPRATROPIUM-ALBUTEROL 3 ML NEB INHALATION SCH ×3 (08:40→15:44)
[2021-01-15 08:46] VITALS: RESP 16
[2021-01-15] MEDS: THYROID, PORK 30 MG TAB PO SCH (09:12)
[2021-01-15] MEDS: CHOLECALCIFEROL 25 MCG (1000 IU) TABLET PO SCH (09:13)
[2021-01-15] MEDS: CLOPIDOGREL 75 MG TAB PO SCH (09:13)
[2021-01-15] MEDS: HEPARIN SODIUM,PORCINE/PF 5,000 UNIT/0.5 ML SYRINGE SQ SCH ×2 (09:13→17:08)
[2021-01-15] MEDS: METOPROLOL TARTRATE 25 MG TAB PO SCH ×2 (09:13→17:09)
[2021-01-15] MEDS: ASCORBIC ACID 500 MG TAB PO SCH (09:13)
[2021-01-15] MEDS: ASPIRIN 81 MG PO SCH (09:15)
--- NOTE | 2021-01-15 11:04 | P.PN ---
Subjective Progress Note Date: 01/15/21 This is an 85-year-old female with past medical history of CVA/TIA, gastroesophageal reflux disease, hypertension,MVP, rheumatoid arthritis, hypothyroidism, glaucoma, recently admitted with chest tightness, shortness of breath ,diagnosed with severe aortic stenosis moderate aortic regurgitation, moderate mitral stenosis and mild to moderate mitral regurgitation, aortic root measuring 3.1 cm per KATERIN. Cardiac catheterization reported severe aortic regurgitation, 80-90% ostial stenosis involving the OM branch. Left internal carotid stenosis 50-69%, reviewed further by Vascular surgery reporting she was closer to 50% stenosis with no further intervention necessary. Patient returned for elective surgery- saphenous vein graft to the obtuse marginal artery. Aortic valve replacement with a bovine bioprosthetic valve. Tolerated procedure well. Extubated last night. Maintaining O2 sats in the 90s on 2 L nasal cannula. Sitting up in chair. Telemetry paced rhythm. Maintained on nitroglycerin, milrinone, insulin drips. CO 4.8, CI 2.9. Received 250 MLS an albumin, 5 units RBCs, 4 FFP to platelets,two cryoprecipitate. Hemoglobin 7.7, platelets 100, sodium 140, potassium 3.7, BUN 21 ,creatinine 0.96, T bili 0.7, AST 93, ALT 16, alk phos 27. Blood sugars controlled, A1c 5.Afebrile, normal WB C. 01/09/2021 Sitting up in bed, tired, minimally conversing, following simple commands. T-max 100, WBC increased to 19.6. Mediastinal chest tube recently discontinued, chest x-ray reporting bilateral patchy airspace disease, unchanged. Maintaining O2 sats in the high 90s on 2 L nasal cannula. Hemoglobin 6.5, receiving 1 unit of packed RBCs. platelets 112. Sodium 135, renal function worsening, BUN 29, creatinine 1.62. Blood sugars controlled. AST and alk phos mildly increased. Maintained on insulin and milrinone drips. CO 5.1,CI 3.1. 01/13/2021 telemetry atrial fibrillation .remains off of amiodarone, off beta blockers . Anticoagulated on Plavix and aspirin Scheduled for PPM today secondary to underlying complete heart block and asystole. Chest x-ray reporting similar patchy bibasilar opacities, probably atelectasis rather than an infiltrates. Incentive spirometer up to 800. Afebrile, WBC decreased to 15.1. Hemoglobin decreased from 7.8, platelets 256. Sodium 131, BUN 29 creatinine 0.9. Blood sugars controlled. 01/14/2021 underwent successful dual-chamber permanent pacemaker implantation yesterday, tolerated procedure well. Pacemaker dressing clean dry and intact, wearing sling. Telemetry reporting 100% paced rhythm. Beta benton resumed. Maintaining O2 sats in the 90s on room air, incentive spirometer up to 750. Chest x-ray reporting unchanged perihilar and basilar linear atelectasis, pulmonary venous congestion improving. Afebrile, WBC 18.3. Hemoglobin increased ,8.6, platelets 313 Sodium trending up to 133. Renal function stable. 01/15/2021 telemetry reporting atrial paced, rate of 60. Sitting up in chair. Reported shortness of breath overnight but improved this morning. Chest x-ray reporting mild streak atelectasis, pulmonary vascular at the upper limits of normal, possibly mild volume overload .Ambulating in hallway, tolerating exertio n well. Afebrile, WBC trending down, 16.5. Hemoglobin stable at 8.6, platelets 3:15. Sodium 1:30, potassium 4.2 BUN 19, creatinine 0.81. Diet intake 25%, Blood sugars controlled this morning, hypoglycemic yesterday afternoon. Objective - Vital Signs Vital signs: Vital Signs Temp 97.8 F 01/15/21 08:00 Pulse 60 01/15/21 08:49 Resp 16 01/15/21 08:00 BP 145/74 01/15/21 08:00 Pulse Ox 93 L 01/15/21 08:00 Intake & Output 01/14/21 01/15/21 01/15/21 18:59 06:59 18:59 Intake Total 778 600 Output Total 250 800 150 Balance 528 -200 -150 Weight 76.2 kg 86.5 kg Intake: IV 100 Sodium Chloride 0.9% 1, 100 000 ml @ 50 mls/hr IV . Q20H [facility]OD Rx#:[id number] Oral 678 600 Output: Drainage 100 150 Left Chest 100 Right Chest 100 50 Urine 250 700 Other: Voiding Method Bedside Commode Toilet Bedside Commode # Voids 2 # Bowel Movements 2 ABP, PAP, CO, CI - Last Documented Arterial Blood Pressure 198/193 Pulmonary Artery Pressure 31/14 Cardiac Output 4.8 Cardiac Index 2.9 - Exam - Exam PHYSICAL EXAM: VITAL SIGNS: As above GENERAL: Alert and oriented 3, Sitting up in chair, no acute distress. HEENT: Conjunctivae normal. eyes normal. Oral mucosa moist. NECK: Supple, No JVD. CARDIOVASCULAR: S1, S2 regular. Systolic murmur.wearing heart hugger, sling. RESPIRATION: Breath sounds diminished, fine bibasilar crackles ABDOMEN: Soft, nontender . No guarding. no masses palpable. Positive Bowel sounds. LEGS: Trace edema, no clubbing, no cyanosis, peripheral pulses intact. SCDs present. NERVOUS SYSTEM: Cranial N 2-12 grossly normal. Moves all 4 limbs. No focal deficits. Strength and sensation grossly intact. Skin: Warm and dry, no rash - Labs CBC & Chem 7: 01/15/21 06:04 01/15/21 06:04 Labs: Abnormal Lab Results - Last 24 Hours (Table) 01/14/21 01/14/21 01/15/21 Range/Units 16:48 19:58 06:04 WBC 16.5 H (3.8-10.6) k/uL RBC 2.65 L (3.80-5.40) m/uL Hgb 8.6 L (11.4-16.0) gm/dL Hct 26.3 L (34.0-46.0) % RDW 15.9 H (11.5-15.5) % Sodium (137-145) mmol/L Carbon Dioxide (22-30) mmol/L BUN (7-17) mg/dL Glucose (74-99) mg/dL POC Glucose (mg/dL) 52 L 132 H (75-99) mg/dL Calcium (8.4-10.2) mg/dL 01/15/21 01/15/21 Range/Units 06:04 06:14 WBC (3.8-10.6) k/uL RBC (3.80-5.40) m/uL Hgb (11.4-16.0) gm/dL Hct (34.0-46.0) % RDW (11.5-15.5) % Sodium 130 L (137-145) mmol/L Carbon Dioxide 20 L (22-30) mmol/L BUN 19 H (7-17) mg/dL Glucose 110 H (74-99) mg/dL POC Glucose (mg/dL) 110 H (75-99) mg/dL Calcium 8.1 L (8.4-10.2) mg/dL Assessment and Plan Assessment: Severe aortic stenosis status post aortic valve replacement with a bovine prosthetic valve with root enlargement. Coronary artery disease status post CABG X 1 with SVG to OM. Complete heart block, status post permanent pacemaker implantation Acute blood loss anemia with thrombocytopenia, status post multiple blood products, intra & postoperative, expected outcome Postoperative paroxysmal atrial fibrillation Acute renal failure, Left internal carotid stenosis Chronic CHF, Diastolic Hypothyroidism Gastroesophageal reflux disease Hypertension Hyperlipidemia MVP Rheumatoid arthritis History of CVA, TIA Obesity, BMI 27.6 Plan: Continue on current medication regime ,monitoring and symptomatic diamond tment. Discharge planning in progress as per CTS. Diet intake slowly improving. Maintained aggressive pulmonary toileting with incentive spirometer reinforced. The impression and plan of care has been dictated as directed. : I performed a history and examination of this patient, discussed the same with the dictator. I agree with the dictator's note ,documented as a scribe. Any additional findings or plans will be noted.
[2021-01-15 11:48] LABS: Glucose,Whole Blood 125 mg/dL (75-99)
[2021-01-15 12:33] VITALS: BP 134/65; PULSE 86; TEMP 98.3
--- NOTE | 2021-01-15 12:45 | P.PN ---
Subjective This is a pleasant 85-year-old female with a past medical history of hypertension, hyperlipidemia with refusal of statin medication in the past, hypothyroidism, left internal carotid stenosis 50-79%, TIA in 2008, GERD, arthritis. She follows with Dr. Iniguez. She underwent aortic valve replacement and coronary artery bypass grafting 1 with reverse saphenous vein graft to the obtuse marginal artery on 01/07/2021. She had an episode of atrial fibrillation and then subsequently went into a complete heart block and is currently pacemake r dependent. Patient underwent dual-chamber permanent pacemaker implantation 01/13/[address] Iniguez. PM was interrogated 01/13 evening. She is seen and examined this morning, no acute distress. Blood pressure 125/71, heart rate 71, afebrile, maintaining saturations on room air. Laboratory data reviewed troponin is 16.5, hemoglobin 8.6, platelets 3:15, sodium 130, potassium 4.2, BUN 19, serum creatinine 0.8. Chest x-ray this morning reveals pulmonary vasculature is slightly prominent, mild streak atelectasis. The pressure 129/64 heart rate 60 afebrile maintaining oxygen saturation on room air. Telemetry tracings reviewed, pacemaker appears to be functioning appropriately. Laboratory data reviewed, WBC 18.3, hemoglobin 8.6, platelets 313, sodium 133, potassium 4.2, creatinine 0.8. GENERAL: Well-appearing, well-nourished and in no acute distress. NECK: Supple without JVD or thyromegaly. LUNGS: Breath sounds clear to auscultation bilaterally. Respiration equal and unlabored. No wheezes, rales or rhonchi. Heart hugger in place. HEART: Irregular rate and rhythm with systolic ejection murmur at the base, no rubs or gallops. S1 and S2 heard. SKIN: Anterior chest wall pacemaker site with dry intact dressing. Anterior chest wall incision clean dry. EXTREMITIES: Normal range of motion, no edema. No clubbing or cyanosis. Peripheral pulses intact. ASSESSMENT Status post aortic valve replacement and coronary artery bypass grafting x 1 Paroxysmal atrial fibrillation with subsequent complete heart block, patient has 100% paced at this time Complete heart block, currently pacemaker dependent Leukocytosis Confusion, improved Renal failure, improved Dyslipidemia PLAN Continue low-dose aspirin, statin, Plavix Continue metoprolol tartarte 25mg TID Currently holding off on anticoagulation at this time. Continue to encourage incentive spirometer use. Discharge planning in progress as per CT surgery. Patient to follow up with Dr. Iniguez as an outpatient Nurse Practitioner note has been reviewed, I agree with a documented findings and plan of care. Patient was seen and examined. Objective - Vital Signs Vital signs: Vital Signs Temp 97.8 F 01/15/21 04:00 Pulse 71 01/15/21 04:00 Resp 18 01/15/21 04:00 BP 125/71 01/15/21 04:00 Pulse Ox 99 01/15/21 04:00 Intake & Output 01/14/21 01/15/21 01/15/21 18:59 06:59 18:59 Intake Total 778 600 Output Total 250 800 150 Balance 528 -200 -150 Weight 76.2 kg 86.5 kg Intake: IV 100 Sodium Chloride 0.9% 1, 100 000 ml @ 50 mls/hr IV . Q20H [facility] Rx#:[id number] Oral 678 600 Output: Drainage 100 150 Left Chest 100 Right Chest 100 50 Urine 250 700 Other: Voiding Method Bedside Commode # Voids 2 # Bowel Movements 2 ABP, PAP, CO, CI - Last Documented Arterial Blood Pressure 198/193 Pulmonary Artery Pressure 31/14 Cardiac Output 4.8 Cardiac Index 2.9 - Labs CBC & Chem 7: 01/15/21 06:04 01/15/21 06:04 Labs: Abnormal Lab Results - Last 24 Hours (Table) 01/14/21 01/14/21 01/15/21 Range/Units 16:48 19:58 06:04 WBC 16.5 H (3.8-10.6) k/uL RBC 2.65 L (3.80-5.40) m/uL Hgb 8.6 L (11.4-16.0) gm/dL Hct 26.3 L (34.0-46.0) % RDW 15.9 H (11.5-15.5) % Sodium (137-145) mmol/L Carbon Dioxide (22-30) mmol/L BUN (7-17) mg/dL Glucose (74-99) mg/dL POC Glucose (mg/dL) 52 L 132 H (75-99) mg/dL Calcium (8.4-10.2) mg/dL 01/15/21 01/15/21 Range/Units 06:04 06:14 WBC (3.8-10.6) k/uL RBC (3.80-5.40) m/uL Hgb (11.4-16.0) gm/dL Hct (34.0-46.0) % RDW (11.5-15.5) % Sodium 130 L (137-145) mmol/L Carbon Dioxide 20 L (22-30) mmol/L BUN 19 H (7-17) mg/dL Glucose 110 H (74-99) mg/dL POC Glucose (mg/dL) 110 H (75-99) mg/dL Calcium 8.1 L (8.4-10.2) mg/dL
--- NOTE | 2021-01-15 13:10 | P.PN ---
Subjective Progress Note Date: 01/15/21 This is a pleasant 85-year-old female patient with a known history of TIA, gastroesophageal reflux disease, hyperlipidemia, hypertension, rheumatoid arthritis, hypothyroidism. She is a lifelong nonsmoker. She was found to have severe aortic stenosis and single-vessel coronary artery disease and presented here yesterday for an elective surgery. She did undergo saphenous vein graft to the obtuse marginal artery. Aortic valve replacement with a bovine bioprosthetic valve. Postoperative day #1. She remains on a nitroglycerin drip at 5 g per hour, insulin drip at 2.5 units per hour, Primacor at 0.2 mcg/kg/m. Lactated Ringer's at 50 MLS per hour. She currently has a paced rhythm at 80 bpm. Right internal jugular Cordis in place, right radial arterial line in place. Mediastinal, left and right chest tubes remain in place. She is status post 5 units of packed red blood cells, 4 units of fresh frozen plasma, 2 platelets, 2 pooled cryoprecipitate. Creatinine blood pressure 67. PA pressure 29/15 with a mean of 19. Cardiac output 4.8. Cardiac index 2.9. White count 10.5. Hemoglobin 7.7. Platelets 100,000. Sodium 140. Potassium 3.7. Creatinine 0.96. Glucose 141. AST 93. ALT 16. She is currently sitting up in a chair at the bedside. Awake and alert in no acute distress. So having issues from surgical site pain. She is on 2 L nasal cannula maintaining good O2 saturations in the 90s. Needs increased encouragement regarding the incentive spirometer. Wesly on bronchodilators. Heparin for DVT prophylaxis. The patient is seen today 01/09/2021 in follow-up in the intensive care unit. Postoperative day #2. Sitting up in a chair at the bedside. She is currently o n oxygen at 2 L/m per nasal cannula. Chest x-ray reveals patchy airspace disease bilaterally. Mediastinal chest tube is been removed. Right and left chest tubes remain in place. White count 17.3. Hemoglobin 6.5. Platelets 112,000. Sodium 135. Potassium 4.4. Creatinine 1.62. AST 104. ALT 10. Glucose 108. She is continued on bronchodilators. Working with the incentive spirometer. She remains on Lactated Ringer's at 30 mL per hour. Primacor at 0.1 mcg/kg/m. Insulin is currently on hold. One unit of packed red blood cells has been ordered. Cardiac output 5.1. Cardiac index 3.1. PA pressures 34/13 with a mean of 20. On 01/10/2021 patient seen in follow-up in the intensive care unit, today is postoperative day #3, status post aortic valve replacement, and one-vessel coronary artery bypass grafting with SVG to the OM. Patient is doing well, he is awake and alert, oriented 3, she is mildly short of breath, but appears to be in no acute distress, she is currently on 2 L of oxygen pulse ox is 97%, she is in A. fib with RVR with a rate of 144, she is currently on amiodarone currently running at 0.5 mg/m, 0.9 normal saline at 30 ML per hour, and insulin is currently on hold. Blood pressure is 114/50, she still has her [place] catheter in place, PA pressures 44/28, CVP is unknown, currently has IV fluids infusing through it, cardiac output is 3.7, and cardiac index is 2.2, patient was on milrinone which is currently discontinued. She is resting in bed, denies any acute distress, no complaints of chest discomfort, incisions are clean dry and intact. Today's chest x-ray shows patchy airspace disease bilaterally. Today's labs have been noted, white blood cell count is 20.4, hemoglobin is 7.6, sodium is 126, potassium is 4.4, chloride is 99, CO2 is 20, B1 is 37, creatinine is 1.44. Right and left pleural chest tubes in place, and there has been a total of 160 mL of serosanguineous output from the left pleural and right pleural put out only 40 mL of serosanguineous output in the last 24 hours. Urine output is in the order of 45-50 ML per hour, she received a dose of IV Lasix per CT surgery yesterday, she is significantly in positive fluid balance, +1089 mL over the last 24 hours. She had multiple blood products in the postoperative period, including 6 units of PRBCs, 4 units of FFP, 2 units of platelets, 2 units of pooled cryoprecipitate. On 01/12/2021 patient seen in follow-up in intensive care unit, today is postoperative day #5, status post aortic valve replacement, and one-vessel coronary artery bypass grafting. Patient is doing well, she is on room air with pulse ox of 97%. Afebrile. Yesterday she was still in A. fib with RVR, she did subsequently convert, and started having pauses at which point the demand pacemaker started pacing her. The check of underlying rhythm revealed asystole this morning. She is currently being V paced at a rate of 70 BPM. Blood pressure is 153/56, he is not on any IV fluids. She is not complaining of any shortness of breath, today's chest x-ray shows bilateral lung opacities with slight improvement, trace left pleural effusion, no pneumothorax. Today's labs have been reviewed showing white blood cell count is 16, hemoglobin is 8.7, sodium is 129, the rest of electrolytes were unremarkable, we'll profile is improving, BUN is 39 creatinine is 1.05. No other acute events overnight. Cardiology is following, she is off the amiodarone as well as the beta benton at this time. 01/13/2021, the patient is postop day #6 post aortic valve replacement and single-vessel bypass surgery. This morning, the patient is converted back into atrial fibrillation. Nevertheless, the ultimate plan is to proceed with insertion of a pacemaker as the patient is having episodes of A. fib along with high degree AV block requiring V pacing. Chest x-ray from today showing some mild four-vessel congestion. No other acute abnormality is are seen. Sternum is stable clean and intact on today's evaluation. Hemodynamically stable on no pressors. She is off beta blockers. She is also off amiodarone for now. She remains on aspirin. She is also on Plavix for now. Using incentive spirometer. She is pulling approximately 800 mL on her incentive spirometer. All of the chest tubes have been removed. The labs from today show a white cell count of 15 with a hemoglobin of 7.8. Renal function stable and acute kidney injury has recovered in the creatinine is down to 0.9 with a sodium level of 131. 01/14/2021 patient seen in follow-up in the intensive care unit. Today is postoperative day #7, status post aortic valve replacement, and a single-vessel bypass surgery. Patient was having episodes of A. fib with RVR in the postoperative period, subsequently patient converted and went into third-degree AV block in that was pacemaker dependent. Yesterday she underwent placement of a permanent pacemaker Dr. Harris. Today he is seen resting comfortably in bed, she is on room air, she is breathing comfortably, her left upper chest pacemaker insertion site is clean dry and intact, incision is covered with a surgical dressing, the site is soft, no evidence of hematoma, patient is in the 100% paced mechanism at a rate of 60 BPM. Blood pressure is 148/52 with a mean of 94. Her pulse ox this morning is 94%, today's chest x-ray shows perihilar and basilar linear atelectasis. Pulmonary venous congestion is improving. No evidence of pneumothorax. Physical exam reveals crackles throughout particularly at the right lower base. His had no fever or chills overnight, she is on cefazolin and she did receive a dose of vancomycin post insertion of her permanent pacemaker. Labs have been reviewed, white count of 18.3, hemoglobin of 8.6, platelet count is 133, sodium is 133, the rest of electrolytes were within normal limits, BUN of 23 and creatinine 0.80. Has been working with cardiac rehab, and she has been tolerating ambulation, she is currently not on any IV fluids. 01/15/2021, the patient is postop day #8. The patient is postop aortic valve replacement and single-vessel bypass surgery with reverse saphenous vein graft to obtuse marginal. The patient also had a repair of an aortic root. Patient is doing well. No specific complaints. Underwent a permanent pacemaker insertion yesterday for high degree AV block. She is currently hemodynamically stable. She is on room air oxygen. Not having any respiratory difficulties. No that she has other comorbidities including hypothyroidism, GERD artery disease on the left in the order of 50-79%, previous history of TIA, osteoarthritis, acid reflux, in addition to severe aortic stenosis and coronary artery disease. For now, the patient has no emesis or issues. Chest x-ray shows no acute abnormalities. Pacemaker wires are in place. No evidence of any pneumothorax. The patient is currently atrially paced. She is on room air oxygen. She is afebrile. 7 and 16.5 with a hemoglobin of 8.9. Normal renal function. No other significant events overnight. Using incentive spirometer. Pulling more than 1000. Objective - Vital Signs Vital signs: Vital Signs Temp 98.3 F 01/15/21 12:00 Pulse 86 01/15/21 12:00 Resp 16 01/15/21 12:00 BP 134/65 01/15/21 12:00 Pulse Ox 93 L 01/15/21 08:00 Intake & Output 01/14/21 01/15/21 01/15/21 18:59 06:59 18:59 Intake Total 778 600 Output Total 250 800 150 Balance 528 -200 -150 Weight 76.2 kg 86.5 kg Intake: IV 100 Sodium Chloride 0.9% 1, 100 000 ml @ 50 mls/hr IV . Q20H [facility] Rx#:[id number] Oral 678 600 Output: Drainage 100 150 Left Chest 100 Right Chest 100 50 Urine 250 700 Other: Voiding Method Bedside Commode Toilet Bedside Commode # Voids 2 # Bowel Movements 2 ABP, PAP, CO, CI - Last Documented Arterial Blood Pressure 198/193 Pulmonary Artery Pressure 31/14 Cardiac Output 4.8 Cardiac Index 2.9 - Exam GENERAL EXAM: Alert, very pleasant, 85-year-old white female, on room air pulse ox of 94%, breathing comfortably, but no apparent distress. HEAD: Normocephalic/atraumatic. EYES: Normal reaction of pupils, equal size. Conjunctiva pink, sclera white. NOSE: Clear with pink turbinates. THROAT: No erythema or exudates. NECK: No masses, no JVD, no thyroid enlargement, no adenopathy. CHEST: No chest wall deformity. Symmetrical expansion. Midsternal incisions clean dry and intact, chest tube sites are clean dry and intact, cardial wires have been removed, chest tubes have been removed, chest tube sites are clean dry and intact, left upper chest permanent pacemaker implantation site incision is clean dry and intact, covered with surgical dressing, there is no evidence of hematoma the pacemaker site is dry clean and intact. The patient is a 20 paced for now. LUNGS: Equal air entry with bibasilar crackles, and mild crackles throughout CVS: Regular rate and rhythm, normal S1 and S2, no gallops, no murmurs, no rubs ABDOMEN: Soft, nontender. No hepatosplenomegaly, normal bowel sounds, no guarding or rigidity. EXTREMITIES: No clubbing, mild edema, no cyanosis, 2+ pulses and upper and lower extremities. MUSCULOSKELETAL: Muscle strength and tone normal. SPINE: No scoliosis or deformity SKIN: No rashes CENTRAL NERVOUS SYSTEM: Alert and oriented -3. No focal deficits, tone is normal in all 4 extremities. PSYCHIATRIC: Alert and oriented -3. Appropriate affect. Intact judgment and insight. - Labs CBC & Chem 7: 01/15/21 06:04 01/15/21 06:04 Labs: Abnormal Lab Results - Last 24 Hours (Table) 01/14/21 01/14/21 01/15/21 Range/Units 16:48 19:58 06:04 WBC 16.5 H (3.8-10.6) k/uL RBC 2.65 L (3.80-5.40) m/uL Hgb 8.6 L (11.4-16.0) gm/dL Hct 26.3 L (34.0-46.0) % RDW 15.9 H (11.5-15.5) % Sodium (137-145) mmol/L Carbon Dioxide (22-30) mmol/L BUN (7-17) mg/dL Glucose (74-99) mg/dL POC Glucose (mg/dL) 52 L 132 H (75-99) mg/dL Calcium (8.4-10.2) mg/dL 01/15/21 01/15/21 01/15/21 Range/Units 06:04 06:14 11:46 WBC (3.8-10.6) k/uL RBC (3.80-5.40) m/uL Hgb (11.4-16.0) gm/dL Hct (34.0-46.0) % RDW (11.5-15.5) % Sodium 130 L (137-145) mmol/L Carbon Dioxide 20 L (22-30) mmol/L BUN 19 H (7-17) mg/dL Glucose 110 H (74-99) mg/dL POC Glucose (mg/dL) 110 H 125 H (75-99) mg/dL Calcium 8.1 L (8.4-10.2) mg/dL Assessment and Plan Plan: #1. Severe aortic stenosis, and coronary artery disease, status post aortic valve replacement with root enlargement and single-vessel coronary artery bypass grafting postoperative day #8, no pulmonary issues and the patient has some mild atelectatic changes in lung bases bilaterally. No evidence of any pulmonary edema. No evidence of any atrial fibrillation. Currently the patient is atrially paced. #2. Complete heart block, and was pacemaker dependent, she status post permanent pacemaker implantation on 01/13/2021, the patient is hemodynamically stable. The patient is a 20 paced for now. #3. Mitral stenosis with insufficiency and heavy mitral annular calcification #4. A. fib with RVR, in the post-operative period, subsequently converting to complete heart block, status post permanent pacemaker implantation on 01/13/2021 #5. Shortness of breath, likely related to A. fib with RVR, and interstitial edema, improved #6. Hypertension #7. Hyperlipidemia #8. Hypothyroidism #9. Left carotid artery stenosis #10. History of TIA #11. GERD #12. Nonsmoker, preop FEV1 of 83% of predicted #13. Family history of premature coronary artery disease #14. Acute kidney injury, improving, renal function is normalized and the creatinine is down to normal. Plan: Continue using incentive spirometer Continue aspirin and Plavix Beta blockers were restarted 90 correlation is been offered to this patient and this patient will be kept up to cardiology. Surgical wound site is dry clean and intact Pacemaker is functional We'll continue to follow.
--- NOTE | 2021-01-15 16:20 | P.DS ---
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 Severe aortic stenosis with insufficiency, status post operative site aortic valve replacement with root enlargement 2. Mitral stenosis with insufficiency and heavy mitral annular calcification 3. Coronary artery disease, status post single vessel CABG 4. History of hypertension 5. Hyperlipidemia with refusal of statin medication in the past, cholesterol 226, LDL 165 6. Hypothyroidism, recent TSH 2.69, free T4 0.8 7. Left internal carotid stenosis 50-79% 8. TIA in 2008 9. GERD 10. Arthritis 11. Never smoker, preoperative FEV1 83% of predicted 12. Family history of premature coronary artery disease, brother diagnosed with CAD in his 40s with subsequent 2 vessel CABG 13. Family history of heart failure and possible valvular heart disease 14. Intraoperative and postoperative acute blood loss anemia and thrombocytopenia, expected, requiring multiple blood products 15. Postoperative atrial fibrillation, status post exclusion of the left atrial appendage 16. Third degree heartblock/sick sinus syndrome, status post dual-chamber [employer] permit pacemaker PRINCIPAL PROCEDURE: 1. Aortic valve replacement with a 21 mm Inspiris bovine pericardial valve with root enlargement with bovine pericardial patch. 2. Coronary artery bypass grafting 1 with reverse saphenous vein graft to the obtuse marginal coronary artery. 3. Epi-aortic ultrasound. 4. Endovascular vein harvest of the left greater saphenous vein from the thigh. 5. Ligation of the left atrial appendage with a 35 mm Atricure clip. 6. Placement of [employer] dual chamber pacemaker placement by Dr. Iniguez. HISTORY OF PRESENT ILLNESS: This man 85-year-old female patient who has not followed with a primary care physician over the past 2 years, but prior to that she was following with Dr. Alejandre. She has a past medical history significant for hypertension, hyperlipidemia, hypothyroidism, known heart murmur since she was in her 20s, TIA in 2008, GERD, arthritis and family history of premature coronary artery disease with her brother being diagnosed in his 40s with subsequent 2 vessel coronary artery bypass grafting, and a family history of heart failure and possible valvular disease. Recently, the patient has had complaints of progressive shortness of breath and swelling to her bilateral lower extremities. She also had complaints of episodes of chest pain which she has been attributing to her GERD. Due to these symptoms she had underwent a 12- lead EKG which demonstrated normal sinus rhythm with a right bundle branch block and her lab work showed a proBNP of 6230. For further evaluation and a 2-D echocardiogram was completed which demonstrated an ejection fraction of 50-55%, a dilated left atrium, severe aortic valve stenosis with a peak/mean gradient of 141/92 mmHg, moderate mitral valve regurgitation, moderate to severe mitral valve stenosis with a peak/mean gradient 26/5 mmHg and mitral valve area 1.4 cm as well as mild tricuspid valve regurgitation. Subsequently due to the patient's symptoms and findings on the 2-D echocardiogram she underwent a cardiac catheterization and transesophageal echocardiogram. The heart catheterization revealed an 80-90% ostial stenosis to her obtuse marginal branch of her circumflex coronary artery. The transesophageal echocardiogram demonstrated a 3 leaflet aortic valve which was calcified with a valve area of less than 0.5 cm, severe aortic valve stenosis, moderate aortic valve insufficiency, mild to moderate central mitral valve regurgitation, moderate to severe mitral valve stenosis with a peak/mean gradient 10/5 mmHg with a valve area of 1.5 cm and mild tricuspid valve regurgitation. Due to the patient's symptoms and findings on her above-mentioned studies she was subsequently referred to cardiothoracic surgery for further evaluation and treatment recommendations. The patient was initially was evaluated for transcatheter aortic valve replacement, although due to findings on her preoperative diagnostic studies, it was felt she would be better served to proceed with surgical aortic valve replacement. The risks and benefits of aortic valve replacement were discussed with the patient by Dr. Hill Schrader, and knowing and understanding the risks the patient wished to proceed with surgical aortic valve replacement. HOSPITAL COURSE: The patient was brought to the hospital on 01/07/2021, prepared in the usual fashion and subsequently taken to the operating room where Dr. Hill Schrader performed an aortic valve replacement with a 21 mm Inspiris bovine pericardial valve with root enlargement with bovine pericardial patch, coronary artery bypass grafting 1 with reverse saphenous vein graft to the obtuse marginal coronary artery, endovascular vein harvest of the left greater saphenous vein from the thigh, epi-aortic ultrasound and ligation of the left atrial appendage with a 35 mm Atricure clip. Upon completion of the surgery the patient was transferred to the cardiovascular intensive care unit where she was recovered and monitored hemodynamically. She was extubated, all lines, tubes and supportive drips were discontinued when appropriate and she was transferred to the cardiac stepdown unit for further monitoring and rehabilitation. Her option was titrated down, she continued to work with physical and occupational therapy, she was tolerating an oral diet, her pain was well-controlled and she was ready to be discharged home with [facility] care on postoperative day #8. She has received written and verbal instructions regarding her medications, activity restrictions, signs and sy mptoms requiring physician notification and her follow-up appointments. COMPLICATIONS: Postoperative period was complicated by some atrial fibrillation, which is a known common occurrence after cardiac surgery and third degree heart block requiring placement of a permanent pacemaker. Patient Condition at Discharge: Stable Plan - Discharge Summary Discharge Rx Participant: No New Discharge Prescriptions: New Metoprolol Tartrate [Lopressor] 25 mg PO TID #90 tab Melatonin 6 mg PO HS tablet Clopidogrel [Plavix] 75 mg PO DAILY #30 tab Pantoprazole [Protonix] 40 mg PO AC-BID #30 tablet. Ferrous Sulfate [Iron (65 MG Elemental)] 325 mg PO BID-W/MEALS #60 tab Sennosides-Docusate Sodium [Senokot-S] 2 each PO HS PRN tab PRN Reason: Constipation Acetaminophen Tab [Tylenol] 650 mg PO Q6HR PRN tab PRN Reason: Mild Pain Continue Thyroid,Pork [[place] Thyroid] 90 mg PO QAM Cholecalciferol [Vitamin D3 (25 Mcg = 1000 Iu)] 250 mcg PO DAILY Ascorbic Acid [Vitamin C] 1,000 mg PO DAILY Zinc 50 mg PO HS Aspirin 81 mg PO DAILY #90 chew Parshall-3/Dha/Epa/Fish Oil [Fish Oil 500 mg Softgel] 300 each PO DAILY Ubidecarenone [Co Q-10] 200 mg PO DAILY Magnesium 800 mg PO DAILY Atorvastatin [Lipitor] 20 mg PO HS #30 tab Changed Furosemide [Lasix] 10 mg PO DAILY #7 tab Discontinued Tri-Salts (Unknown Strength) 1 tsp PO Q4H PRN PRN Reason: acid reflux Beet Root Pills (Unknown Strength) 1 tab PO DAILY Nitroglycerin Sl Tabs [Nitrostat] 0.4 mg SUBLINGUAL Q5M PRN #1 bottle PRN Reason: Chest Pain Discharge Medication List Thyroid,Pork [[place] Thyroid] 90 mg PO QAM 12/21/13 [History] Ascorbic Acid [Vitamin C] 1,000 mg PO DAILY 01/02/21 [History] Cholecalciferol [Vitamin D3 (25 Mcg = 1000 Iu)] 250 mcg PO DAILY 01/02/21 [History] Magnesium 800 mg PO DAILY 01/02/21 [History] Parshall-3/Dha/Epa/Fish Oil [Fish Oil 500 mg Softgel] 300 each PO DAILY 01/02/21 [History] Ubidecarenone [Co Q-10] 200 mg PO DAILY 01/02/21 [History] Zinc 50 mg PO HS 01/02/21 [History] Acetaminophen Tab [Tylenol] 650 mg PO Q6HR PRN tab 01/15/21 [Rx] Aspirin 81 mg PO DAILY #90 chew 01/15/21 [Rx] Atorvastatin [Lipitor] 20 mg PO HS #30 tab 01/15/21 [Rx] Clopidogrel [Plavix] 75 mg PO DAILY #30 tab 01/15/21 [Rx] Ferrous Sulfate [Iron (65 MG Elemental)] 325 mg PO BID-W/MEALS #60 tab 01/15/21 [Rx] Furosemide [Lasix] 10 mg PO DAILY #7 tab 01/15/21 [Rx] Melatonin 6 mg PO HS tablet 01/15/21 [Rx] Metoprolol Tartrate [Lopressor] 25 mg PO TID #90 tab 01/15/21 [Rx] Pantoprazole [Protonix] 40 mg PO AC-BID #30 tablet. 01/15/21 [Rx] Sennosides-Docusate Sodium [Senokot-S] 2 each PO HS PRN tab 01/15/21 [Rx] Follow up Appointment(s)/Referral(s): Cecil Iniguez MD [STAFF PHYSICIAN] - 01/29/21 5:15 pm (Device clinic follow-up 01/17/21 @ 9 am at the main office Office appointment with Dr. Iniguez on 01/29/21 @ 5:15 will be at the [address] office inside [facility] ) Millicent Macias NPC [Nurse Practitioner] - 01/22/21 1:30 pm [facility] ,Cardiac [NON-STAFF] - 4 Weeks (You will be called in approximately 4-6 weeks for evaluation for cardiac rehab) Jean-Paul Alejandre DO [Primary Care Provider] - 01/30/21 10:20 am Sue Wolff NPC [Nurse Practitioner] - 02/04/21 2:30 pm Hill Schrader MD [STAFF PHYSICIAN] - 02/13/21 1:45 pm [facility], [NON-STAFF] - 1-2 Days Ambulatory/Diagnostic Orders: Complete Blood Count w/diff [LAB.AMB] Time Frame: 3 Days, Location: None Selected Comprehensive Metabolic Panel [LAB.AMB] Time Frame: 3 Days, Location: None Selected Activity/Diet/Wound Care/Special Instructions: PATIENT EDUCATION MATERIAL Instructions following a heart rhythm device implant. 1. Keep dressing DRY for 5 DAYS. You may cover the area with Saran or Cling Wrap, prior to a shower. 2. The dressing will be removed in the Device Clinic at [facility]. Absorbable sutures were used to close the wound. 3. Avoid raising the left arm above the shoulder level. 4 week restriction 4. Avoid arm movements, like backscratching, rubbing the head, or pulling on a cord. 4 weeks restriction 5. Gentle range of motion movements of the shoulder, closest to the incision should be performed to avoid a frozen shoulder. (Pendulum exercises of the shoulder) 6. The opposite arm may be used freely. 7. Avoid driving for 7 days. 8. Avoid activities such as golfing, swimming, weed whacking, lifting more than 10 pounds weight, bowling, gymnastics and weight training/lifting. (6 weeks restriction) 9. Activities such as wood chopping with an axe, pull-ups in the gymnasium, power lifting, arc-welding, being close to home induction cooktops will always be a problem. 10. Arm sling is only a reminder not to raise the arm above the head. You do not need to keep the arm completely immobilized. Your free to move the arm and use it and for normal activities. In case of any problems, please call [facility], Radha Larson, @ [phone], Attention: Device Clinic CARDIAC SURGERY DISCHARGE INSTRUCTIONS: 1. No driving for 4 weeks, or until physician gives their ok. 2. The patient should sleep in their own bed, no medical bed needed. 3. Stairs are not an issue. If the bedroom is upstairs, it is advised that the patient go up at night and down in the morning for the first week. Go slowly, using handrail and take 1 step at a time. 4. SAI hose are to be worn for 30 days or until physician discontinues. 5. Heart hugger is to be worn 100% of the time until physician discontinues.(except when showering) 6. No lifting, pushing, or pulling more than 10 pounds for 12 weeks. The physician will advise of any restriction changes. 7. The patient is expected to continue the prescribed walking program. 8. Continue pain control per as needed orders. 9. Continue with incentive spirometry and splinting/heart hugger until otherwise directed by the physician. 10. Must shower daily using liquid antibacterial soap and a separate white washcloth for each individual incision. 11. Routine sternal incision care. No powders, lotions, ointments on incisions. No dressings are necessary on incisions unless they are draining. Dermabond tape is to remain on sternal incision until surgeon follow-up. 12. Please call surgeon/CATALOGUE COMPILER for temp greater than 101 F or purulent drainage from incisions. 13. All prescriptions given by surgeon for 30 days. Refills need to be filled through interior design assistant/primary care physician. 14. A Red armband has been placed on the patient. It should be worn for 30 days post surgery and will be removed by the cardiac surgeons. If an ER visit is necessary, please make sure the number on the Red armband is called. 15. You have been referred to and are expected to begin Cardiac Rehab in approximately 4-6 weeks. HOME HEALTH SERVICES TO PROVIDE: RN SKILLED HOME CARE SERVICES FOR POST-OP SURGICAL PATIENTS WITH THE FOLLOWING: Coronary Artery Bypass Surgery (CABG), Mitral Valve Replacement/Repair ( MVR), Aortic Valve Replacement/Repair (AVR) RN TO CONTINUE EDUCATION FROM ``ROAD TO A HEALTH HEART PATIENT EDUCATION MANUAL (GIVEN TO PATIENT IN THE HOSPITAL) MEDICATION RECONCILIATION WITH EDUCATION NEEDED ON FIRST HOME VISIT EMPHASIZE IMPORTANCE OF WEARING BREAST SUPPORT/HEART HUGGER ENCOURAGE USE OF INCENTIVE SPIROMETER 10 X EVERY HOUR WHILE AWAKE ENCOURAGE UTILIZATION OF LOWER EXTREMITY COMPRESSION STOCKINGS/SAI HOSE and ELEVATE LEGS ABOVE LEVEL OF HEART WHILE AT REST. ENCOURAGE AMBULATION 3-5x/day INCREASING TOLERATES, WHILE AVOIDING EXTREMES IN TEMPERATURE FREQUENCY: RN TO OPEN THE PATIENT WITHIN 24 HOURS OF DISCHARGE FROM THE HOSPITAL WITH TELEHEALTH INSTALLED AT [place], RN TO VISIT 2-3 X A WEEK FOR 4 WEEKS ESTABLISHED BY PATIENT NEEDS. LABORATORY: CBC, CMP TO BE DRAWN ON THE THIRD DAY HOME, (RAN STAT) FAX RESULTS TO [phone]. TELEHEALTH PARAMETERS: WEIGHT: NOTIFY MD OF WEIGHT GAIN OF 2 LBS IN 24 HOURS OR 5 LBS IN ONE WEEK HR: NOTIFY MD OF HR <55 BPM OR HR>100 BPM BP: NOTIFY MD IF BP <90/55 OR BP>140/100 O2 SAT: NOTIFY MD IF PO2<93% ON ROOM AIR SEND TELEHEALTH REPORT TO MENTAL HEALTH PRACTITIONER AND CARDIOVASCULAR SURGEON THE FIRST WEEK OF CARE AND THEN BI-WEEKLY. PLEASE ADDITIONALLY COMMUNICATE ANY ABNORMALS AND NEW FINDINGS TO THE SURGEONS OFFICE. For any questions or concerns please call marketing sales manager Millicent @ or Darius @ Discharge Disposition: HOME WITH HOME HEALTH SERVICES
== END 2021-01-15 17:43 | disposition home health service (06) | DRG 220 ==
LOC: 2ORMAIN 01-07 05:31 → 2SICU 01-07 15:02 → 3SCARD 01-14 12:57
PROVIDERS: ADMIT Thoracic Surgery (Cardiothoracic Vascular Surgery); ATTEND Thoracic Surgery (Cardiothoracic Vascular Surgery)
PROC: 5A1221Z Performance of Cardiac Output, Continuous (ICD-10-PCS; 2021-01-07)
PROC: 02L70CK Occlusion of Left Atrial Appendage with Extraluminal Device, Open Approach (ICD-10-PCS; 2021-01-07)
PROC: B246ZZ4 Ultrasonography of Right and Left Heart, Transesophageal (ICD-10-PCS; 2021-01-07)
PROC: 30233N1 Transfusion of Nonautologous Red Blood Cells into Peripheral Vein, Percutaneous Approach (ICD-10-PCS; 2021-01-07)
PROC: 30233K1 Transfusion of Nonautologous Frozen Plasma into Peripheral Vein, Percutaneous Approach (ICD-10-PCS; 2021-01-07)
PROC: 30233R1 Transfusion of Nonautologous Platelets into Peripheral Vein, Percutaneous Approach (ICD-10-PCS; 2021-01-07)
PROC: 30233M1 Transfusion of Nonautologous Plasma Cryoprecipitate into Peripheral Vein, Percutaneous Approach (ICD-10-PCS; 2021-01-07)
PROC: 02RF08Z Replacement of Aortic Valve with Zooplastic Tissue, Open Approach (ICD-10-PCS; principal; 2021-01-07 08:00)
PROC: 021009W Bypass Coronary Artery, One Artery from Aorta with Autologous Venous Tissue, Open Approach (ICD-10-PCS; 2021-01-07 08:00)
PROC: 06BQ4ZZ Excision of Left Saphenous Vein, Percutaneous Endoscopic Approach (ICD-10-PCS; 2021-01-07 08:00)
PROC: 0JH606Z Insertion of Pacemaker, Dual Chamber into Chest Subcutaneous Tissue and Fascia, Open Approach (ICD-10-PCS; 2021-01-13)
PROC: 02HK3JZ Insertion of Pacemaker Lead into Right Ventricle, Percutaneous Approach (ICD-10-PCS; 2021-01-13)
PROC: 02H63MZ Insertion of Cardiac Lead into Right Atrium, Percutaneous Approach (ICD-10-PCS; 2021-01-13)
PROC: B5171ZZ Fluoroscopy of Left Subclavian Vein using Low Osmolar Contrast (ICD-10-PCS; 2021-01-13)
PROC: B51N1ZZ Fluoroscopy of Left Upper Extremity Veins using Low Osmolar Contrast (ICD-10-PCS; 2021-01-13)
DX: I08.0 Rheumatic disorders of both mitral and aortic valves (principal); D62 Acute posthemorrhagic anemia; N17.9 Acute kidney failure, unspecified; I50.32 Chronic diastolic (congestive) heart failure; I44.2 Atrioventricular block, complete; I97.51 Accidental puncture and laceration of a circulatory system organ or structure during a circulatory system procedure; G45.9 Transient cerebral ischemic attack, unspecified; J98.11 Atelectasis; I25.10 Atherosclerotic heart disease of native coronary artery without angina pectoris; I48.0 Paroxysmal atrial fibrillation; Z86.73 Personal history of transient ischemic attack (TIA), and cerebral infarction without residual deficits; E03.9 Hypothyroidism, unspecified; Z82.49 Family history of ischemic heart disease and other diseases of the circulatory system; E78.5 Hyperlipidemia, unspecified; I65.22 Occlusion and stenosis of left carotid artery; K21.9 Gastro-esophageal reflux disease without esophagitis; M19.90 Unspecified osteoarthritis, unspecified site; M06.9 Rheumatoid arthritis, unspecified; I11.0 Hypertensive heart disease with heart failure; Z79.82 Long term (current) use of aspirin; Z79.02 Long term (current) use of antithrombotics/antiplatelets; D72.829 Elevated white blood cell count, unspecified; E16.2 Hypoglycemia, unspecified; D69.6 Thrombocytopenia, unspecified; R41.0 Disorientation, unspecified; E66.9 Obesity, unspecified; Z68.36 Body mass index [BMI] 36.0-36.9, adult; I49.5 Sick sinus syndrome; Y83.2 Surgical operation with anastomosis, bypass or graft as the cause of abnormal reaction of the patient, or of later complication, without mention of misadventure at the time of the procedure; Z79.899 Other long term (current) drug therapy
CPT/HCPCS: 33208; 36415; 36430; 71045; 71046; 80048; 80053; 81001; 82330; 82805; 83735; 85025; 85027; 85384; 85520; 85610; 85730; 86850; 86891; 86900; 86901; 86920; 87086; 88305; 88311; 94002; 94640; 94760

== ENCOUNTER → 2021-11-20 | Outpatient (CLI) | payer MEDICARE ==
--- NOTE | 2021-11-20 15:04 | CT ---
EXAMINATION TYPE: CT lumbar spine wo con DATE OF EXAM: 11/20/2021 COMPARISON: None HISTORY: 86-year-old female M54.16, Radiculopathy TECHNIQUE: Contiguous axial scanning of the lumbar spine without IV contrast. Coronal and sagittal re constructions performed. CT DLP: 569.8 mGycm Automated exposure control for dose reduction was used. FINDINGS: Dense mitral annular calcifications partially visualized. Moderate atherosclerotic calcifications wit hin the abdominal aorta. Small hiatal hernia. Some calcified granulomas noted within the spleen. Generalized osteopenia. Degenerated dextroconvex scoliosis the lumbar spine. Multilevel hypertrophic facet arthropathy. Grade 1 anterolisthesis L4-L5. There is a left-sided L5 pars interarticularis defect. Bridging posterior disc osteophyte complex and both T11-T12 and L1-L2 mildly narrows the spinal canal . There is moderate to advanced disc/endplate degenerative change from T11 down through L4 levels with loss of disc height, scattered disc vacuum. Some scattered bridging endplate spondylosis is also note d thoracolumbar junction and upper lumbar spine. Some ligamentum flavum thickening and bulging disks mid to lower lumbar spine without antonia canal com promise. 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 On the left, changes result in mild multilevel neural foraminal narrowing, more moderate at L3-L4. On the right, there is mild multilevel neuroforaminal narrowing, moderate at L3-L4 and L5-S1. IMPRESSION: 1. DEGENERATED DEXTROCONVEX SCOLIOSIS. SOME DISH NOTED WITHIN THE LOWER THORACIC AND UPPER LUMBAR SPI NE. POSTERIOR BRIDGING ENDPLATE SPUR AT T11-T12 AND L1-L2 MILDLY NARROWS THE SPINAL CANAL AT THESE LE VELS. 2. HYPERTROPHIC FACET ARTHROPATHY. WE ALSO NOTE A UNILATERAL, LEFT-SIDED L5 PARS DEFECT. DEGENERATIVE GRADE 1 ANTEROLISTHESIS L4-L5. 3. VERY MINIMAL MILD NEURAL FORAMINAL STENOSES OUTLINED ABOVE, MORE MODERATE ON THE LEFT AT L3-L4 AND ON THE RIGHT AT L3-L4 AND L5-S1. 4. 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 5. SMALL HIATAL HERNIA.
== END | disposition home or self-care (01) ==
LOC: RADCTMAIN 13:35
PROVIDERS: ATTEND Psychiatry & Neurology Neurology
DX: M47.26 Other spondylosis with radiculopathy, lumbar region (principal); M43.16 Spondylolisthesis, lumbar region; M48.26 Kissing spine, lumbar region; K44.9 Diaphragmatic hernia without obstruction or gangrene; M41.86 Other forms of scoliosis, lumbar region; M51.16 Intervertebral disc disorders with radiculopathy, lumbar region; M99.73 Connective tissue and disc stenosis of intervertebral foramina of lumbar region; M48.15 Ankylosing hyperostosis [Forestier], thoracolumbar region
CPT/HCPCS: 72131

== ENCOUNTER 2024-07-13 20:31 | Emergency (ER) | payer MEDICARE ==
--- NOTE | 2024-07-13 21:00 | ED ---
Weakness HPI - General Chief complaint: Weakness Stated complaint: Confusion Time Seen by Provider: 07/13/24 20:41 Source: patient, family, RN notes reviewed Mode of arrival: ambulatory Limitations: no limitations - History of Present Illness Initial comments: This is an 88-year-old female who presents to the emergency department for weakness and confusion. her daughter states that earlier today she left her phone on the medical administrative and became confused, which has never happened before. She also slept in bed most of the day and when she was walking seemed to be leaning forward. Her daughter is concerned because she has never acted like this before. Patient states that she has been experiencing a cough but denies any chest pain or shortness of breath. States that she felt weak earlier, however that has since resolved. Her daughter wants to make sure she did not have a heart attack or stroke. Her daughter took her to urgent care earlier today and was advised to bring her here for further evaluation. MD Complaint: generalized weakness - Related Data Home Medications Medication Instructions Recorded Confirmed Thyroid,Pork [[place] Thyroid] 90 mg PO QAM 12/21/13 01/07/21 Ascorbic Acid [Vitamin C] 1,000 mg PO DAILY 01/02/21 01/07/21 Cholecalciferol [Vitamin D3 (25 250 mcg PO DAILY 01/02/21 01/07/21 Mcg = 1000 Iu)] Magnesium 800 mg PO DAILY 01/02/21 01/07/21 [place]-3/Dha/Epa/Fish Oil [Fish Oil 300 each PO DAILY 01/02/21 01/07/21 500 mg Softgel] Ubidecarenone [Co Q-10] 200 mg PO DAILY 01/02/21 01/02/21 Zinc 50 mg PO HS 01/02/21 01/02/21 Previous Rx's Medication Instructions Recorded Acetaminophen Tab [Tylenol] 650 mg PO Q6HR PRN tab 01/15/21 Aspirin 81 mg PO DAILY #90 chew 01/15/21 Atorvastatin [Lipitor] 20 mg PO HS #30 tab 01/15/21 Clopidogrel [Plavix] 75 mg PO DAILY #30 tab 01/15/21 Ferrous Sulfate [Iron (65 MG 325 mg PO BID-W/MEALS #60 tab 01/15/21 Elemental)] Furosemide [Lasix] 10 mg PO DAILY #7 tab 01/15/21 Melatonin 6 mg PO HS tablet 01/15/21 Metoprolol Tartrate [Lopressor] 25 mg PO TID #90 tab 01/15/21 Pantoprazole [Protonix] 40 mg PO AC-BID #30 tablet. 01/15/21 Sennosides-Docusate Sodium 2 each PO HS PRN tab 01/15/21 [Senokot-S] Albuterol Sulfate [Albuterol 1 puff PO Q4-6H PRN #8.5 gm 07/13/24 Sulfate Hfa] Benzonatate [Tessalon Perle] 200 mg PO TID PRN #30 capsule 07/13/24 Furosemide [Lasix] 40 mg PO DAILY 5 Days #5 tablet 07/13/24 Oseltamivir [Tamiflu] 75 mg PO Q12HR 5 Days #10 cap 07/13/24 Allergies Allergy/AdvReac Type Severity Reaction Status Date / Time Sulfa (Sulfonamide Allergy Severe Rash/Hives Verified 07/13/24 20:39 Antibiotics) Review of Systems ROS Statement: Those systems with pertinent positive or pertinent negative responses have been documented in the HPI. ROS Other: All systems not noted in ROS Statement are negative. Past Medical History Past Medical History: Myocardial Infarction (MN) Additional Past Medical History / Comment(s): Glaucoma. - 2008 History of Any Multi-Drug Resistant Organisms: None Reported Past Surgical History: Coronary Bypass/CABG Additional Past Surgical History / Comment(s): fatty tumors Past Anesthesia/Blood Transfusion Reactions: No Reported Reaction Additional Past Anesthesia/Blood Transfusion Reaction / Comment(s): no transfusion Past Psychological History: No Psychological Hx Reported Smoking Status: Never smoker Past Alcohol Use History: None Reported Past Drug Use History: None Reported - Past Family History Mother Family Medical History: Congestive Heart Failure (CHF) Additional Family Medical History / Comment(s): Possible valvular heart disease,Valve replaced at approx age 82 Father Family Medical History: Congestive Heart Failure (CHF) Brother(s) Family Medical History: Coronary Artery Disease (CAD) Additional Family Medical History / Comment(s): Brother diagnosed with coronary artery disease in his 40s with subsequent 2 vessel CABG General Exam Limitations: no limitations General appearance: alert, in no apparent distress Head exam: Present: atraumatic, normocephalic, normal inspection Eye exam: Present: normal appearance, PERRL, EOMI. Absent: scleral icterus, conjunctival injection, periorbital swelling Respiratory exam: Present: normal lung sounds bilaterally. Absent: respiratory distress, wheezes, rales, rhonchi, stridor Cardiovascular Exam: Present: regular rate, normal rhythm, normal heart sounds. Absent: systolic murmur, diastolic murmur, rubs, gallop, clicks Neurological exam: Present: alert, oriented X3, CN II-XII intact Expanded Cerebellar function: Finger to Nose: Normal, Heel to Renner: Normal, Romberg: Normal Motor strength exam: RUE: 5, LUE: 5, RLE: 5, LLE: 5 Psychiatric exam: Present: normal affect, normal mood Skin exam: Present: warm, dry, intact, normal color. Absent: rash Course Vital Signs 07/13/24 07/13/24 07/14/24 20:33 22:26 00:16 Temperature 98.8 F 98.4 F 97.7 F Pulse Rate 70 60 64 Respiratory 18 14 16 Rate Blood Pressure 146/73 156/80 151/70 O2 Sat by Pulse 92 L 93 L 93 L Oximetry Medical Decision Making - Medical Decision Making This is an 88-year-old female who presents to the emergency department for weakness. Was pt. sent in by a medical professional or institution? @ -[facility] Did you speak to anyone other than the patient for history? @ -Her daughter provided the majority of the information Did you review nursing and triage notes? @ -Yes, and I agree, it is accurate with regards to the patient's symptoms. Were old charts reviewed? @ -No Differential Diagnosis? @ -Differential Weakness: Hypoglycemia, shock, sepsis, hyponatremia, anemia, infection, MN, ETOH, adverse medicine reaction, overdose, stroke, this is not meant to be an all-inclusive list. EKG interpreted by me (3pts min.)? @ -EKG interpreted by me demonstrating the following: Sinus rhythm. Right axis deviation. Right bundle branch block. Ventricular rate 71 bpm, MN interval 166 ms, QRS duration 167 ms, QTc 449 ms. X-rays interpreted by me (1pt min.)? @ -Chest x-ray obtained. My interpretation identifies a mild patchy infiltrate to the left lung. CT interpreted by me (1pt min.)? @ CT scan of the brain obtained. My interpretation identifies no evidence of an acute intracranial hemorrhage. U/S interpreted by me (1pt. min.)? @ -Not obtained What testing was considered but not performed? (CT, X-rays, U/S, labs)? Why? @ -None What meds were considered but not given? Why? @ -None Did you discuss the management of the patient with other professionals? @ -No Did you reconcile home meds? @ -No Was smoking cessation discussed for >3mins.? @ -No Was critical care preformed (if so, how long)? @ -No Were there social determinants of health that impacted care today? How? (Homelessness, low income, unemployed, alcoholism, drug addiction, transportation, low edu. Level, literacy, decrease access to med. care, half-way, rehab)? @ -No Was there de-escalation of care discussed even if they declined? (Discuss DNR or withdrawal of care, Hospice)? @ -No What co-morbidities impacted this encounter? (DM, HTN, Smoking, COPD, CAD, Cancer, CVA, Hep., AIDS, mental health diagnosis, sleep apnea, morbid obesity)? @ -CAD, HLD, HTN Was patient admitted / discharged? @ -Discharged. Lab work demonstrates hyponatremia with a sodium of 129. BNP 5200, which has been higher in the past. Patient positive for influenza A. Urinalysis negative for signs of infection. Chest x-ray reveals possible fluid overload state. CT scan of the brain unremarkable. Patient is not currently on any diuretics. She denies any shortness of breath, states that her only symptom is the cough. She did not have any swelling in her extremities. 40 mg of IV Lasix administered. I did recommend admission for diuresis and symptomatic management, however patient states that she really felt fine and would much rather go home. Prescription for Tamiflu and 5-day course of Lasix provided. She was also given a prescription for Tessalon Perles and an albuterol inhaler. We discussed very strict return parameters and having very close follow-up with her PCP. Patient's daughter states that she will be staying with her for the next few days as well. Patient discharged home in stable condition. Case discussed with ED attending Dr. Myles. Return precautions reviewed in depth, the patient is instructed to return to the emergency department with any new, worsening, or concerning symptoms. Patient verbalized understanding. Undiagnosed new problem with uncertain prognosis? @ -None Drug Therapy requiring intensive monitoring for toxicity (Heparin, Nitro, Insulin, Cardizem)? @ -None Were any procedures done? @ -None Diagnosis/symptom? @ -Influenza A, fluid overload Acute, or Chronic, or Acute on Chronic? @ -Acute Uncomplicated (without systemic symptoms) or Complicated (systemic symptoms)? @ -Uncomplicated Side effects of treatment? @ -None Exacerbation, Progression, or Severe Exacerbation] @ -Not applicable Poses a threat to life or bodily function? @ -This will depend on how she progresses - Lab Data Result diagrams: 07/13/24 20:51 07/13/24 20:51 Lab Results 07/13/24 07/13/24 07/13/24 Range/Units 20:51 20:51 20:51 WBC 7.1 (3.8-10.6) k/uL RBC 4.56 (3.80-5.40) m/uL Hgb 14.0 (11.4-16.0) gm/dL Hct 42.2 (34.0-46.0) % MCV 92.4 (80.0-100.0) fL MCH 30.8 (25.0-35.0) pg MCHC 33.3 (31.0-37.0) g/dL RDW 12.4 (11.5-15.5) % Plt Count 203 (150-450) k/uL MPV 7.0 Neutrophils % 66 % Lymphocytes % 20 % Monocytes % 9 % Eosinophils % 2 % Basophils % 0 % Neutrophils # 4.7 (1.3-7.7) k/uL Lymphocytes # 1.4 (1.0-4.8) k/uL Monocytes # 0.6 (0-1.0) k/uL Eosinophils # 0.1 (0-0.7) k/uL Basophils # 0.0 (0-0.2) k/uL PT 11.3 (10.0-12.5) sec INR 1.0 (<1.2) APTT 26.8 (22.0-30.0) sec Sodium (137-145) mmol/L Potassium (3.5-5.1) mmol/L Chloride (98-107) mmol/L Carbon Dioxide (22-30) mmol/L Anion Gap mmol/L BUN (7-17) mg/dL Creatinine (0.52-1.04) mg/dL Est GFR (CKD-EPI)AfAm (>60 ml/min/1.73 sqM) Est GFR (CKD-EPI)NonAf (>60 ml/min/1.73 sqM) Glucose (74-99) mg/dL Plasma Lactic Acid Miguel (0.7-2.0) mmol/L Calcium (8.4-10.2) mg/dL Magnesium (1.6-2.3) mg/dL Total Bilirubin (0.2-1.3) mg/dL AST (14-36) U/L ALT (4-34) U/L Alkaline Phosphatase (38-126) U/L Troponin I (0.000-0.034) ng/mL NT-Pro-B Natriuret Pep pg/mL Total Protein (6.3-8.2) g/dL Albumin (3.5-5.0) g/dL Urine Color Yellow Urine Appearance Clear (Clear) Urine pH 5.5 (5.0-8.0) Ur Specific [place] 1.023 (1.001-1.035) Urine Protein Trace H (Negative) Urine Glucose (UA) Negative (Negative) Urine Ketones Negative (Negative) Urine Blood Negative (Negative) Urine Nitrite Negative (Negative) Urine Bilirubin Negative (Negative) Urine Urobilinogen <2.0 (<2.0) mg/dL Ur Leukocyte Esterase Negative (Negative) Influenza Type A (PCR) (Not Detectd) Influenza Type B (PCR) (Not Detectd) RSV (PCR) (Not Detectd) SARS-CoV-2 (PCR) (Not Detectd) 07/13/24 07/13/24 07/13/24 Range/Units 20:51 20:51 20:51 WBC (3.8-10.6) k/uL RBC (3.80-5.40) m/uL Hgb (11.4-16.0) gm/dL Hct (34.0-46.0) % MCV (80.0-100.0) fL MCH (25.0-35.0) pg MCHC (31.0-37.0) g/dL RDW (11.5-15.5) % Plt Count (150-450) k/uL MPV Neutrophils % % Lymphocytes % % Monocytes % % Eosinophils % % Basophils % % Neutrophils # (1.3-7.7) k/uL Lymphocytes # (1.0-4.8) k/uL Monocytes # (0-1.0) k/uL Eosinophils # (0-0.7) k/uL Basophils # (0-0.2) k/uL PT (10.0-12.5) sec INR (<1.2) APTT (22.0-30.0) sec Sodium 129 L (137-145) mmol/L Potassium 4.4 (3.5-5.1) mmol/L Chloride 94 L (98-107) mmol/L Carbon Dioxide 25 (22-30) mmol/L Anion Gap 10 mmol/L BUN 17 (7-17) mg/dL Creatinine 0.90 (0.52-1.04) mg/dL Est GFR (CKD-EPI)AfAm 67 (>60 ml/min/1.73 sqM) Est GFR (CKD-EPI)NonAf 58 (>60 ml/min/1.73 sqM) Glucose 111 H (74-99) mg/dL Plasma Lactic Acid Miguel 1.0 (0.7-2.0) mmol/L Calcium 9.4 (8.4-10.2) mg/dL Magnesium 1.8 (1.6-2.3) mg/dL Total Bilirubin 1.0 (0.2-1.3) mg/dL AST 28 (14-36) U/L ALT 15 (4-34) U/L Alkaline Phosphatase 61 (38-126) U/L Troponin I <0.012 (0.000-0.034) ng/mL NT-Pro-B Natriuret Pep pg/mL Total Protein 7.4 (6.3-8.2) g/dL Albumin 4.3 (3.5-5.0) g/dL Urine Color Urine Appearance (Clear) Urine pH (5.0-8.0) Ur Specific [place] (1.001-1.035) Urine Protein (Negative) Urine Glucose (UA) (Negative) Urine Ketones (Negative) Urine Blood (Negative) Urine Nitrite (Negative) Urine Bilirubin (Negative) Urine Urobilinogen (<2.0) mg/dL Ur Leukocyte Esterase (Negative) Influenza Type A (PCR) (Not Detectd) Influenza Type B (PCR) (Not Detectd) RSV (PCR) (Not Detectd) SARS-CoV-2 (PCR) (Not Detectd) 07/13/24 07/13/24 Range/Units 20:51 22:42 WBC (3.8-10.6) k/uL RBC (3.80-5.40) m/uL Hgb (11.4-16.0) gm/dL Hct (34.0-46.0) % MCV (80.0-100.0) fL MCH (25.0-35.0) pg MCHC (31.0-37.0) g/dL RDW (11.5-15.5) % Plt Count (150-450) k/uL MPV Neutrophils % % Lymphocytes % % Monocytes % % Eosinophils % % Basophils % % Neutrophils # (1.3-7.7) k/uL Lymphocytes # (1.0-4.8) k/uL Monocytes # (0-1.0) k/uL Eosinophils # (0-0.7) k/uL Basophils # (0-0.2) k/uL PT (10.0-12.5) sec INR (<1.2) APTT (22.0-30.0) sec Sodium (137-145) mmol/L Potassium (3.5-5.1) mmol/L Chloride (98-107) mmol/L Carbon Dioxide (22-30) mmol/L Anion Gap mmol/L BUN (7-17) mg/dL Creatinine (0.52-1.04) mg/dL Est GFR (CKD-EPI)AfAm (>60 ml/min/1.73 sqM) Est GFR (CKD-EPI)NonAf (>60 ml/min/1.73 sqM) Glucose (74-99) mg/dL Plasma Lactic Acid Miguel (0.7-2.0) mmol/L Calcium (8.4-10.2) mg/dL Magnesium (1.6-2.3) mg/dL Total Bilirubin (0.2-1.3) mg/dL AST (14-36) U/L ALT (4-34) U/L Alkaline Phosphatase (38-126) U/L Troponin I (0.000-0.034) ng/mL NT-Pro-B Natriuret Pep 5200 pg/mL Total Protein (6.3-8.2) g/dL Albumin (3.5-5.0) g/dL Urine Color Urine Appearance (Clear) Urine pH (5.0-8.0) Ur Specific [place] (1.001-1.035) Urine Protein (Negative) Urine Glucose (UA) (Negative) Urine Ketones (Negative) Urine Blood (Negative) Urine Nitrite (Negative) Urine Bilirubin (Negative) Urine Urobilinogen (<2.0) mg/dL Ur Leukocyte Esterase (Negative) Influenza Type A (PCR) Detected A (Not Detectd) Influenza Type B (PCR) Not Detected (Not Detectd) RSV (PCR) Not Detected (Not Detectd) SARS-CoV-2 (PCR) Not Detected (Not Detectd) - Radiology Data Radiology results: report reviewed, image reviewed Disposition Clinical Impression: Influenza A, Fluid overload Disposition: HOME SELF-CARE Instructions (If sedation given, give patient instructions): Influenza (ED) Additional Instructions: Return to the emergency department with any new, worsening, or concerning symptoms. Take the Tamiflu as prescribed for 5 days. Take the Lasix daily for 5 days. Try to take this in the morning so you are not up all night urinating. You can take the Tessalon Perles up to every 8 hours as needed for coughing. You can use the albuterol inhaler every 4-6 hours as needed for shortness of breath. Follow up with your primary care provider in 1-2 days. Prescriptions: Albuterol Sulfate [Albuterol Sulfate Hfa] 1 puff PO Q4-6H PRN #8.5 gm PRN Reason: Shortness Of Breath Furosemide [Lasix] 40 mg PO DAILY 5 Days #5 tablet Oseltamivir [Tamiflu] 75 mg PO Q12HR 5 Days #10 cap Benzonatate [Tessalon Perle] 200 mg PO TID PRN #30 capsule PRN Reason: Cough Is patient prescribed a controlled substance at d/c from ED?: No Referrals: Jean-Paul Alejandre DO [Primary Care Provider] - 1-2 days Time of Disposition: 23:31
[2024-07-13 21:31] LABS: Basophils % (A) 0 %; Eosinophils # (A) 0.1 k/uL (0-0.7); Eosinophils % (A) 2 %; HCT 42.2 % (34.0-46.0); Lymphocytes # (A) 1.4 k/uL (1.0-4.8); Lymphocytes % (A) 20 %; MCH 30.8 pg (25.0-35.0); MCHC 33.3 g/dL (31.0-37.0); MCV 92.4 fL (80.0-100.0); Monocytes # (A) 0.6 k/uL (0-1.0); Monocytes % (A) 9 %; Neutrophils # (A) 4.7 k/uL (1.3-7.7); Neutrophils % (A) 66 %; Platelet Count 203 k/uL (150-450); RBC 4.56 m/uL (3.80-5.40); RDW 12.4 % (11.5-15.5); WBC 7.1 k/uL (3.8-10.6)
--- NOTE | 2024-07-13 21:43 | CT ---
EXAMINATION TYPE: CT brain wo con DATE OF EXAM: 07/13/2024 9:38 PM COMPARISON: None. CLINICAL INDICATION: Female, 88 years old with history of weakness, confusion, Patient sent from [facility] for further work up per patients daughter. Patients daughter reports increased weakness and c onfusion of patient today. TECHNIQUE: CT of the brain is performed utilizing 3 mm thick sections through the posterior fossa and 3 mm thick sections through the remaining calvarium. Study is performed within 24 hours of arrival to the hospital. Contrast used: mL of , (none if empty) CT DLP: 1137.3 mGycm, Automated exposure control for dose reduction was used. FINDINGS: No abnormal hyperdensity is present to suggest an acute intracranial hemorrhage. No mass lesion is evident. No acute infarcts are evident. Confluent periventricular white matter hypodensity is present, likely on the basis of chronic white matter ischemic changes. Ventricles and sulci are prominent for the patient age. Paranasal sinuses and mastoid air cells within the [id number] are clear. IMPRESSION: 1. No acute intracranial process. Follow up MRI can be performed as clinically indicated. 2. Confluent periventricular white matter ischemic type changes with atrophy [facility], Workstation: [facility], 07/13/2024 9:41 PM
[2024-07-13 21:44] LABS: Partial Thromboplastin Time 26.8 sec (22.0-30.0); Prothrombin Time 11.3 sec (10.0-12.5)
[2024-07-13 21:46] LABS: ALT 15 U/L (4-34); AST 28 U/L (14-36); African American GFR (CKD) 67 (>60 ml/min/1.73 sqM); Albumin 4.3 g/dL (3.5-5.0); Alkaline Phosphatase 61 U/L (38-126); Anion Gap 10 mmol/L; Blood Urea Nitrogen 17 mg/dL (7-17); Calcium 9.4 mg/dL (8.4-10.2); Carbon Dioxide 25 mmol/L (22-30); Chloride 94 mmol/L (98-107); Glucose 111 mg/dL (74-99); Magnesium 1.8 mg/dL (1.6-2.3); Non-African American GFR(CKD) 58 (>60 ml/min/1.73 sqM); Potassium 4.4 mmol/L (3.5-5.1); Sodium 129 mmol/L (137-145); Total Protein 7.4 g/dL (6.3-8.2)
--- NOTE | 2024-07-13 21:56 | XR ---
EXAMINATION TYPE: XR chest 2V DATE OF EXAM: 07/13/2024 9:38 PM COMPARISON: 01/15/2021 CLINICAL INDICATION: Female, 88 years old with history of Weakness, TECHNIQUE: XR chest 2V view(s) obtained. FINDINGS: The heart size is normal. Prior cardiac valve surgery is evident The pulmonary vasculature is prominent. There may be some mild patchy infiltrate through the left lung. Correlate for volume overload. There is chronic elevation of the right diaphragm. IMPRESSION: 1. Local consideration for mild bilateral overload and some atypical pulmonary edema greater on the l eft. Follow-up can be performed as clinically indicated [facility], Workstation: [facility], 07/13/2024 9:54 PM
[2024-07-13 22:07] LABS: Influenza A Detected (Not Detectd); Influenza B Not Detected (Not Detectd); RSV Not Detected (Not Detectd)
[2024-07-13] MEDS: SODIUM CHLORIDE 0.9% 500 ML 500 ML IV STA (22:09)
[2024-07-13] MEDS: CARBAMIDE PEROXIDE 6.5% DROPS 15 ML BTL BOTH EARS STA (22:14)
[2024-07-13 23:00] LABS: Appearance,Urine Clear (Clear); Bilirubin,Urine Negative (Negative); Blood,Urine Negative (Negative); Color,Urine Yellow; Glucose,Urine (UA) Negative (Negative); Ketones,Urine Negative (Negative); Leukocyte Esterase,Urine Negative (Negative); Nitrite,Urine Negative (Negative); PH, Urine 5.5 (5.0-8.0); Protein,Urine Trace (Negative); Specific Gravity,Urine 1.023 (1.001-1.035); Urobilinogen,Urine <2.0 mg/dL (<2.0)
[2024-07-13] MEDS: BENZONATATE 100 MG CAP PO STA (23:40)
[2024-07-13] MEDS: FUROSEMIDE 10 MG/ML 4 ML VIAL IV STA (23:41)
[2024-07-14] MEDS: OSELTAMIVIR 75 MG CAP PO STA (00:04)
[2024-07-14 00:28] VITALS: BP 151/70; PULSE 64; RESP 16; TEMP 97.7
== END 2024-07-14 00:29 | disposition home or self-care (01) ==
LOC: EC 20:31
DX: J10.1 Influenza due to other identified influenza virus with other respiratory manifestations (principal); I11.9 Hypertensive heart disease without heart failure; E87.70 Fluid overload, unspecified; I25.10 Atherosclerotic heart disease of native coronary artery without angina pectoris; E78.5 Hyperlipidemia, unspecified; Z88.2 Allergy status to sulfonamides
CPT/HCPCS: 36415; 93005; 83880; 80053; 83605; 83735; 84484; 85025; 85610; 85730; 81003; 87636; 71046; 70450; 99285; 96374; 96361; J1940